=== PATIENT | female | born 1980 | race Caucasian/White ===

== ENCOUNTER 2020-03-03 13:12 | Day surgery (SDC) | payer OTHER, SELFPAY ==
[2020-02-25 15:17] VITALS: BMI 49.4
--- NOTE | 2020-03-02 12:39 | P.CONAN_ITS ---
Documented by User: Berenice Gannon 03/02/20 12:40 HPI - Anesthesia Eval Consult details Narrative: 39yo F for Colonoscopy PMFSH Past Medical History Medical History GERD (gastroesophageal reflux disease) History of anxiety History of fibromyalgia History of headache Hx of irritable bowel syndrome Hx of ovarian cyst Hx of renal calculi Hydradenitis Family History Family History Father HTN (hypertension) Diabetes mellitus Liver cancer Alcoholic Mother Liver cancer Anxiety Depression Brother Heart attack Buerger disease Stroke Seizure Diabetes mellitus Family/Other Mild asthma Maternal Grandmother Cancer of unknown origin Maternal Grandfather Liver cancer Paternal Grandfather Heart problem Surgical History Surgical History H/O colonoscopy H/O tubal ligation History of History of cholecystectomy History of esophagogastroduodenoscopy (EGD) Social History Social History Smoking Status: Current every day smoker Packs Per Day: 0.5 Cigarettes Per Day: 10.0 Years Smoked: 25 Smoked in Last 30 Days: Yes Advance Directives Information Provided: No Meds Allergies Allergy/AdvReac Type Severity Reaction Status Date / Time azithromycin [AZITHROMYCIN] Allergy Unknown RASH Unverified 01/16/20 15:19 codeine [CODEINE] Allergy Unknown VOMITING Unverified 01/16/20 15:19 fluconazole [Diflucan] Allergy Unknown Verified 11/27/19 00:00 Sulfa (Sulfonamide Allergy Unknown RASH Unverified 01/16/20 15:19 Antibiotics) [SULFA (SULFONAMIDE ANTIBIOTICS)] topiramate [Topamax] Allergy Unknown Verified 12/17/19 00:00 amitriptyline AdvReac Unknown stomach Verified 11/27/19 00:00 upset Toradol Allergy Unknown rash Uncoded 11/27/19 00:00 Amitriptyline AdvReac Unknown Uncoded 12/17/19 00:00 Codeine Sulfate AdvReac Unknown N/V Uncoded 11/27/19 00:00 Home Medications Medication Instructions Recorded Confirmed Type bupropion HCl 150 mg tablet,12 hr 150 mg PO BID 01/30/20 02/25/20 History sustained-release ciprofloxacin HCl 500 mg tablet 500 mg PO BID 01/30/20 History gabapentin 300 mg capsule 300 mg PO TID 01/30/20 02/25/20 History ibuprofen 600 mg tablet mg PO 01/30/20 History levofloxacin 500 mg tablet 500 mg PO DAILY 01/30/20 History lorazepam 1 mg tablet 1 mg PO BID 01/30/20 02/25/20 History naproxen 500 mg tablet mg PO 01/30/20 History omeprazole 20 mg capsule,delayed 20 mg PO DAILY 01/30/20 02/25/20 History release ondansetron HCl 4 mg tablet mg PO 01/30/20 History oxycodone-acetaminophen 5 mg-325 3 tab PO PRN 01/30/20 History mg tablet peg 3350-electrolytes 236 ml PO DIRECTED 01/30/20 History gram-22.74 gram-6.74 gram-5.86 gram solution Exam Exam Date and Time: March 02, 2020 1239 Height,Weight and Vital Signs: Height 5 ft 2 in Weight 122.47 kg Pertinent Lab Results Pertinent Lab Results: Laboratory Tests 12/12/19 12/12/19 14:24 14:24 WBC 9.3 Hgb 13.0 Hct 39.7 Plt Count 294 Sodium 141 Potassium 3.9 Chloride 108 BUN 12 Creatinine 0.87 Assessment and Plan Assessment Anesthesia Assessment: Chart Reviewed Documented by User: Rodolfo Guzman MD 03/03/20 14:57 [facility] Past Medical History Medical History GERD (gastroesophageal reflux disease) History of anxiety History of fibromyalgia History of headache Hx of irritable bowel syndrome Hx of ovarian cyst Hx of renal calculi Hydradenitis Family History Family History Father HTN (hypertension) Diabetes mellitus Liver cancer Alcoholic Mother Liver cancer Anxiety Depression Brother Heart attack Buerger disease Stroke Seizure Diabetes mellitus Family/Other Mild asthma Maternal Grandmother Cancer of unknown origin Maternal Grandfather Liver cancer Paternal Grandfather Heart problem Surgical History Surgical History H/O colonoscopy H/O tubal ligation History of History of cholecystectomy History of esophagogastroduodenoscopy (EGD) Social History Social History Smoking Status: Current every day smoker Packs Per Day: 0.5 Cigarettes Per Day: 10.0 Years Smoked: 25 Smoked in Last 30 Days: Yes Advance Directives Information Provided: No Meds Allergies Allergy/AdvReac Type Severity Reaction Status Date / Time azithromycin [AZITHROMYCIN] Allergy Unknown RASH Unverified 01/16/20 15:19 codeine [CODEINE] Allergy Unknown VOMITING Unverified 01/16/20 15:19 fluconazole [Diflucan] Allergy Unknown Verified 11/27/19 00:00 Sulfa (Sulfonamide Allergy Unknown RASH Unverified 01/16/20 15:19 Antibiotics) [SULFA (SULFONAMIDE ANTIBIOTICS)] topiramate [Topamax] Allergy Unknown Verified 12/17/19 00:00 amitriptyline AdvReac Unknown stomach Verified 11/27/19 00:00 upset Toradol Allergy Unknown rash Uncoded 11/27/19 00:00 Amitriptyline AdvReac Unknown Uncoded 12/17/19 00:00 Codeine Sulfate AdvReac Unknown N/V Uncoded 11/27/19 00:00 Home Medications Medication Instructions Recorded Confirmed Type bupropion HCl 150 mg tablet,12 hr 150 mg PO BID 01/30/20 02/25/20 History sustained-release ciprofloxacin HCl 500 mg tablet 500 mg PO BID 01/30/20 History gabapentin 300 mg capsule 300 mg PO TID 01/30/20 02/25/20 History ibuprofen 600 mg tablet mg PO 01/30/20 History levofloxacin 500 mg tablet 500 mg PO DAILY 01/30/20 History lorazepam 1 mg tablet 1 mg PO BID 01/30/20 02/25/20 History naproxen 500 mg tablet mg PO 01/30/20 History omeprazole 20 mg capsule,delayed 20 mg PO DAILY 01/30/20 02/25/20 History release ondansetron HCl 4 mg tablet mg PO 10/01/20 History oxycodone-acetaminophen 5 mg-325 3 tab PO PRN 01/30/20 History mg tablet peg 3350-electrolytes 236 ml PO DIRECTED 01/30/20 History gram-22.74 gram-6.74 gram-5.86 gram solution Assessment and Plan Assessment Anesthesia Assessment: Anesthesia Plan Discussed and Chart Reviewed Final Anesthetic Review NPO: Yes ASA Class: III Final Preanesthetic Review: No Changes in Pt Med Stat, Meds/Allgs Chart Reviewed, Consent Obtained/Reviewed and Anes Risks/Benef Reviewed Patient Risk: High Procedure Risk: Low Anesthetic Plan Anesthetic Plan: MAC: Disposition: Standard PACU
[2020-03-03 13:50] VITALS: BP 118/71; PULSE 78; RESP 18; TEMP 36.2; O2SAT 97
[2020-03-03] MEDS: Lactated Ringers 1,000 ML 100 ML IVCONT (14:07)
--- NOTE | 2020-03-03 14:11 | MHC.SHP ---
Pre-Procedural Eval Section B Chief Complaint: TUBULAR ADENOMA Relevant Family History (Specify if Yes): No Relevant Social History: Tobacco Use Present Medications: see Short Stay Collaborative assessment Medical History: Significant History (obesity, kidney stones, migraine, OA) History of Previous Operations: Relevant previous surgery/procedure and date(s) (cholecystectomy, c section) Allergies: Allergies Allergy/AdvReac Type Severity Reaction Status Date / Time azithromycin [AZITHROMYCIN] Allergy Unknown RASH Unverified 01/16/20 15:19 codeine [CODEINE] Allergy Unknown VOMITING Unverified 01/16/20 15:19 fluconazole [Diflucan] Allergy Unknown Verified 11/27/19 00:00 Sulfa (Sulfonamide Allergy Unknown RASH Unverified 01/16/20 15:19 Antibiotics) [SULFA (SULFONAMIDE ANTIBIOTICS)] topiramate [Topamax] Allergy Unknown Verified 12/17/19 00:00 amitriptyline AdvReac Unknown stomach Verified 11/27/19 00:00 upset Toradol Allergy Unknown rash Uncoded 11/27/19 00:00 Amitriptyline AdvReac Unknown Uncoded 12/17/19 00:00 Codeine Sulfate AdvReac Unknown N/V Uncoded 11/27/19 00:00 Review of Systems Sugical H&P ROS: Negative: Constitution, Cardiovascular, Respiratory, Neurological, Psychiatric, Hem-Onc, Allergic/Immunologic, Gastrointestinal, Genitourinary, Musculoskeletal, Integumentary, Endocrine and Eyes/Ears/Nose/Throat Exam Surgical H&P Exam: Normal: HEENT, Normal: Heart, Normal: Lungs, Normal: Extremities, Normal: Abdomen, Normal: Skin and Normal: Neurological Plan Diagnosis/Plan: Unchanged Patient has been examined and remains a candidate for the planned procedure
--- NOTE | 2020-03-03 14:49 | PM.OP ---
Brief Operative Note Date of procedure: 03/03/20 Pre-op diagnosis: hx of polyps, diarrhea Post-op diagnosis: same Procedure: see op note Surgeon: Darius Palomino MD Anesthesia: MAC Estimated blood loss (mL): 5 Condition: stable Disposition: PACU
--- NOTE | 2020-03-03 14:50 | P.OP_ITS ---
Operative Note Operative Note Narrative: Operative Information Procedure Description: Colonoscopy COLONOSCOPY Instrument: Olympus variable stiffness pediatric scope 190L Colonoscopy Monitoring: Vital signs and clinical assessment, continuous EKG monitoring, Pulse oximetry, Carbon Dioxide monitoring and blood pressure monitoring were done throughout the procedure. Colon withdrawal time was 22 minutes. Procedure: The patient was placed in the left lateral decubitis position and pre-procedure medications were administered. After a digital rectal examination of the ano-rectum, the video colonoscope was inserted into the rectum and advanced through the colon to the cecum/TI. The colonoscope was slowly withdrawn in a retrograde panoramic fashion and the colon mucosa was carefully examined including a retroflexed view of the rectum. Findings and interventions are described below. Procedure Difficulty: easy Findings: Terminal Ileum-normal, bx taken random colon--bx taken Cecum:normal Ascending Colon: polyp noted at site of prior marking, measured 12-15 mm removed en bloc with hot snare cut setting and retrieved, 2 clips applied to close defect Transverse Colon -normal Descending Colon:normal Sigmoid Colon: 8-10 mm sessile polyp removed with cold snare with 2 clips applied due to oozing of blood Rectum: Retroflexion with moderate sized internal hemorrhoids, grade I Anorectum - normal Colon preparation: [place] Bowel Preparation Scale Right colon; 3 Transverse colon: 2 Left colon; 3 (0 = Unprepared colon segment with mucosa not seen due to solid stool that cannot be cleared. 1 = Portion of mucosa of the colon segment seen, but other areas of the colon segment not well seen due to staining, residual stool and/or opaque liquid. 2 = Minor amount of residual staining, small fragments of stool and/or opaque liquid, but mucosa of colon segment seen well. 3 = Entire mucosa of colon segment seen well with no residual staining, small fragments of stool or opaque liquid) Impression and Post Procedure Diagnosis: polyps internal hemorrhoids Plan: High fiber diet leaflet Avoid straining at stool, epsom salts and sitz bath prn, anusol supps or cream prn Repeat Colonoscopy in 2-3 years or earlier if clinically indicated Above findings were reviewed with the patient and relevant handouts were provided if indicated.
[2020-03-03 15:00] VITALS: BP 120/62; PULSE 85; RESP 20; TEMP 36.6; O2SAT 99
[2020-03-03] MEDS: ondansetron HCL 4 MG/2 ML VIAL IVPUSH (15:14)
[2020-03-03 15:15] VITALS: BP 135/78; PULSE 80; RESP 20; O2SAT 99
[2020-03-03 15:37] VITALS: BP 132/76; PULSE 76; RESP 20; TEMP 36.1; O2SAT 98
== END 2020-03-03 23:59 | disposition home or self-care (01) ==
PROVIDERS: PCP Internal Medicine; Visit Provider Internal Medicine Gastroenterology
PROC: 0DJD8ZZ Inspection of Lower Intestinal Tract, Via Natural or Artificial Opening Endoscopic (ICD-10-PCS; CPT 45378; principal; 2020-03-03 14:30)
DX: Z12.11 Encounter for screening for malignant neoplasm of colon (principal); Z86.010 Personal history of colon polyps; D12.2 Benign neoplasm of ascending colon; D12.5 Benign neoplasm of sigmoid colon; K64.0 First degree hemorrhoids; K21.9 Gastro-esophageal reflux disease without esophagitis; Z90.49 Acquired absence of other specified parts of digestive tract; Z79.899 Other long term (current) drug therapy; Z88.1 Allergy status to other antibiotic agents; Z88.2 Allergy status to sulfonamides; Z88.8 Allergy status to other drugs, medicaments and biological substances; F17.210 Nicotine dependence, cigarettes, uncomplicated
CPT/HCPCS: 45385; 45380; 88305; J2405

== ENCOUNTER 2020-04-06 12:22 | Outpatient (REF) | payer OTHER, SELFPAY ==
[2020-04-06 13:54] LABS: Hematocrit 42.6 % (37-47); Hemoglobin 13.8 g/dl (12.0-16.0); Mean Corpuscular HGB Conc 32.4 g/dl (31.0-35.0); Mean Corpuscular Hemoglobin 29.5 pg (27.0-33.0); Mean Platelet Volume 10.1 fL (9.4-12.3); Platelet Count 287 X10*3/uL (160-400); Red Blood Count 4.68 X10*6/uL (4.20-5.50); Red Cell Distribution Width 12.9 % (11.0-16.0); White Blood Count 9.1 X10*3/uL (4.8-10.8)
[2020-04-06 14:26] LABS: Alanine Aminotransferase 23 U/L (0-31); Albumin Level 4.1 g/dL (3.5-5.0); Alkaline Phosphatase 117 U/L (39-117); Anion Gap 13 (12-20); Aspartate Amino Transferase 14 U/L (5-31); Bilirubin Total 0.4 mg/dL (0.0-1.0); Blood Urea Nitrogen 14 mg/dL (9-16); Calcium 9.2 mg/dL (8.4-10.2); Carbon Dioxide 29 mmol/L (22-29); Chloride 104 mmol/L (96-108); Estimated Glomerular Filt Rate > 60; Glucose Random 89 mg/dL (60-115); Potassium 3.9 mmol/l (3.3-5.1); Sodium 142 mmol/L (135-145); Total Protein 7.3 g/dL (6.5-8.0)
[2020-04-06 14:39] LABS: TSH reflex Free T4 0.97 mIU/mL (0.32-4.0)
== END 2020-04-06 12:23 | disposition home or self-care (01) ==
LOC: HO.HMGCLDS 12:22
PROVIDERS: PCP Internal Medicine; Visit Provider Hospitalist
DX: R00.2 Palpitations (principal)
CPT/HCPCS: 36415; 80053; 84443; 85027

== ENCOUNTER → 2020-04-14 08:41 | Outpatient (BNVA) | payer OTHER, SELFPAY | PROVIDERS: Visit Provider Physician Assistant | DX: Z76.89 Persons encountering health services in other specified circumstances (principal) ==

== ENCOUNTER 2020-05-07 14:04 | Outpatient (REF) | payer OTHER, SELFPAY ==
[2020-05-09 14:17] LABS: C. trachomatis RNA TMA NOT DETECTED (NOT DETECTED); N. gonorrhoeae RNA TMA NOT DETECTED (NOT DETECTED)
[2020-05-12 02:32] LABS: HPV mRNA E6/E7 rflx Not Detected (Not Detected)
== END 2020-05-07 14:05 | disposition home or self-care (01) ==
LOC: HO.LAB 14:04
PROVIDERS: PCP Internal Medicine; Visit Provider Advanced Practice Midwife
DX: Z12.4 Encounter for screening for malignant neoplasm of cervix (principal); N63.0 Unspecified lump in unspecified breast; E66.01 Morbid (severe) obesity due to excess calories; N92.0 Excessive and frequent menstruation with regular cycle; L73.2 Hidradenitis suppurativa
CPT/HCPCS: 36415; 87491; 87591; 87624; 88142

== ENCOUNTER → 2020-05-13 08:22 | Outpatient (BNVA) | payer OTHER, SELFPAY | PROVIDERS: PCP Internal Medicine; Visit Provider Physician Assistant | DX: Z76.89 Persons encountering health services in other specified circumstances (principal) ==

== ENCOUNTER 2020-05-14 13:20 | Outpatient (REF) | payer OTHER, SELFPAY ==
--- NOTE | 2020-05-14 13:25 | US_ITS ---
EXAMINATION: US PELVIS COMPLETE US TRANSVAGINAL CLINICAL INFORMATION: Frequent menses. COMPARISON: Ultrasound pelvis 01/23/2017. TECHNIQUE: Transabdominal and transvaginal ultrasound of the pelvis is performed. FINDINGS: The uterus is anteverted and anteflexed measuring 8.2 cm in length, 4.6 cm in AP and 5.2 cm in transverse dimension. Endometrial thickness is 1.22 cm. The uterus is homogeneous in echotexture. There are small nabothian cysts seen in the cervix on transvaginal ultrasound. The right ovary is not visualized. The left ovary is not seen. US/US transvaginal IMPRESSION: Unremarkable uterus. Multiple nabothian cysts seen in cervix. The ovaries are unremarkable.
--- NOTE | 2020-05-14 13:25 | US_ITS ---
EXAMINATION: US PELVIS COMPLETE US TRANSVAGINAL CLINICAL INFORMATION: Frequent menses. COMPARISON: Ultrasound pelvis 01/23/2017. TECHNIQUE: Transabdominal and transvaginal ultrasound of the pelvis is performed. FINDINGS: The uterus is anteverted and anteflexed measuring 8.2 cm in length, 4.6 cm in AP and 5.2 cm in transverse dimension. Endometrial thickness is 1.22 cm. The uterus is homogeneous in echotexture. There are small nabothian cysts seen in the cervix on transvaginal ultrasound. The right ovary is not visualized. The left ovary is not seen. US/US pelvic complete IMPRESSION: Unremarkable uterus. Multiple nabothian cysts seen in cervix. The ovaries are unremarkable.
== END 2020-05-14 13:21 | disposition home or self-care (01) ==
LOC: HO.US 13:20
PROVIDERS: Visit Provider Advanced Practice Midwife
DX: N92.0 Excessive and frequent menstruation with regular cycle (principal)
CPT/HCPCS: 76830; 76856

== ENCOUNTER → 2020-05-20 08:00 | Outpatient (REF) | payer OTHER, SELFPAY ==
--- NOTE | 2020-05-20 08:07 | NM_ITS ---
EXAMINATION: RADIONUCLIDE SOLID FOOD GASTRIC EMPTYING 4-HOUR STUDY CLINICAL INFORMATION: Early satiety. COMPARISON: No previous gastric emptying study is available for comparison. TECHNIQUE: A standard meal consisting of 4 oz of Egg Beaters brand equivalent tagged with 710 microcuries Tc-99m Sulfur Colloid, 8 oz water and 2 slices of toast with jelly was administered orally to the patient. Images were obtained using a dual head gamma camera in the anterior and posterior projections over of the stomach immediately post ingestion and at hourly intervals up to 4 hours post ingestion. The anterior and posterior counts at each time interval were averaged using the geometric mean and expressed as percentage of the immediate post ingestion counts. FINDINGS: There is good visualization of activity in the stomach immediately post ingestion. As the study progresses, there is visualization of progressively increasing small bowel activity. However, at the end of the study there is mild abnormal retention of activity in the stomach at 4 hours. Retention in the stomach at each time interval was: 1 hour 79% (normal 37%-90%) 2 hours 66% (normal 30%-60%) 3 hours 52% 4 hours 23% (normal 0%-10%) NM/NM gastric emptying study IMPRESSION: Abnormal study. There is mild abnormal retention of solid food in the stomach at 4 hours.
== END ==
LOC: HO.NUCMED 08:00
PROVIDERS: Visit Provider Physician Assistant
DX: R68.81 Early satiety (principal)
CPT/HCPCS: 78264; A9541

== ENCOUNTER → 2020-06-09 12:06 | Outpatient (BNVA) | payer OTHER, SELFPAY | PROVIDERS: PCP Advanced Practice Midwife; Visit Provider Advanced Practice Midwife | DX: Z76.89 Persons encountering health services in other specified circumstances (principal) | CPT/HCPCS: 99212 ==

== ENCOUNTER 2020-07-17 10:07 | Outpatient (REF) | payer OTHER, SELFPAY ==
--- NOTE | ~2020-07-17 | XR_ITS ---
EXAMINATION: XR CHEST CLINICAL INFORMATION: Shortness of breath COMPARISON: Previous chest x-ray September 2018 TECHNIQUE: 2 views of the chest were obtained. FINDINGS: The cardiac and mediastinal contours are stable. The lungs are clear. There is no pleural effusion or pneumothorax. There are degenerative changes of the spine. XR/XR chest 2V IMPRESSION: Unremarkable examination.
== END 2020-07-17 10:08 | disposition home or self-care (01) ==
LOC: HO.HMGCX 10:07
PROVIDERS: PCP Internal Medicine; Visit Provider Nurse Practitioner Family
DX: R06.02 Shortness of breath (principal)
CPT/HCPCS: 71046

== ENCOUNTER 2020-07-31 11:43 | Emergency (ER) | payer OTHER, SELFPAY ==
--- NOTE | 2020-07-31 | ECG_ITS ---
Test Reason : CHEST PAIN Blood Pressure : / mmHG Vent. Rate : 081 BPM Atrial Rate : 081 BPM P-R Int : 142 ms QRS Dur : 074 ms QT Int : 360 ms P-R-T Axes : 027 -15 -07 degrees QTc Int : 418 ms Normal sinus rhythm T wave abnormality, consider anterior ischemia Abnormal ECG When compared with ECG of 04-OCT-2018 20:06, Nonspecific T wave abnormality, worse in Inferior leads Inverted T waves have replaced nonspecific T wave abnormality in Anterior leads Referred By: Generic ED Physician Electronically Signed By:ANDREA YI MD
--- NOTE | ~2020-07-31 | XR_ITS ---
EXAMINATION: XR CHEST CLINICAL INFORMATION: EKG changes COMPARISON: Previous chest x-ray 07/17/2020 TECHNIQUE: Frontal view of the chest was obtained. FINDINGS: The cardiac and mediastinal contours are stable. The lungs are clear. There is no pleural effusion or pneumothorax. There are degenerative changes of the spine. XR/XR chest 1V IMPRESSION: No evidence for acute disease in the chest.
[2020-07-31 11:44] VITALS: BP 135/87; PULSE 78; RESP 16; TEMP 37.1; O2SAT 97; BMI 40.3
--- NOTE | 2020-07-31 12:04 | PC.NURSE ---
utilization management rn aware that pt needs ekg and poc, this rn called charge x2 for ekg for triage. pt presents from [facility] office with ekg changes.
[2020-07-31 13:53] LABS: MANUAL DIFF FLAG NO
[2020-07-31 13:55] LABS: Basophils Percent Auto 0.5 % (0-2); Eosinophils Absolute Auto 0.6 X10*3/uL (0.0-0.4); Eosinophils Percent Auto 6.6 % (0-4); Hematocrit 40.4 % (37-47); Hemoglobin 13.4 g/dl (12.0-16.0); Imm Gran Abs Auto 0.02 X10*3/uL (0.00-0.03); Imm Gran Pct Auto 0.2 % (0.0-0.4); Lymphocytes Absolute Auto 3.6 X10*3/uL (1.2-4.9); Mean Corpuscular HGB Conc 33.2 g/dl (31.0-35.0); Mean Corpuscular Hemoglobin 29.6 pg (27.0-33.0); Mean Corpuscular Volume 89.4 fL (80-98); Mean Platelet Volume 9.5 fL (9.4-12.3); Monocytes Absolute Auto 0.5 X10*3/uL (0.1-1.2); Monocytes Percent Auto 5.9 % (2-11); Neutrophils Percent Auto 45.8 % (45-73); Platelet Count 227 X10*3/uL (160-400); Red Blood Count 4.52 X10*6/uL (4.20-5.50); Red Cell Distribution Width 13.4 % (11.0-16.0); White Blood Count 8.7 X10*3/uL (4.8-10.8)
[2020-07-31] MEDS: Lidocaine HCl Viscous 2 % 15 ML SOLUTION MUCOUS MEM (14:08)
[2020-07-31] MEDS: Magnesium Hydrox/Alum Hydrox 30 ML ORAL.SUSP PO (14:08)
[2020-07-31] MEDS: Omeprazole 40 MG CAPSULE.DR PO (14:08)
--- NOTE | 2020-07-31 14:08 | ED.CHESTPAIN ---
HPI - Chest Pain General Chief Complaint: Chest Pain Stated Complaint: chest burning Time Seen by Provider: 07/31/20 13:39 Source: patient Mode of arrival: ambulatory Limitations: no limitations History of Present Illness HPI narrative: 40 y/o female with history of morbid obesity, fibromyalgia, GERD, hiatial hernia, palpitations, colon polyps, who presents to the ED from her PCP's office with complaints of burning chest pain and new EKG changes. She states the pain woke her up at 1am. It is burning in nature, starts in her epigastric area and radiates all the way up to her throat. She states it feels like her usual heartburn only worse. She ate a quesadilla for dinner last night. She has been on Prilosec for years and her GERD has not been under good control. She has a GI doctor who recently performed a colonoscopy but deferred EGD for now. Patient denies SOB, SHIRLEY, fevers, chills, diaphroesis, nausea, vomiting, palpitations. She reports increased urinary frequency and some bilateral lower back pain. No dysuria. Related Data Home Medications Medication Instructions Recorded Confirmed bupropion HCl 150 mg tablet,12 hr 150 mg PO BID 01/30/20 07/31/20 sustained-release lorazepam 1 mg tablet 1 mg PO BID 01/30/20 07/31/20 oxycodone-acetaminophen 5 mg-325 3 tab PO PRN 01/30/20 04/17/20 mg tablet peg 3350-electrolytes 236 ml PO DIRECTED 01/30/20 04/17/20 gram-22.74 gram-6.74 gram-5.86 gram solution Previous Rx's Medication Instructions Recorded amitriptyline 10 mg PO BEDTIME 30 Days #30 tab 03/03/20 clindamycin phosphate 1 % topical 1 appl TOPICAL BID #60 g 05/07/20 gel omeprazole 20 mg capsule,delayed 20 mg PO DAILY 30 Days #30 cap 05/13/20 release ondansetron HCl 4 mg tablet 4 mg PO DAILY PRN #10 tab 05/13/20 gabapentin 300 mg capsule 300 mg PO TID 30 Days #90 cap 05/26/20 albuterol sulfate 90 mcg/actuation 1 inh INHALATION Q6H PRN #8.5 g NS 07/17/20 aerosol inhaler famotidine 40 mg tablet 40 mg PO BEDTIME #30 tab 07/31/20 omeprazole 40 mg capsule,delayed 40 mg PO DAILY #30 cap 07/31/20 release ondansetron HCl 8 mg tablet 8 mg PO Q8H PRN #14 tab 07/31/20 sucralfate [Carafate] 1 g PO BID #20 tab 07/31/20 Allergies Allergy/AdvReac Type Severity Reaction Status Date / Time azithromycin [AZITHROMYCIN] Allergy Unknown RASH Verified 07/31/20 10:54 codeine [CODEINE] Allergy Unknown VOMITING Verified 07/31/20 10:54 fluconazole [Diflucan] Allergy Unknown unknown Verified 07/31/20 10:54 Sulfa (Sulfonamide Allergy Unknown RASH Verified 07/31/20 10:54 Antibiotics) [SULFA (SULFONAMIDE ANTIBIOTICS)] topiramate [Topamax] Allergy Unknown unknown Verified 07/31/20 10:54 amitriptyline AdvReac Unknown stomach Verified 07/31/20 10:54 upset Toradol Allergy Unknown rash Uncoded 07/31/20 10:54 Amitriptyline AdvReac Unknown unknown Uncoded 07/31/20 10:54 Codeine Sulfate AdvReac Unknown N/V Uncoded 07/31/20 10:54 Review of Systems Review of Systems: Constitutional: No Fever, No Chills ENT/Mouth: No sore throat, No Rhinorrhea, No Swallowing Difficulty Eyes: No Eye Pain, No Swelling, No Redness Cardiovascular: + Chest Pain, No SOB, No Orthopnea, No Edema Respiratory: No Cough, No Sputum, No Wheezing, No dyspnea Gastrointestinal: No Nausea, No Vomiting, No Diarrhea, + abdominal Pain Genitourinary: No Dysuria, + Urinary Frequency, No Hematuria Musculoskeletal: No joint pain, No Myalgias Skin: No Skin Lesions, No rash Neuro: No Weakness, No Numbness, No Dizziness, + Headache Psych: + Anxiety/Panic, No Depression Heme/Lymph: No Bruising, No Lymphadenopathy Endocrine: No Polyuria, No Polydipsia PMFSH Past Medical History Attestation statement: The following information was validated with the patient. Medical History Acid reflux Colon polyps Early satiety Fibromyalgia GERD (gastroesophageal reflux disease) History of anxiety History of fibromyalgia History of headache Hx of irritable bowel syndrome Hx of ovarian cyst Hx of renal calculi Hydradenitis Surgical History H/O colonoscopy H/O tubal ligation History of History of cholecystectomy History of esophagogastroduodenoscopy (EGD) Family History Family History Father HTN (hypertension) Diabetes mellitus Liver cancer Alcoholic Mother Liver cancer Anxiety Depression Brother Heart attack Buerger disease Stroke Seizure Diabetes mellitus Family/Other Mild asthma Maternal Grandmother Cancer of unknown origin Maternal Grandfather Liver cancer Paternal Grandfather Heart problem Social History Social History Household Members: Spouse and Children Alcohol intake: never Smoking Status: Current every day smoker Packs Per Day: 0.5 Cigarettes Per Day: 10.0 Years Smoked: 25 Advance Directives: No Advance Directives Information Provided: No Current occupational status: unemployed Current occupation: due to Covid Gender identity: female Physical Exam Vital Signs: Vital Signs: Last Vital Signs Temp 98.8 F 07/31/20 11:44 Pulse 72 07/31/20 14:13 Resp 14 07/31/20 14:13 BP 130/81 07/31/20 14:13 Pulse Ox 100 07/31/20 14:13 Body Mass Index 40.3 Appearance: Alert. Oriented X3. No acute distress. Eyes: Pupils equal, round and reactive to light. ENT: Pharynx normal. Neck: Normal inspection. Neck supple. CVS: Normal heart rate and rhythm. Pulses normal. Respiratory: No respiratory distress. Breath sounds normal. Abdomen: Obese, Soft with mild epigastric tenderness, no rebound or guarding. +BS x4. No CVA tenderness Skin: Skin warm and dry. Normal skin color. Normal skin turgor. No rashes. Extremities: No lower extremity edema. Neuro: Oriented X 3. No motor deficit. No sensory deficit. Course Course Course Narrative: 40 y/o female presenting with burning chest pain, starting in epigastric area going up to her neck. Clinical picture most consistent with reflux however she has new t-wave inversions on EKG which are non-specific. Will get EKG here, EKG and lab workup. Will treat for reflux with GI cocktail and reassess. Low suspicion for ACS. Reevaluation(s) Reevaluation #1: Lab workup is reassuring. Her symptoms are improved after GI cocktail. Troponin negative. Her symptoms started >6 hours ago so no need to repeat at this time. Her symptoms are most likely due to GERD and her hiatal hernia. She has poorly controlled symptoms at baseline and sounds like she needs repeat EGD for further assessment. She will follow up with Dr. Fontenot. She has been instructed to come back to the ER if any of her symptoms worsen or persist. She is stable for discharge. Patient and are agreeable with plan. MDM - Chest Pain Lab Data Attestation: I reviewed the patient's lab results. Result diagrams: 07/31/20 13:48 07/31/20 13:48 Labs: Lab Results 07/31/20 07/31/20 07/31/20 Range/Units 13:48 13:48 13:48 WBC 8.7 (4.8-10.8) X10*3/uL RBC 4.52 (4.20-5.50) X10*6/uL Hgb 13.4 (12.0-16.0) g/dl Hct 40.4 (37-47) % MCV 89.4 (80-98) fL MCH 29.6 (27.0-33.0) pg MCHC 33.2 (31.0-35.0) g/dl RDW 13.4 (11.0-16.0) % Plt Count 227 (160-400) X10*3/uL MPV 9.5 (9.4-12.3) fL Immature Gran % (Auto) 0.2 (0.0-0.4) % Neut % (Auto) 45.8 (45-73) % Lymph % (Auto) 41.0 H (20-40) % Charles % (Auto) 5.9 (2-11) % Eos % (Auto) 6.6 H (0-4) % Baso % (Auto) 0.5 (0-2) % Lymph # (Auto) 3.6 (1.2-4.9) X10*3/uL Charles # (Auto) 0.5 (0.1-1.2) X10*3/uL Eos # (Auto) 0.6 H (0.0-0.4) X10*3/uL Baso # (Auto) 0.0 (0.0-0.2) X10*3/uL Abs Immat Gran (auto) 0.02 (0.00-0.03) X10*3/uL Absolute Neuts (auto) 4.0 (2.0-8.3) X10*3/uL Absolute Nucleated RBC 0.000 (0.0-0.012) X10*3/uL Nucleated RBC % (auto) 0.0 (0.0-0.2) /100WBC Hold Blue Top SEE NOTE Sodium 143 (135-145) mmol/L Potassium 4.1 (3.3-5.1) mmol/L Chloride 108 (96-108) mmol/L Carbon Dioxide 26 (22-29) mmol/L Anion Gap 13 (12-20) BUN 15 (9-16) mg/dL Creatinine 0.80 (0.5-1.4) mg/dL Estim Creat Clear Calc 109.1 Estimated GFR > 60 Random Glucose 89 (60-115) mg/dL Calcium 9.5 (8.4-10.2) mg/dL Total Bilirubin 0.5 (0.0-1.0) mg/dL Direct Bilirubin < 0.2 (0.0-0.5) mg/dL AST 30 D (5-31) U/L ALT 52 H (0-31) U/L Alkaline Phosphatase 104 (39-117) U/L Troponin I High Sens (<3.5-17.0) ng/L Total Protein 7.0 (6.5-8.0) g/dL Albumin 4.0 (3.5-5.0) g/dL Urine Color Urine Appearance Urine pH (5.0-8.0) Ur Specific [place] (1.005-1.025) Urine Protein (NEG-TRACE) MG/DL Urine Glucose (UA) (NEG) MG/DL Urine Ketones (NEG) MG/DL Urine Blood (NEG) Urine Nitrite (NEG) Ur Leukocyte Esterase (NEG) Urine RBC (0) /HPF Urine WBC (0-4) /HPF Ur Squamous Epith Cells /LPF Urine Bacteria /LPF 07/31/20 07/31/20 Range/Units 13:48 14:04 WBC (4.8-10.8) X10*3/uL RBC (4.20-5.50) X10*6/uL Hgb (12.0-16.0) g/dl Hct (37-47) % MCV (80-98) fL MCH (27.0-33.0) pg MCHC (31.0-35.0) g/dl RDW (11.0-16.0) % Plt Count (160-400) X10*3/uL MPV (9.4-12.3) fL Immature Gran % (Auto) (0.0-0.4) % Neut % (Auto) (45-73) % Lymph % (Auto) (20-40) % Charles % (Auto) (2-11) % Eos % (Auto) (0-4) % Baso % (Auto) (0-2) % Lymph # (Auto) (1.2-4.9) X10*3/uL Charles # (Auto) (0.1-1.2) X10*3/uL Eos # (Auto) (0.0-0.4) X10*3/uL Baso # (Auto) (0.0-0.2) X10*3/uL Abs Immat Gran (auto) (0.00-0.03) X10*3/uL Absolute Neuts (auto) (2.0-8.3) X10*3/uL Absolute Nucleated RBC (0.0-0.012) X10*3/uL Nucleated RBC % (auto) (0.0-0.2) /100WBC Hold Blue Top Sodium (135-145) mmol/L Potassium (3.3-5.1) mmol/L Chloride (96-108) mmol/L Carbon Dioxide (22-29) mmol/L Anion Gap (12-20) BUN (9-16) mg/dL Creatinine (0.5-1.4) mg/dL Estim Creat Clear Calc Estimated GFR Random Glucose (60-115) mg/dL Calcium (8.4-10.2) mg/dL Total Bilirubin (0.0-1.0) mg/dL Direct Bilirubin (0.0-0.5) mg/dL AST (5-31) U/L ALT (0-31) U/L Alkaline Phosphatase (39-117) U/L Troponin I High Sens < 3.5 (<3.5-17.0) ng/L Total Protein (6.5-8.0) g/dL Albumin (3.5-5.0) g/dL Urine Color YELLOW Urine Appearance CLEAR Urine pH 5.5 (5.0-8.0) Ur Specific [place] >= 1.030 H (1.005-1.025) Urine Protein NEG (NEG-TRACE) MG/DL Urine Glucose (UA) NEG (NEG) MG/DL Urine Ketones NEG (NEG) MG/DL Urine Blood 3+ H (NEG) Urine Nitrite NEG (NEG) Ur Leukocyte Esterase NEG (NEG) Urine RBC 5-9 H (0) /HPF Urine WBC 0-2 (0-4) /HPF Ur Squamous Epith Cells TRACE /LPF Urine Bacteria NONE /LPF ECG Data ECG #1: Attestation: I personally reviewed and interpreted this ECG as follows: ECG interpretation date: 07/31/20 ECG interpretation time: 14:53 Prior ECG tracings: available for review Interpretation: normal sinus rhythm, 81 bpm, normal VA interval, normal QTc, nonspecific T-wave inversion in V3-V5 which are new from 2019 Critical Care Time Critical Care Time Critical Care Time: No Discharge Plan Discharge Clinical Impression: Hernia, hiatal Acid reflux Qualifiers: Esophagitis presence: esophagitis presence not specified Qualified Code(s): K21.9 - Gastro-esophageal reflux disease without esophagitis Patient Disposition: Home, Self-Care Instructions: Hiatal Hernia (ED), Gastroesophageal Reflux Disease (ED) Additional Instructions: Your lab workup today was unremarkable. It is most likely that your chest burning is due to severe reflux disease. Agree with increasing Priolsec to 40 mg and adding famotidine to your regimen, Recommend eating small meals throughout the day. Sit upright for 1 hour after eating. Do not lay down. Do not eat within 3 hours of going to bed. Avoid acidic and spicy food. Recommend keeping a food diary. Stop smoking cigarettes. Losing weight will help your hiatal hernia. Follow up with Dr. Fontenot. If you have any worsening pain or any new or concerning symptoms, come back to the ER for further evaluation. Prescriptions: New sucralfate [Carafate] 1 gram tablet 1 g PO BID Qty: 20 RF: 0 No Action gabapentin 300 mg capsule 300 mg PO TID 30 Days Qty: 90 RF: 2 amitriptyline 10 mg tablet 10 mg PO BEDTIME 30 Days Qty: 30 RF: 2 albuterol sulfate 90 mcg/actuation HFA aerosol inhaler 1 inh inhalation Q6H PRN (Reason: shortness of breath or wheezing) Qty: 8.5 RF: 2 ondansetron HCl 8 mg tablet 8 mg PO Q8H PRN (Reason: nausea and vomiting) Qty: 14 RF: 1 famotidine [Pepcid] 40 mg tablet 40 mg PO BEDTIME Qty: 30 RF: 2 omeprazole 40 mg capsule,delayed release(DR/EC) 40 mg PO DAILY Qty: 30 RF: 2 lorazepam 1 mg tablet 1 mg PO BID RF: 0 bupropion HCl 150 mg tablet sustained-release 12 hr 150 mg PO BID RF: 0 peg 3350-electrolytes 236-22.74-6.74 -5.86 gram recon soln PO DIRECTED RF: 0 oxycodone-acetaminophen 5-325 mg tablet 3 tab PO PRNRF: 0 clindamycin phosphate 1 % gel 1 appl topical BID Qty: 60 RF: 0 omeprazole 20 mg capsule,delayed release(DR/EC) 20 mg PO DAILY 30 Days Qty: 30 RF: 6 ondansetron HCl [Zofran] 4 mg tablet 4 mg PO DAILY PRN (Reason: nausea and vomiting) Qty: 10 RF: 0 Referrals: Tamar Fontenot MD [Physician] - 2 days
[2020-07-31 14:13] VITALS: BP 130/81; PULSE 72; RESP 14; O2SAT 100
[2020-07-31 14:13] LABS: Glucose Urine UA NEG (NEG); Leukocyte Esterase Urine NEG (NEG); Nitrite Urine NEG (NEG); PH 5.5 (5.0-8.0); Specific Gravity - Urine >= 1.030 (1.005-1.025); Urine Blood 3+ (NEG); Urine Ketones NEG (NEG); Urine Protein NEG (NEG-TRACE)
[2020-07-31 14:15] LABS: Appearance Urine CLEAR; Color Urine YELLOW
[2020-07-31 14:22] LABS: Alanine Aminotransferase 52 U/L (0-31); Alkaline Phosphatase 104 U/L (39-117); Anion Gap 13 (12-20); Aspartate Amino Transferase 30 U/L (5-31); Bilirubin Direct < 0.2 mg/dL (0.0-0.5); Blood Urea Nitrogen 15 mg/dL (9-16); Calcium 9.5 mg/dL (8.4-10.2); Carbon Dioxide 26 mmol/L (22-29); Chloride 108 mmol/L (96-108); Creatinine Clr Calc Pharmacy 109.1; Estimated Glomerular Filt Rate > 60; Glucose Random 89 mg/dL (60-115); Potassium 4.1 mmol/L (3.3-5.1); Sodium 143 mmol/L (135-145)
[2020-07-31 14:27] LABS: Troponin-I High Sensitivity < 3.5 ng/L (<3.5-17.0)
[2020-07-31 14:28] LABS: Squamous Epithelial Cell Urine TRACE /LPF; WBC Urine 0-2 /HPF (0-4)
[2020-07-31] MEDS: Acetaminophen 325 MG TABLET 975 MG PO (14:29)
[2020-07-31 14:31] LABS: Bilirubin Total 0.5 mg/dL (0.0-1.0)
--- NOTE | 2020-07-31 15:34 | PC.NURSE ---
pt states burning pain has returned, did have good relief from meds
[2020-07-31] MEDS: Sucralfate 1 GM TABLET PO (15:50)
== END 2020-07-31 16:17 | disposition home or self-care (01) ==
PROVIDERS: Physician Assistant; Emergency Provider Emergency Medicine; PCP Internal Medicine
DX: R10.13 Epigastric pain (principal); K44.9 Diaphragmatic hernia without obstruction or gangrene; K21.9 Gastro-esophageal reflux disease without esophagitis; E66.01 Morbid (severe) obesity due to excess calories; M79.7 Fibromyalgia; F17.210 Nicotine dependence, cigarettes, uncomplicated; Z79.899 Other long term (current) drug therapy
CPT/HCPCS: 36415; 71045; 80048; 80076; 81001; 84484; 85025; 93005; 96374; 99284

== ENCOUNTER → 2020-08-04 12:39 | Outpatient (BNVA) | payer OTHER, SELFPAY | PROVIDERS: PCP Internal Medicine; Visit Provider Physician Assistant | DX: K21.9 Gastro-esophageal reflux disease without esophagitis (principal); R07.9 Chest pain, unspecified | CPT/HCPCS: 99212 ==

== ENCOUNTER 2020-08-05 13:39 | Outpatient (REF) | payer OTHER, SELFPAY | END 2020-08-05 13:40 | disposition home or self-care (01) | LOC: HO.LAB 13:39 | PROVIDERS: PCP Pediatrics; Visit Provider Obstetrics & Gynecology | DX: N93.9 Abnormal uterine and vaginal bleeding, unspecified (principal) | CPT/HCPCS: 58100; 81025; 88305; 99212 ==

== ENCOUNTER 2020-08-20 08:44 | Day surgery (SDC) | payer OTHER, SELFPAY ==
[2020-08-20 09:20] VITALS: BMI 49.5
--- NOTE | 2020-08-20 09:30 | MHC.SHP ---
Pre-Procedural Eval Section B Chief Complaint: Esophagitis Relevant Family History (Specify if Yes): No Relevant Social History: Tobacco Use Present Medications: see Short Stay Collaborative assessment Medical History: Significant History (obesity, kidney stones, migraine, OA) History of Previous Operations: Relevant previous surgery/procedure and date(s) (cholecystectomy, c section) Allergies: Allergies Allergy/AdvReac Type Severity Reaction Status Date / Time azithromycin [AZITHROMYCIN] Allergy Unknown RASH Verified 08/05/20 13:51 codeine [CODEINE] Allergy Unknown VOMITING Verified 08/05/20 13:51 fluconazole [Diflucan] Allergy Unknown unknown Verified 08/05/20 13:51 Sulfa (Sulfonamide Allergy Unknown RASH Verified 08/05/20 13:51 Antibiotics) [SULFA (SULFONAMIDE ANTIBIOTICS)] topiramate [Topamax] Allergy Unknown unknown Verified 08/05/20 13:51 amitriptyline AdvReac Unknown stomach Verified 08/05/20 13:51 upset Toradol Allergy Unknown rash Uncoded 08/05/20 13:51 Amitriptyline AdvReac Unknown unknown Uncoded 08/05/20 13:51 Codeine Sulfate AdvReac Unknown N/V Uncoded 08/05/20 13:51 Review of Systems Sugical H&P ROS: Negative: Constitution, Cardiovascular, Respiratory, Neurological, Psychiatric, Hem-Onc, Allergic/Immunologic, Gastrointestinal, Genitourinary, Musculoskeletal, Integumentary, Endocrine and Eyes/Ears/Nose/Throat Exam Surgical H&P Exam: Normal: HEENT, Normal: Heart, Normal: Lungs, Normal: Extremities, Normal: Abdomen, Normal: Skin and Normal: Neurological Plan Diagnosis/Plan: Unchanged I have reviewed the history and physical and performed a pertinent physical examination on my patient. No changes have occurred unless specified.
[2020-08-20 09:33] VITALS: BP 147/92; PULSE 89; RESP 17; TEMP 36.1; O2SAT 97
[2020-08-20] MEDS: Lactated Ringers 1,000 ML 20 ML IVCONT (09:36)
--- NOTE | 2020-08-20 09:58 | PM.OP ---
Brief Operative Note Date of Service: 08/20/20 Pre-op diagnosis: GERD Post-op diagnosis: same Procedure: see op note Surgeon: Darius Palomino MD Anesthesia: MAC Estimated blood loss (mL): 0 Condition: stable Disposition: PACU
--- NOTE | 2020-08-20 09:59 | W.PM.OPN ---
Operative Note Operative Note Date of Service: 08/20/20 Narrative: Procedure Description: EGD FLEXIBLE TRANSORAL UPPER GASTROINTESTINAL ENDOSCOPY UPPER ENDOSCOPY Consent: Indications for the procedure and potential complications of bleeding, perforation, reaction to medications and missed diagnosis were discussed with the patient and informed consent was obtained. Instrument: Olympus GIF H 190 J mid size upper endoscope Monitoring: Vital signs and clinical assessment, continuous EKG monitoring, Pulse oximetry, Carbon Dioxide monitoring and blood pressure monitoring were done throughout the procedure. Procedure: The patient was placed in the left lateral decubitis position and pre-procedure medications were administered and a bite block was placed. The endoscope was inserted into the mouth and advanced under direct vision to the third part of duodenum. A careful inspection was made as the upper endoscope was withdrawn including a retroflexed examination of the proximal stomach; Findings and interventions are described below. Findings: Larynx:normal Esophagus: GE junction at 38 cm, diaphragm hiatus at 38 cm, possible short segment Barretts-bx taken from GEJ and distal as well as proximal esophagus in different jars Stomach: Patchy gastric erythema. Biopsies were obtained. Grade 2 flap valve on retroflexed examination of the cardia. Duodenum: Normal bulb and descending duodenum, Intervention: Biopsies as noted above Impression/Findings: gastritis possible Barretts PLAN: await path cont with PPI meantime check if taking any NSAIDS, if h pylori pos then treat
[2020-08-20 10:05] VITALS: BP 121/66; PULSE 93; RESP 16; TEMP 36.1; O2SAT 98
[2020-08-20 10:24] VITALS: BP 115/73; PULSE 77; RESP 18; TEMP 36.1; O2SAT 98
== END 2020-08-20 10:49 | disposition home or self-care (01) ==
PROVIDERS: PCP Pediatrics; Visit Provider Internal Medicine Gastroenterology
PROC: 0DJ08ZZ Inspection of Upper Intestinal Tract, Via Natural or Artificial Opening Endoscopic (ICD-10-PCS; CPT 43235; principal; 2020-08-20 13:50)
DX: K21.00 Gastro-esophageal reflux disease with esophagitis, without bleeding (principal); K29.50 Unspecified chronic gastritis without bleeding; Z79.899 Other long term (current) drug therapy; Z90.49 Acquired absence of other specified parts of digestive tract; E66.9 Obesity, unspecified; F17.210 Nicotine dependence, cigarettes, uncomplicated; F12.90 Cannabis use, unspecified, uncomplicated; Z88.1 Allergy status to other antibiotic agents; Z88.2 Allergy status to sulfonamides; Z88.8 Allergy status to other drugs, medicaments and biological substances; Z87.442 Personal history of urinary calculi
CPT/HCPCS: 43239; 88305; 88342

== ENCOUNTER → 2020-08-25 10:49 | Outpatient (BNVA) | payer OTHER, SELFPAY | PROVIDERS: PCP Internal Medicine; Visit Provider Obstetrics & Gynecology ==

== ENCOUNTER → 2020-09-03 11:47 | Outpatient (BNVA) | payer OTHER, SELFPAY | PROVIDERS: Visit Provider Physician Assistant ==

== ENCOUNTER → 2020-09-16 11:59 | Outpatient (BNVA) | payer OTHER, SELFPAY | PROVIDERS: Visit Provider Obstetrics & Gynecology ==

== ENCOUNTER → 2020-11-05 10:36 | Outpatient (BNVA) | payer OTHER, SELFPAY | PROVIDERS: PCP Internal Medicine; Visit Provider Physician Assistant ==

== ENCOUNTER → 2020-12-22 10:14 | Outpatient (BNVA) | payer OTHER, SELFPAY | PROVIDERS: PCP Internal Medicine; Visit Provider Physician Assistant ==

== ENCOUNTER → 2021-01-06 14:09 | Outpatient (BNVA) | payer OTHER, SELFPAY | PROVIDERS: PCP Internal Medicine; Visit Provider Internal Medicine | DX: E66.01 Morbid (severe) obesity due to excess calories (principal); G47.33 Obstructive sleep apnea (adult) (pediatric); R40.0 Somnolence | CPT/HCPCS: 99212 ==

== ENCOUNTER 2021-01-21 14:14 | Outpatient (REF) | payer OTHER, SELFPAY ==
--- NOTE | ~2021-01-21 | US_ITS ---
EXAMINATION: US DIAGNOSTIC ULTRASOUND BREAST, RIGHT CLINICAL INFORMATION: Palpable abnormalities for and 10:00 positions.. COMPARISON: Mammography of same day as well as studies dating back to mammography and ultrasound to March 04, 2014. TECHNIQUE: Ultrasound of the breast is performed with real-time crenshaw scale imaging and color Doppler. FINDINGS: There is no focal suspicious finding. There is no solid mass, architectural abnormality, duct ectasia, or edema in the soft tissue planes. Results are discussed with the patient at time of visit. US/US breast RT limited IMPRESSION: No ultrasound abnormality in region of palpable abnormalities right breast. ASSESSMENT: BI-RADS 1: Negative RECOMMENDATION: Routine annual mammography screening due in 12 months. Clinical follow-up for abnormalities. This patient's information was entered into a reminder system with a target due date for their next mammogram.
--- NOTE | ~2021-01-21 | MM_ITS ---
EXAMINATION: MM DIAGNOSTIC DIGITAL BREAST TOMOSYNTHESIS, BILATERAL US TARGETED BREAST, RIGHT CLINICAL INFORMATION: Right breast lumps 4 and 10 o'clock position. The lifetime risk of breast cancer based on the Tyrer-Cuzick Model is 7.5%. COMPARISON: Mammography: 06/20/2019 and 03/04/2014 TECHNIQUE: Digital breast tomosynthesis is performed in both the craniocaudal and mediolateral oblique views along with computer-aided detection (CAD). Synthesized 2-D images are generated from the tomosynthesis. Targeted right breast ultrasound. FINDINGS: There are scattered areas of fibroglandular density (ACR BI-RADS breast composition Category b). There are no significant masses, abnormal calcifications, or other abnormalities. Targeted right breast ultrasound did not demonstrate any abnormal cystic or solid masses. No region of abnormal distal sound shadowing identified. Results are provided to the patient at time of visit by the technologist. MM/MM tomosynthesis diagnostic BI IMPRESSION: No specific mammographic or ultrasound evidence to suggest malignancy. ASSESSMENT: BI-RADS 1: Negative. RECOMMENDATION: Routine annual mammography screening due in 12 months. This patient's information was entered into a reminder system with a target due date for their next mammogram.
== END 2021-01-21 14:15 | disposition home or self-care (01) ==
LOC: HO.MAMMO 14:14
PROVIDERS: PCP Internal Medicine; Visit Provider Internal Medicine
DX: N63.11 Unspecified lump in the right breast, upper outer quadrant (principal)
CPT/HCPCS: 76642; 77062; 77066

== ENCOUNTER → 2021-01-21 14:40 | Outpatient (REF) | payer OTHER, SELFPAY | LOC: HO.SL 14:40 | PROVIDERS: PCP Internal Medicine; Visit Provider Internal Medicine | DX: G47.33 Obstructive sleep apnea (adult) (pediatric) (principal); E66.01 Morbid (severe) obesity due to excess calories; R40.0 Somnolence | CPT/HCPCS: 95806 ==

== ENCOUNTER → 2021-01-26 08:17 | Outpatient (BNVA) | payer OTHER, SELFPAY | PROVIDERS: PCP Internal Medicine; Referring Provider Internal Medicine; Visit Provider Physician Assistant | DX: R00.2 Palpitations (principal); R07.2 Precordial pain; G47.33 Obstructive sleep apnea (adult) (pediatric); E66.01 Morbid (severe) obesity due to excess calories; K58.9 Irritable bowel syndrome, unspecified | CPT/HCPCS: 99202 ==

== ENCOUNTER 2021-02-05 17:58 | Outpatient (REF) | payer OTHER, SELFPAY ==
[2021-02-05 18:16] LABS: IDNOW Serial# 9DD0AD1C; Strep A Nucleic Acid Negative (Negative)
[2021-02-05 18:40] LABS: Influenza A PCR NEGATIVE (Negative); Influenza B PCR NEGATIVE (Negative); Resp Syncy Virus RNA Qual PCR NEGATIVE (Negative); SARS COV2 PCR INHOUSE NEGATIVE (Negative)
== END 2021-02-05 17:59 | disposition home or self-care (01) ==
LOC: HO.LNP 17:58
PROVIDERS: Visit Provider Physician Assistant Medical
DX: J06.9 Acute upper respiratory infection, unspecified (principal); Z20.822 Contact with and (suspected) exposure to COVID-19
CPT/HCPCS: 0241U; 87651

== ENCOUNTER → 2021-02-23 11:07 | Outpatient (BNVA) | payer OTHER, SELFPAY | PROVIDERS: PCP Internal Medicine; Visit Provider Internal Medicine | DX: G47.33 Obstructive sleep apnea (adult) (pediatric) (principal); R40.0 Somnolence; R06.83 Snoring; E66.01 Morbid (severe) obesity due to excess calories | CPT/HCPCS: 99212 ==

== ENCOUNTER → 2021-02-25 11:27 | Outpatient (REF) | payer OTHER, SELFPAY ==
--- NOTE | ~2021-02-25 | NM_ITS ---
EXERCISE MYOCARDIAL PERFUSION STUDY INDICATION: Chest pain, assess for coronary disease and ischemia TECHNIQUE: The patient was brought in for an exercise perfusion study on 02/25/2021. Patient performed exercise as per Jose C protocol and was injected 40 mCi of sestamibi once target heart rate was achieved. Images were obtained using the SPECT gamma camera interlaced with the gating device. Images were obtained in supine position. Resting perfusion study was performed on 03/04/2021. Patient was administered 40 mCi of sestamibi intravenously at rest. Images were then obtained in supine position. Total DLP 189mGy-cm. Images were processed with the software and compared side to side in short axis, horizontal long axis and vertical long axis views. FINDINGS: Raw images were reviewed. The stress perfusion study showed diminished tracer uptake in the anterior wall in the midportion. With CT attenuation correction, there is significant improvement suggesting soft tissue attenuation artifact. The gated study shows normal LV systolic function with calculated LVEF of 68%. LV cavity is normal in size. The gated study shows reduced thickening and contractility in the mid anterior wall. Resting study shows mildly diminished tracer uptake in the mid anterior wall. With CT attenuation correction, perfusion appears worse with diminished uptake in the mid to distal anterior wall, apex and distal inferior wall. Gating at rest reveals normal wall motion with ejection fraction at 55%. The findings are consistent with anterior perfusion defect with some reversible and fixed components but improving with CT attenuation correction and hence possibly artifactual. NM/NM cardiolite stress test IMPRESSION: 1. Myocardial perfusion imaging study shows no definitive findings of ischemia or infarct. Anterior perfusion defect with reversible/fixed components suspected to be from soft tissue attenuation. 2. Gated LVEF is 66% during stress and 55% during rest. 3. Transient ischemic dilatation not present. EKG component of the test reported separately.
--- NOTE | 2021-02-25 09:27 | CA_ITS ---
Transthoracic Echocardiogram Patient (Last, First, Middle): Tina Chapman, Gender: Female Date of : 1980 Age: 40 Procedure Date: 02/25/2021 Procedure Type: Transthoracic Echocardiogram Location: OP Height: 154.94 cm Weight: 124.74 kg BSA: 2.16 m2 Heart Rate: bpm BP: 113 / 66 mmHg Cellars Supervisor: CEDRIC Segundo MD: Tate Hancock DO [employer] Assistant: Hudson Hagan MD Symptoms: R00.2 - Palpitations Study Quality: Fair ECG Rhythm: Sinus Conclusions: - 1. Normal LV systolic function with grade 1 diastolic dysfunction 2. Normal cardiac valvular Doppler 3. Normal RV systolic pressure 4. No pericardial effusion Findings Left Ventricle Normal left ventricular size, thickness, and systolic function. The visually estimated ejection fraction is between 60-65%. Spectral Doppler is indicative of an impaired relaxation filling pattern. E/E prime ratio is <8, consistent with normal filling pressures. Evidence suggests grade I (mild) diastolic dysfunction. Right Ventricle Normal right ventricular cavity size and systolic function. Atria Both atria are normal in size. There is lipomatous hypertrophy of the interatrial septum. Interatrial shunt cannot be excluded. Aortic Valve The aortic valve structure and function is likely normal. There is no aortic valve stenosis. There is no aortic valve regurgitation. Mitral Valve There is mild anterior and posterior mitral leaflet thickening. There is trace mitral valve regurgitation. There is no mitral valve stenosis. Pulmonic Valve The pulmonic valve was not well visualized. Tricuspid Valve Likely normal tricuspid valve structure and function. There is trace tricuspid valve regurgitation. The right ventricular systolic pressure is normal. The right ventricular systolic pressure is 18 mmHg. Normal right atrial pressure. There is no evidence of pulmonary hypertension. Great Vessels All visible segments of the aorta are normal in size. The pulmonary artery was not well visualized. Venous The inferior vena cava is normal in size and collapses greater than 50% with inspiration. Pericardium/Pleural There is no evidence of pericardial effusion. Prior Study Comparison No prior study available for comparison. Measurements 2D Linear Measurements IVSd: 0.93 0.6-0.9/0.6-1.0 cm LVIDd: 4.67 3.9-5.3/4.2-5.9 cm LVIDd Index: 2.16 2.4-3.2/2.2-3.1 cm/m2 LVIDs: 3.17 2.0-3.6 cm LVPWd: 0.93 0.7-1.1 cm Ao Root: 2.90 2.1-3.5 cm LA Diam: 3.30 2.7-3.8/3.0-4.0 cm LAIDs Index: 1.53 1.5-2.3 cm/m2 LV Mass: 183.66 67-162/88-224 g LV Mass Index: 85.03 43-95/49-115 g/m2 LVOT Diam: 1.90 3.0+(-)1.3 cm 2D Systolic Function EF 4C: 61.00 >55% EF 2C: 52.40 >55% EF BiP: 56.10 >55% Mitral Valve MV Pk E: 0.82 MV PK A: 0.92 MV Decel Time: 87.00 E/A: 0.90 E'Lateral: 10.40 E'Medial: 8.16 E/E' Med: 10.00 E/E' Lat: 7.80 PHT: 26.00 MVA PHT: 8.46 Decel Rooks: 9.36 Aortic Valve AoV Pk Tj: 1.55 AoV Mn Tj: 1.16 AoV VTI: 0.33 AoV Pk Grad: 10.00 Aov Mn Grad: 6.00 SOHAIL Cont.VTI: 2.04 LVOT LVOT Pk Tj: 1.01 LVOT Mn Tj: 0.73 LVOT VTI: 0.24 LVOT Pk Grad: 4.00 LVOT Mn Grad: 2.00 LVOT Diam: 1.90 LVOT Area: 2.84 Diastolic Function MV Pk E: 0.82 MV Pk A: 0.92 E/A: 0.90 E'Medial: 8.16 E/E' Med: 10.00 E' Laterial: 10.40 E/E' Lat: 7.80 Right Ventricle TAPSE (mm): 1.65 TVS' Tj: 10.70 Tricuspid Valve TR Pk Tj: 1.95 TR Pk Grad: 15.00 RA Press: 3.00 RVSP: 18.00 Great Vessels Aorta Ao Root-2D: 2.90 2.0-3.7 cm Ao Asc: 2.80 2.1-3.4 cm Ao Arch: 2.70 Updated in Other Vendor System with Status of Final Hudson Hagan MD electronically signed on 02/25/2021 12:27:45 PM with status of Final
--- NOTE | 2021-02-25 09:27 | CA_ITS ---
Acquisition Time: 2021-02-25 09:23:08 Total Exercise Time: 00:05:00 Test Indications: CP Medications: SEE CHART Protocol: ZACH Max HR: 162 BPM 91% of Pred: 178 BPM Max BP: 148/072 mmHG Max Work Load: 7.0 METS Exercise stress test with exercise 5 min of zach protocol with moderate shortness of breath, no chest discomfort, without arrythmia, with normotensive response to exercise, without EKG changes meeting criteria for ischemia. In recovery her sob quickly improved ( she related her sob to her asthma). Nuclear images pending. Test reviewed with Dr Valadez. Referred By: Akshat Baird Overread By: JULIUS MELLO
--- NOTE | 2021-02-25 09:27 | HM_ITS ---
Total monitoring time 10 days and 12 hours. Underlying rhythm is sinus. Minimum heart rate 74/Min. Maximum 143/Min. Average 98/Min. About 41% of the time, right greater than 100/Min. No atrial fibrillation or flutter or AV blocks or pauses. Rare supraventricular ectopy with a burden of 0.05%. Frequent premature ventricular ectopy with a burden of 0.95%. Two point follows he has. No couplets or runs. No patient events. MTDD
== END ==
LOC: HO.CARD 11:27
PROVIDERS: PCP Internal Medicine; Visit Provider Internal Medicine
DX: R07.2 Precordial pain (principal); R00.2 Palpitations; R07.89 Other chest pain
CPT/HCPCS: 78452; 93017; 93246; 93306; A9500

== ENCOUNTER 2021-05-05 14:53 | Outpatient (REF) | payer OTHER, SELFPAY ==
--- NOTE | ~2021-05-05 | XR_ITS ---
EXAMINATION: XR CHEST CLINICAL INFORMATION: Cough. COMPARISON: Chest radiograph dated from 07/31/2020. TECHNIQUE: 2 views of the chest were obtained. FINDINGS: Normal appearance of the cardiomediastinal silhouette. Clear lungs without focal airspace opacities, pleural effusions or pneumothorax. No acute osseous abnormalities. The visualized upper abdomen is within normal limits. XR/XR chest 2V IMPRESSION: No acute cardiopulmonary findings.
== END 2021-05-05 14:54 | disposition home or self-care (01) ==
LOC: HO.HMGCX 14:53
PROVIDERS: PCP Internal Medicine; Visit Provider Physician Assistant
DX: R05.9 Cough, unspecified (principal)
CPT/HCPCS: 71046

== ENCOUNTER 2021-06-21 10:24 | Emergency (ER) | payer OTHER, SELFPAY ==
[2021-06-21 10:29] VITALS: BP 141/72; PULSE 92; RESP 18; TEMP 36.4; O2SAT 98; BMI 51.7
[2021-06-21 15:47] VITALS: BP 131/78; PULSE 90; RESP 18; TEMP 36; O2SAT 96
[2021-06-21 15:48] VITALS: BP 131/78; PULSE 90; RESP 18; TEMP 36; O2SAT 96
--- NOTE | 2021-06-21 16:54 | ED_ITS ---
HPI - General Adult General Chief complaint: General Medical Stated complaint: rectal pain and itchy body Time Seen by Provider: 06/21/21 16:54 Source: patient Mode of arrival: ambulatory Limitations: no limitations History of Present Illness HPI narrative: Patient's history of anxiety fibromyalgia comes here with multiple complaints including itching all over the body for last 3 days and rectal pain. Patient be en using prednisone and Benadryl which she states she has them at home for other reasons but she took it yesterday but each no significant rash noticed but she has itching all over denies any history of hemorrhoids or constipation no rectal bleeding. Patient does not remember any new medication or any known allergen Related Data Home Medications Medication Instructions Recorded Confirmed bupropion HCl 150 mg tablet,12 hr 150 mg PO BID 01/30/20 05/07/21 sustained-release lorazepam 1 mg tablet 1 mg PO BID 01/30/20 05/07/21 Previous Rx's Medication Instructions Recorded ondansetron HCl 4 mg tablet 4 mg PO DAILY PRN #10 tab 05/13/20 (Zofran) albuterol sulfate 90 mcg/actuation 1 inh INHALATION Q6H PRN #8.5 g NS 07/17/20 aerosol inhaler sucralfate 1 gram tablet (Carafate) 1 g PO QIDACHS #90 tab 08/04/20 ibuprofen 800 mg tablet 800 mg PO Q8H #90 tab 08/19/20 dicyclomine 10 mg capsule 10 mg PO TID 30 Days #90 cap 02/16/21 levofloxacin 750 mg tablet 750 mg PO Q24H #5 tab 05/05/21 gabapentin 300 mg capsule 300 mg PO TID 90 Days #270 cap 05/07/21 esomeprazole magnesium 40 mg 40 mg PO DAILY #90 cap 05/14/21 capsule,delayed release famotidine 40 mg tablet (Pepcid) 40 mg PO BEDTIME #60 tab 05/14/21 sodium,potassium,mag sulfates 17.5 See Rx Instructions PO .COMPLEX 05/14/21 gram-3.13 gram-1.6 gram oral soln #354 ml (Suprep Bowel Prep Kit) omeprazole 40 mg capsule,delayed 40 mg PO DAILY #90 cap 06/17/21 release diphenhydramine HCl 25 mg capsule 50 mg PO Q6H PRN #30 cap 06/21/21 (Benadryl) hydrocortisone acetate 25 mg 25 mg PA BID #12 ea 06/21/21 rectal suppository (Anusol-HC) prednisone 20 mg tablet 40 mg PO DAILY #10 tab 06/21/21 Allergies Allergy/AdvReac Type Severity Reaction Status Date / Time azithromycin [AZITHROMYCIN] Allergy Intermediate RASH Verified 05/05/21 15:22 ketorolac [From Toradol] Allergy Intermediate Rash Verified 05/05/21 15:22 Sulfa (Sulfonamide Allergy Intermediate RASH Verified 05/05/21 15:22 Antibiotics) [SULFA (SULFONAMIDE ANTIBIOTICS)] fluconazole [Diflucan] Allergy Unknown unknown Verified 05/05/21 15:22 topiramate [Topamax] Allergy Unknown unknown Verified 05/05/21 15:22 amitriptyline AdvReac Intermediate stomach Verified 05/05/21 15:22 upset Review of Systems Review of Systems: Yes all other systems are reviewed and are negative PMFSH Past Medical History Medical History Acid reflux Colon polyps Early satiety Fibromyalgia GERD (gastroesophageal reflux disease) History of anxiety History of fibromyalgia History of headache Hx of irritable bowel syndrome Hx of ovarian cyst Hx of renal calculi Hydradenitis Loud snoring ELIAZAR (obstructive sleep apnea) Somnolence, daytime Surgical History H/O colonoscopy H/O tubal ligation History of History of cholecystectomy History of esophagogastroduodenoscopy (EGD) Family History Family History Father HTN (hypertension) Diabetes mellitus Liver cancer Alcoholic Substance use disorder Mother Anxiety Depression Liver tumor Brother Heart attack Buerger disease Stroke Seizure Diabetes mellitus Family/Other Mild asthma Maternal Grandmother Cancer of unknown origin Maternal Grandfather Liver cancer Paternal Grandfather Heart problem Other Mental health disorder Social History Social History Household Members: Spouse and Children Housing: House Alcohol intake: current Alcohol intake frequency: does not drink Patient Tobacco Use Status: Current everyday Tobacco user Cigarette Packs Per Day: 0.5 Cigarettes Per Day: 10 Years Smoked: 25 Substance Use Type: Marijuana Advance Directives: No Advance Directives Information Provided: No Patient : No Current occupational status: unemployed Current occupation: due to Covid Gender identity: Female Physical Exam ED Vital Signs: Vital Signs - 24 hr 06/21/21 10:29 06/21/21 15:47 06/21/21 15:48 Temperature 97.6 F 96.8 F 96.8 F Pulse Rate 92 90 90 Respiratory Rate 18 18 18 Blood Pressure 141/72 H 131/78 131/78 Pulse Oximetry 98 96 96 BMI result Body Mass Index 51.7 Appearance: Alert. Oriented X3. No acute distress. ENT: Pharynx normal. Oral Mucosa moist Neck: Normal inspection. Neck supple. CVS: Normal heart rate and rhythm. Pulses normal. Respiratory: No respiratory distress. Equal air entry bilateral, no wheezing/rales/rhonchi Abdomen: Soft and nontender. Bowel sounds are present, no mass palpable, no CVA tenderness rectal: Prolapsed hemorrhoids no rectal bleeding Skin: Skin warm and dry. Normal skin color. Normal skin turgor. Dry skin no rash noticed , scratch felton are present Extremities: No lower extremity edema. No calf tenderness Neuro: Oriented X 3. Medical Decision Making MDM Narrative Medical decision making narrative: Patient with multiple complaints not happy that she had to wait for 6 hours patient explained that her rash is likely from dry skin at this time management is apply moisturizing cream but she insisted for medications so we gave the prescription for prednisone and Benadryl she wants to get herself better before she goes on vacation asking for immediate remedy patient was explained again to follow with PCP for further workup Discharge Plan Discharge Clinical Impression: Acute hemorrhoid, Urticaria Patient Disposition: Home, Self-Care Instructions: Hemorrhoids (ED), Urticaria (ED) Additional Instructions: Use Anusol suppository twice daily as advised Avoid straining/constipation Prednisone for allergic reaction Take Benadryl 25-50 mg every 6 hours as needed Apply lots of Moisturizer Follow-up with PCP for further Prescriptions: New prednisone 20 mg tablet 40 mg PO DAILY Qty: 10 0RF diphenhydramine HCl [Benadryl] 25 mg capsule 50 mg PO Q6H PRN (Reason: allergic reaction) Qty: 30 0RF hydrocortisone acetate [Anusol-HC] 25 mg suppository 25 mg PA BID Qty: 12 0RF No Action dicyclomine 10 mg capsule 10 mg PO TID 30 Days Qty: 90 3RF esomeprazole magnesium 40 mg capsule,delayed release(DR/EC) 40 mg PO DAILY Qty: 90 1RF Suprep Bowel Prep Kit 17.5-3.13-1.6 gram recon soln See Rx Instructions PO .COMPLEX Qty: 354 0RF Rx Instructions: DILUTE; drink 1/2 at 6-8 pm and half at 11 PM- 1AM famotidine [Pepcid] 40 mg tablet 40 mg PO BEDTIME Qty: 60 1RF omeprazole 40 mg capsule,delayed release(DR/EC) 40 mg PO DAILY Qty: 90 1RF albuterol sulfate 90 mcg/actuation HFA aerosol inhaler 1 inh inhalation Q6H PRN (Reason: shortness of breath or wheezing) Qty: 8.5 2RF gabapentin 300 mg capsule 300 mg PO TID 90 Days Qty: 270 0RF levofloxacin 750 mg tablet 750 mg PO Q24H Qty: 5 0RF lorazepam 1 mg tablet 1 mg PO BID 0RF bupropion HCl 150 mg tablet sustained-release 12 hr 150 mg PO BID 0RF ondansetron HCl [Zofran] 4 mg tablet 4 mg PO DAILY PRN (Reason: nausea and vomiting) Qty: 10 0RF sucralfate [Carafate] 1 gram tablet 1 g PO QIDACHS Qty: 90 1RF ibuprofen 800 mg tablet 800 mg PO Q8H Qty: 90 6RF
--- NOTE | 2021-06-21 17:01 | PC.NURSE ---
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
--- NOTE | 2021-06-21 17:32 | PC.NURSE ---
patient wanted to make a formal complaint . contacted charge nurse and she went in to talk to patient about her concerns .
== END 2021-06-21 17:38 | disposition home or self-care (01) ==
PROVIDERS: Emergency Provider Internal Medicine; PCP Internal Medicine
DX: K64.9 Unspecified hemorrhoids (principal); L50.9 Urticaria, unspecified; L29.9 Pruritus, unspecified; M79.10 Myalgia, unspecified site; F17.210 Nicotine dependence, cigarettes, uncomplicated; F12.90 Cannabis use, unspecified, uncomplicated; Z79.899 Other long term (current) drug therapy; Z71.6 Tobacco abuse counseling
CPT/HCPCS: 99283; 99284

== ENCOUNTER 2021-07-19 11:57 | Outpatient (REF) | payer OTHER, SELFPAY ==
--- NOTE | ~2021-07-19 | XR_ITS ---
EXAMINATION: XR CHEST CLINICAL INFORMATION: Shortness of breath COMPARISON: Previous chest x-ray May 2021 TECHNIQUE: 2 views of the chest were obtained. FINDINGS: The cardiac and mediastinal contours are normal. The lungs are clear. There is no pleural effusion or pneumothorax. There are degenerative changes of the spine. XR/XR chest 2V IMPRESSION: Unremarkable examination.
== END 2021-07-19 11:58 | disposition home or self-care (01) ==
LOC: HO.HMGCX 11:57
PROVIDERS: Visit Provider Internal Medicine
DX: R06.02 Shortness of breath (principal)
CPT/HCPCS: 71046

== ENCOUNTER 2021-07-22 08:02 | Day surgery (SDC) | payer OTHER, SELFPAY ==
[2021-05-26 15:20] VITALS: BMI 51.5
--- NOTE | 2021-07-21 09:54 | P.CONAN_ITS ---
Documented by User: Berenice Gannon NP 07/21/21 09:55 HPI - Anesthesia Eval Consult details Narrative: 41yo F for Upper Endoscopy and Colonoscopy *Mult med allergies* PMFSH Active Problems Active Problems: All Active Problems (Updated 07/19/21 @ 11:55 by Roger Spear MD) Shortness of breath (Acute) Constipation by delayed colonic transit (Acute) Bleeding hemorrhoids (Acute) Hospital discharge follow-up (Acute) Fibromyalgia (Acute) Post-COVID chronic cough (Acute) Cough (Acute) Loud snoring (Acute) Contact with and (suspected) exposure to other viral communicable diseases (Acute) Precordial chest pain (Acute) Encounter for general adult medical examination with abnormal findings (Acute) Morbid obesity due to excess calories (Acute) Breast lump on right side at 10 o'clock position (Acute) ELIAZAR (obstructive sleep apnea) (Acute) Somnolence, daytime (Acute) Sleeping difficulty (Acute) Tracheobronchitis (Acute) Irritable bowel syndrome (IBS) (Acute) Heart palpitations (Acute) Morbid obesity (Acute) Menorrhagia (Acute) Hidradenitis suppurativa (Acute) Shortness of breath on exertion (Acute) Chest pain (Acute) Chest pain due to GERD (Acute) Morbid obesity (Acute) Esophagitis (Acute) Early satiety (Acute) Fibromyalgia (Acute) Colon polyps (Acute) Acid reflux (Acute) Past Medical History Medical History Acid reflux Colon polyps Early satiety Fibromyalgia GERD (gastroesophageal reflux disease) History of anxiety History of fibromyalgia History of headache Hx of irritable bowel syndrome Hx of ovarian cyst Hx of renal calculi Hydradenitis Loud snoring ELIAZAR (obstructive sleep apnea) Somnolence, daytime Family History Family History Father HTN (hypertension) Diabetes mellitus Liver cancer Alcoholic Substance use disorder Mother Anxiety Depression Liver tumor Brother Heart attack Buerger disease Stroke Seizure Diabetes mellitus Family/Other Mild asthma Maternal Grandmother Cancer of unknown origin Maternal Grandfather Liver cancer Paternal Grandfather Heart problem Other Mental health disorder Surgical History Surgical History H/O colonoscopy H/O tubal ligation History of History of cholecystectomy History of esophagogastroduodenoscopy (EGD) Social History Social History Household Members: Spouse and Children Housing: House Alcohol intake: current Alcohol intake frequency: does not drink Patient Tobacco Use Status: Current everyday Tobacco user Cigarette Packs Per Day: 0.5 Cigarettes Per Day: 10 Years Smoked: 25 Substance Use Type: Marijuana Advance Directives: No Advance Directives Information Provided: Yes Current occupational status: unemployed Current occupation: due to Covid Gender identity: Female Meds Allergies Allergy/AdvReac Type Severity Reaction Status Date / Time azithromycin [AZITHROMYCIN] Allergy Intermediate RASH Verified 07/19/21 12:54 ketorolac [From Toradol] Allergy Intermediate Rash Verified 07/19/21 12:54 Sulfa (Sulfonamide Allergy Intermediate RASH Verified 07/19/21 12:54 Antibiotics) [SULFA (SULFONAMIDE ANTIBIOTICS)] fluconazole [Diflucan] Allergy Unknown unknown Verified 07/19/21 12:54 topiramate [Topamax] Allergy Unknown unknown Verified 07/19/21 12:54 amitriptyline AdvReac Intermediate stomach Verified 07/19/21 12:54 upset Home Medications Medication Instructions Recorded Confirmed Last Taken Type bupropion HCl 150 mg tablet,12 hr 150 mg PO BID 01/30/20 07/19/21 Unknown History sustained-release lorazepam 1 mg tablet 1 mg PO BID 01/30/20 07/19/21 03/03/20 07:30 History Exam Exam Date and Time: July 21, 2021 0954 Height,Weight and Vital Signs: Height 5 ft 1 in Weight 123.831 kg Assessment and Plan Assessment Anesthesia Assessment: Chart Reviewed Documented by User: Vikki Herrmann MD 07/22/21 09:07 [facility] Past Medical History Medical History Acid reflux Colon polyps Early satiety Fibromyalgia GERD (gastroesophageal reflux disease) History of anxiety History of fibromyalgia History of headache Hx of irritable bowel syndrome Hx of ovarian cyst Hx of renal calculi Hydradenitis Loud snoring ELIAZAR (obstructive sleep apnea) Somnolence, daytime Functional capacity: independent ambulation Patient : No Family History Family History Father HTN (hypertension) Diabetes mellitus Liver cancer Alcoholic Substance use disorder Mother Anxiety Depression Liver tumor Brother Heart attack Buerger disease Stroke Seizure Diabetes mellitus Family/Other Mild asthma Maternal Grandmother Cancer of unknown origin Maternal Grandfather Liver cancer Paternal Grandfather Heart problem Other Mental health disorder Family history of problems with anesthesia: No Surgical History Surgical History H/O colonoscopy H/O tubal ligation History of History of cholecystectomy History of esophagogastroduodenoscopy (EGD) History of Problems with Anesthesia: No Social History Social History Household Members: Spouse and Children Housing: House Alcohol intake: current Alcohol intake frequency: does not drink Patient Tobacco Use Status: Current everyday Tobacco user Cigarette Packs Per Day: 0.5 Cigarettes Per Day: 10 Years Smoked: 25 Substance Use Type: Marijuana Advance Directives: No Advance Directives Information Provided: Yes Current occupational status: unemployed Current occupation: due to Covid Gender identity: Female Meds Allergies Allergy/AdvReac Type Severity Reaction Status Date / Time azithromycin [AZITHROMYCIN] Allergy Intermediate RASH Verified 07/19/21 12:54 ketorolac [From Toradol] Allergy Intermediate Rash Verified 07/19/21 12:54 Sulfa (Sulfonamide Allergy Intermediate RASH Verified 07/19/21 12:54 Antibiotics) [SULFA (SULFONAMIDE ANTIBIOTICS)] fluconazole [Diflucan] Allergy Unknown unknown Verified 07/19/21 12:54 topiramate [Topamax] Allergy Unknown unknown Verified 07/19/21 12:54 amitriptyline AdvReac Intermediate stomach Verified 07/19/21 12:54 upset Home Medications Medication Instructions Recorded Confirmed Last Taken Type bupropion HCl 150 mg tablet,12 hr 150 mg PO BID 01/30/20 07/19/21 Unknown History sustained-release lorazepam 1 mg tablet 1 mg PO BID 01/30/20 07/19/21 03/03/20 07:30 History Exam Airway Mallampati Class: IV TM Dist: >3cm Neck ROM: Full Heart: RRR Lungs: CTA Assessment and Plan Final Anesthetic Review Family History of Problems with Anesthesia: No History of Problems with Anesthesia: No ASA Class: III Final Preanesthetic Review: No Changes in Pt Med Stat, Meds/Allgs Chart Reviewed, Consent Obtained/Reviewed and Anes Risks/Benef Reviewed Patient Risk: Intermediate Procedure Risk: Low Anesthetic Plan Anesthetic Plan: MAC: Disposition: Standard PACU
[2021-07-22 08:11] VITALS: BMI 51.0
--- NOTE | 2021-07-22 08:20 | MHC.SHP ---
Pre-Procedural Eval Section A Date of Service: 07/22/21 Section B Chief Complaint: Rectal Bleeding, GERD Details of Present Illness: hx of polyps Relevant Family History (Specify if Yes): Yes Relevant Social History: Tobacco Use Present Medications: see Short Stay Collaborative assessment Medical History: Significant History (Acid reflux Colon polyps Early satiety Fibromyalgia GERD (gastroesophageal reflux disease) History of anxiety History of fibromyalgia History of headache Hx of irritable bowel syndrome Hx of ovarian cyst Hx of renal calculi Hydradenitis Loud snoring ELIAZAR (obstructive sleep apnea) Somnolence, daytime) History of Previous Operations: Relevant previous surgery/procedure and date(s) (H/O colonoscopy H/O tubal ligation History of History of cholecystectomy History of esophagogastroduodenoscopy (EGD)) Allergies: Allergies Allergy/AdvReac Type Severity Reaction Status Date / Time azithromycin [AZITHROMYCIN] Allergy Intermediate RASH Verified 07/19/21 12:54 ketorolac [From Toradol] Allergy Intermediate Rash Verified 07/19/21 12:54 Sulfa (Sulfonamide Allergy Intermediate RASH Verified 07/19/21 12:54 Antibiotics) [SULFA (SULFONAMIDE ANTIBIOTICS)] fluconazole [Diflucan] Allergy Unknown unknown Verified 07/19/21 12:54 topiramate [Topamax] Allergy Unknown unknown Verified 07/19/21 12:54 amitriptyline AdvReac Intermediate stomach Verified 07/19/21 12:54 upset Review of Systems Sugical H&P ROS: Negative: Constitution, Cardiovascular, Respiratory, Neurological, Psychiatric, Hem-Onc, Allergic/Immunologic, Gastrointestinal, Genitourinary, Musculoskeletal, Integumentary, Endocrine and Eyes/Ears/Nose/Throat Exam Surgical H&P Exam: Normal: HEENT, Normal: Heart, Normal: Lungs, Normal: Extremities, Normal: Abdomen, Normal: Skin and Normal: Neurological Plan Diagnosis/Plan: Unchanged I have reviewed the history and physical and performed a pertinent physical examination on my patient. No changes have occurred unless specified.
[2021-07-22 08:26] VITALS: BP 131/81; PULSE 73; RESP 18; TEMP 36.4; O2SAT 97
[2021-07-22] MEDS: Lactated Ringers 1,000 ML 100 ML IVCONT (08:43)
--- NOTE | 2021-07-22 09:06 | P.BOP_ITS ---
Brief Operative Note Date of Service: 07/22/21 Pre-op diagnosis: GERD, colon screening Post-op diagnosis: same Procedure: see op note Surgeon: Darius Palomino MD Anesthesia: MAC Was an Artist Mannequin Coloring used for this Procedure?: No Estimated blood loss (mL): 0 Condition: stable Disposition: PACU
--- NOTE | 2021-07-22 09:06 | W.PM.OPN ---
Operative Note Operative Note Date of Service: 07/22/21 Narrative: Operative Information Procedure Description: EGD, Colonoscopy FLEXIBLE TRANSORAL UPPER GASTROINTESTINAL ENDOSCOPY AND COLONOSCOPY PROCEDURE NOTE UPPER ENDOSCOPY Consent: Indications for the procedure and potential complications of bleeding, perforation, reaction to medications and missed diagnosis were discussed with the patient and informed consent was obtained. Instrument: Olympus GIF H 190 J mid size upper endoscope Monitoring: Vital signs and clinical assessment, continuous EKG monitoring, Pulse oximetry, Carbon Dioxide monitoring and blood pressure monitoring were done throughout the procedure. Procedure: The patient was placed in the left lateral decubitis position and pre-procedure medications were administered and a bite block was placed. The endoscope was inserted into the mouth and advanced under direct vision to the third part of duodenum. A careful inspection was made as the upper endoscope was withdrawn including a retroflexed examination of the proximal stomach; Findings and interventions are described below. Findings: Larynx:normal Esophagus: GE junction at 38? cm, diaphragm hiatus at 38 cm, possible short segment Barretts-bx taken from GEJ from [place] pink [place] of mucosa Stomach: mildly erythematous mucosa. Grade 2 flap valve on retroflexed examination of the cardia. bile noticed refluxing into the stomach Duodenum: Normal bulb and descending duodenum, Intervention: Biopsies as noted above COLONOSCOPY Instrument: Olympus variable stiffness pediatric scope 190L Colonoscopy Monitoring: Vital signs and clinical assessment, continuous EKG monitoring, Pulse oximetry, Carbon Dioxide monitoring and blood pressure monitoring were done throughout the procedure. Colon withdrawal time was 6 minutes. Procedure: The patient was placed in the left lateral decubitis position and pre-procedure medications were administered. After a digital rectal examination of the ano-rectum, the video colonoscope was inserted into the rectum and advanced through the colon to the cecum/TI. The colonoscope was slowly withdrawn in a retrograde panoramic fashion and the colon mucosa was carefully examined including a retroflexed view of the rectum. Findings and interventions are described below. Procedure Difficulty: easy Findings: Terminal Ileum-normal Cecum:normal Ascending Colon: prior tattoo sites noted, no polypoid tissue around these areas, one fold was prominent, possible sessiel polyp, about 8-10 mm removed with cold snare Transverse Colon -normal Descending Colon:normal Sigmoid Colon: normal Rectum: Retroflexion with moderate internal hemorrhoids, grade I Anorectum - normal Colon preparation: [place] Bowel Preparation Scale Right colon; 3 Transverse colon: 3 Left colon; 3 (0 = Unprepared colon segment with mucosa not seen due to solid stool that cannot be cleared. 1 = Portion of mucosa of the colon segment seen, but other areas of the colon segment not well seen due to staining, residual stool and/or opaque liquid. 2 = Minor amount of residual staining, small fragments of stool and/or opaque liquid, but mucosa of colon segment seen well. 3 = Entire mucosa of colon segment seen well with no residual staining, small fragments of stool or opaque liquid) Impression and Post Procedure Diagnosis: Endoscopy Findings: suspected house,s possible bile acid reflux gastritis Colonoscopy Findings: internal hemorrhoids suspected polyp Plan: Await Pathology results Repeat Colonoscopy in 3 years or earlier if clinically indicated High fiber diet leaflet avoid straining at stool, epsom salts and sitz bath, anusol supps or cream If barretts pos then repeat EGD in 3 yrs, next time consider WATS 3D trial of ursodiol she does have gastroparesis which may also be playing a role in her relfux sx, if sx dont;improve with urosdiol then can consider motegrity trial Above findings were reviewed with the patient and relevant handouts were provided if indicated.
[2021-07-22 09:57] VITALS: BP 119/71; PULSE 92; RESP 16; TEMP 36.1; O2SAT 96
[2021-07-22 10:12] VITALS: BP 125/67; PULSE 95; RESP 18; TEMP 36.2; O2SAT 98
--- NOTE | 2021-07-22 10:27 | HO.POSTANES ---
Post Anesthesia Evaluation Post Anesthesia Evaluation Vital Signs: Vital Signs Temp Pulse Resp BP Pulse Ox 07/22/21 10:12 97.1 F 95 18 125/67 98 07/22/21 09:57 97.0 F 92 16 119/71 96 07/22/21 08:26 97.6 F 73 18 131/81 97 Anesthesia: Monitored Mental Status: Awake Pain Control: Satisfactory Nausea/Vomiting: None Hydration: Adequate Anesthesia-Related Issues: No Anes. Related Issues
== END 2021-07-22 10:33 | disposition home or self-care (01) ==
PROVIDERS: PCP Internal Medicine; Visit Provider Internal Medicine Gastroenterology
PROC: (CPT 45385; principal; 2021-07-22 09:00)
DX: K62.5 Hemorrhage of anus and rectum (principal); Z86.010 Personal history of colon polyps; D12.2 Benign neoplasm of ascending colon; K64.0 First degree hemorrhoids; K21.9 Gastro-esophageal reflux disease without esophagitis; K22.70 Barrett's esophagus without dysplasia; K44.9 Diaphragmatic hernia without obstruction or gangrene; K31.84 Gastroparesis; G47.33 Obstructive sleep apnea (adult) (pediatric); Z90.79 Acquired absence of other genital organ(s); Z79.899 Other long term (current) drug therapy; Z88.2 Allergy status to sulfonamides; Z88.1 Allergy status to other antibiotic agents; Z88.8 Allergy status to other drugs, medicaments and biological substances; F17.210 Nicotine dependence, cigarettes, uncomplicated
CPT/HCPCS: 45385; 43239; 88305; J2250

== ENCOUNTER → 2021-08-05 09:24 | Outpatient (BNVA) | payer OTHER, SELFPAY | PROVIDERS: PCP Internal Medicine; Visit Provider Physician Assistant | DX: Z13.89 Encounter for screening for other disorder (principal) ==

== ENCOUNTER → 2021-08-18 08:29 | Outpatient (BNVA) | payer OTHER, SELFPAY | PROVIDERS: PCP Internal Medicine; Referring Provider Internal Medicine; Visit Provider Internal Medicine | DX: R00.2 Palpitations (principal); R07.2 Precordial pain; E66.01 Morbid (severe) obesity due to excess calories; Z68.43 Body mass index [BMI] 50.0-59.9, adult | CPT/HCPCS: 99212 ==

== ENCOUNTER 2021-09-17 12:55 | Outpatient (REF) | payer OTHER, SELFPAY ==
[2021-09-17 13:56] LABS: MANUAL DIFF FLAG NO
[2021-09-17 14:04] LABS: Basophils Absolute Auto 0.1 X10*3/uL (0.0-0.2); Basophils Percent Auto 0.6 % (0-2); Eosinophils Absolute Auto 0.5 X10*3/uL (0.0-0.4); Eosinophils Percent Auto 4.5 % (0-4); Hematocrit 41.5 % (37.0-47.0); Hemoglobin 13.5 g/dl (12.0-16.0); Imm Gran Abs Auto 0.03 X10*3/uL (0.00-0.03); Imm Gran Pct Auto 0.3 % (0.0-0.4); Mean Corpuscular HGB Conc 32.5 g/dl (31.0-35.0); Mean Corpuscular Volume 85.9 fL (80.0-98.0); Mean Platelet Volume 10.6 fL (9.4-12.3); Monocytes Absolute Auto 0.6 X10*3/uL (0.1-1.2); Monocytes Percent Auto 5.7 % (2-11); Neutrophils Absolute Auto 6.4 x10*3/uL (2.0-8.3); Neutrophils Percent Auto 60.9 % (45-73); Platelet Count 197 X10*3/uL (160-400); Red Blood Count 4.83 X10*6/uL (4.20-5.50); Red Cell Distribution Width 13.7 % (11.0-16.0); White Blood Count 10.5 X10*3/uL (4.8-10.8)
[2021-09-17 14:19] LABS: Alanine Aminotransferase 14 U/L (0-31); Albumin Level 4.1 g/dL (3.5-5.0); Alkaline Phosphatase 132 U/L (39-117); Anion Gap 11 (12-20); Aspartate Amino Transferase 9 U/L (5-31); Bilirubin Total 0.4 mg/dL (0.0-1.0); Blood Urea Nitrogen 13 mg/dL (9-16); Calcium 9.3 mg/dL (8.4-10.2); Carbon Dioxide 25 mmol/L (22-29); Chloride 108 mmol/L (96-108); Estimated Glomerular Filt Rate > 60; Glucose Random 92 mg/dL (60-115); Potassium 4.1 mmol/L (3.3-5.1); Sodium 140 mmol/L (135-145); Total Protein 7.2 g/dL (6.5-8.0)
== END 2021-09-17 12:56 | disposition home or self-care (01) ==
LOC: HO.HMGCLDS 12:55
PROVIDERS: Visit Provider Internal Medicine
DX: R10.32 Left lower quadrant pain (principal)
CPT/HCPCS: 36415; 80053; 84443; 85025

== ENCOUNTER → 2021-09-20 08:50 | Outpatient (BNVA) | payer OTHER, SELFPAY | PROVIDERS: PCP Internal Medicine; Referring Provider Internal Medicine; Visit Provider Physician Assistant | DX: K21.9 Gastro-esophageal reflux disease without esophagitis (principal); R10.9 Unspecified abdominal pain; R11.0 Nausea; N92.6 Irregular menstruation, unspecified | CPT/HCPCS: 99212 ==

== ENCOUNTER 2021-10-11 09:05 | Outpatient (REF) | payer OTHER, SELFPAY ==
--- NOTE | ~2021-10-11 | CT_ITS ---
EXAMINATION: CT ABDOMEN AND PELVIS WITH CONTRAST CLINICAL INFORMATION: Abdominal pain COMPARISON: Previous CT of the abdomen and pelvis May 2019 TECHNIQUE: Multidetector volumetric images were obtained from the superior aspect of the liver through the pubic symphysis following administration 85 mL of Omnipaque 350 intravenous contrast. Sagittal and coronal reformatted images were obtained on the technologist's workstation. Oral contrast: Yes This CT examination was performed using dose optimization techniques as appropriate, variously including the following: *Automated exposure control *Adjustment of mA and/or kV according to patient size (this includes techniques or standardized protocols for targeted exams where dose is matched to indication/reason for exam; i.e. extremities or head) *Use of iterative reconstruction technique DLP: 742 mGy-cm FINDINGS: LUNG BASES: The visualized lung bases are unremarkable. LIVER, GALLBLADDER, AND BILIARY TREE: The liver is slightly low in attenuation suggestive of mild fatty infiltration. Liver is normal in size and contour. No focal liver lesion. The gallbladder is been removed. No biliary duct dilatation. PANCREAS: Unremarkable. SPLEEN: Unremarkable. ADRENAL GLANDS: Unremarkable. KIDNEYS AND URETERS: There is excreted contrast seen in the collecting systems. This lowers sensitivity for detection of a small stone. No stone is seen. There is a 1 cm cyst in the lower pole of the left kidney. Stable and no imaging follow-up needed. BLADDER: Unremarkable. GASTROINTESTINAL TRACT: The small and large bowel are unremarkable. The appendix is unremarkable. ABDOMINAL WALL: Small umbilical hernia containing fat. LYMPH NODES: Normal. VASCULAR: Unremarkable. PELVIC VISCERA: Unremarkable. OSSEOUS STRUCTURES: There are mild degenerative changes of the spine. CT/CT abdomen pelvis w con IMPRESSION: Mild fatty infiltration of the liver. Small left renal cyst. Small umbilical hernia containing fat. Fleischner guidelines were followed.
[2021-10-11] MEDS: iohexoL 350 MG/ML 100 ML INFUS..BTL 85 ML IV (10:22)
== END 2021-10-11 09:06 | disposition home or self-care (01) ==
LOC: HO.CT 09:05
PROVIDERS: PCP Internal Medicine; Visit Provider Physician Assistant
DX: R10.9 Unspecified abdominal pain (principal); R11.2 Nausea with vomiting, unspecified
CPT/HCPCS: 74177; Q9967

== ENCOUNTER 2021-10-16 14:44 | Outpatient (REF) | payer OTHER, SELFPAY ==
[2021-10-16 15:34] LABS: MANUAL DIFF FLAG NO
[2021-10-16 15:40] LABS: Basophils Absolute Auto 0.1 X10*3/uL (0.0-0.2); Basophils Percent Auto 0.7 % (0-2); Eosinophils Absolute Auto 0.4 X10*3/uL (0.0-0.4); Eosinophils Percent Auto 3.5 % (0-4); Hematocrit 41.9 % (37.0-47.0); Hemoglobin 13.9 g/dl (12.0-16.0); Imm Gran Abs Auto 0.02 X10*3/uL (0.00-0.03); Imm Gran Pct Auto 0.2 % (0.0-0.4); Lymphocytes Absolute Auto 2.5 X10*3/uL (1.2-4.9); Lymphocytes Percent Auto 24.1 % (20-40); Mean Corpuscular HGB Conc 33.2 g/dl (31.0-35.0); Mean Corpuscular Hemoglobin 28.1 pg (27.0-33.0); Mean Corpuscular Volume 84.8 fL (80.0-98.0); Mean Platelet Volume 10.3 fL (9.4-12.3); Monocytes Absolute Auto 0.6 X10*3/uL (0.1-1.2); Monocytes Percent Auto 5.9 % (2-11); Neutrophils Absolute Auto 6.7 x10*3/uL (2.0-8.3); Neutrophils Percent Auto 65.6 % (45-73); Platelet Count 206 X10*3/uL (160-400); Red Blood Count 4.94 X10*6/uL (4.20-5.50); Red Cell Distribution Width 13.9 % (11.0-16.0); White Blood Count 10.3 X10*3/uL (4.8-10.8)
== END 2021-10-16 14:45 | disposition home or self-care (01) ==
LOC: HO.HMGCLDS 14:44
PROVIDERS: Absent Provider Physician Assistant; PCP Internal Medicine; Visit Provider Physician Assistant Medical
DX: K58.9 Irritable bowel syndrome, unspecified (principal)
CPT/HCPCS: 36415; 85025

== ENCOUNTER 2021-10-18 04:55 | Emergency (ER) | payer OTHER, SELFPAY ==
--- NOTE | ~2021-10-18 | XR_ITS ---
EXAMINATION: XR CHEST CLINICAL INFORMATION: Chest pain and shortness of breath COMPARISON: 07/19/2021 TECHNIQUE: Frontal view of the chest was obtained. FINDINGS: No significant abnormality is noted involving the heart, lungs, mediastinum, bony thorax or soft tissues. XR/XR chest 1V IMPRESSION: Unremarkable examination.
[2021-10-18 05:01] VITALS: BP 121/70; RESP 22; TEMP 36.9; O2SAT 100; BMI 46.6
--- NOTE | 2021-10-18 05:03 | ECG_ITS ---
Test Reason : CHEST PAIN Blood Pressure : / mmHG Vent. Rate : 078 BPM Atrial Rate : 078 BPM P-R Int : 140 ms QRS Dur : 078 ms QT Int : 384 ms P-R-T Axes : 043 013 008 degrees QTc Int : 437 ms Normal sinus rhythm Nonspecific T wave abnormality Abnormal ECG When compared with ECG of 31-JUL-2020 12:11, No significant change was found Referred By: Generic ED Physician Electronically Signed By:ANDREA YI MD
[2021-10-18 05:06] VITALS: BP 121/70; PULSE 83; RESP 30; TEMP 36.9; O2SAT 100
--- NOTE | 2021-10-18 05:11 | ED_ITS ---
HPI - Chest Pain General Chief Complaint: Chest Pain Stated Complaint: chest pain, asthma Time Seen by Provider: 10/18/21 05:08 Source: patient Mode of arrival: ambulatory Limitations: no limitations History of Present Illness HPI narrative: Patient comes to the emergency room complaining of chest pain and shortness of breath for 4 days. Patient states that the last time she had any breathing treatment was approximately 72 hours ago. In complaining of burning sensation in the chest. Patient denies coughing. Complaining of epigastric burning sensation. Related Data Home Medications Medication Instructions Recorded Confirmed bupropion HCl 150 mg tablet,12 hr 150 mg PO BID 01/30/20 10/15/21 sustained-release lorazepam 1 mg tablet 1 mg PO BID 01/30/20 10/15/21 Previous Rx's Medication Instructions Recorded albuterol sulfate 90 mcg/actuation 1 inh inhalation Q6H PRN shortness 07/17/20 aerosol inhaler of breath or wheezing #8.5 grams ursodiol 500 mg tablet 500 mg PO BID #90 tabs 07/22/21 famotidine 40 mg tablet 40 mg PO BEDTIME #60 tabs 09/06/21 omeprazole 40 mg capsule,delayed 40 mg PO .QD GERD #90 caps 09/21/21 release gabapentin 300 mg capsule 300 mg PO TID 90 days #270 caps 10/15/21 prednisone 50 mg tablet 50 mg PO DAILY #5 tabs 10/18/21 Allergies Allergy/AdvReac Type Severity Reaction Status Date / Time azithromycin [AZITHROMYCIN] Allergy Intermediate RASH Verified 10/16/21 13:39 ketorolac [From Toradol] Allergy Intermediate Rash Verified 10/16/21 13:39 Sulfa (Sulfonamide Allergy Intermediate RASH Verified 10/16/21 13:39 Antibiotics) [SULFA (SULFONAMIDE ANTIBIOTICS)] fluconazole [Diflucan] Allergy Unknown unknown Verified 10/16/21 13:39 topiramate [Topamax] Allergy Unknown unknown Verified 10/16/21 13:39 amitriptyline AdvReac Intermediate stomach Verified 10/16/21 13:39 upset Review of Systems Review of Systems: Constitutional : No Weight loss, No Fever, No Chills, No Night Sweats, No Fatigue, No Malaise ENT/Mouth : No Hearing loss, No Ear Pain, No Nasal Congestion, No Sinus Pain, No Hoarseness, No sore throat, No Rhinorrhea, No Swallowing Difficulty Eyes: No Eye Pain, No Swelling, No Redness, No Foreign Body, No Discharge, No Vision Changes Cardiovascular : Complaining of Chest burning, No SOB, No Dyspnea on Exertion, No Orthopnea, No Edema, No Palpitations Respiratory : No Cough, No Sputum, complaining of wheezing but not present at this time, No Smoke Exposure, No Dyspnea Gastrointestinal : No Nausea, No Vomiting, No Diarrhea, No Constipation, complaining of epigastric burning, No abdominal Pain, No Hematochezia, No Melena Genitourinary : no irregular bleeding, No Dysuria, No Urinary Frequency, No Hematuria, No Urinary Incontinence, No Urgency, No Flank Pain, No Urinary Flow Changes, No Hesitancy Musculoskeletal : No joint pain, No Myalgias, No Joint Swelling Skin : No Skin Lesions, No rash Neuro : No Weakness, No Numbness, No Paresthesias, No Loss of Consciousness, No Dizziness, No Headache Psych : No Anxiety/Panic, No Depression, No SI/HI/AH/VH, No Social Issues, Heme/Lymph: No Bruising, No Bleeding,No Lymphadenopathy Endocrine : No Polyuria, No Polydipsia, No Temperature Intolerance [facility] Past Medical History Medical History GERD (gastroesophageal reflux disease) History of anxiety History of fibromyalgia History of headache Hx of irritable bowel syndrome Hx of ovarian cyst Hx of renal calculi Hydradenitis Surgical History H/O colonoscopy H/O tubal ligation History of History of cholecystectomy History of esophagogastroduodenoscopy (EGD) Family History Family History Father HTN (hypertension) Diabetes mellitus Liver cancer Alcoholic Substance use disorder Mother Anxiety Depression Liver tumor Brother Heart attack Buerger disease Stroke Seizure Diabetes mellitus Family/Other Mild asthma Maternal Grandmother Cancer of unknown origin Maternal Grandfather Liver cancer Paternal Grandfather Heart problem Other Mental health disorder Social History Social History Household Members: Spouse and Children Housing: House Alcohol intake: current Alcohol intake frequency: does not drink Patient Tobacco Use Status: Current everyday Tobacco user Cigarette Packs Per Day: 0.5 Cigarettes Per Day: 10 Years Smoked: 25 e-Cigarette/Vaping Use: Never Used Substance Use Type: Marijuana Advance Directives: No Advance Directives Information Provided: Yes service: No Current occupational status: unemployed Current occupation: due to Covid Gender identity: Female Cognitive needs: No Hearing needs: No Vision needs: No Physical Exam Vital Signs: Vital Signs: Last Vital Signs Temp 98.3 F 10/18/21 06:00 Pulse 81 10/18/21 06:00 Resp 16 10/18/21 06:00 BP 95/48 L 10/18/21 06:00 Pulse Ox 97 10/18/21 06:00 O2 Del Method 10/18/21 06:00 BMI result Body Mass Index 46.6 Const: Other: Appearance: Alert. Oriented X3. No acute distress. Eyes: Pupils equal, round and reactive to light. ENT: Pharynx normal. Neck: Normal inspection. Neck supple. No lymph nodes noted. No crepitus CVS: Normal heart rate and rhythm. Pulses normal. Normal S1 and S2, reproducible chest pain to minimal palpation with 1 finger over both sides of the chest Respiratory: No respiratory distress. Breath sounds normal. No Wheezing. No rales Abdomen: Soft and nontender. No rigidity. No distention. Skin: Skin warm and dry. Normal skin color. Normal skin turgor. Extremities: No lower extremity edema. No Lacerations. No Rash Neuro: Oriented X 3. No motor deficit. No sensory deficit. Moving all extremities. No slurred speech. CN 2 through 12 grossly intact Psych: calm, cooperative, patient is anxious Course Course Course Narrative: Patient is not wheezing at all, very good air movement, oxygen saturation 100% on room air. EKG is normal. All the labs pending. Patient seems very anxious, which may be contributing to her current symptoms. All the labs are pending White blood cell count within normal limits, troponin and EKG normal for chest x-ray no acute pathology Patient had a GI cocktail. Patient overall feeling better. No chest pain, shortness of breath. Patient states that the real reason that she came today to the emergency room is because she went to see his primary care physician about 4 days ago, her PCP told her that they were some EKG changes and asked to come to the emergency room approximately 4 days ago. Patient did not come before. So she decided to come in today. However, she has no chest pain. MDM - Chest Pain Lab Data Result diagrams: 10/18/21 05:08 10/18/21 05:08 Labs: Lab Results 10/18/21 10/18/21 10/18/21 Range/Units 05:08 05:08 05:08 WBC 8.6 (4.8-10.8) X10*3/uL RBC 4.89 (4.20-5.50) X10*6/uL Hgb 14.0 (12.0-16.0) g/dl Hct 41.4 (37.0-47.0) % MCV 84.7 (80.0-98.0) fL MCH 28.6 (27.0-33.0) pg MCHC 33.8 (31.0-35.0) g/dl RDW 13.8 (11.0-16.0) % Plt Count 200 (160-400) X10*3/uL MPV 10.2 (9.4-12.3) fL Absolute Nucleated RBC 0.000 (0.0-0.012) X10*3/uL Nucleated RBC % (auto) 0.0 (0.0-0.2) /100WBC Sodium 138 (135-145) mmol/L Potassium 4.5 (3.3-5.1) mmol/L Chloride 107 (96-108) mmol/L Carbon Dioxide 21 L (22-29) mmol/L Anion Gap 15 (12-20) BUN 15 (9-16) mg/dL Creatinine 0.95 (0.5-1.4) mg/dL Estim Creat Clear Calc 88.6 Estimated GFR > 60 Random Glucose 117 H (60-115) mg/dL Calcium 9.0 (8.4-10.2) mg/dL Total Bilirubin 0.4 (0.0-1.0) mg/dL AST 14 D (5-31) U/L ALT 13 (0-31) U/L Alkaline Phosphatase 125 H (39-117) U/L Troponin I High Sens < 3.5 (<3.5-17.0) ng/L Total Protein 7.4 (6.5-8.0) g/dL Albumin 4.0 (3.5-5.0) g/dL ECG Data ECG #1: Attestation: I personally reviewed and interpreted this ECG as follows: (Sinus rhythm EKG, heart rate 78, no ST segment depression or elevation, no T- wave inversion, QTC 437) Discharge Plan Discharge Clinical Impression: Atypical chest pain Patient Disposition: Home, Self-Care Instructions: Chest Wall Pain (ED) Additional Instructions: Please follow-up with your primary care physician tomorrow. If you have any worsening or new symptoms, please return to the emergency room or call 911 Prescriptions: New prednisone 50 mg tablet 50 mg PO DAILY Qty: 5 0RF No Action famotidine 40 mg tablet 40 mg PO BEDTIME Qty: 60 1RF omeprazole 40 mg capsule,delayed release(DR/EC) 40 mg PO .QD Qty: 90 1RF ursodiol 500 mg tablet 500 mg PO BID Qty: 90 1RF albuterol sulfate 90 mcg/actuation HFA aerosol inhaler 1 inh inhalation Q6H PRN (Reason: shortness of breath or wheezing) Qty: 8.5 2RF gabapentin 300 mg capsule 300 mg PO TID 90 Days Qty: 270 0RF lorazepam 1 mg tablet 1 mg PO BID bupropion HCl 150 mg tablet sustained-release 12 hr 150 mg PO BID
[2021-10-18 05:22] LABS: Hematocrit 41.4 % (37.0-47.0); Mean Corpuscular HGB Conc 33.8 g/dl (31.0-35.0); Mean Corpuscular Hemoglobin 28.6 pg (27.0-33.0); Mean Corpuscular Volume 84.7 fL (80.0-98.0); Mean Platelet Volume 10.2 fL (9.4-12.3); Platelet Count 200 X10*3/uL (160-400); Red Blood Count 4.89 X10*6/uL (4.20-5.50); Red Cell Distribution Width 13.8 % (11.0-16.0); White Blood Count 8.6 X10*3/uL (4.8-10.8)
[2021-10-18] MEDS: Lidocaine HCl Viscous 2 % 15 ML SOLUTION MUCOUS MEM (05:23)
[2021-10-18] MEDS: Magnesium Hydrox/Alum Hydrox 30 ML ORAL.SUSP PO (05:23)
[2021-10-18 05:41] LABS: Troponin-I High Sensitivity < 3.5 ng/L (<3.5-17.0)
[2021-10-18 05:45] LABS: Alanine Aminotransferase 13 U/L (0-31); Alkaline Phosphatase 125 U/L (39-117); Anion Gap 15 (12-20); Aspartate Amino Transferase 14 U/L (5-31); Bilirubin Total 0.4 mg/dL (0.0-1.0); Blood Urea Nitrogen 15 mg/dL (9-16); Carbon Dioxide 21 mmol/L (22-29); Chloride 107 mmol/L (96-108); Creatinine Clr Calc Pharmacy 88.6; Estimated Glomerular Filt Rate > 60; Glucose Random 117 mg/dL (60-115); Potassium 4.5 mmol/L (3.3-5.1); Sodium 138 mmol/L (135-145); Total Protein 7.4 g/dL (6.5-8.0)
--- NOTE | 2021-10-18 05:53 | PC.NURSE ---
Pt reports her chest still maguire after GI cocktail administration.
[2021-10-18 06:00] VITALS: BP 95/48; PULSE 81; RESP 16; TEMP 36.8; O2SAT 97
== END 2021-10-18 07:26 | disposition home or self-care (01) ==
PROVIDERS: Emergency Provider Emergency Medicine
DX: R07.89 Other chest pain (principal); R06.02 Shortness of breath; R10.13 Epigastric pain; F17.200 Nicotine dependence, unspecified, uncomplicated; Z71.6 Tobacco abuse counseling; Z79.899 Other long term (current) drug therapy
CPT/HCPCS: 36415; 71045; 80053; 84484; 85027; 93005; 99284

== ENCOUNTER 2021-12-29 17:38 | Emergency (ER) | payer OTHER, SELFPAY ==
[2021-12-29 17:44] VITALS: BP 175/109; PULSE 86; RESP 18; TEMP 36.9; O2SAT 98; BMI 43.9
--- NOTE | 2021-12-29 17:52 | ECG_ITS ---
Test Reason : CHEST PAIN Blood Pressure : / mmHG Vent. Rate : 091 BPM Atrial Rate : 091 BPM P-R Int : 136 ms QRS Dur : 074 ms QT Int : 384 ms P-R-T Axes : 054 -10 -19 degrees QTc Int : 472 ms Normal sinus rhythm ST & T wave abnormality, consider anterior ischemia Abnormal ECG When compared with ECG of 18-OCT-2021 04:58, Inverted T waves have replaced nonspecific T wave abnormality in Anterior leads Referred By: Generic ED Physician Electronically Signed By:SABRINA SAL
[2021-12-29 18:08] LABS: Glucose, Whole Blood 92 mg/dL (60-115)
[2021-12-29] MEDS: Aspirin 81 MG TAB.CHEW 324 MG PO (18:22)
[2021-12-29] MEDS: Nitroglycerin 0.4 MG TAB.SUBL SUBLINGUAL (18:23)
[2021-12-29 18:26] VITALS: BP 130/85; PULSE 85; RESP 20; O2SAT 96
[2021-12-29 18:30] LABS: MANUAL DIFF FLAG NO
[2021-12-29 18:32] LABS: Basophils Absolute Auto 0.1 X10*3/uL (0.0-0.2); Basophils Percent Auto 0.4 % (0-2); Eosinophils Absolute Auto 0.5 X10*3/uL (0.0-0.4); Eosinophils Percent Auto 4.6 % (0-4); Hematocrit 40.8 % (37.0-47.0); Imm Gran Abs Auto 0.03 X10*3/uL (0.00-0.03); Imm Gran Pct Auto 0.3 % (0.0-0.4); Lymphocytes Absolute Auto 3.6 X10*3/uL (1.2-4.9); Lymphocytes Percent Auto 32.2 % (20-40); Mean Corpuscular HGB Conc 34.3 g/dl (31.0-35.0); Mean Corpuscular Hemoglobin 29.7 pg (27.0-33.0); Mean Corpuscular Volume 86.4 fL (80.0-98.0); Mean Platelet Volume 10.3 fL (9.4-12.3); Monocytes Absolute Auto 0.8 X10*3/uL (0.1-1.2); Monocytes Percent Auto 6.9 % (2-11); Neutrophils Absolute Auto 6.2 x10*3/uL (2.0-8.3); Neutrophils Percent Auto 55.6 % (45-73); Platelet Count 198 X10*3/uL (160-400); Red Blood Count 4.72 X10*6/uL (4.20-5.50); Red Cell Distribution Width 14.4 % (11.0-16.0); White Blood Count 11.1 X10*3/uL (4.8-10.8)
--- NOTE | 2021-12-29 18:32 | ED_ITS ---
HPI - Chest Pain General Chief Complaint: Chest Pain Stated Complaint: sob,chest pain Time Seen by Provider: 12/29/21 18:07 Source: patient and family () Mode of arrival: ambulatory History of Present Illness HPI narrative: 41-year-old female who presents for onset headache with blurred vision as well as sharp substernal chest pain that she states is ?it's coming and going? and is not been associated with any dizziness but patient is nauseous and denies any fever chills. She states she has not been feeling well for a couple of months since she contracted COVID proximally 1 and half months ago. She is status post cholecystectomy. Patient states that the pain is excruciating. She also describes tingling around her mouth and the tips of bilateral hands. She also endorses that she has been having strange episodes bruising to bilateral lower extremities that ?come and go?. Related Data Home Medications Medication Instructions Recorded Confirmed bupropion HCl 150 mg tablet,12 hr 150 mg PO BID 01/30/20 11/25/21 sustained-release lorazepam 1 mg tablet 1 mg PO BID 01/30/20 11/25/21 Previous Rx's Medication Instructions Recorded albuterol sulfate 90 mcg/actuation 1 inh inhalation Q6H PRN shortness 07/17/20 aerosol inhaler of breath or wheezing #8.5 grams ursodiol 500 mg tablet 500 mg PO BID #90 tabs 07/22/21 omeprazole 40 mg capsule,delayed 40 mg PO .QD GERD #90 caps 09/21/21 release gabapentin 300 mg capsule 300 mg PO TID 90 days #270 caps 10/15/21 montelukast 10 mg tablet 10 mg PO DAILY 90 days #90 tabs 10/27/21 phenazopyridine 100 mg tablet 100 mg PO TID PRN pain 3 days #9 11/25/21 (Pyridium) tabs ciprofloxacin HCl 500 mg tablet 500 mg PO BID 5 days #10 tabs 11/30/21 (Cipro) famotidine 40 mg tablet 40 mg PO BEDTIME #60 tabs 12/28/21 Allergies Allergy/AdvReac Type Severity Reaction Status Date / Time azithromycin [AZITHROMYCIN] Allergy Intermediate RASH Verified 11/30/21 16:43 ketorolac [From Toradol] Allergy Intermediate Rash Verified 11/30/21 16:43 Sulfa (Sulfonamide Allergy Intermediate RASH Verified 11/30/21 16:43 Antibiotics) [SULFA (SULFONAMIDE ANTIBIOTICS)] fluconazole [Diflucan] Allergy Unknown unknown Verified 11/30/21 16:43 topiramate [Topamax] Allergy Unknown unknown Verified 11/30/21 16:43 amitriptyline AdvReac Intermediate stomach Verified 11/30/21 16:43 upset Review of Systems Review of Systems: Pertinent positives and negatives as stated in HPI 10 point review of systems is otherwise negative. [facility]LY [facility] Past Medical History Source: nursing notes reviewed Medical History Abdominal pain Acid reflux Colon polyps Early satiety Fibromyalgia GERD (gastroesophageal reflux disease) History of anxiety History of fibromyalgia History of headache Hx of irritable bowel syndrome Hx of ovarian cyst Hx of renal calculi Hydradenitis Loud snoring ELIAZAR (obstructive sleep apnea) Somnolence, daytime Surgical History H/O colonoscopy H/O tubal ligation History of History of cholecystectomy History of esophagogastroduodenoscopy (EGD) Family History Family History Father HTN (hypertension) Diabetes mellitus Liver cancer Alcoholic Substance use disorder Mother Anxiety Depression Liver tumor Brother Heart attack Buerger disease Stroke Seizure Diabetes mellitus Family/Other Mild asthma Maternal Grandmother Cancer of unknown origin Maternal Grandfather Liver cancer Paternal Grandfather Heart problem Other Mental health disorder Social History Social History Household Members: Spouse and Children Housing: House Alcohol intake: current Alcohol intake frequency: does not drink Patient Tobacco Use Status: Current everyday Tobacco user Cigarette Packs Per Day: 0.5 Cigarettes Per Day: 10 Years Smoked: 25 e-Cigarette/Vaping Use: Never Used Substance Use Type: Marijuana Advance Directives: No Advance Directives Information Provided: No service: No Current occupational status: unemployed Current occupation: due to Covid Gender identity: Female Cognitive needs: No Hearing needs: No Vision needs: No Physical Exam Vital Signs: Vital Signs: Last Vital Signs Temp 98.2 F 12/29/21 19:49 Pulse 69 12/29/21 19:49 Resp 16 12/29/21 19:49 BP 119/66 08/31/22 19:49 Pulse Ox 98 12/29/21 19:49 O2 Del Method 12/29/21 19:49 BMI result Body Mass Index 43.9 VITAL SIGNS: Reviewed. GENERAL: Elevated BMI, Well developed, well nourished, in no acute distress. HEAD: Normocephalic/atraumatic EYES: PERRLA, EOMI EARS: Ext canals without abnormality OROPHARYNX: no oral lesions noted, posterior pharynx clear LUNGS: Normal breath sounds. No adventitious sounds or accessory muscle use. SpO2<96> CARDIOVASCULAR: Regular rate and rhythm without noted murmurs, no JVD or lower extremity edema. ABDOMEN: Soft, non-tender, non-distended with bowel sounds. MUSCULOSKELETAL: No tenderness, deformities, or effusions noted on gross inspection. EXTREMITIES: No cyanosis, clubbing or edema. SKIN: Inspection of the skin reveals no rashes, ulcerations, jaundice, pallor, or petechiae. NEUROLOGIC: Alert and oriented x 4. Strength and sensation to light touch were grossly intact x 4, otherwise nonfocal. PSYCH: Tearful Course Course Course Narrative: 41-year-old female with history and clinical presentation concerning for possible cardiac etiology given BMI, family history (strokes), ELIAZAR, and patient appears to still be a mostly distraught regarding the loss of her pet. Her is at bedside. Patient received 324 mg aspirin as well as 1 sublingual nitro and on review of EKG there are new ST changes in the lateral leads when compared to prior in September of this year. Cannot rule out the possibility jayesh/myocarditis. I was called with critical VBG results which demonstrate metabolic alkalosis/PCO2-16/PO2 241...... Suspect that patient may have hyperventilated especially given the history of tingling in bilateral fingertips as well as perioral tingling. I discussed with the patient the possibility of a panic attack and she states that this event was much worse and that the sublingual nitro that she received helped out considerably though the pain is still there ?a little bit? and states that it ?comes and goes?. Serial troponins are negative, patient is chest pain is atypical for cardiac in etiology. CRP is mildly elevated and ESR is negative. I discussed all plans an options with the patient and she will be provided with referral to see Gastroenterology for possible evaluation for esophageal motility, patient fully understands that this is at the discretion of the evaluating customer resource specialist. On re-evaluation patient is calm, and otherwise appears well. Vital signs are stable and she is discharged home. MDM - Chest Pain Lab Data Result diagrams: 12/29/21 18:23 12/29/21 18:23 Labs: Lab Results 12/29/21 12/29/21 12/29/21 Range/Units 18:03 18:23 18:23 WBC 11.1 H (4.8-10.8) X10*3/uL RBC 4.72 (4.20-5.50) X10*6/uL Hgb 14.0 (12.0-16.0) g/dl Hct 40.8 (37.0-47.0) % MCV 86.4 (80.0-98.0) fL MCH 29.7 (27.0-33.0) pg MCHC 34.3 (31.0-35.0) g/dl RDW 14.4 (11.0-16.0) % Plt Count 198 (160-400) X10*3/uL MPV 10.3 (9.4-12.3) fL Immature Gran % (Auto) 0.3 (0.0-0.4) % Neut % (Auto) 55.6 (45-73) % Lymph % (Auto) 32.2 (20-40) % Sanborn % (Auto) 6.9 (2-11) % Eos % (Auto) 4.6 H (0-4) % Baso % (Auto) 0.4 (0-2) % Lymph # (Auto) 3.6 (1.2-4.9) X10*3/uL Sanborn # (Auto) 0.8 (0.1-1.2) X10*3/uL Eos # (Auto) 0.5 H (0.0-0.4) X10*3/uL Baso # (Auto) 0.1 (0.0-0.2) X10*3/uL Abs Immat Gran (auto) 0.03 (0.00-0.03) X10*3/uL Absolute Neuts (auto) 6.2 (2.0-8.3) x10*3/uL Absolute Nucleated RBC 0.000 (0.0-0.012) X10*3/uL Nucleated RBC % (auto) 0.0 (0.0-0.2) /100WBC ESR (0-20) MM/HR PT (10.0-13.1) SEC INR (0.9-1.1) D-Dimer High Sensitivty NG/ML VBG pH (7.32-7.43) VBG pCO2 mmHg VBG pO2 mmHg VBG HCO3 (22-26) mmol/L VBG O2 Saturation % VBG Base Excess mmol/L Sodium 144 (135-145) mmol/L Potassium 3.4 D (3.3-5.1) mmol/L Chloride 107 (96-108) mmol/L Carbon Dioxide 26 (22-29) mmol/L Anion Gap 14 (12-20) BUN 11 (9-16) mg/dL Creatinine 0.81 (0.5-1.4) mg/dL Estim Creat Clear Calc 104.0 Estimated GFR > 60 POC Glucose 92 (60-115) mg/dL Random Glucose 99 (60-115) mg/dL Calcium 9.4 (8.4-10.2) mg/dL Total Bilirubin 0.3 (0.0-1.0) mg/dL Direct Bilirubin 0.2 (0.0-0.5) mg/dL AST 13 (5-31) U/L ALT 16 (0-31) U/L Alkaline Phosphatase 119 H (39-117) U/L Troponin I High Sens (<3.5-17.0) ng/L C-Reactive Protein 0.79 H (< or = 0.50) mg/dL B-Natriuretic Peptide (<100) pg/mL Total Protein 7.3 (6.5-8.0) g/dL Albumin 4.2 (3.5-5.0) g/dL Lipase 17 (8-78) U/L Urine Color Urine Appearance Urine pH (5.0-9.0) Ur Specific Regina (1.005-1.025) Urine Protein (Neg-Trace) mg/dL Urine Glucose (UA) (Negative) mg/dL Urine Ketones (Negative) mg/dL Urine Blood (Negative) Urine Nitrite (Negative) Ur Leukocyte Esterase (Negative) Urine Test (NEGATIVE) COVID-19 ([facility]) (Negative) COVID-19 Clin Com 12/29/21 12/29/21 12/29/21 Range/Units 18:23 18:23 18:28 WBC (4.8-10.8) X10*3/uL RBC (4.20-5.50) X10*6/uL Hgb (12.0-16.0) g/dl Hct (37.0-47.0) % MCV (80.0-98.0) fL MCH (27.0-33.0) pg MCHC (31.0-35.0) g/dl RDW (11.0-16.0) % Plt Count (160-400) X10*3/uL MPV (9.4-12.3) fL Immature Gran % (Auto) (0.0-0.4) % Neut % (Auto) (45-73) % Lymph % (Auto) (20-40) % Sanborn % (Auto) (2-11) % Eos % (Auto) (0-4) % Baso % (Auto) (0-2) % Lymph # (Auto) (1.2-4.9) X10*3/uL Sanborn # (Auto) (0.1-1.2) X10*3/uL Eos # (Auto) (0.0-0.4) X10*3/uL Baso # (Auto) (0.0-0.2) X10*3/uL Abs Immat Gran (auto) (0.00-0.03) X10*3/uL Absolute Neuts (auto) (2.0-8.3) x10*3/uL Absolute Nucleated RBC (0.0-0.012) X10*3/uL Nucleated RBC % (auto) (0.0-0.2) /100WBC ESR 16 (0-20) MM/HR PT (10.0-13.1) SEC INR (0.9-1.1) D-Dimer High Sensitivty NG/ML VBG pH (7.32-7.43) VBG pCO2 mmHg VBG pO2 mmHg VBG HCO3 (22-26) mmol/L VBG O2 Saturation % VBG Base Excess mmol/L Sodium (135-145) mmol/L Potassium (3.3-5.1) mmol/L Chloride (96-108) mmol/L Carbon Dioxide (22-29) mmol/L Anion Gap (12-20) BUN (9-16) mg/dL Creatinine (0.5-1.4) mg/dL Estim Creat Clear Calc Estimated GFR POC Glucose (60-115) mg/dL Random Glucose (60-115) mg/dL Calcium (8.4-10.2) mg/dL Total Bilirubin (0.0-1.0) mg/dL Direct Bilirubin (0.0-0.5) mg/dL AST (5-31) U/L ALT (0-31) U/L Alkaline Phosphatase (39-117) U/L Troponin I High Sens < 3.5 (<3.5-17.0) ng/L C-Reactive Protein (< or = 0.50) mg/dL B-Natriuretic Peptide 11 (<100) pg/mL Total Protein (6.5-8.0) g/dL Albumin (3.5-5.0) g/dL Lipase (8-78) U/L Urine Color Urine Appearance Urine pH (5.0-9.0) Ur Specific Regina (1.005-1.025) Urine Protein (Neg-Trace) mg/dL Urine Glucose (UA) (Negative) mg/dL Urine Ketones (Negative) mg/dL Urine Blood (Negative) Urine Nitrite (Negative) Ur Leukocyte Esterase (Negative) Urine Test (NEGATIVE) COVID-19 ([facility]) Negative (Negative) COVID-19 Clin Com See Note 12/29/21 12/29/21 12/29/21 Range/Units 18:55 18:58 19:56 WBC (4.8-10.8) X10*3/uL RBC (4.20-5.50) X10*6/uL Hgb (12.0-16.0) g/dl Hct (37.0-47.0) % MCV (80.0-98.0) fL MCH (27.0-33.0) pg MCHC (31.0-35.0) g/dl RDW (11.0-16.0) % Plt Count (160-400) X10*3/uL MPV (9.4-12.3) fL Immature Gran % (Auto) (0.0-0.4) % Neut % (Auto) (45-73) % Lymph % (Auto) (20-40) % Sanborn % (Auto) (2-11) % Eos % (Auto) (0-4) % Baso % (Auto) (0-2) % Lymph # (Auto) (1.2-4.9) X10*3/uL Sanborn # (Auto) (0.1-1.2) X10*3/uL Eos # (Auto) (0.0-0.4) X10*3/uL Baso # (Auto) (0.0-0.2) X10*3/uL Abs Immat Gran (auto) (0.00-0.03) X10*3/uL Absolute Neuts (auto) (2.0-8.3) x10*3/uL Absolute Nucleated RBC (0.0-0.012) X10*3/uL Nucleated RBC % (auto) (0.0-0.2) /100WBC ESR (0-20) MM/HR PT 11.4 (10.0-13.1) SEC INR 1.0 (0.9-1.1) D-Dimer High Sensitivty 189 NG/ML VBG pH 7.71 H* (7.32-7.43) VBG pCO2 16 mmHg VBG pO2 241 mmHg VBG HCO3 20 L (22-26) mmol/L VBG O2 Saturation 100.0 % VBG Base Excess 3.1 mmol/L Sodium (135-145) mmol/L Potassium (3.3-5.1) mmol/L Chloride (96-108) mmol/L Carbon Dioxide (22-29) mmol/L Anion Gap (12-20) BUN (9-16) mg/dL Creatinine (0.5-1.4) mg/dL Estim Creat Clear Calc Estimated GFR POC Glucose (60-115) mg/dL Random Glucose (60-115) mg/dL Calcium (8.4-10.2) mg/dL Total Bilirubin (0.0-1.0) mg/dL Direct Bilirubin (0.0-0.5) mg/dL AST (5-31) U/L ALT (0-31) U/L Alkaline Phosphatase (39-117) U/L Troponin I High Sens < 3.5 (<3.5-17.0) ng/L C-Reactive Protein (< or = 0.50) mg/dL B-Natriuretic Peptide (<100) pg/mL Total Protein (6.5-8.0) g/dL Albumin (3.5-5.0) g/dL Lipase (8-78) U/L Urine Color Urine Appearance Urine pH (5.0-9.0) Ur Specific Regina (1.005-1.025) Urine Protein (Neg-Trace) mg/dL Urine Glucose (UA) (Negative) mg/dL Urine Ketones (Negative) mg/dL Urine Blood (Negative) Urine Nitrite (Negative) Ur Leukocyte Esterase (Negative) Urine Test (NEGATIVE) COVID-19 ([facility]) (Negative) COVID-19 Clin Com 12/29/21 12/29/21 Range/Units 19:56 19:56 WBC (4.8-10.8) X10*3/uL RBC (4.20-5.50) X10*6/uL Hgb (12.0-16.0) g/dl Hct (37.0-47.0) % MCV (80.0-98.0) fL MCH (27.0-33.0) pg MCHC (31.0-35.0) g/dl RDW (11.0-16.0) % Plt Count (160-400) X10*3/uL MPV (9.4-12.3) fL Immature Gran % (Auto) (0.0-0.4) % Neut % (Auto) (45-73) % Lymph % (Auto) (20-40) % Sanborn % (Auto) (2-11) % Eos % (Auto) (0-4) % Baso % (Auto) (0-2) % Lymph # (Auto) (1.2-4.9) X10*3/uL Sanborn # (Auto) (0.1-1.2) X10*3/uL Eos # (Auto) (0.0-0.4) X10*3/uL Baso # (Auto) (0.0-0.2) X10*3/uL Abs Immat Gran (auto) (0.00-0.03) X10*3/uL Absolute Neuts (auto) (2.0-8.3) x10*3/uL Absolute Nucleated RBC (0.0-0.012) X10*3/uL Nucleated RBC % (auto) (0.0-0.2) /100WBC ESR (0-20) MM/HR PT (10.0-13.1) SEC INR (0.9-1.1) D-Dimer High Sensitivty NG/ML VBG pH (7.32-7.43) VBG pCO2 mmHg VBG pO2 mmHg VBG HCO3 (22-26) mmol/L VBG O2 Saturation % VBG Base Excess mmol/L Sodium (135-145) mmol/L Potassium (3.3-5.1) mmol/L Chloride (96-108) mmol/L Carbon Dioxide (22-29) mmol/L Anion Gap (12-20) BUN (9-16) mg/dL Creatinine (0.5-1.4) mg/dL Estim Creat Clear Calc Estimated GFR POC Glucose (60-115) mg/dL Random Glucose (60-115) mg/dL Calcium (8.4-10.2) mg/dL Total Bilirubin (0.0-1.0) mg/dL Direct Bilirubin (0.0-0.5) mg/dL AST (5-31) U/L ALT (0-31) U/L Alkaline Phosphatase (39-117) U/L Troponin I High Sens (<3.5-17.0) ng/L C-Reactive Protein (< or = 0.50) mg/dL B-Natriuretic Peptide (<100) pg/mL Total Protein (6.5-8.0) g/dL Albumin (3.5-5.0) g/dL Lipase (8-78) U/L Urine Color Yellow Urine Appearance Clear Urine pH 6.0 (5.0-9.0) Ur Specific Regina 1.010 (1.005-1.025) Urine Protein Negative (Neg-Trace) mg/dL Urine Glucose (UA) Negative (Negative) mg/dL Urine Ketones Trace (Negative) mg/dL Urine Blood Negative (Negative) Urine Nitrite Negative (Negative) Ur Leukocyte Esterase Negative (Negative) Urine Test NEGATIVE (NEGATIVE) COVID-19 ([facility]) (Negative) COVID-19 Clin Com Discharge Plan Discharge Clinical Impression: Acid reflux, Esophagus disorder, Panic attack Patient Disposition: Home, Self-Care Instructions: Diet for Stomach Ulcers and Gastritis (ED), Gastroesophageal Reflux Disease (ED), Esophageal Spasm (ED) Additional Instructions: 1. Resume all home medications as prescribed. 2. Referral for Gastroenterology. Return to the ER for worsening symptoms. Prescriptions: No Action omeprazole 40 mg capsule,delayed release(DR/EC) 40 mg PO .QD Qty: 90 1RF montelukast 10 mg tablet 10 mg PO DAILY 90 Days Qty: 90 0RF famotidine 40 mg tablet 40 mg PO BEDTIME Qty: 60 1RF ursodiol 500 mg tablet 500 mg PO BID Qty: 90 1RF albuterol sulfate 90 mcg/actuation HFA aerosol inhaler 1 inh inhalation Q6H PRN (Reason: shortness of breath or wheezing) Qty: 8.5 2RF gabapentin 300 mg capsule 300 mg PO TID 90 Days Qty: 270 0RF ciprofloxacin HCl [Cipro] 500 mg tablet 500 mg PO BID 5 Days Qty: 10 0RF phenazopyridine [Pyridium] 100 mg tablet 100 mg PO TID PRN (Reason: pain) 3 Days Qty: 9 0RF lorazepam 1 mg tablet 1 mg PO BID bupropion HCl 150 mg tablet sustained-release 12 hr 150 mg PO BID Referrals: Khanh Reynolds MD [Primary Care Provider] - Tony Renae [Physician] - (Please evaluate and treat as indicated for patient with symptoms suggestive of possible esophageal spasm or other esophageal disorder, but also describes poor oral intake, has had upper endoscopy p reviously. Thank you)
[2021-12-29 18:45] LABS: COVID-19 Test Negative (Negative)
[2021-12-29 18:46] LABS: Anion Gap 14 (12-20); Blood Urea Nitrogen 11 mg/dL (9-16); Calcium 9.4 mg/dL (8.4-10.2); Carbon Dioxide 26 mmol/L (22-29); Chloride 107 mmol/L (96-108); Estimated Glomerular Filt Rate > 60; Glucose Random 99 mg/dL (60-115); Potassium 3.4 mmol/L (3.3-5.1); Sodium 144 mmol/L (135-145)
[2021-12-29 18:54] LABS: B Type Natriuretic Peptide 11 pg/mL (<100); Troponin-I High Sensitivity < 3.5 ng/L (<3.5-17.0)
[2021-12-29 19:04] LABS: Venous Blood Gas Refer to POC result
[2021-12-29 19:05] LABS: VBG Base Excess 3.1 mmol/L; VBG HCO3 20 mmol/L (22-26); VBG pCO2 16 mmHg; VBG pH 7.71 (7.32-7.43); VBG pO2 241 mmHg
[2021-12-29 19:08] LABS: Prothrombin Time 11.4 SEC (10.0-13.1)
[2021-12-29 19:10] LABS: D Dimer High Sensitivity 189 NG/ML
[2021-12-29 19:19] LABS: Alanine Aminotransferase 16 U/L (0-31); Albumin Level 4.2 g/dL (3.5-5.0); Alkaline Phosphatase 119 U/L (39-117); Aspartate Amino Transferase 13 U/L (5-31); Bilirubin Direct 0.2 mg/dL (0.0-0.5); Bilirubin Total 0.3 mg/dL (0.0-1.0); Lipase 17 U/L (8-78); Total Protein 7.3 g/dL (6.5-8.0)
[2021-12-29 19:49] VITALS: BP 119/66; PULSE 69; RESP 16; TEMP 36.8; O2SAT 98
[2021-12-29 20:03] LABS: Appearance Urine Clear; Color Urine Yellow; Glucose Urine UA Negative (Negative); Leukocyte Esterase Urine Negative (Negative); Nitrite Urine Negative (Negative); Urine Blood Negative (Negative); Urine Ketones Trace mg/dL (Negative); Urine Protein Negative (Neg-Trace)
[2021-12-29 20:05] LABS: UPreg QC Valid YES; Urine Pregnancy NEGATIVE (NEGATIVE)
[2021-12-29] MEDS: Acetaminophen 325 MG TABLET 975 MG PO (20:10)
[2021-12-29 20:11] LABS: C Reactive Protein 0.79 mg/dL (< or = 0.50)
[2021-12-29 20:24] LABS: Troponin-I High Sensitivity < 3.5 ng/L (<3.5-17.0)
[2021-12-29 20:39] LABS: Erythrocyte Sedimentation Rate 16 MM/HR (0-20)
[2021-12-29 21:34] VITALS: BP 120/76; PULSE 64; RESP 16; TEMP 36.6; O2SAT 97
== END 2021-12-29 21:53 | disposition home or self-care (01) ==
PROVIDERS: Emergency Provider Student in an Organized Health Care Education/Training Program; PCP Internal Medicine
DX: K21.9 Gastro-esophageal reflux disease without esophagitis (principal); R07.89 Other chest pain; R06.02 Shortness of breath; F41.0 Panic disorder [episodic paroxysmal anxiety]; Z20.822 Contact with and (suspected) exposure to COVID-19; Z79.899 Other long term (current) drug therapy
CPT/HCPCS: 36415; 80048; 80076; 81003; 81025; 82803; 82947; 83690; 83880; 84484; 85025; 85379; 85610; 85652; 86140; 87635; 93005; 99283; 99284

== ENCOUNTER 2022-01-22 10:38 | Outpatient (REF) | payer OTHER, SELFPAY ==
--- NOTE | ~2022-01-22 | MM_ITS ---
EXAMINATION: MM SCREENING DIGITAL BREAST TOMOSYNTHESIS, BILATERAL CLINICAL INFORMATION: Screening. Asymptomatic. The lifetime risk of breast cancer based on the Tyrer-Cuzick Model is 8%. COMPARISON: Mammography: 01/21/2021, 06/20/2019, 03/04/2014 TECHNIQUE: Digital breast tomosynthesis is performed in both the craniocaudal and mediolateral oblique views along with computer-aided detection (CAD). Synthesized 2D images are generated from the tomosynthesis. FINDINGS: There are scattered areas of fibroglandular density (ACR BI-RADS breast composition Category b). There are no significant masses, abnormal calcifications, or other abnormalities. No developing density or architectural abnormality. Incidental low right axillary tail node. The skin contours are smooth. No significant changes. MM/MM tomosynthesis screening BI IMPRESSION: No mammographic evidence of malignancy. ASSESSMENT: BI-RADS 2: Benign RECOMMENDATION: Routine annual mammography screening. This patient's information was entered into a reminder system with a target due date for their next mammogram.
== END 2022-01-22 10:39 | disposition home or self-care (01) ==
LOC: HO.MAMMO 10:38
PROVIDERS: PCP Internal Medicine; Visit Provider Internal Medicine
DX: Z12.31 Encounter for screening mammogram for malignant neoplasm of breast (principal)
CPT/HCPCS: 77063; 77067

== ENCOUNTER 2022-03-04 11:57 | Outpatient (REF) | payer OTHER, SELFPAY | END 2022-03-04 11:58 | disposition home or self-care (01) | LOC: HO.LAB 11:57 | PROVIDERS: Visit Provider Emergency Medicine | DX: R30.0 Dysuria (principal) | CPT/HCPCS: 87086; 87088; 87186 ==

== ENCOUNTER 2022-03-30 08:51 | Emergency (ER) | payer OTHER, SELFPAY ==
--- NOTE | ~2022-03-30 | CT_ITS ---
EXAMINATION: CT ABDOMEN AND PELVIS WITH CONTRAST CLINICAL INFORMATION: Abdominal pain and nausea COMPARISON: Previous CT of the abdomen and pelvis most recent September 2021 TECHNIQUE: Multidetector volumetric images were obtained from the superior aspect of the liver through the pubic symphysis following administration 85 mL of Omnipaque 350 intravenous contrast. Sagittal and coronal reformatted images were obtained on the technologist's workstation. Oral contrast: Yes This CT examination was performed using dose optimization techniques as appropriate, variously including the following: *Automated exposure control *Adjustment of mA and/or kV according to patient size (this includes techniques or standardized protocols for targeted exams where dose is matched to indication/reason for exam; i.e. extremities or head) *Use of iterative reconstruction technique DLP: 693 mGy-cm FINDINGS: LUNG BASES: The visualized lung bases are unremarkable. LIVER, GALLBLADDER, AND BILIARY TREE: The liver is normal in size, shape, and attenuation. No focal hepatic lesion or biliary ductal dilatation is present. The gallbladder has been removed PANCREAS: Unremarkable. SPLEEN: Unremarkable. ADRENAL GLANDS: Unremarkable. KIDNEYS AND URETERS: 1 cm cyst in the lower pole the left kidney. No imaging follow-up. Kidneys are otherwise normal. BLADDER: Unremarkable. GASTROINTESTINAL TRACT: The small and large bowel are unremarkable. The appendix is unremarkable. ABDOMINAL WALL: Small umbilical and periumbilical hernias containing fat. LYMPH NODES: Normal. VASCULAR: Unremarkable. PELVIC VISCERA: Unremarkable. OSSEOUS STRUCTURES: Unremarkable. CT/CT abdomen pelvis w IV con IMPRESSION: Small umbilical and periumbilical hernias containing fat. Small left renal cyst. Fleischner guidelines were followed.
[2022-03-30 08:57] VITALS: BP 110/74; PULSE 65; RESP 20; TEMP 36.7; O2SAT 97; BMI 39.9
[2022-03-30 09:14] LABS: MANUAL DIFF FLAG NO
[2022-03-30 09:16] LABS: Basophils Absolute Auto 0.1 X10*3/uL (0.0-0.2); Basophils Percent Auto 0.8 % (0-2); Eosinophils Absolute Auto 0.5 X10*3/uL (0.0-0.4); Eosinophils Percent Auto 8.1 % (0-4); Hematocrit 40.9 % (37.0-47.0); Hemoglobin 13.5 g/dl (12.0-16.0); Imm Gran Abs Auto 0.01 X10*3/uL (0.00-0.03); Imm Gran Pct Auto 0.2 % (0.0-0.4); Lymphocytes Absolute Auto 2.1 X10*3/uL (1.2-4.9); Lymphocytes Percent Auto 31.9 % (20-40); Mean Corpuscular Hemoglobin 28.7 pg (27.0-33.0); Mean Corpuscular Volume 86.8 fL (80.0-98.0); Mean Platelet Volume 10.2 fL (9.4-12.3); Monocytes Absolute Auto 0.5 X10*3/uL (0.1-1.2); Monocytes Percent Auto 7.6 % (2-11); Neutrophils Absolute Auto 3.3 x10*3/uL (2.0-8.3); Neutrophils Percent Auto 51.4 % (45-73); Platelet Count 162 X10*3/uL (160-400); Red Blood Count 4.71 X10*6/uL (4.20-5.50); Red Cell Distribution Width 14.3 % (11.0-16.0); White Blood Count 6.5 X10*3/uL (4.8-10.8)
[2022-03-30 09:30] LABS: Alanine Aminotransferase 23 U/L (0-31); Albumin Level 3.7 g/dL (3.5-5.0); Alkaline Phosphatase 136 U/L (39-117); Anion Gap 12 (12-20); Aspartate Amino Transferase 17 U/L (5-31); Bilirubin Direct < 0.2 mg/dL (0.0-0.5); Bilirubin Total 0.3 mg/dL (0.0-1.0); Blood Urea Nitrogen 12 mg/dL (9-16); Carbon Dioxide 26 mmol/L (22-29); Chloride 104 mmol/L (96-108); Creatinine Clr Calc Pharmacy 101.2; Estimated Glomerular Filt Rate > 60; Glucose Random 97 mg/dL (60-115); Lipase 26 U/L (8-78); Potassium 4.1 mmol/L (3.3-5.1); Sodium 138 mmol/L (135-145); Total Protein 6.6 g/dL (6.5-8.0)
[2022-03-30 09:32] LABS: Appearance Urine Clear; Color Urine Yellow; Glucose Urine UA Negative (Negative); Leukocyte Esterase Urine Negative (Negative); Nitrite Urine Negative (Negative); Urine Blood Negative (Negative); Urine Ketones Negative (Negative); Urine Protein Negative (Neg-Trace)
--- NOTE | 2022-03-30 10:24 | ED_ITS ---
HPI - Nausea/Vomiting/Diarrhea General Chief complaint: Nausea/Vomiting/Diarrhea Stated complaint: not feeling well for over a month Time Seen by Provider: 03/30/22 10:15 Source: patient Mode of arrival: ambulatory History of Present Illness HPI Narrative: 42-year-old female with a past medical history of GERD, anxiety, fibromyalgia, IBS, renal stones, ELIAZAR, presenting to the ED complaining of nausea x months worsening over the past week with intermittent vomiting, diarrhea, and constipation. Also reports diffuse abdominal discomfort. Reports about 70 lb weight loss in the past 9 months. Reports decreased p.o. intake. Has been usi ng Zofran without relief. Denies fever, chills, suspicious food intake, dysuria/hematuria, CP/SOB MD elicited complaint: nausea, vomiting, diarrhea and abdominal pain Onset (ago): month(s) Related Data Home Medications Medication Instructions Recorded Confirmed bupropion HCl 150 mg tablet,12 hr 150 mg PO BID 01/30/20 01/11/22 sustained-release lorazepam 1 mg tablet 1 mg PO BID 01/30/20 01/11/22 Previous Rx's Medication Instructions Recorded albuterol sulfate 90 mcg/actuation 1 inh inhalation Q6H PRN shortness 07/17/20 aerosol inhaler of breath or wheezing #8.5 grams famotidine 40 mg tablet 40 mg PO BEDTIME #60 tabs 12/28/21 gabapentin 300 mg capsule 300 mg PO TID 90 days #270 caps 01/11/22 montelukast 10 mg tablet 10 mg PO DAILY 90 days #90 tabs 01/19/22 nitrofurantoin 100 mg PO Q12H 3 days #6 caps 02/18/22 monohydrate/macrocrystals 100 mg capsule (Macrobid) cephalexin 500 mg capsule 500 mg PO TID 7 days #21 caps 03/04/22 metoclopramide HCl 10 mg tablet 10 mg PO Q6H PRN nausea and 03/30/22 (Reglan) vomiting #10 tabs Allergies Allergy/AdvReac Type Severity Reaction Status Date / Time azithromycin [AZITHROMYCIN] Allergy Intermediate RASH Verified 01/11/22 08:58 ketorolac [From Toradol] Allergy Intermediate Rash Verified 01/11/22 08:58 Sulfa (Sulfonamide Allergy Intermediate RASH Verified 01/11/22 08:58 Antibiotics) [SULFA (SULFONAMIDE ANTIBIOTICS)] fluconazole [Diflucan] Allergy Unknown unknown Verified 01/11/22 08:58 topiramate [Topamax] Allergy Unknown unknown Verified 01/11/22 08:58 amitriptyline AdvReac Intermediate stomach Verified 01/11/22 08:58 upset Review of Systems Review of Systems: Constitutional: + Weight loss, No Fever, No Chills, No Fatigue, No Malaise ENT/Mouth: No Ear Pain, No Nasal Congestion, No sore throat, No Rhinorrhea, No Swallowing Difficulty Eyes: No Eye Pain, No Swelling, No Redness, No Vision Changes Cardiovascular: No Chest Pain, No SOB, No Edema, No Palpitations Respiratory: No Cough, No Sputum, No Dyspnea Gastrointestinal: + Nausea, + Vomiting, + Diarrhea, + Constipation, + Abdominal pain Genitourinary: No irregular bleeding, No Dysuria, No Urinary Frequency, No Hematuria, No Flank Pain, No Urinary Flow Changes, No Hesitancy Musculoskeletal: No joint pain, No Myalgias, No Joint Swelling Skin: No Skin Lesions, No rash Neuro: No Weakness, No Dizziness, No Headache Yes all other systems are reviewed and are negative Constitutional: Constitutional: Reports as per [facility] Past Medical History Attestation statement: The following information was validated with the patient. Medical History Abdominal pain Acid reflux Colon polyps Early satiety Fibromyalgia GERD (gastroesophageal reflux disease) History of anxiety History of fibromyalgia History of headache Hx of irritable bowel syndrome Hx of ovarian cyst Hx of renal calculi Hydradenitis Loud snoring ELIAZAR (obstructive sleep apnea) Somnolence, daytime Surgical History H/O colonoscopy H/O tubal ligation History of History of cholecystectomy History of esophagogastroduodenoscopy (EGD) Family History Family History Father HTN (hypertension) Diabetes mellitus Liver cancer Alcoholic Substance use disorder Mother Anxiety Depression Liver tumor Brother Heart attack Buerger disease Stroke Seizure Diabetes mellitus Family/Other Mild asthma Maternal Grandmother Cancer of unknown origin Maternal Grandfather Liver cancer Paternal Grandfather Heart problem Other Mental health disorder Social History Social History Household Members: Spouse and Children Housing: House Alcohol intake: current Alcohol intake frequency: does not drink Patient Tobacco Use Status: Current everyday Tobacco user Cigarette Packs Per Day: 0.5 Cigarettes Per Day: 10 Years Smoked: 25 e-Cigarette/Vaping Use: Never Used Substance Use Type: Marijuana Advance Directives: No service: No Current occupational status: unemployed Current occupation: due to Covid Gender identity: Female Cognitive needs: No Hearing needs: No Vision needs: No Physical Exam Vital Signs: Vital Signs: Last Vital Signs Temp 98.1 F 03/30/22 08:57 Pulse 57 03/30/22 11:09 Resp 16 03/30/22 11:09 BP 102/58 L 03/30/22 11:09 Pulse Ox 98 03/30/22 11:09 O2 Del Method 03/30/22 11:09 BMI result Body Mass Index 39.9 Const: General: cooperative, healthy appearing and no acute distress Orientation/consciousness: patient oriented x3 Limitations: no limitations HEENT: Head: Yes normal to inspection and Yes atraumatic Ears: hearing grossly normal bilaterally General nose exam: Normal external nose present Face and sinus: Yes normal facial exam Eyes: General: appearance normal, both eyes and all related structures EOM: EOMs intact bilaterally Neck: Neck: Yes normal visual inspection and Yes no meningeal signs Resp: Effort & Inspection: normal respiratory effort and no respiratory distress Auscultation: clear to auscultation bilaterally Cardio: Rate: regular rate Heart sounds: S1 normal heart sound present and S2 normal heart sound present GI: Inspection: Yes normal to inspection Palpation (GI): Soft to palpation, Tenderness to palpation present (GI) (Diffusely > epigastrically) with no rebound tenderness, no guarding and not rigid : General: Yes no CVA tenderness Back/Spine/Pelvis: Back: no CVA tenderness Skin: Rashes: no rashes Wounds: no wounds Neuro: General: patient oriented x3, tone normal, moves all extremities and no meningeal signs Gait exam (Neuro): Normal gait present Extrem: General: Yes normal to inspection Course Course Course Narrative: -labs including troponin unremarkable -UA negative CT abdomen pelvis w IV con IMPRESSION: Small umbilical and periumbilical hernias containing fat. Small left renal cyst. ? Fleischner guidelines were followed. >1400--on re-evaluation patient reports mild symptomatic improvement. Tolerated p.o. in the ED without nausea or vomiting. Plan to DC home with close GI follow-up Results discussed with patient including worrisome signs and symptoms and strict return precautions, and when to return to the emergency department. They verbalized understanding and feel safe for discharge at this time. Medications Administered Discontinued Medications Generic Name Dose Route Start Last Admin Trade Name Freq PRN Reason Stop Dose Admin Al Hydroxide/Mg Hydroxide 30 ml 03/30/22 10:31 03/30/22 11:37 Magnesium Hydrox/Alum Hydrox 30 Ml Oral.Susp PO 03/30/22 10:32 30 ml ONCE ONE Administration Dicyclomine HCl 10 mg 03/30/22 10:57 03/30/22 11:37 Dicyclomine Hcl 10 Mg Capsule PO 03/30/22 10:58 10 mg ONCE ONE Administration Famotidine 20 mg 03/30/22 10:31 03/30/22 11:37 Famotidine/Pf 20 Mg/2 Ml Vial IVPUSH 03/30/22 10:32 20 mg ONCE ONE Administration Sodium Chloride 1,000 mls @ 999 mls/hr 03/30/22 10:45 03/30/22 12:46 Ns IV 03/30/22 11:45 Infused .Q1H1M DYLAN Infusion Iohexol 85 ml 03/30/22 11:29 03/30/22 11:29 Iohexol 350 Mg/Ml 100 Ml Infus..Btl IV 03/30/22 11:30 85 ml ONCE ONE Administration Lidocaine HCl 15 ml 03/30/22 10:31 03/30/22 11:37 Lidocaine Hcl Viscous 2 % 15 Ml Solution MUCOUS MEM 03/30/22 10:32 15 ml ONCE ONE Administration Metoclopramide HCl 10 mg 03/30/22 10:31 03/30/22 11:37 Metoclopramide Hcl 10 Mg/2 Ml Vial IVPUSH 03/30/22 10:32 10 mg ONCE ONE Administration MDM - Nausea/Vomiting/Diarrhea MDM Narrative Medical decision making narrative: 42-year-old female with a past medical history of GERD, anxiety, fibromyalgia, IBS, renal stones, ELIAZAR, presenting to the ED complaining of nausea x months worsening over the past week with intermittent vomiting, diarrhea, and constipation. On exam vital signs stable, NAD, nontoxic appearing, lungs CTA, abdomen soft diffusely tender greatest in the epigastric region, no CVA tenderness. Concern for IBS vs GERD/gastritis. Lower suspicion for diverticulitis/appendicitis or renal stone/pyelo. Rule out ACS Plan: EKG, labs, UA, CT AP, IVF, symptomatic treatment, p.o. challenge Medical Records Attestation: I reviewed the patient's medical records. Lab Data Attestation: I reviewed the patient's lab results. Result diagrams: 03/30/22 09:09 03/30/22 09:09 Labs: Lab Results 03/30/22 03/30/22 03/30/22 Range/Units 09:09 09:09 09:09 WBC 6.5 (4.8-10.8) X10*3/uL RBC 4.71 (4.20-5.50) X10*6/uL Hgb 13.5 (12.0-16.0) g/dl Hct 40.9 (37.0-47.0) % MCV 86.8 (80.0-98.0) fL MCH 28.7 (27.0-33.0) pg MCHC 33.0 (31.0-35.0) g/dl RDW 14.3 (11.0-16.0) % Plt Count 162 (160-400) X10*3/uL MPV 10.2 (9.4-12.3) fL Immature Gran % (Auto) 0.2 (0.0-0.4) % Neut % (Auto) 51.4 (45-73) % Lymph % (Auto) 31.9 (20-40) % [place] % (Auto) 7.6 (2-11) % Eos % (Auto) 8.1 H (0-4) % Baso % (Auto) 0.8 (0-2) % Lymph # (Auto) 2.1 (1.2-4.9) X10*3/uL [place] # (Auto) 0.5 (0.1-1.2) X10*3/uL Eos # (Auto) 0.5 H (0.0-0.4) X10*3/uL Baso # (Auto) 0.1 (0.0-0.2) X10*3/uL Abs Immat Gran (auto) 0.01 (0.00-0.03) X10*3/uL Absolute Neuts (auto) 3.3 (2.0-8.3) x10*3/uL Absolute Nucleated RBC 0.000 (0.0-0.012) X10*3/uL Nucleated RBC % (auto) 0.0 (0.0-0.2) /100WBC Sodium 138 (135-145) mmol/L Potassium 4.1 D (3.3-5.1) mmol/L Chloride 104 (96-108) mmol/L Carbon Dioxide 26 (22-29) mmol/L Anion Gap 12 (12-20) BUN 12 (9-16) mg/dL Creatinine 0.75 (0.5-1.4) mg/dL Estim Creat Clear Calc 101.2 Estimated GFR > 60 Random Glucose 97 (60-115) mg/dL Calcium 9.0 (8.4-10.2) mg/dL Magnesium 2.2 (1.6-2.6) mg/dL Total Bilirubin 0.3 (0.0-1.0) mg/dL Direct Bilirubin < 0.2 (0.0-0.5) mg/dL AST 17 (5-31) U/L ALT 23 (0-31) U/L Alkaline Phosphatase 136 H (39-117) U/L Troponin I High Sens < 3.5 (<3.5-17.0) ng/L Total Protein 6.6 (6.5-8.0) g/dL Albumin 3.7 (3.5-5.0) g/dL Lipase 26 (8-78) U/L Urine Color Urine Appearance Urine pH (5.0-9.0) Ur Specific [place] (1.005-1.025) Urine Protein (Neg-Trace) mg/dL Urine Glucose (UA) (Negative) mg/dL Urine Ketones (Negative) mg/dL Urine Blood (Negative) Urine Nitrite (Negative) Ur Leukocyte Esterase (Negative) 03/30/22 Range/Units 09:17 WBC (4.8-10.8) X10*3/uL RBC (4.20-5.50) X10*6/uL Hgb (12.0-16.0) g/dl Hct (37.0-47.0) % MCV (80.0-98.0) fL MCH (27.0-33.0) pg MCHC (31.0-35.0) g/dl RDW (11.0-16.0) % Plt Count (160-400) X10*3/uL MPV (9.4-12.3) fL Immature Gran % (Auto) (0.0-0.4) % Neut % (Auto) (45-73) % Lymph % (Auto) (20-40) % [place] % (Auto) (2-11) % Eos % (Auto) (0-4) % Baso % (Auto) (0-2) % Lymph # (Auto) (1.2-4.9) X10*3/uL [place] # (Auto) (0.1-1.2) X10*3/uL Eos # (Auto) (0.0-0.4) X10*3/uL Baso # (Auto) (0.0-0.2) X10*3/uL Abs Immat Gran (auto) (0.00-0.03) X10*3/uL Absolute Neuts (auto) (2.0-8.3) x10*3/uL Absolute Nucleated RBC (0.0-0.012) X10*3/uL Nucleated RBC % (auto) (0.0-0.2) /100WBC Sodium (135-145) mmol/L Potassium (3.3-5.1) mmol/L Chloride (96-108) mmol/L Carbon Dioxide (22-29) mmol/L Anion Gap (12-20) BUN (9-16) mg/dL Creatinine (0.5-1.4) mg/dL Estim Creat Clear Calc Estimated GFR Random Glucose (60-115) mg/dL Calcium (8.4-10.2) mg/dL Magnesium (1.6-2.6) mg/dL Total Bilirubin (0.0-1.0) mg/dL Direct Bilirubin (0.0-0.5) mg/dL AST (5-31) U/L ALT (0-31) U/L Alkaline Phosphatase (39-117) U/L Troponin I High Sens (<3.5-17.0) ng/L Total Protein (6.5-8.0) g/dL Albumin (3.5-5.0) g/dL Lipase (8-78) U/L Urine Color Yellow Urine Appearance Clear Urine pH 6.0 (5.0-9.0) Ur Specific [place] 1.020 (1.005-1.025) Urine Protein Negative (Neg-Trace) mg/dL Urine Glucose (UA) Negative (Negative) mg/dL Urine Ketones Negative (Negative) mg/dL Urine Blood Negative (Negative) Urine Nitrite Negative (Negative) Ur Leukocyte Esterase Negative (Negative) Discharge Plan Discharge Clinical Impression: Abdominal pain Patient Disposition: Home, Self-Care Instructions: Abdominal Pain (ED) Additional Instructions: Your blood work is reassuring. Her CT scan does show some umbilical and per iumbilical hernias containing fat. Reglan as antinausea medication take as needed. Please stay hydrated at home. Please have close follow-up with Gastroenterology. If her symptoms persist or worsen return to the emergency department Prescriptions: New metoclopramide HCl [Reglan] 10 mg tablet 10 mg PO Q6H PRN (Reason: nausea and vomiting) Qty: 10 0RF No Action famotidine 40 mg tablet 40 mg PO BEDTIME Qty: 60 1RF montelukast 10 mg tablet 10 mg PO DAILY 90 Days Qty: 90 0RF nitrofurantoin monohyd/m-cryst [Macrobid] 100 mg capsule 100 mg PO Q12H 3 Days Qty: 6 0RF Rx Instructions: must administer with a meal/food albuterol sulfate 90 mcg/actuation HFA aerosol inhaler 1 inh inhalation Q6H PRN (Reason: shortness of breath or wheezing) Qty: 8.5 2RF gabapentin 300 mg capsule 300 mg PO TID 90 Days Qty: 270 0RF cephalexin 500 mg capsule 500 mg PO TID 7 Days Qty: 21 0RF lorazepam 1 mg tablet 1 mg PO BID bupropion HCl 150 mg tablet sustained-release 12 hr 150 mg PO BID Referrals: [facility] [Provider Group] Khanh Reynolds MD [Primary Care Provider] -
--- NOTE | 2022-03-30 10:32 | ECG_ITS ---
Test Reason : nausea Blood Pressure : / mmHG Vent. Rate : 058 BPM Atrial Rate : 058 BPM P-R Int : 150 ms QRS Dur : 078 ms QT Int : 394 ms P-R-T Axes : 037 -04 -08 degrees QTc Int : 386 ms Sinus bradycardia Nonspecific T wave abnormality Abnormal ECG When compared with ECG of 29-DEC-2021 17:58, Vent. rate has decreased BY 33 BPM Nonspecific T wave abnormality has replaced inverted T waves in Anterior leads Nonspecific T wave abnormality now evident in Lateral leads Referred By: Florencia Stevens Electronically Signed By:MARIANO DEUTSCH MD
[2022-03-30 11:09] VITALS: BP 102/58; PULSE 57; RESP 16; O2SAT 98
[2022-03-30 11:09] LABS: Magnesium 2.2 mg/dL (1.6-2.6)
[2022-03-30 11:20] LABS: Troponin-I High Sensitivity < 3.5 ng/L (<3.5-17.0)
[2022-03-30] MEDS: iohexoL 350 MG/ML 100 ML INFUS..BTL 85 ML IV (11:29)
[2022-03-30] MEDS: Magnesium Hydrox/Alum Hydrox 30 ML ORAL.SUSP PO (11:37)
[2022-03-30] MEDS: 0.9 % Sodium Chloride 1,000 ML 999 ML IV (11:37)
[2022-03-30] MEDS: Dicyclomine HCl 10 MG CAPSULE PO (11:37)
[2022-03-30] MEDS: Metoclopramide HCl 10 MG/2 ML VIAL IVPUSH (11:37)
[2022-03-30] MEDS: Famotidine/PF 20 MG/2 ML VIAL IVPUSH (11:37)
[2022-03-30] MEDS: Lidocaine HCl Viscous 2 % 15 ML SOLUTION MUCOUS MEM (11:37)
== END 2022-03-30 14:36 | disposition home or self-care (01) ==
PROVIDERS: Physician Assistant; Emergency Provider Student in an Organized Health Care Education/Training Program; PCP Internal Medicine
DX: R10.9 Unspecified abdominal pain (principal); R11.0 Nausea; F17.210 Nicotine dependence, cigarettes, uncomplicated; J45.909 Unspecified asthma, uncomplicated; Z79.899 Other long term (current) drug therapy
CPT/HCPCS: 36415; 74177; 80048; 80076; 81003; 83690; 83735; 84484; 85025; 93005; 96361; 96374; 96375; 99284; J2765; Q9967

== ENCOUNTER → 2022-04-04 15:21 | Outpatient (BNVA) | payer OTHER, SELFPAY | PROVIDERS: PCP Internal Medicine; Visit Provider Internal Medicine | DX: G47.33 Obstructive sleep apnea (adult) (pediatric) (principal); E66.01 Morbid (severe) obesity due to excess calories; Z68.39 Body mass index [BMI] 39.0-39.9, adult; J45.20 Mild intermittent asthma, uncomplicated; R06.02 Shortness of breath; F17.210 Nicotine dependence, cigarettes, uncomplicated | CPT/HCPCS: 99212 ==

== ENCOUNTER 2022-04-26 15:39 | Outpatient (REF) | payer OTHER, SELFPAY ==
--- NOTE | 2022-04-26 17:27 | PFT_ITS ---
Forced vital capacity 95%, FEV1 94%. FEV1/FVC ratio is 80. FEF 25/75 82% and MVV 104%. Post bronchodilator therapy. There is no significant change. Total lung capacity 101% and residual volume 95%. Diffusion capacity 97% CONCLUSION: Normal pulmonary function test and there is no evidence of obstructive or restrictive pulmonary disorder. Clinical correlation recommended. MD EFRAIN Johnson/ROBBIN / [id number]
== END 2022-04-26 15:40 | disposition home or self-care (01) ==
LOC: HO.RESP 15:39
PROVIDERS: PCP Internal Medicine; Visit Provider Internal Medicine
DX: J45.909 Unspecified asthma, uncomplicated (principal); R06.00 Dyspnea, unspecified; F17.210 Nicotine dependence, cigarettes, uncomplicated; Z79.899 Other long term (current) drug therapy
CPT/HCPCS: 94060; 94727; 94729

== ENCOUNTER → 2022-05-09 15:39 | Outpatient (BNVA) | payer OTHER, SELFPAY | PROVIDERS: PCP Internal Medicine; Visit Provider Internal Medicine | DX: J45.909 Unspecified asthma, uncomplicated (principal); G47.33 Obstructive sleep apnea (adult) (pediatric); F17.210 Nicotine dependence, cigarettes, uncomplicated | CPT/HCPCS: 99212 ==

== ENCOUNTER 2022-05-13 14:32 | Outpatient (REF) | payer OTHER, SELFPAY ==
--- NOTE | ~2022-05-13 | XR_ITS ---
EXAMINATION: X-RAY STANDING AP VIEW BOTH KNEES X-RAY LEFT KNEE 2 VIEWS CLINICAL INFORMATION: Pain. COMPARISON: No similar priors. TECHNIQUE: AP standing view of both knees. Lateral and sunrise views of the left knee. 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 No subluxation. Mild to moderate bilateral tricompartmental joint space narrowing with subcortical sclerosis and marginal osteophytes. No erosions. Small left-sided joint effusion. XR/XR knee standing BI IMPRESSION: 1. 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 Correlate with point tenderness on the left side as the size of the fragments are asymmetrically larger on the left and a superimposed acute injury is difficult to exclude. 2. 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 3. Small left-sided joint effusion.
--- NOTE | ~2022-05-13 | XR_ITS ---
EXAMINATION: X-RAY STANDING AP VIEW BOTH KNEES X-RAY LEFT KNEE 2 VIEWS CLINICAL INFORMATION: Pain. COMPARISON: No similar priors. TECHNIQUE: AP standing view of both knees. Lateral and sunrise views of the left knee. 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 No subluxation. Mild to moderate bilateral tricompartmental joint space narrowing with subcortical sclerosis and marginal osteophytes. No erosions. Small left-sided joint effusion. XR/XR knee LT 2V IMPRESSION: 1. 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 Correlate with point tenderness on the left side as the size of the fragments are asymmetrically larger on the left and a superimposed acute injury is difficult to exclude. 2. 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 3. Small left-sided joint effusion.
== END 2022-05-13 14:33 | disposition home or self-care (01) ==
LOC: HO.HOSX 14:32
PROVIDERS: Visit Provider Physician Assistant
DX: M17.12 Unilateral primary osteoarthritis, left knee (principal)
CPT/HCPCS: 20610; 73560; 73565; 99202; J1040

== ENCOUNTER 2022-06-16 10:59 | Outpatient (REF) | payer OTHER, SELFPAY | END 2022-06-16 11:00 | disposition home or self-care (01) | LOC: HO.LAB 10:59 | PROVIDERS: PCP Internal Medicine; Visit Provider Nurse Practitioner Family | DX: N39.0 Urinary tract infection, site not specified (principal); N39.3 Stress incontinence (female) (male); R39.15 Urgency of urination | CPT/HCPCS: 51798; 87086; 87147; 99202 ==

== ENCOUNTER → 2022-06-24 13:19 | Outpatient (BNVA) | payer OTHER, SELFPAY | PROVIDERS: PCP Internal Medicine; Visit Provider Nurse Practitioner Family | DX: Z13.89 Encounter for screening for other disorder (principal) ==

== ENCOUNTER 2022-07-06 09:21 | Outpatient (REF) | payer OTHER, SELFPAY | END 2022-07-06 09:22 | disposition home or self-care (01) | LOC: HO.LAB 09:21 | PROVIDERS: Visit Provider Nurse Practitioner Family | DX: R30.0 Dysuria (principal) | CPT/HCPCS: 87086; 87088; 87186 ==

== ENCOUNTER 2022-07-20 08:14 | Outpatient (REF) | payer OTHER, SELFPAY ==
--- NOTE | ~2022-07-20 | US_ITS ---
EXAMINATION: US RETROPERITONEAL COMPLETE (RENAL) CLINICAL INFORMATION: Urinary tract infection, site not specified. Urgency, incontinence. COMPARISON: CT abdomen and pelvis with contrast 03/30/2022. X-ray abdomen complete 10/10/2019. TECHNIQUE: Real-time imaging of the kidneys and bladder. FINDINGS: RIGHT KIDNEY: 10.1 x 5.3 x 5.8 cm (SAG x AP x TRV). The kidney is normal in size, contour, and echogenicity. Renal cortical thickness is normal. No renal calculi or hydronephrosis. Simple appearing 7 mm lower pole cyst for which no follow-up imaging is likely warranted. LEFT KIDNEY: 10.4 x 4.6 x 5.9 cm (SAG x AP x TRV). The kidney is normal in size, contour, and echogenicity. Renal cortical thickness is normal. No renal calculi or hydronephrosis. Two small simple appearing cysts of the left kidney, largest measuring 1 cm. BLADDER: Well distended and normal. Bilateral ureteral jets are demonstrated. Prevoid bladder volume is 273 mL. Postvoid bladder volume is 27.5 mL. US/US retroperitoneal comp IMPRESSION: 1. No renal calculi or hydronephrosis of either kidney. 2. Small bilateral renal cysts. 3. Mildly prominent post void bladder residual of 27.5 mL.
== END 2022-07-20 08:15 | disposition home or self-care (01) ==
LOC: HO.HMGCX 08:14
PROVIDERS: PCP Internal Medicine; Visit Provider Nurse Practitioner Family
DX: N39.3 Stress incontinence (female) (male) (principal); R39.15 Urgency of urination; N39.0 Urinary tract infection, site not specified
CPT/HCPCS: 76770

== ENCOUNTER 2022-08-01 12:49 | Outpatient (REF) | payer OTHER, SELFPAY | END 2022-08-01 12:50 | disposition home or self-care (01) | LOC: HO.LNP 12:49 | PROVIDERS: PCP Internal Medicine; Visit Provider Nurse Practitioner Family | DX: N39.0 Urinary tract infection, site not specified (principal); N32.81 Overactive bladder; N39.3 Stress incontinence (female) (male) | CPT/HCPCS: 51798; 87086; 99212 ==

== ENCOUNTER 2022-08-05 14:17 | Outpatient (REF) | payer OTHER, SELFPAY ==
[2022-08-05 16:29] LABS: MANUAL DIFF FLAG NO
[2022-08-05 16:33] LABS: Basophils Absolute Auto 0.1 X10*3/uL (0.0-0.2); Basophils Percent Auto 0.6 % (0-2); Eosinophils Absolute Auto 0.4 X10*3/uL (0.0-0.4); Eosinophils Percent Auto 3.4 % (0-4); Hematocrit 42.1 % (37.0-47.0); Hemoglobin 13.9 g/dl (12.0-16.0); Imm Gran Abs Auto 0.04 X10*3/uL (0.00-0.03); Imm Gran Pct Auto 0.4 % (0.0-0.4); Lymphocytes Absolute Auto 2.8 X10*3/uL (1.2-4.9); Lymphocytes Percent Auto 25.6 % (20-40); Mean Corpuscular Hemoglobin 28.3 pg (27.0-33.0); Mean Corpuscular Volume 85.7 fL (80.0-98.0); Monocytes Absolute Auto 0.6 X10*3/uL (0.1-1.2); Monocytes Percent Auto 5.5 % (2-11); Neutrophils Percent Auto 64.5 % (45-73); Platelet Count 196 X10*3/uL (160-400); Red Blood Count 4.91 X10*6/uL (4.20-5.50); Red Cell Distribution Width 13.3 % (11.0-16.0); White Blood Count 10.8 X10*3/uL (4.8-10.8)
[2022-08-05 16:55] LABS: Alanine Aminotransferase 12 U/L (0-31); Albumin Level 4.1 g/dL (3.5-5.0); Alkaline Phosphatase 117 U/L (39-117); Anion Gap 12 (12-20); Aspartate Amino Transferase 11 U/L (5-31); Bilirubin Total 0.5 mg/dL (0.0-1.0); Blood Urea Nitrogen 14 mg/dL (9-16); Carbon Dioxide 26 mmol/L (22-29); Chloride 107 mmol/L (96-108); Estimated Glomerular Filt Rate > 60; Glucose Random 95 mg/dL (60-115); Potassium 3.5 mmol/L (3.3-5.1); Sodium 141 mmol/L (135-145)
[2022-08-05 17:09] LABS: TSH reflex Free T4 0.94 uIU/mL (0.32-4.0)
== END 2022-08-05 14:18 | disposition home or self-care (01) ==
LOC: HO.HMGCLDS 14:17
PROVIDERS: PCP Internal Medicine; Visit Provider Internal Medicine
DX: R10.9 Unspecified abdominal pain (principal); R11.0 Nausea; R68.81 Early satiety; R79.89 Other specified abnormal findings of blood chemistry
CPT/HCPCS: 36415; 80053; 84443; 85025

== ENCOUNTER → 2022-08-09 08:55 | Outpatient (BNVA) | payer OTHER, SELFPAY | PROVIDERS: PCP Internal Medicine; Visit Provider Physician Assistant | DX: K31.84 Gastroparesis (principal); R10.9 Unspecified abdominal pain; G89.29 Other chronic pain | CPT/HCPCS: 99212 ==

== ENCOUNTER → 2022-09-01 08:14 | Outpatient (REF) | payer OTHER, SELFPAY ==
--- NOTE | ~2022-09-01 | NM_ITS ---
EXAMINATION: RADIONUCLIDE SOLID FOOD GASTRIC EMPTYING 4-HOUR STUDY CLINICAL INFORMATION: Gastroparesis. COMPARISON: No previous gastric emptying study dated 05/20/2020 is available for comparison. TECHNIQUE: A standard meal consisting of 4 oz of Egg Beaters brand equivalent tagged with 820 microcuries Tc-99m Sulfur Colloid, 8 oz water and 2 slices of toast with jelly was administered orally to the patient. Images were obtained using a dual head gamma camera in the anterior and posterior projections over of the stomach immediately post ingestion and at hourly intervals up to 4 hours post ingestion. The anterior and posterior counts at each time interval were averaged using the geometric mean and expressed as percentage of the immediate post ingestion counts. FINDINGS: There is good visualization of activity in the stomach immediately post ingestion. As the study progresses, there is good clearance of activity from the stomach and visualization of progressively increasing small bowel activity. By the end of the study, there is almost no retention noted in the stomach. Retention in the stomach at each time interval was: 1 hour 20% (normal 37%-90%) 2 hours 9% (normal 30%-60%) 3 hours 6% 4 hours 4% (normal 0%-10%) Compared to the previous study dated 05/20/2020, retention of solid food in the stomach has diminished significantly. On the prior study there was 23% retention of solid food in the stomach at 4 hours. NM/NM gastric emptying study IMPRESSION: Normal 4-hour solid food gastric emptying study.
== END ==
LOC: HO.NUCMED 08:14
PROVIDERS: PCP Internal Medicine; Visit Provider Physician Assistant
DX: R10.9 Unspecified abdominal pain (principal); G89.29 Other chronic pain; K31.84 Gastroparesis
CPT/HCPCS: 78264; A9541

== ENCOUNTER → 2022-09-16 10:13 | Outpatient (BNVA) | payer OTHER, SELFPAY | PROVIDERS: PCP Internal Medicine; Visit Provider Internal Medicine Gastroenterology | DX: R11.0 Nausea (principal); R10.9 Unspecified abdominal pain; R79.89 Other specified abnormal findings of blood chemistry; N39.0 Urinary tract infection, site not specified; G89.29 Other chronic pain | CPT/HCPCS: 99212 ==

== ENCOUNTER → 2022-09-27 14:51 | Outpatient (BNVA) | payer OTHER, SELFPAY | PROVIDERS: PCP Internal Medicine; Visit Provider Internal Medicine | DX: G47.33 Obstructive sleep apnea (adult) (pediatric) (principal); J45.909 Unspecified asthma, uncomplicated; J30.9 Allergic rhinitis, unspecified; Z79.899 Other long term (current) drug therapy | CPT/HCPCS: 99212 ==

== ENCOUNTER 2022-09-28 08:53 | Outpatient (REF) | payer OTHER, SELFPAY ==
--- NOTE | ~2022-09-28 | US_ITS ---
EXAMINATION: US DOPPLER ABDOMEN LIMITED CLINICAL INFORMATION: Abdominal pain, nausea COMPARISON: CT 03/30/2022 TECHNIQUE: Dynamic ultrasound evaluation along with color Doppler imaging and spectral analysis was performed of the aorta and mesenteric vessels. FINDINGS: Visualized abdominal aorta is normal in caliber. Peak systolic velocity within the aorta proximal to the superior mesenteric artery is 112 cm/s. Distal to the superior mesenteric artery peak systolic velocity is 78 cm/s. The celiac artery is patent. Velocities are as follows: Inspiration, supine: 102 cm/s Inspiration, upright: 182 cm/s Expiration, supine: 280 cm/s, end-diastolic velocity 90.1 cm/s Expiration, upright: 99 cm/s, end-diastolic velocity 22.9 cm/s Splenic artery is patent with peak systolic velocity 363 cm/s. Hepatic artery is patent with peak systolic velocity 176 cm/s The superior mesenteric artery is patent. There is variability in the measured velocities within the proximal aspect of the superior mesenteric artery ranging from 217 to 315 cm/s. End diastolic velocity is variable as well and ranges from 18.9 cm/s to 50.4 cm/s. Midportion of the SMA has peak systolic velocity 168 cm/s Distal portion peak systolic velocity 93 cm/s. Inferior mesenteric artery is patent with peak systolic velocity 194 cm/s. US/US SMA IMPRESSION: Patent visualized mesenteric arterial vasculature. There is variable, though elevated velocities within the proximal superior mesenteric artery suggestive of stenosis. Further evaluation with CT angiography could be considered. There is elevated peak systolic velocity within the celiac axis while supine with expiration which can be seen in the setting of celiac artery compression. This could be further evaluated with CT angiography as well with the patient in expiration.
== END 2022-09-28 08:54 | disposition home or self-care (01) ==
LOC: HO.HMGCX 08:53
PROVIDERS: PCP Internal Medicine; Visit Provider Internal Medicine Gastroenterology
DX: R79.82 Elevated C-reactive protein (CRP) (principal); R11.0 Nausea; R10.9 Unspecified abdominal pain; N39.0 Urinary tract infection, site not specified; R79.89 Other specified abnormal findings of blood chemistry; G89.29 Other chronic pain
CPT/HCPCS: 93975; 93976

== ENCOUNTER 2022-10-21 08:49 | Outpatient (REF) | payer OTHER, SELFPAY ==
[2022-10-21 15:04] LABS: CT PCR NOT DETECTED (Not Detect.); NG PCR NOT DETECTED (Not Detect.)
[2022-10-22 13:48] LABS: BV Int Neg Control Negative (Negative); BV Int Pos Control Positive (Positive)
== END 2022-10-21 08:50 | disposition home or self-care (01) ==
LOC: HO.LNP 08:49
PROVIDERS: PCP Internal Medicine; Visit Provider Advanced Practice Midwife
DX: R10.2 Pelvic and perineal pain (principal); N93.9 Abnormal uterine and vaginal bleeding, unspecified
CPT/HCPCS: 0353U; 87480; 87510; 87660

== ENCOUNTER 2022-10-25 10:46 | Day surgery (SDC) | payer OTHER, SELFPAY ==
--- NOTE | 2022-10-24 10:30 | HO.ANESPROP2 ---
Documented by User: Berenice Gannon NP 10/24/22 10:35 HPI - Anesthesia Eval Consult details Narrative: 42yo F for Upper Endoscopy and Colonoscopy s/p tubal PMFSH Active Problems Active Problems: All Active Problems (Updated 10/21/22 @ 09:38 by Sweetie Noe) Abnormal uterine bleeding (AUB) (Acute) Pelvic pain (Acute) Heavy menstrual bleeding (Acute) Environmental allergies (Acute) Celiac axis compression syndrome (Acute) Allergic rhinitis (Acute) Chronic abdominal pain (Acute) LFT elevation (Acute) Overactive bladder (Acute) Recurrent UTI (Acute) UTI (urinary tract infection) (Acute) Dysuria (Acute) Stress incontinence (Acute) Urinary urgency (Acute) Complicated urinary tract infection (Acute) Osteoarthritis of left knee (Acute) Knee pain, left (Acute) Chronic nausea (Acute) Asthma (Acute) Smoker (Acute) Encounter for general adult medical examination with abnormal findings (Acute) Upper respiratory tract infection (Acute) Complicated grieving (Acute) Anxiety, generalized (Acute) Major depression, recurrent (Acute) Abnormal menses (Acute) Nausea (Acute) Abdominal pain (Acute) Acute abdominal pain in left lower quadrant (Acute) Feeling sick (Acute) Acute nausea with nonbilious vomiting (Acute) Abdominal pain, left lower quadrant (Acute) Gastroparesis (Acute) Shortness of breath (Acute) Constipation by delayed colonic transit (Acute) Bleeding hemorrhoids (Acute) Hospital discharge follow-up (Acute) Fibromyalgia (Acute) Post-COVID chronic cough (Acute) Cough (Acute) Loud snoring (Acute) Contact with and (suspected) exposure to other viral communicable diseases (Acute) Precordial chest pain (Acute) Encounter for general adult medical examination with abnormal findings (Acute) Morbid obesity due to excess calories (Acute) Breast lump on right side at 10 o'clock position (Acute) ELIAZAR (obstructive sleep apnea) (Acute) Somnolence, daytime (Acute) Sleeping difficulty (Acute) Tracheobronchitis (Acute) Irritable bowel syndrome (IBS) (Acute) Heart palpitations (Acute) Morbid obesity (Acute) Menorrhagia (Acute) Hidradenitis suppurativa (Acute) Shortness of breath on exertion (Acute) Chest pain (Acute) Chest pain due to GERD (Acute) Morbid obesity (Acute) Esophagitis (Acute) Early satiety (Acute) Fibromyalgia (Acute) Colon polyps (Acute) Acid reflux (Acute) Past Medical History Medical History Abdominal pain Abnormal uterine bleeding (AUB) Acid reflux Allergic rhinitis Asthma Colon polyps Early satiety Fibromyalgia GERD (gastroesophageal reflux disease) Heavy menstrual bleeding History of anxiety History of fibromyalgia History of headache Hx of irritable bowel syndrome Hx of ovarian cyst Hx of renal calculi Hydradenitis Loud snoring ELIAZAR (obstructive sleep apnea) Pelvic pain Smoker Somnolence, daytime Family History Family History Father HTN (hypertension) Diabetes mellitus Liver cancer Alcoholic Substance use disorder Mother Anxiety Depression Liver tumor Brother Heart attack Buerger disease Stroke Seizure Diabetes mellitus Family/Other Mild asthma Maternal Grandmother Cancer of unknown origin Maternal Grandfather Liver cancer Paternal Grandfather Heart problem Other Mental health disorder Family history of problems with anesthesia: No Surgical History Surgical History H/O colonoscopy H/O tubal ligation History of History of cholecystectomy History of esophagogastroduodenoscopy (EGD) History of Problems with Anesthesia: No Social History Social History Household Members: Spouse and Children Housing: House Alcohol intake: current Alcohol intake frequency: holidays/special occasions only Patient Tobacco Use Status: Current everyday Tobacco user Tobacco use type: Cigarette Cigarette Packs Per Day: 0.5 Cigarettes Per Day: 10 Years Smoked: 25 e-Cigarette/Vaping Use: Never Used Use of substances other than those prescribed or required for medical reasons: Yes Substance Use Type: Marijuana Substance Use Type Other:: edibles Substance Use Frequency: Occasionally Are you DNR?: No Advance Directives: No Advance Directives Information Provided: Yes service: No Current occupational status: unemployed Current occupation: due to Covid Gender identity: Female Cognitive needs: No Hearing needs: No Vision needs: No Meds Allergies Allergy/AdvReac Type Severity Reaction Status Date / Time azithromycin [AZITHROMYCIN] Allergy Intermediate RASH Verified 10/21/22 09:07 ketorolac [From Toradol] Allergy Intermediate Rash Verified 10/21/22 09:07 Sulfa (Sulfonamide Allergy Intermediate RASH Verified 10/21/22 09:07 Antibiotics) [SULFA (SULFONAMIDE ANTIBIOTICS)] fluconazole [Diflucan] Allergy Unknown unknown Verified 10/21/22 09:07 topiramate [Topamax] Allergy Unknown unknown Verified 10/21/22 09:07 amitriptyline AdvReac Intermediate stomach Verified 10/21/22 09:07 upset nitrofurantoin Allergy Severe Hives Uncoded 10/21/22 09:07 Home Medications Medication Instructions Recorded Confirmed Last Taken Type bupropion HCl 150 mg tablet,12 hr 150 mg PO BID 01/30/20 10/25/22 Unknown History sustained-release lorazepam 1 mg tablet 1 mg PO BID 01/30/20 10/25/22 10/25/22 07:30 History omeprazole 40 mg capsule,delayed 40 mg PO DAILY 05/09/22 10/25/22 10/25/22 07:30 History release oxybutynin chloride 10 mg 10 mg PO DAILY 10/21/22 10/25/22 Unknown History tablet,extended release 24 hr duloxetine 60 mg capsule,delayed 60 mg PO DAILY 10/25/22 10/25/22 Unknown History release Exam Exam Date and Time: October 24, 2022 1030 Pertinent Lab Results Pertinent Lab Results: Laboratory Tests 08/05/22 08/05/22 14:22 14:22 WBC 10.8 Hgb 13.9 Hct 42.1 Plt Count 196 Sodium 141 Potassium 3.5 Chloride 107 Carbon Dioxide 26 BUN 14 Creatinine 0.72 Narrative Narrative: EKG 03/2022 Vent. Rate : 058 BPM ? ? Atrial Rate : 058 BPM ?? P-R Int : 150 ms? QRS Dur : 078 ms ? ? QT Int : 394 ms ? ? ? P-R-T Axes : 037 -04 -08 degrees ?? QTc Int : 386 ms ? Sinus bradycardia Nonspecific T wave abnormality Abnormal ECG When compared with ECG of 29-DEC-2021 17:58, Vent. rate has decreased BY? 33 BPM Nonspecific T wave abnormality has replaced inverted T waves in Anterior leads Nonspecific T wave abnormality now evident in Lateral leads ECHO 2020 Conclusions: - 1. Normal LV systolic function with grade 1 diastolic? dysfunction? 2. Normal cardiac valvular Doppler ? 3. Normal RV systolic pressure ? 4. No pericardial effusion ? Assessment and Plan Assessment Anesthesia Assessment: Chart Reviewed Final Anesthetic Review Family History of Problems with Anesthesia: No History of Problems with Anesthesia: No Documented by User: Kang Herrmann MD 10/25/22 11:55 PMFSH Past Medical History Medical History Abdominal pain Abnormal uterine bleeding (AUB) Acid reflux Allergic rhinitis Asthma Colon polyps Early satiety Fibromyalgia GERD (gastroesophageal reflux disease) Heavy menstrual bleeding History of anxiety History of fibromyalgia History of headache Hx of irritable bowel syndrome Hx of ovarian cyst Hx of renal calculi Hydradenitis Loud snoring ELIAZAR (obstructive sleep apnea) Pelvic pain Smoker Somnolence, daytime Family History Family History Father HTN (hypertension) Diabetes mellitus Liver cancer Alcoholic Substance use disorder Mother Anxiety Depression Liver tumor Brother Heart attack Buerger disease Stroke Seizure Diabetes mellitus Family/Other Mild asthma Maternal Grandmother Cancer of unknown origin Maternal Grandfather Liver cancer Paternal Grandfather Heart problem Other Mental health disorder Surgical History Surgical History H/O colonoscopy H/O tubal ligation History of History of cholecystectomy History of esophagogastroduodenoscopy (EGD) Social History Social History Household Members: Spouse and Children Housing: House Alcohol intake: current Alcohol intake frequency: holidays/special occasions only Patient Tobacco Use Status: Current everyday Tobacco user Tobacco use type: Cigarette Cigarette Packs Per Day: 0.5 Cigarettes Per Day: 10 Years Smoked: 25 e-Cigarette/Vaping Use: Never Used Use of substances other than those prescribed or required for medical reasons: Yes Substance Use Type: Marijuana Substance Use Type Other:: edibles Substance Use Frequency: Occasionally Are you DNR?: No Advance Directives: No Advance Directives Information Provided: Yes service: No Current occupational status: unemployed Current occupation: due to Covid Gender identity: Female Cognitive needs: No Hearing needs: No Vision needs: No Meds Allergies Allergy/AdvReac Type Severity Reaction Status Date / Time azithromycin [AZITHROMYCIN] Allergy Intermediate RASH Verified 10/21/22 09:07 ketorolac [From Toradol] Allergy Intermediate Rash Verified 10/21/22 09:07 Sulfa (Sulfonamide Allergy Intermediate RASH Verified 10/21/22 09:07 Antibiotics) [SULFA (SULFONAMIDE ANTIBIOTICS)] fluconazole [Diflucan] Allergy Unknown unknown Verified 10/21/22 09:07 topiramate [Topamax] Allergy Unknown unknown Verified 10/21/22 09:07 amitriptyline AdvReac Intermediate stomach Verified 10/21/22 09:07 upset nitrofurantoin Allergy Severe Hives Uncoded 10/21/22 09:07 Home Medications Medication Instructions Recorded Confirmed Last Taken Type bupropion HCl 150 mg tablet,12 hr 150 mg PO BID 01/30/20 10/25/22 Unknown History sustained-release lorazepam 1 mg tablet 1 mg PO BID 01/30/20 10/25/22 10/25/22 07:30 History omeprazole 40 mg capsule,delayed 40 mg PO DAILY 05/09/22 10/25/22 10/25/22 07:30 History release oxybutynin chloride 10 mg 10 mg PO DAILY 10/21/22 10/25/22 Unknown History tablet,extended release 24 hr duloxetine 60 mg capsule,delayed 60 mg PO DAILY 10/25/22 10/25/22 Unknown History release Exam Airway Mallampati Class: II TM Dist: >3cm Neck ROM: Full Assessment and Plan Assessment Anesthesia Assessment: Anesthesia Plan Discussed Final Anesthetic Review NPO: Yes ASA Class: III Final Preanesthetic Review: No Changes in Pt Med Stat, Meds/Allgs Chart Reviewed, Consent Obtained/Reviewed and Anes Risks/Benef Reviewed Patient Risk: Intermediate Procedure Risk: Low Anesthetic Plan Anesthetic Plan: MAC: Disposition: Standard PACU
[2022-10-25 11:40] VITALS: BMI 37.6
[2022-10-25 11:42] VITALS: BP 108/53; PULSE 70; RESP 16; TEMP 36.4; O2SAT 95
[2022-10-25] MEDS: Lactated Ringers 1,000 ML 100 ML IVCONT (11:44)
--- NOTE | 2022-10-25 11:44 | MHC.SHP ---
Pre-Procedural Eval Section A Date of Service: 10/25/22 Section B Chief Complaint: Nausea,Unspecified abdominal pain Relevant Family History (Specify if Yes): No Relevant Social History: Tobacco Use Present Medications: see Short Stay Collaborative assessment Medical History: Significant History ( Abdominal pain Acid reflux Asthma Colon polyps Early satiety Fibromyalgia GERD (gastroesophageal reflux disease) History of anxiety History of fibromyalgia History of headache Hx of irritable bowel syndrome Hx of ovarian cyst Hx of renal calculi Hydradenitis Loud snoring ELIAZAR (obstructive sleep apne) History of Previous Operations: Relevant previous surgery/procedure and date(s) (H/O colonoscopy H/O tubal ligation History of History of cholecystectomy History of esophagogastroduodenoscopy (EGD)) Allergies: Allergies Allergy/AdvReac Type Severity Reaction Status Date / Time azithromycin [AZITHROMYCIN] Allergy Intermediate RASH Verified 10/21/22 09:07 ketorolac [From Toradol] Allergy Intermediate Rash Verified 10/21/22 09:07 Sulfa (Sulfonamide Allergy Intermediate RASH Verified 10/21/22 09:07 Antibiotics) [SULFA (SULFONAMIDE ANTIBIOTICS)] fluconazole [Diflucan] Allergy Unknown unknown Verified 10/21/22 09:07 topiramate [Topamax] Allergy Unknown unknown Verified 10/21/22 09:07 amitriptyline AdvReac Intermediate stomach Verified 10/21/22 09:07 upset nitrofurantoin Allergy Severe Hives Uncoded 10/21/22 09:07 Review of Systems Sugical H&P ROS: Negative: Constitution, Cardiovascular, Respiratory, Neurological, Psychiatric, Hem-Onc, Allergic/Immunologic, Gastrointestinal, Genitourinary, Musculoskeletal, Integumentary, Endocrine and Eyes/Ears/Nose/Throat Exam Surgical H&P Exam: Normal: HEENT, Normal: Heart, Normal: Lungs, Normal: Extremities, Normal: Abdomen, Normal: Skin and Normal: Neurological Plan Diagnosis/Plan: Unchanged I have reviewed the history and physical and performed a pertinent physical examination on my patient. No changes have occurred unless specified. Time Spent With Patient Time: Total time managing care of this patient today ____ minutes.
--- NOTE | 2022-10-25 12:00 | W.PM.OPN ---
Operative Note Operative Note Date of Service: 10/25/22 Narrative: Operative Information Procedure Description: EGD, Colonoscopy Indication: abdominal pain, dysphagia Anesthesia: MAC FLEXIBLE TRANSORAL UPPER GASTROINTESTINAL ENDOSCOPY AND COLONOSCOPY PROCEDURE NOTE UPPER ENDOSCOPY Consent: Indications for the procedure and potential complications of bleeding, perforation, reaction to medications and missed diagnosis were discussed with the patient and informed consent was obtained. Instrument: Olympus GIF H 190 J mid size upper endoscope Monitoring: Vital signs and clinical assessment, continuous EKG monitoring, Pulse oximetry, Carbon Dioxide monitoring and blood pressure monitoring were done throughout the procedure. Procedure: The patient was placed in the left lateral decubitis position and pre-procedure medications were administered and a bite block was placed. The endoscope was inserted into the mouth and advanced under direct vision to the third part of duodenum. A careful inspection was made as the upper endoscope was withdrawn including a retroflexed examination of the proximal stomach; Findings and interventions are described below. Findings: Larynx:normal Esophagus: GE junction at 35 cm, diaphragm hiatus at 35 cm, suspected short segment barretts, bx taken also taken from proximal and distal esophagus, UES and LES dilated with balloon to 19 mm, no tears seen Stomach: Granularity and erythema. Biopsies were obtained. Grade 2 flap valve on retroflexed examination of the cardia. pylorus dilated to 20 mm with balloon. Duodenum: Mild duodenitis, bx taken Intervention: Biopsies as noted above COLONOSCOPY Instrument: Olympus variable stiffness pediatric scope 190L Colonoscopy Monitoring: Vital signs and clinical assessment, continuous EKG monitoring, Pulse oximetry, Carbon Dioxide monitoring and blood pressure monitoring were done throughout the procedure. Colon withdrawal time was 16 minutes. Procedure: The patient was placed in the left lateral decubitis position and pre-procedure medications were administered. After a digital rectal examination of the ano-rectum, the video colonoscope was inserted into the rectum and advanced through the colon to the cecum/TI. The colonoscope was slowly withdrawn in a retrograde panoramic fashion and the colon mucosa was carefully examined including a retroflexed view of the rectum. Findings and interventions are described below. Procedure Difficulty:easy Findings: Terminal Ileum-normal, bx taken bx taken from right and left colon Cecum:normal Ascending Colon: normal Transverse Colon -normal Descending Colon:normal Sigmoid Colon: 5-7 mm sessile polyp removed with cold snare Rectum: Retroflexion with small internal hemorrhoids, grade I Anorectum - normal Colon preparation: Douglas Bowel Preparation Scale Right colon; 2 Transverse colon: 2 Left colon; 2 (0 = Unprepared colon segment with mucosa not seen due to solid stool that cannot be cleared. 1 = Portion of mucosa of the colon segment seen, but other areas of the colon segment not well seen due to staining, residual stool and/or opaque liquid. 2 = Minor amount of residual staining, small fragments of stool and/or opaque liquid, but mucosa of colon segment seen well. 3 = Entire mucosa of colon segment seen well with no residual staining, small fragments of stool or opaque liquid) Impression and Post Procedure Diagnosis: Endoscopy Findings: gastritis possible barretts duodenitis Colonoscopy Findings: polyp internal hemorrhoids Plan: Await Pathology results Repeat Colonoscopy in 5 years due to hx of polyps or earlier if clinically indicated High fiber diet leaflet avoid straining at stool, epsom salts and sitz bath, anusol supps or cream will send samples for amyloid and mast cell staining as well Above findings were reviewed with the patient and relevant handouts were provided if indicated.
[2022-10-25 12:49] VITALS: BP 105/70; PULSE 79; RESP 16; TEMP 36.3; O2SAT 98
[2022-10-25 13:07] VITALS: BP 114/72; PULSE 74; RESP 16; TEMP 36.1; O2SAT 99
[2022-10-25] MEDS: Acetaminophen 325 MG TABLET 975 MG PO (13:30)
[2022-10-25] MEDS: Simethicone 80 MG TAB.CHEW 160 MG PO (13:30)
[2022-10-25] MEDS: Dicyclomine HCl 10 MG CAPSULE PO (13:31)
== END 2022-10-25 14:37 | disposition home or self-care (01) ==
PROVIDERS: PCP Internal Medicine; Visit Provider Internal Medicine Gastroenterology
PROC: (CPT 45385; principal; 2022-10-25 12:40)
DX: R10.9 Unspecified abdominal pain (principal); R13.10 Dysphagia, unspecified; K20.90 Esophagitis, unspecified without bleeding; K29.80 Duodenitis without bleeding; K29.70 Gastritis, unspecified, without bleeding; K63.5 Polyp of colon; K64.0 First degree hemorrhoids; J45.909 Unspecified asthma, uncomplicated; G47.33 Obstructive sleep apnea (adult) (pediatric); Z88.2 Allergy status to sulfonamides; Z88.8 Allergy status to other drugs, medicaments and biological substances
CPT/HCPCS: 45385; 45380; 43249; 43239; 88305; 88313; 88341; 88342; C1726

== ENCOUNTER 2022-10-31 08:32 | Outpatient (REF) | payer OTHER, SELFPAY | END 2022-10-31 08:33 | disposition home or self-care (01) | LOC: HO.CT 08:32 | PROVIDERS: Visit Provider Internal Medicine Gastroenterology | DX: I77.4 Celiac artery compression syndrome (principal) | CPT/HCPCS: 74174; Q9967 ==

== ENCOUNTER 2022-11-06 19:02 | Emergency (ER) | payer OTHER, SELFPAY ==
[2022-11-06 19:13] VITALS: BP 134/102; PULSE 76; RESP 18; TEMP 36; O2SAT 100; BMI 37.6
--- NOTE | 2022-11-06 19:18 | ED_ITS ---
HPI - Chest Pain General Chief Complaint: Chest Pain Stated Complaint: loss of vision, facial numbness, headache Time Seen by Provider: 11/06/22 21:54 Source: patient Mode of arrival: ambulatory Limitations: no limitations History of Present Illness HPI narrative: 42-year-old female who presents emergency department for evaluation of change in vision, headache, neck pain, facial numbness. Patient states that she was in her kitchen when she had a sudden onset of vision change. She states that she saw the wavy lines in the peripheral vision of both her left and right eye and some slightly blurred vision when she looks straight ahead. She states that the symptoms persisted so she came to the emergency department. When she was in the emergency department she then developed a headache which she states is on the right side of her head and goes to the back of her neck. The headache is a pressure-like sensation which is constant. She states the headache is 9/10 at its worst. She also developed numbness and tingling in her hands tongue and lips. She states that she was not under any stress at the time of onset of her symptoms. Patient states that she has been dealing increased GERD symptoms and was recently seen by Dr. 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 Related Data Home Medications Medication Instructions Recorded Confirmed bupropion HCl 150 mg tablet,12 hr 150 mg PO BID 01/30/20 10/25/22 sustained-release lorazepam 1 mg tablet 1 mg PO BID 01/30/20 10/25/22 oxybutynin chloride 10 mg 10 mg PO DAILY 10/21/22 10/25/22 tablet,extended release 24 hr duloxetine 60 mg capsule,delayed 60 mg PO DAILY 10/25/22 10/25/22 release Previous Rx's Medication Instructions Recorded Ventolin HFA 90 mcg/actuation 1 inh inhalation Q6H PRN shortness 04/05/22 aerosol inhaler (albuterol sulfate) of breath or wheezing #18 grams famotidine 40 mg tablet 40 mg PO BEDTIME #60 tabs 05/18/22 dicyclomine 10 mg capsule 10 mg PO QID #100 caps 09/16/22 ondansetron 4 mg disintegrating 8 mg PO Q8H PRN nausea and 09/16/22 tablet vomiting #90 tabs gabapentin 300 mg capsule 300 mg PO TID 90 days #270 caps 10/11/22 montelukast 10 mg tablet 10 mg PO DAILY 90 days #90 tabs 10/11/22 omeprazole 40 mg capsule,delayed 40 mg PO DAILY #90 caps 11/02/22 release oxycodone 5 mg tablet 5 mg PO Q4H PRN pain #8 tabs 11/06/22 promethazine 25 mg tablet 25 mg PO Q6H PRN nausea and 11/06/22 vomiting #14 tabs Allergies Allergy/AdvReac Type Severity Reaction Status Date / Time azithromycin [AZITHROMYCIN] Allergy Intermediate RASH Verified 10/21/22 09:07 ketorolac [From Toradol] Allergy Intermediate Rash Verified 10/21/22 09:07 Sulfa (Sulfonamide Allergy Intermediate RASH Verified 10/21/22 09:07 Antibiotics) [SULFA (SULFONAMIDE ANTIBIOTICS)] fluconazole [Diflucan] Allergy Unknown unknown Verified 10/21/22 09:07 topiramate [Topamax] Allergy Unknown unknown Verified 10/21/22 09:07 amitriptyline AdvReac Intermediate stomach Verified 10/21/22 09:07 upset nitrofurantoin Allergy Severe Hives Uncoded 10/21/22 09:07 Review of Systems Review of Systems: Yes all other systems are reviewed and are negative PMFSH Past Medical History Medical History Abdominal pain Abnormal uterine bleeding (AUB) Acid reflux Allergic rhinitis Asthma Colon polyps Early satiety Fibromyalgia GERD (gastroesophageal reflux disease) Heavy menstrual bleeding History of anxiety History of fibromyalgia History of headache Hx of irritable bowel syndrome Hx of ovarian cyst Hx of renal calculi Hydradenitis Loud snoring ELIAZAR (obstructive sleep apnea) Pelvic pain Smoker Somnolence, daytime Surgical History H/O colonoscopy H/O tubal ligation History of History of cholecystectomy History of esophagogastroduodenoscopy (EGD) Family History Family History Father HTN (hypertension) Diabetes mellitus Liver cancer Alcoholic Substance use disorder Mother Anxiety Depression Liver tumor Brother Heart attack Buerger disease Stroke Seizure Diabetes mellitus Family/Other Mild asthma Maternal Grandmother Cancer of unknown origin Maternal Grandfather Liver cancer Paternal Grandfather Heart problem Other Mental health disorder Social History Social History Household Members: Spouse and Children Housing: House Alcohol intake: current Alcohol intake frequency: holidays/special occasions only Patient Tobacco Use Status: Current everyday Tobacco user Tobacco use type: Cigarette Cigarette Packs Per Day: 0.5 Cigarettes Per Day: 10 Years Smoked: 25 e-Cigarette/Vaping Use: Never Used Substance Use Type: Marijuana service: No Current occupational status: unemployed Current occupation: due to Covid Gender identity: Female Cognitive needs: No Hearing needs: No Vision needs: No Physical Exam Vital Signs: Vital Signs: Last Vital Signs Temp 98.6 F 11/06/22 22:22 Pulse 69 11/06/22 22:22 Resp 18 11/06/22 22:22 BP 124/88 11/06/22 22:22 Pulse Ox 99 11/06/22 21:01 O2 Del Method Room Air 11/06/22 21:01 BMI result Body Mass Index 37.6 Const: General: cooperative and no acute distress Orientation/consciousness: oriented to person and oriented to place Limitations: no limitations HEENT: Head: Yes normal to inspection, Yes normocephalic and Yes atraumatic Ears: external ears normal General nose exam: Normal external nose present Face and sinus: Yes normal facial exam Mouth: Normal oral and palatal mucosa present Throat: Yes posterior oropharynx normal Eyes: General: appearance normal, both eyes and all related structures Pupils: Equal, round and reactive pupils present Neck: Neck: Yes normal visual inspection, Yes no lymphadenopathy, Yes trachea midline and Yes supple Chest: Other: Patient has tenderness palpation of her sternum and left chest along the costochondral joints Resp: Effort & Inspection: normal respiratory effort and able to speak in complete sentences Auscultation: clear to auscultation bilaterally Cardio: Rate: regular rate Rhythm: regular rhythm Heart sounds: S1 normal heart sound present, S2 normal heart sound present and no murmurs GI: Other: Patient's abdomen is soft, nondistended, she has normoactive bowel sounds, she has [id number] epigastric tenderness, no rebound, no voluntary or involuntary guarding : General: Yes no CVA tenderness Back/Spine/Pelvis: Back: no CVA tenderness Skin: General skin exam: no rashes or lesions noted Neuro: General: oriented to person and oriented to place Cranial nerves: Yes CN's II-XII intact bilaterally and Yes Equal, round and reactive pupils present Cognition (Neuro): normal cognition Motor exam (neuro): 5/5 motor strength present throughout Extrem: General: Yes normal to inspection Psych: Appearance: grossly normal Speech and movement: Normal speech and movement present Affect: normal affect Attitude: cooperative Thought process: Normal thought process present Thought content: Normal thought caitlin nt present Course Course Course Narrative: RME: 42 yold female presents to the ED for bilateral visual changes describred as flashing lights. patient also states posterior neck pain, ligtheadachens, and chest pain. Neuro exam is intact. NIH Score is 0. EKG labs ordered. Medications Administered Discontinued Medications Generic Name Dose Route Start Last Admin Trade Name Jackie PRN Reason Stop Dose Admin Acetaminophen 975 mg 11/06/22 22:13 11/06/22 22:53 Acetaminophen 325 Mg Tablet PO 11/06/22 22:14 975 mg ONCE STA Administration Oxycodone HCl 10 mg 11/06/22 22:13 11/06/22 22:53 Oxycodone Hcl Immed Release 5 Mg Tablet PO 11/06/22 22:14 10 mg ONCE ONE Administration Promethazine HCl 25 mg 11/06/22 22:13 11/06/22 22:53 Promethazine Hcl 25 Mg Tablet PO 11/06/22 22:14 25 mg ONCE ONE Administration Medical Decision Making Medical Decision Making [facility] Narrative: 42-year-old female who presents emergency department for evaluation visual change which involve the bilateral peripheral wavy lines, headache which developed in the emergency depart, chest pain, numbness and tingling this in her lips, tongue and extremities. Initial vital signs revealed an elevated blood pressure of 134/102 but corrected with no treatment. Exam did reveal chest wall tenderness, epigastric tenderness and a normal neurologic exam. Following tests were ordered on the patient EKG, CBC, troponin, PT/INR, PTT 2232: The patient's laboratory evaluation was unremarkable with a high sensitive troponin I which is below detectable limits-these she has not had myocardial injury is the cause of her chest pain Patient's 12 EKG was also normal with no signs of ischemia or myocardial injury. Patient's symptoms and physical examination are consistent with an ocular migraine followed by a migraine headache. Chest pain is most likely secondary to her GERD. Patient's numbness and tingling this in her lips, tongue and extremities is consistent with hyperventilation syndrome. Patient migraine symptoms were treated with oxycodone 10 mg orally, Tylenol 975 mg orally and Phenergan 25 mg orally. She was discharged with the following migraine regimen: Tylenol 975 mg, promethazine 25 mg and oxycodone 5 mg every 6 hours as needed for pain. She was given printed and verbal instructions and discharged home Differential Diagnosis Differential Diagnoses: The differential diagnosis associated with the presentation includes Differential diagnosis includes was not limited to: Headache: Subarachnoid hemorrhage, giant cell arteritis, ocular migraine/migraine, anxiety Chest pain: Myocardial infarction, myocardial ischemia, costochondritis, esophageal spasm secondary to GERD Paresthesias: Hyperventilation syndrome, anxiety attack, stroke, MS Admission/Observation Consideration of admission/observation: Escalation of care including admission/observation considered Lab Data MDM Lab Attestation statement: I reviewed the patient's lab results. My independent interpretation patient's laboratory evaluation is as follows: CBC and CMP were normal. Coags were normal. Patient's troponin was below detectable limits which is reassuring suggested she did not have myocardial injury is the cause for chest pain. 11/06/22 19:30 11/06/22 19:30 Labs: Lab Results 11/06/22 11/06/22 11/06/22 Range/Units 19:30 19:30 19:30 WBC 10.3 (4.8-10.8) X10*3/uL RBC 4.11 L (4.20-5.50) X10*6/uL Hgb 12.0 (12.0-16.0) g/dl Hct 36.6 L (37.0-47.0) % MCV 89.1 (80.0-98.0) fL MCH 29.2 (27.0-33.0) pg MCHC 32.8 (31.0-35.0) g/dl RDW 13.9 (11.0-16.0) % Plt Count 216 (160-400) X10*3/uL MPV 9.9 (9.4-12.3) fL Immature Gran % (Auto) 0.4 (0.0-0.4) % Neut % (Auto) 57.1 (45-73) % Lymph % (Auto) 29.7 (20-40) % Mason % (Auto) 5.3 (2-11) % Eos % (Auto) 6.8 H (0-4) % Baso % (Auto) 0.7 (0-2) % Lymph # (Auto) 3.1 (1.2-4.9) X10*3/uL Mason # (Auto) 0.6 (0.1-1.2) X10*3/uL Eos # (Auto) 0.7 H (0.0-0.4) X10*3/uL Baso # (Auto) 0.1 (0.0-0.2) X10*3/uL Abs Immat Gran (auto) 0.04 H (0.00-0.03) X10*3/uL Absolute Neuts (auto) 5.9 (2.0-8.3) x10*3/uL Absolute Nucleated RBC 0.000 (0.0-0.012) X10*3/uL Nucleated RBC % (auto) 0.0 (0.0-0.2) /100WBC PT 10.4 (10.0-13.1) SEC INR 0.9 (0.9-1.1) APTT 30.3 (26.0-36.4) SEC Sodium 141 (135-145) mmol/L Potassium 3.7 (3.3-5.1) mmol/L Chloride 109 H (96-108) mmol/L Carbon Dioxide 26 (22-29) mmol/L Anion Gap 10 L (12-20) BUN 13 (9-16) mg/dL Creatinine 0.79 (0.5-1.4) mg/dL Estim Creat Clear Calc 92.9 Estimated GFR > 60 Random Glucose 91 (60-115) mg/dL Calcium 9.4 (8.4-10.2) mg/dL Total Bilirubin 0.2 (0.0-1.0) mg/dL AST 9 (5-31) U/L ALT 8 (0-31) U/L Alkaline Phosphatase 108 (39-117) U/L Troponin I High Sens (<3.5-17.0) ng/L Total Protein 6.5 (6.5-8.0) g/dL Albumin 3.5 (3.5-5.0) g/dL 11/06/22 Range/Units 19:30 WBC (4.8-10.8) X10*3/uL RBC (4.20-5.50) X10*6/uL Hgb (12.0-16.0) g/dl Hct (37.0-47.0) % MCV (80.0-98.0) fL MCH (27.0-33.0) pg MCHC (31.0-35.0) g/dl RDW (11.0-16.0) % Plt Count (160-400) X10*3/uL MPV (9.4-12.3) fL Immature Gran % (Auto) (0.0-0.4) % Neut % (Auto) (45-73) % Lymph % (Auto) (20-40) % Mason % (Auto) (2-11) % Eos % (Auto) (0-4) % Baso % (Auto) (0-2) % Lymph # (Auto) (1.2-4.9) X10*3/uL Mason # (Auto) (0.1-1.2) X10*3/uL Eos # (Auto) (0.0-0.4) X10*3/uL Baso # (Auto) (0.0-0.2) X10*3/uL Abs Immat Gran (auto) (0.00-0.03) X10*3/uL Absolute Neuts (auto) (2.0-8.3) x10*3/uL Absolute Nucleated RBC (0.0-0.012) X10*3/uL Nucleated RBC % (auto) (0.0-0.2) /100WBC PT (10.0-13.1) SEC INR (0.9-1.1) APTT (26.0-36.4) SEC Sodium (135-145) mmol/L Potassium (3.3-5.1) mmol/L Chloride (96-108) mmol/L Carbon Dioxide (22-29) mmol/L Anion Gap (12-20) BUN (9-16) mg/dL Creatinine (0.5-1.4) mg/dL Estim Creat Clear Calc Estimated GFR Random Glucose (60-115) mg/dL Calcium (8.4-10.2) mg/dL Total Bilirubin (0.0-1.0) mg/dL AST (5-31) U/L ALT (0-31) U/L Alkaline Phosphatase (39-117) U/L Troponin I High Sens < 2.7 (<3.5-17.0) ng/L Total Protein (6.5-8.0) g/dL Albumin (3.5-5.0) g/dL Independent Interpretation I performed an independent interpretation of an: EKG Interpretation: My independent interpretation the patient's 12 EKG done at 19:21 hours is as follows: Normal sinus rhythm with a rate of 72, normal AR interval, QRS durat ion QTC interval, no ST segment elevation, no ST segment depression, no PACs, no PVCs, no significant T-wave abnormalities. External Record Review External record reviewed: Office record (GI note), Outpatient record (Outpatient CT angiogram of abdomen and pelvis) and Other ([place] prescription monitoring program-patient has had multiple prescriptions for pain management, but no narcotic medication) Prescription Management I considered prescription management with: Pain Medication Chronic Conditions Patient?s care impacted by: Other (Asthma, GERD, anxiety, fibromyalgia) Discharge Plan Discharge Clinical Impression: Ocular migraine, Chest pain, Headache, migraine Patient Disposition: Home, Self-Care Instructions: Migraine Headache (ED) Additional Instructions: Your vision change (wavy lines in both eyes) are consistent with an eye/ocular migraine which was then followed by a migraine headache. Sometime when you have pain, this triggered hyperventilation(breathing fast) which then caused numbness, tingling in your mouth, tongue, lips and hands. This is a natural reaction to pain/stressful situation You were given oxycodone 10 mg orally, Tylenol 975 mg orally and Phenergan (promethazine) 25 mg orally to treat your migraine headache. Go home and go to bed, hopefully if you fall asleep this will cause the migraine headache to resolve. Sometimes migraine headaches return over the next week 1 or 2 after you have an initial migraine. I want you to take the following 3 medications together every 6 hours as needed for headache, nausea or vomiting. Phenergan ( promethazine ease), 1 pill Extra-strength Tylenol 500 mg pills, 2 pills Oxycodone 5 mg pills, 1 pill-oxycodone is a narcotic medication if your concerned about addiction do not get this medication filled or ask the pharmacist for less pills than prescribed. This medication will make you sleepy, do not work or drive while taking this medication. After you take these medications, lie down in a dark quiet room and try to fall asleep. These medications will make you sleepy, do not drive or work after taking these medications. Follow-up with your doctor in 2 days. Please return to the emergency department if your symptoms get worse or if you develop any symptoms that are concerning to you. Prescriptions: New oxycodone 5 mg tablet 5 mg PO Q4H PRN (Reason: pain) Qty: 8 0RF Rx Instructions: Patient may request partial fill; Partial Fill upon patient request. promethazine 25 mg tablet 25 mg PO Q6H PRN (Reason: nausea and vomiting) Qty: 14 0RF No Action albuterol sulfate [Ventolin HFA] 90 mcg/actuation HFA aerosol inhaler 1 inh inhalation Q6H PRN (Reason: shortness of breath or wheezing) Qty: 18 2RF famotidine 40 mg tablet 40 mg PO BEDTIME Qty: 60 1RF omeprazole 40 mg capsule,delayed release(DR/EC) 40 mg PO DAILY Qty: 90 1RF oxybutynin chloride 10 mg tablet extended release 24hr 10 mg PO DAILY duloxetine 60 mg capsule,delayed release(DR/EC) 60 mg PO DAILY gabapentin 300 mg capsule 300 mg PO TID 90 Days Qty: 270 0RF montelukast 10 mg tablet 10 mg PO DAILY 90 Days Qty: 90 0RF lorazepam 1 mg tablet 1 mg PO BID bupropion HCl 150 mg tablet sustained-release 12 hr 150 mg PO BID ondansetron 4 mg tablet,disintegrating 8 mg PO Q8H PRN (Reason: nausea and vomiting) Qty: 90 2RF dicyclomine 10 mg capsule 10 mg PO QID Qty: 100 2RF Interventions: ED Discharge Assessment Last Done: 11/06/22 22:49 Discharge Date/Time: 11/06/22 22:54
[2022-11-06 21:01] VITALS: BP 125/55; PULSE 60; PULSE 65; RESP 14; TEMP 36.6; O2SAT 99
--- NOTE | 2022-11-06 21:05 | PC.NURSE ---
pt resting in bed. c/o chest pain 3/10 and headache 8/10. seeing lines in field of vision. said this has been going on since [employer]. aox4. NSR on monitor w/stable bp and o2 WNL on RA.
[2022-11-06 22:22] VITALS: BP 124/88; PULSE 69; RESP 18; TEMP 37
--- NOTE | 2022-11-06 22:49 | PC.NURSE ---
pt medicated according to mark. vss. pt ambulatory at discharge. pt provided with discharge packet. pt verbalized understanding of discharge plan
== END 2022-11-06 22:54 | disposition home or self-care (01) ==
PROVIDERS: Emergency Provider Emergency Medicine Emergency Medical Services; PCP Internal Medicine
DX: G43.909 Migraine, unspecified, not intractable, without status migrainosus (principal); R07.89 Other chest pain; H54.7 Unspecified visual loss; Z79.899 Other long term (current) drug therapy; F17.210 Nicotine dependence, cigarettes, uncomplicated; Z71.6 Tobacco abuse counseling
CPT/HCPCS: 36415; 80053; 84484; 85025; 85610; 85730; 93005; 99284; 99285

== ENCOUNTER → 2022-11-06 19:16 | Outpatient (BNV) | payer OTHER, SELFPAY | PROVIDERS: Emergency Provider Emergency Medicine Emergency Medical Services; PCP Internal Medicine; Visit Provider Internal Medicine Cardiovascular Disease | DX: R07.9 Chest pain, unspecified (principal) | CPT/HCPCS: 93010 ==

== ENCOUNTER 2022-11-16 10:16 | Outpatient (AMB) | payer OTHER, SELFPAY ==
--- NOTE | 2022-11-16 10:20 | MHC.PC.OV ---
Vital Signs 11/16/22 10:21 Height 5 ft 1 in Weight 198 lb 6 oz BMI 37.5 BP 124/62 Blood Pressure Location Rt brachial Position Sitting Pulse 67 Pulse Source Pulse Oximeter Pulse Oximetry (%) 98 Oxygen Delivery Method Room Air Intake Visit Reasons: Vision Issues ~ Allergies azithromycin [AZITHROMYCIN] Allergy (Intermediate, Verified 11/16/22 10:20) RASH ketorolac [From Toradol] Allergy (Intermediate, Verified 11/16/22 10:20) Rash Sulfa (Sulfonamide Antibiotics) [SULFA (SULFONAMIDE ANTIBIOTICS)] Allergy (Intermediate, Verified 11/16/22 10:20) RASH fluconazole [Diflucan] Allergy (Unknown, Verified 11/16/22 10:20) unknown topiramate [Topamax] Allergy (Unknown, Verified 11/16/22 10:20) unknown amitriptyline Adverse Reaction (Intermediate, Verified 11/16/22 10:20) stomach upset nitrofurantoin Allergy (Severe, Uncoded 10/21/22 09:07) Hives Medication List - Last Reconciled 11/16/22 by Khanh Reynolds MD bupropion HCl 150 mg PO BID dicyclomine 10 mg PO QID duloxetine 60 mg PO DAILY famotidine 40 mg PO BEDTIME gabapentin 300 mg PO TID 90 days lorazepam 1 mg PO BID montelukast 10 mg PO DAILY 90 days omeprazole 40 mg PO DAILY ondansetron 8 mg (2 x 4 mg) PO Q8H PRN oxybutynin chloride ER 10 mg PO DAILY oxycodone 5 mg PO Q4H PRN promethazine 25 mg PO Q6H PRN Ventolin HFA 90 mcg/actuation (albuterol sulfate) 1 inh inhalation Q6H PRN NS Tobacco use date assessed: 11/16/22 Dental Screening Dental Screen Date: 11/16/22 Did you have a dental visit in the last 12 months?: No Did you have a dental problem in the last 6 months where you did not have access to dental care?: No Was dental information given to patient?: No HPI Vision Issues ~ HPI Details Patient is a 42-year-old female came in today for hospital discharge follow-up dated November 06 2022, patient presented to [facility] with a chief complaint of visual changes, patient says that she started having flashes of light so she called 911 and presented to emergency room. Later in emergency room she started to have headache neck pain and facial numbness. Neuro exam was nonfocal EKG was within normal limit no ischemia Her tingling of lips tongue and extremities were attributed to hyperventilation syndrome Her migraine symptoms were treated with oxycodone 10 mg and Phenergan Patient was discharged with promethazine 25 mg and oxycodone CBC and CMP were normal tropes were normal She came in today for follow-up appointment as she continued to have some blurring of vision and headache Currently she is taking no medication for migraine. Patient is allergic to amitriptyline and Topamax I am starting her on propranolol 20 mg once a day at night Sumatriptan 50 mg script sent patient was instructed to take 1 tablet if possible with 1 Aleve if she can tolerate that otherwise just take sumatriptan. Is also referral to Ophthalmology placed. We will follow-up on her headache in 3 weeks as telemedicine visit. Neuro exam was benign today, eye exam was benign neck is supple [facility] Medical History Abdominal pain Abnormal uterine bleeding (AUB) Allergic rhinitis Asthma Colon polyps Early satiety GERD (gastroesophageal reflux disease) Heavy menstrual bleeding History of anxiety History of fibromyalgia History of headache Hx of irritable bowel syndrome Hx of ovarian cyst Hx of renal calculi Hydradenitis Loud snoring ELIAZAR (obstructive sleep apnea) Pelvic pain Smoker Somnolence, daytime Surgical History H/O colonoscopy H/O tubal ligation History of History of cholecystectomy History of esophagogastroduodenoscopy (EGD) Family History Father HTN (hypertension) Diabetes mellitus Liver cancer Alcoholic Substance use disorder Mother Anxiety Depression Liver tumor Brother Heart attack Buerger disease Stroke Seizure Diabetes mellitus Family/Other Mild asthma Maternal Grandmother Cancer of unknown origin Maternal Grandfather Liver cancer Paternal Grandfather Heart problem Other Mental health disorder Social History Household Members: Spouse and Children Housing: House Alcohol intake: current Alcohol intake frequency: holidays/special occasions only Patient Tobacco Use Status: Current everyday Tobacco user Tobacco use type: Cigarette Cigarette Packs Per Day: 0.5 Cigarettes Per Day: 10 Years Smoked: 25 Packs Per Year: 13 Packs per year/per ci.50 e-Cigarette/Vaping Use: Never Used Substance Use Type: Marijuana service: No Current occupational status: unemployed Current occupation: due to Covid Gender identity: Female Cognitive needs: No Hearing needs: No Vision needs: No Female Reproductive History Menstrual Age of Menarche: 10 Questionnaire Thrive Questionnaire Date Thrive assessed: 07/22/22 AUDIT C Alcohol Use Questionnaire (AUDIT-C) 1. How often do you have a drink containing alcohol?: Monthly or less 2. How many drinks containing alcohol do you have on a typical day when you are drinking?: 1 or 2 3. How often do you have six or more drinks on one occasion?: Never Total Score: 1 Score Reviewed/Action Taken: Yes JUAN CARLOS-7 AMB Questionnaire JUAN CARLOS-7 Date JUAN CARLOS - 7 assessed: 07/22/22 Source: Developed by Drs. Tony Sandhu, Vidhya Esparza, Nitish Stein and colleagues, with an educational tonya from [employer]. Review of Systems Const Denies chills and Denies fever(s) ENT Denies epistaxis and Denies nasal discharge Card Denies chest pain Resp Denies chest congestion, Denies cough and Denies hemoptysis GI Denies diarrhea and Denies nausea Skin/Breast Denies rash Neuro Reports no additional complaints Psych Reports no additional complaints Endo Reports no additional complaints Physical exam (Primary Care) Vital Signs: Last Vital Signs Pulse 67 11/16/22 10:21 BP 124/62 11/16/22 10:21 Pulse Ox 98 11/16/22 10:21 Oxygen Delivery Method Room Air 11/16/22 10:21 BMI result Body Mass Index 37.5 Tobacco/Smoking Status: Tobacco use Status Tobacco use date assessed 11/16/22 11/16/22 10:24 Patient Tobacco Use Status Current everyday Tobacco 11/16/22 10:24 Tobacco use type Cigarette 11/16/22 10:24 e-Cigarette/Vaping Use Never Used 11/16/22 10:24 Thrive Assessment: Date of Thrive Assessment Date Thrive assessed 07/22/22 11/16/22 10:24 Const General: cooperative, comfortable and no acute distress Orientation/consciousness: patient oriented x3 HENMT Head: Yes normocephalic Eyes General: appearance normal, both eyes and all related structures Neck Neck: Yes supple Resp Effort & Inspection: normal respiratory effort, no cough and no stridor Cardio Rhythm: regular rhythm Heart sounds: S1 normal heart sound present and S2 normal heart sound present Skin General skin exam: turgor normal Neuro General: patient oriented x3, tone normal and moves all extremities Extrem Right lower extremity: no edema Left lower extremity: no edema Assessment and Plan Assessment & Plan (1) Hospital discharge follow-up: Code(s): Z09 - Encounter for follow-up examination after completed treatment for conditions other than malignant neoplasm (2) Blurring of vision: Code(s): H53.8 - Other visual disturbances (3) Complicated migraine with status migrainosus: Code(s): G43.101 - Migraine with aura, not intractable, with status migrainosus Plan Patient is a 42-year-old female came in today for hospital discharge follow-up dated November 06 2022, patient presented to [facility] with a chief complaint of visual changes, patient says that she started having flashes of light so she called 911 and presented to emergency room. Later in emergency room she started to have headache neck pain and facial numbness. Neuro exam was nonfocal EKG was within normal limit no ischemia Her tingling of lips tongue and extremities were attributed to hyperventilation syndrome Her migraine symptoms were treated with oxycodone 10 mg and Phenergan Patient was discharged with promethazine 25 mg and oxycodone CBC and CMP were normal tropes were normal She came in today for follow-up appointment as she continued to have some blurring of vision and headache Currently she is taking no medication for migraine. Patient is allergic to amitriptyline and Topamax I am starting her on propranolol 20 mg once a day at night Sumatriptan 50 mg script sent patient was instructed to take 1 tablet if possible with 1 Aleve if she can tolerate that otherwise just take sumatriptan. Is also referral to Ophthalmology placed. We will follow-up on her headache in 3 weeks as telemedicine visit. Neuro exam was benign today, eye exam was benign neck is supple Orders: Referrals Ophthalmology Referral H53.8 - Other visual disturbances Medications: New sumatriptan succinate 50 mg PO ONCE PRN 10 tabs 0RF migraine headache 30 days propranolol 20 mg PO .qhs 30 tabs 0RF 30 days Coding Level of Care Code Est Pt Level 5 (95131) Diagnoses Hospital discharge follow-up Z09 Blurring of vision H53.8 Complicated migraine with status migrainosus G43.101 Time Spent (min) 45 Comment Reviewing ER notes/chart/dxli-uk-lugo/coordination of care
[2022-11-16 10:21] VITALS: BP 124/62; PULSE 67; O2SAT 98; BMI 37.5
== END 2022-11-16 12:47 | disposition home or self-care (01) ==
PROVIDERS: PCP Internal Medicine; Visit Provider Internal Medicine
DX: G43.101 Migraine with aura, not intractable, with status migrainosus (principal); H53.8 Other visual disturbances
CPT/HCPCS: 99215

== ENCOUNTER 2022-11-25 13:23 | Outpatient (REF) | payer OTHER, SELFPAY ==
--- NOTE | ~2022-11-25 | US_ITS ---
EXAMINATION: US PELVIS CLINICAL INFORMATION: Excessive and frequent menstruation. COMPARISON: Pelvic ultrasound 05/14/2020. TECHNIQUE: Ultrasound of the pelvis is performed using both transabdominal and transvaginal transducers along with Doppler. Transvaginal imaging is performed due to inadequate visualization transabdominally. FINDINGS: Uterus: The uterus is anteverted and measures 9.2 x 3.4 x 5.0 cm. The double wall endometrial thickness is 11 mm. The uterus is smooth in contour and has normal myometrial echogenicity. No visible fibroid. Adnexa: The right ovary is visualized. There is normal color flow to the right ovary. There is no evidence of ovarian torsion. There is no pelvic ascites or fluid collection. Right ovary measures 3.4 x 2.0 x 2.4 cm. 8.6 mL. Left ovary is not seen. US/US pelvic and transvaginal IMPRESSION: Nonvisualization of the left ovary. Otherwise unremarkable pelvic ultrasound.
== END 2022-11-25 13:24 | disposition home or self-care (01) ==
LOC: HO.US 13:23
PROVIDERS: PCP Internal Medicine; Visit Provider Advanced Practice Midwife
DX: N92.0 Excessive and frequent menstruation with regular cycle (principal)
CPT/HCPCS: 76830; 76856

== ENCOUNTER 2022-12-19 11:48 | Outpatient (AMB) | payer OTHER, SELFPAY ==
--- NOTE | 2022-12-19 11:52 | A.OFFVIS_ITS ---
Intake Vital Signs 12/19/22 11:54 Height 5 ft 1 in Weight 200 lb 9.93 oz BMI 37.9 BP 110/65 Blood Pressure Location Lt brachial Position Sitting Pulse 73 Intake Visit Reasons: follow up Intake Note: Tina presents in the office as a follow up. CC: States that she gets food stuck in the throat, acid reflux, indigestion. 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 Allergies azithromycin [AZITHROMYCIN] Allergy (Intermediate, Verified 12/19/22 11:55) RASH ketorolac [From Toradol] Allergy (Intermediate, Verified 12/19/22 11:55) Rash Sulfa (Sulfonamide Antibiotics) [SULFA (SULFONAMIDE ANTIBIOTICS)] Allergy (Intermediate, Verified 12/19/22 11:55) RASH fluconazole [Diflucan] Allergy (Unknown, Verified 12/19/22 11:55) unknown topiramate [Topamax] Allergy (Unknown, Verified 12/19/22 11:55) unknown amitriptyline Adverse Reaction (Intermediate, Verified 12/19/22 11:55) stomach upset nitrofurantoin Allergy (Severe, Uncoded 12/19/22 11:55) Hives HPI follow up HPI Details 42 yr old f here for f/u RECAP: Saw [facility] initially: chronic abdominal pain she has been sick on and off for years been more consistent last 1 yr she has satiety she lost weight but more stable now she has lower abdominal pain, and goes into the tailbone, sometimes only the tail bone hurts she has post prandial urgency sometimes has pain with food, crampy she has been told she has neck damage causing pins and needles in fingers and feet pain can be sharp and hurts to sit if she has diarrhea or constipation can be worse sometimes sees blood in stool can't really describe she has ++ heartburn--urosdiol has helped her about 80% or so she feels like food is lways sticking in the throat she has been dx with asthma 2 yrs ago, never had an issue before she smokes 1/2 pack a day mother had stomach cancer aged 60 TESTS: GES 2020--retention at 4 hrs 23% EGD/colo:? 06/2021 Endoscopy Findings: suspected house,s possible bile acid reflux gastritis Colonoscopy Findings: internal hemorrhoids suspected polyp Path: sessile serrated polyp , mild chronic gastritis CT 03/2022 Small umbilical and periumbilical hernias containing fat. Small left renal cyst. US kidney 06/2022---nml GES: 08/2022-- rapid emptying LABS: nml LFT 08/21 EGD/COlO 09/2022; Endoscopy Findings: gastritis possible barretts duodenitis Colonoscopy Findings: polyp internal hemorrhoids Path: active esophagitis, GEJ was chronically inflammed, rest of bx inc for amyloid were negative CTA---- nml, Doppler was pos INTERIM: she drinks 2 ice coffees daily, 32 oz x 2 she has post prandial diarrhea and pain she still has satiety she has nausea still smoking 1/2 pack daily, taking ursodiol daily as helps ? EXAM: GENERAL: The patient is well developed and nontoxic. VITAL SIGNS:see workflow HEENT: Nonicteric sclerae, PERRLA, EOMI. Oropharynx clear. Moist mucous membr anes. Conjunctivae appear well perfused. No thyroid mass. CHEST: Chest wall is nontender. HEART: Regular rate and rhythm without murmurs. LUNGS: Clear to auscultation bilaterally. ABDOMEN: Soft, positive bowel sounds, nontender, no organomegaly.no flank tenderness SKIN: No rash, no excessive bruising, petechiae, or purpura. NEUROLOGIC: Cranial nerves II-XII intact without motor/sensory deficit.? A/P: Complicated assortment of symptoms, hard to know if there is one unifying diagosis or several issues going on at once, IBD certainly possible also given her long standing smoking , could also be dysmotility with rapid emptying noted, vs functional dyspepsia PLAN; 1/ she has not taken duloextine --will ry the low dose TCA 2/ capsule endoscopy 3/ change PPI to esomeprazole 4/ cut down on caffeine and add fiber to the diet may have dumping syndrome PFSH Medical History Abdominal pain Abnormal uterine bleeding (AUB) Allergic rhinitis Asthma Colon polyps Early satiety GERD (gastroesophageal reflux disease) Heavy menstrual bleeding History of anxiety History of fibromyalgia History of headache Hx of irritable bowel syndrome Hx of ovarian cyst Hx of renal calculi Hydradenitis Loud snoring ELIAZAR (obstructive sleep apnea) Pelvic pain Smoker Somnolence, daytime Surgical History H/O colonoscopy H/O tubal ligation History of History of cholecystectomy History of esophagogastroduodenoscopy (EGD) Family History Father HTN (hypertension) Diabetes mellitus Liver cancer Alcoholic Substance use disorder Mother Anxiety Depression Liver tumor Brother Heart attack Buerger disease Stroke Seizure Diabetes mellitus Family/Other Mild asthma Maternal Grandmother Cancer of unknown origin Maternal Grandfather Liver cancer Paternal Grandfather Heart problem Other Mental health disorder Social History Household Members: Spouse and Children Housing: House Alcohol intake: current Alcohol intake frequency: holidays/special occasions only Patient Tobacco Use Status: Current everyday Tobacco user Tobacco use type: Cigarette Cigarette Packs Per Day: 0.5 Cigarettes Per Day: 10 Years Smoked: 25 e-Cigarette/Vaping Use: Never Used Substance Use Type: Marijuana service: No Current occupational status: unemployed Current occupation: due to Covid Gender identity: Female Cognitive needs: No Hearing needs: No Vision needs: No Female Reproductive History Menstrual Age of Menarche: 10 Physical Exam Vital Signs: Last Vital Signs Pulse 73 12/19/22 11:54 BP 110/65 12/19/22 11:54 BMI result Body Mass Index 37.9 Assessment & Plan Assessment & Plan Medications: New amitriptyline 10 mg PO BEDTIME 30 tabs 2RF esomeprazole magnesium 40 mg PO DAILY 90 caps 1RF sodium,potassium,mag sulfates 17.5-3.13-1.6 gram (Suprep Bowel Prep Kit) Drink only half the solution night before 354 mL 0RF Discontinued omeprazole Discontinued Reason: Doctor's Order 40 mg PO DAILY 90 caps 1RF Coding Level of Care Code Est Pt Level 3 (30898) Diagnoses
[2022-12-19 11:54] VITALS: BP 110/65; PULSE 73; BMI 37.9
== END 2022-12-19 13:19 | disposition home or self-care (01) ==
PROVIDERS: PCP Internal Medicine; Visit Provider Internal Medicine Gastroenterology
DX: R10.9 Unspecified abdominal pain (principal)
CPT/HCPCS: 99213

== ENCOUNTER → 2022-12-19 11:48 | Outpatient (BNVA) | payer OTHER, SELFPAY | PROVIDERS: PCP Internal Medicine; Visit Provider Internal Medicine Gastroenterology | DX: K21.9 Gastro-esophageal reflux disease without esophagitis (principal); K30 Functional dyspepsia; R13.10 Dysphagia, unspecified | CPT/HCPCS: 99212 ==

== ENCOUNTER 2023-01-17 13:41 | Outpatient (AMB) | payer OTHER, SELFPAY ==
--- NOTE | 2023-01-17 14:06 | MHC.PC.OV ---
Intake Visit Reasons: Follow Up Allergies azithromycin [AZITHROMYCIN] Allergy (Intermediate, Verified 12/19/22 11:55) RASH ketorolac [From Toradol] Allergy (Intermediate, Verified 12/19/22 11:55) Rash Sulfa (Sulfonamide Antibiotics) [SULFA (SULFONAMIDE ANTIBIOTICS)] Allergy (Intermediate, Verified 12/19/22 11:55) RASH fluconazole [Diflucan] Allergy (Unknown, Verified 12/19/22 11:55) unknown topiramate [Topamax] Allergy (Unknown, Verified 12/19/22 11:55) unknown amitriptyline Adverse Reaction (Intermediate, Verified 12/19/22 11:55) stomach upset nitrofurantoin Allergy (Severe, Uncoded 12/19/22 11:55) Hives Medication List - Last Reconciled 01/17/23 by Khanh Reynolds MD amitriptyline 10 mg PO BEDTIME bupropion HCl 150 mg PO BID ciprofloxacin HCl 250 mg PO Q12H 3 days dicyclomine 10 mg PO QID esomeprazole magnesium 40 mg PO DAILY famotidine 40 mg PO BEDTIME gabapentin 300 mg PO TID 90 days lorazepam 1 mg PO BID montelukast 10 mg PO DAILY 90 days ondansetron 8 mg (2 x 4 mg) PO Q8H PRN phenazopyridine (Pyridium) 200 mg PO TID PRN 2 days propranolol 20 mg PO .qhs sodium,potassium,mag sulfates 17.5-3.13-1.6 gram (Suprep Bowel Prep Kit) Drink only half the solution night before sumatriptan succinate 50 mg PO ONCE PRN 30 days Ventolin HFA 90 mcg/actuation (albuterol sulfate) 1 inh inhalation Q6H PRN NS Tobacco use date assessed: 11/16/22 HPI Follow Up HPI Details Patient has been having dysuria for the past 2 days, she said that she had Cipro 2 tablets that she has taken them yesterday feeling little better but still having symptoms She also noted blood in her urine. She is requesting medication, I have sent Cipro 250 mg to be taken b.i.d. for another 3 days along with Pyridium a to b.i.d. for 2 days. [facility] Medical History Abnormal uterine bleeding (AUB) Pelvic pain Heavy menstrual bleeding Allergic rhinitis Asthma Smoker Abdominal pain Loud snoring ELIAZAR (obstructive sleep apnea) Somnolence, daytime Early satiety Colon polyps Hydradenitis History of fibromyalgia GERD (gastroesophageal reflux disease) History of headache Hx of irritable bowel syndrome Hx of ovarian cyst Hx of renal calculi History of anxiety Surgical History H/O tubal ligation History of esophagogastroduodenoscopy (EGD) H/O colonoscopy History of cholecystectomy History of Family History Father HTN (hypertension) Diabetes mellitus Liver cancer Alcoholic Substance use disorder Mother Anxiety Depression Liver tumor Brother Heart attack Buerger disease Stroke Seizure Diabetes mellitus Family/Other Mild asthma Maternal Grandmother Cancer of unknown origin Maternal Grandfather Liver cancer Paternal Grandfather Heart problem Other Mental health disorder Social History Household Members: Spouse and Children Housing: House Alcohol intake: current Alcohol intake frequency: holidays/special occasions only Patient Tobacco Use Status: Current everyday Tobacco user Tobacco use type: Cigarette Cigarette Packs Per Day: 0.5 Cigarettes Per Day: 10 Years Smoked: 25 e-Cigarette/Vaping Use: Never Used Substance Use Type: Marijuana service: No Current occupational status: unemployed Current occupation: due to Covid Gender identity: Female Cognitive needs: No Hearing needs: No Vision needs: No Female Reproductive History Menstrual Age of Menarche: 10 Questionnaire Thrive Questionnaire Date Thrive assessed: 07/22/22 JUAN CARLOS-7 AMB Questionnaire JUAN CARLOS-7 Date JUAN CARLOS - 7 assessed: 07/22/22 Source: Developed by Drs. Tony Sandhu, Vidhya Esparza, Nitish Stein and colleagues, with an educational tonya from [employer]. Review of Systems Const Denies chills and Denies fever(s) ENT Denies epistaxis and Denies nasal discharge Card Denies chest pain Resp Denies chest congestion, Denies cough and Denies hemoptysis Skin/Breast Denies rash Neuro Reports no additional complaints Psych Reports no additional complaints Endo Reports no additional complaints Physical exam (Primary Care) Tobacco/Smoking Status: Tobacco use Status Tobacco use date assessed 11/16/22 01/17/23 14:07 Patient Tobacco Use Status Current everyday Tobacco 01/17/23 14:07 Tobacco use type Cigarette 01/17/23 14:07 e-Cigarette/Vaping Use Never Used 01/17/23 14:07 Thrive Assessment: Date of Thrive Assessment Date Thrive assessed 07/22/22 01/17/23 14:07 Telehealth Telehealth Location of provider rendering services: practice address Location of patient: address on file Patient Identification confirmed using: Name, : Yes Telehealth method: voice only Patient verbally consented to treatment: Yes Patient verbally consented to billing insurance company: Yes Patient informed of any privacy concerns related to visit: Yes Minutes spent on Phone/Video with Pt.: 13 Assessment and Plan Assessment & Plan (1) Dysuria: Code(s): R30.0 - Dysuria (2) Blood in urine: Code(s): R31.9 - Hematuria, unspecified Qualifiers: Hematuria type: gross Qualified Code(s): R31.0 - Gross hematuria Plan Patient has been having dysuria for the past 2 days, she said that she had Cipro 2 tablets that she has taken them yesterday feeling little better but still having symptoms She also noted blood in her urine. She is requesting medication, I have sent Cipro 250 mg to be taken b.i.d. for another 3 days along with Pyridium a to b.i.d. for 2 days. Coding Level of Care Code Tele Est Pt Level 3 (70632) Diagnoses Dysuria R30.0 Gross hematuria R31.0 Hematuria type: gross
== END 2023-01-17 14:50 | disposition home or self-care (01) ==
LOC: HO.HMGC 13:42
PROVIDERS: PCP Internal Medicine; Visit Provider Internal Medicine
DX: R30.0 Dysuria (principal); R31.0 Gross hematuria
CPT/HCPCS: 99213

== ENCOUNTER 2023-01-18 11:29 | Outpatient (AMB) | payer OTHER, SELFPAY ==
[2023-01-18 11:32] VITALS: BP 122/62; PULSE 71; O2SAT 97; BMI 39.3
--- NOTE | 2023-01-18 11:32 | MHC.PC.OV ---
Vital Signs 01/18/23 11:32 Height 5 ft 1 in Weight 208 lb BMI 39.3 BP 122/62 Blood Pressure Location Lt brachial Position Sitting Pulse 71 Pulse Source Pulse Oximeter Pulse Oximetry (%) 97 Oxygen Delivery Method Room Air Intake Visit Reasons: annual PE Allergies azithromycin [AZITHROMYCIN] Allergy (Intermediate, Verified 01/18/23 11:32) RASH ketorolac [From Toradol] Allergy (Intermediate, Verified 01/18/23 11:32) Rash Sulfa (Sulfonamide Antibiotics) [SULFA (SULFONAMIDE ANTIBIOTICS)] Allergy (Intermediate, Verified 01/18/23 11:32) RASH fluconazole [Diflucan] Allergy (Unknown, Verified 01/18/23 11:32) unknown topiramate [Topamax] Allergy (Unknown, Verified 01/18/23 11:32) unknown amitriptyline Adverse Reaction (Intermediate, Verified 01/18/23 11:32) stomach upset nitrofurantoin Allergy (Severe, Uncoded 12/19/22 11:55) Hives Medication List - Last Reconciled 01/18/23 by Khanh Reynolds MD amitriptyline 10 mg PO BEDTIME bupropion HCl 150 mg PO BID ciprofloxacin HCl 250 mg PO Q12H 3 days dicyclomine 10 mg PO QID esomeprazole magnesium 40 mg PO DAILY famotidine 40 mg PO BEDTIME gabapentin 300 mg PO TID 90 days lorazepam 1 mg PO BID montelukast 10 mg PO DAILY 90 days ondansetron 8 mg (2 x 4 mg) PO Q8H PRN phenazopyridine (Pyridium) 200 mg PO TID PRN 2 days propranolol 20 mg PO .qhs sodium,potassium,mag sulfates 17.5-3.13-1.6 gram (Suprep Bowel Prep Kit) Drink only half the solution night before sumatriptan succinate 50 mg PO ONCE PRN 30 days Ventolin HFA 90 mcg/actuation (albuterol sulfate) 1 inh inhalation Q6H PRN NS Tobacco use date assessed: 01/18/23 Dental Screening Dental Screen Date: 01/18/23 Did you have a dental visit in the last 12 months?: Yes Did you have a dental problem in the last 6 months where you did not have access to dental care?: No Was dental information given to patient?: Patient has dentist HPI annual PE HPI Details Patient is a 42-year-old female came in today for physical exam. Patient is currently having UTI, she is taking Cipro UA done today shows small amount of leuk Estrace no blood Patient is already established with urology [facility] Mammogram was December of last year Pap smear through OBGYN [facility] Colonoscopy through Gastroenterology [facility] BMI is elevated at 39.3 need to lose weight Migraine is stable patient is on propranolol and sumatriptan Fibromyalgia: Patient is taking gabapentin 300 mg 3 times a day through PCP office. Patient has been having labs done through different providers but I do not see any lipid profile. Order placed is for labs to be done fasting. Follow-up 3 months [facility] Medical History Abnormal uterine bleeding (AUB) Pelvic pain Heavy menstrual bleeding Allergic rhinitis Asthma Smoker Abdominal pain Loud snoring ELIAZAR (obstructive sleep apnea) Somnolence, daytime Early satiety Colon polyps Hydradenitis History of fibromyalgia GERD (gastroesophageal reflux disease) History of headache Hx of irritable bowel syndrome Hx of ovarian cyst Hx of renal calculi History of anxiety Surgical History H/O tubal ligation History of esophagogastroduodenoscopy (EGD) H/O colonoscopy History of cholecystectomy History of Family History Father HTN (hypertension) Diabetes mellitus Liver cancer Alcoholic Substance use disorder Mother Anxiety Depression Liver tumor Brother Heart attack Buerger disease Stroke Seizure Diabetes mellitus Family/Other Mild asthma Maternal Grandmother Cancer of unknown origin Maternal Grandfather Liver cancer Paternal Grandfather Heart problem Other Mental health disorder Social History Household Members: Spouse and Children Housing: House Alcohol intake: current Alcohol intake frequency: holidays/special occasions only Patient Tobacco Use Status: Current everyday Tobacco user Tobacco use type: Cigarette Cigarette Packs Per Day: 0.5 Cigarettes Per Day: 10 Years Smoked: 25 e-Cigarette/Vaping Use: Never Used Substance Use Type: Marijuana service: No Current occupational status: unemployed Current occupation: due to Covid Gender identity: Female Cognitive needs: No Hearing needs: No Vision needs: No Female Reproductive History Menstrual Age of Menarche: 10 Questionnaire PHQ-9 Over the last 2 weeks, how often have you been bothered by any of the following problems? 1. Little interest or pleasure in doing things: nearly every day 2. Feeling down, depressed, or hopeless: more than half the days 3. Trouble falling or staying asleep, or sleeping too much: more than half the days 4. Feeling tired or having little energy: nearly every day 5. Poor appetite or overeating: nearly every day 6. Feeling bad about yourself - or that you are a failure or have let yourself or your family down: more than half the days 7. Trouble concentrating on things, such as reading the newspaper or watching television: more than half the days 8. Moving or speaking so slowly that other people could have noticed. Or the opposite - being so fidgety or restless that you have been moving around a lot more than usual: not at all 9. Thoughts that you would be better off or of hurting yourself in some way: not at all Total score: 17 Depression Screening Interpretation: Positive 28371 - PHQ-9 Billing: Yes Source: Developed by Drs. Tony Sandhu, Vidhya Esparza, Nitish Stein and colleagues, with an educational tonya from [employer]. Thrive Questionnaire Date Thrive assessed: 01/18/23 I am a: Patient What is your living situation today?: I have a steady place to live Within the past 12 months, did the food you bought not last and you didn't have the money to get more?: Never true Within the past 12 months, did you worry whether your food would run out before you got money to buy more?: Never true Do you have trouble paying for medicines?: No Do you have trouble getting transportation to medical appointments?: No Do you have trouble paying your heating and electricity bill?: No Do you have trouble taking care of your child, family member or friend?: No Do you have trouble with day-to-day activities such as bathing, preparing meals, shopping, managing finances, etc.?: No Are you currently unemployed and looking for a job?: Yes Are you interested in more education?: No AUDIT C Alcohol Use Questionnaire (AUDIT-C) 1. How often do you have a drink containing alcohol?: Never 3. How often do you have six or more drinks on one occasion?: Never Total Score: 0 Score Reviewed/Action Taken: Yes JUAN CARLOS-7 AMB Questionnaire JUAN CARLOS-7 Date JUAN CARLOS - 7 assessed: 01/18/23 Feeling nervous, anxious, or on edge: 3 = Nearly every day Not being able to stop or control worryin = Nearly every day Worrying too much about different things: 3 = Nearly every day Trouble relaxin = More than half the days Being so restless that it is hard to sit still: 1 = Several days Becoming easily annoyed or irritable: 2 = More than half the days Feeling afraid as if something awful might happen: 2 = More than half the days Total JUAN CARLOS-7 score (0-4 normal; 5-9 mild; 10-14 moderate; 15-21 severe): 16 Source: Developed by Drs. Tony Sandhu, Vidhya Esparza, Nitish Stein and colleagues, with an educational tonya from [employer]. JUAN CARLOS-7 Assessment Billing JUAN CARLOS-7 Assessment Tool: JUAN CARLOS-7 Assessment 53145 Review of Systems Const Denies chills, Denies fever(s) and Denies headache(s) Eyes Denies blurry vision ENT Denies headache(s), Denies nasal discharge, Denies nasal obstruction, Denies odynophagia and Denies sinus pain Card Denies chest pain at rest and Denies chest pain with activity Resp Denies cough and Denies hemoptysis GI Denies diarrhea, Denies odynophagia, Denies vomiting and Denies hematemesis Reports as per HPI Musc Denies abnormal gait Skin/Breast Reports as per HPI Neuro Denies Neuro-related abnormal movements, Denies Abnormal speech present, Denies abnormal gait, Denies headache(s) and Denies Sensory deficit (Neuro) Psych Denies mood swings and Denies paranoia Endo Reports as per HPI Tre/Lymph Reports as per HPI Aller/Immun Reports as per HPI Physical exam (Primary Care) Vital Signs: Last Vital Signs Pulse 71 01/18/23 11:32 BP 122/62 01/18/23 11:32 Pulse Ox 97 01/18/23 11:32 Oxygen Delivery Method Room Air 01/18/23 11:32 BMI result Body Mass Index 39.3 Tobacco/Smoking Status: Tobacco use Status Tobacco use date assessed 01/18/23 01/18/23 11:39 Patient Tobacco Use Status Current everyday Tobacco 01/18/23 11:39 Tobacco use type Cigarette 01/18/23 11:39 e-Cigarette/Vaping Use Never Used 01/18/23 11:39 PHQ-9: PHQ-9 Score PHQ-9: Total score 17 01/18/23 12:15 Depression Screening Interpretation: Positive Thrive Assessment: Date of Thrive Assessment Date Thrive assessed 01/18/23 01/18/23 12:15 Const General: cooperative, comfortable and no acute distress Orientation/consciousness: patient oriented x3 HENMT Head: Yes normocephalic and Yes atraumatic Eyes General: appearance normal, both eyes and all related structures Pupils: Equal, round and reactive pupils present EOM: EOMs intact bilaterally Neck Neck: Yes supple and No lymphadenopathy Thyroid: Thyroid normal Lymphatic: no lymphadenopathy noted Resp Effort & Inspection: normal respiratory effort and able to speak in complete sentences Auscultation: clear to auscultation bilaterally Cardio Heart sounds: S1 normal heart sound present and S2 normal heart sound present GI Palpation (GI): Soft to palpation and nontender Auscultation: normal bowel sounds General: Yes no CVA tenderness Back/Spine/Pelvis Back: no CVA tenderness Skin General skin exam: elasticity normal and turgor normal Neuro General: patient oriented x3 and gait normal Cranial nerves: Yes Equal, round and reactive pupils present Speech: No Abnormal speech present Sensory Exam: No Sensory deficit (Neuro) Coordination: tandem gait normal and Romberg test negative Extrem General: Yes normal exam except as noted and No edema Results AMB Urinalysis, Automated UA Leukoctes 15 Rosa/uL Last Edit by Shavonne Coutrney CMA on 01/18/23 11:51 UA Nitrite Positive Last Edit by Shavonne Courtney CMA on 01/18/23 11:51 UA Urobilinogen 1 mg/dL Last Edit by Shavonne Courtney CMA on 01/18/23 11:51 UA Protein 0 mg/dL Last Edit by Shavonne Courtney CMA on 01/18/23 11:51 UA pH 7.5 Last Edit by Shavonne Courtney CMA on 01/18/23 11:51 UA Blood 0 Maurisio/uL Last Edit by Shavonne Courtney CMA on 01/18/23 11:51 UA Specific [place] 1.015 Last Edit by Shavonne Courtney CMA on 01/18/23 11:51 UA Ketone Negative Last Edit by Shavonne Courtney CMA on 01/18/23 11:51 UA Bilirubin 1 mg/dL Last Edit by Shavonne Courtney CMA on 01/18/23 11:51 UA Glucose 0 mg/dL Last Edit by Shavonne Courtney CMA on 01/18/23 11:51 Results Reviewed Results Reviewed: Laboratory Last Values Urine pH (Auto) 7.5 01/18/23 11:48 Specific [place] (Auto) 1.015 01/18/23 11:48 Urine Protein (Auto) 0 mg/dL 01/18/23 11:48 Glucose (UA)(Auto) 0 mg/dL 01/18/23 11:48 Urine Ketones (Auto) Negative 01/18/23 11:48 Urine Blood (Auto) 0 Maurisio/uL 01/18/23 11:48 Urine Nitrite (Auto) Positive 01/18/23 11:48 Urine Bilirubin (Auto) 1 mg/dL 01/18/23 11:48 Urine Urobilinogen (Auto) 1 mg/dL 01/18/23 11:48 Leukocyte Esterase (Auto) 15 Rosa/uL 01/18/23 11:48 Assessment and Plan Assessment & Plan (1) Encounter for general adult medical examination with abnormal findings: Code(s): Z00.01 - Encounter for general adult medical examination with abnormal findings (2) Morbid obesity due to excess calories: Code(s): E66.01 - Morbid (severe) obesity due to excess calories (3) ELIAZAR (obstructive sleep apnea): Comment: SHE IS KNOWN TO HAVE MILD OBSTRUCTIVE SLEEP APNEA BUT HAS BEEN QUITE SYMPTOMATIC AND SUPPOSED TO BE USING CPAP REGULARLY. NOW SHE DOES HAVE NEW SUPPLIES AND SHE IS USING CPAP REGULARLY. SLEEPS MUCH BETTER. WE ARE WORKING WITH THE DME, PROVIDER TO SEE WHY COMPLIANCE IS NOT BEING TRANSMITTED CORRECTLY. Code(s): G47.33 - Obstructive sleep apnea (adult) (pediatric) (4) Allergic rhinitis: Comment: MILD CHRONIC ALLERGIC RHINITIS GOES ALONG WITH HER BRONCHIAL ASTHMA. TX: MONTELUKAST 10 MG DAILY AND CLARITIN 10 MG ONCE A DAY P.R.N.. SHE NEEDS TO STAY AWAY FROM THE CATS MUCH POSSIBLE Code(s): J30.9 - Allergic rhinitis, unspecified Qualifiers: Allergic rhinitis seasonality: seasonal Allergic rhinitis trigger: pollen (5) Environmental allergies: Code(s): Z91.09 - Other allergy status, other than to drugs and biological substances (6) Recurrent UTI: Code(s): N39.0 - Urinary tract infection, site not specified (7) Major depression, recurrent: Code(s): F33.9 - Major depressive disorder, recurrent, unspecified Qualifiers: Active/Remission status: in partial remission (8) Fibromyalgia: Code(s): M79.7 - Fibromyalgia (9) Change in facial mole: Code(s): D22.30 - Melanocytic nevi of unspecified part of face Plan Patient is a 42-year-old female came in today for physical exam. Patient is currently having UTI, she is taking Cipro UA done today shows small amount of leuk Estrace no blood Patient is already established with urology [facility] Patient has developed new more on the face that she would like to be evaluated by dermatology Mammogram was December of last year Pap smear through OBGYN [facility] Colonoscopy through Gastroenterology [facility] BMI is elevated at 39.3 need to lose weight Migraine is stable patient is on propranolol and sumatriptan Fibromyalgia: Patient is taking gabapentin 300 mg 3 times a day through PCP office. Patient has been having labs done through different providers but I do not see any lipid profile. Order placed is for labs to be done fasting. Follow-up 3 months Orders: Orders Comprehensive [place]. Panel Fast Today E66.01 - Morbid (severe) obesity due to excess calories, F33.9 - Major depressive disorder, recurrent, unspecified, J30.9 - Allergic rhinitis, unspecified, M79.7 - Fibromyalgia, Z00.01 - Encounter for general adult medical examination with abnormal findings, Z91.09 - Other allergy status, other than to drugs and biological substances Complete Blood Count Auto Diff Today E66.01 - Morbid (severe) obesity due to excess calories, F33.9 - Major depressive disorder, recurrent, unspecified, J30.9 - Allergic rhinitis, unspecified, M79.7 - Fibromyalgia, Z00.01 - Encounter for general adult medical examination with abnormal findings, Z91.09 - Other allergy status, other than to drugs and biological substances AMB Urinalysis Automated Today Z13.9 - Encounter for screening, unspecified Lipid Panel Today E66.01 - Morbid (severe) obesity due to excess calories, F33.9 - Major depressive disorder, recurrent, unspecified, J30.9 - Allergic rhinitis, unspecified, M79.7 - Fibromyalgia, Z00.01 - Encounter for general adult medical examination with abnormal findings, Z91.09 - Other allergy status, other than to drugs and biological substances Referrals Dermatology Referral D22.30 - Melanocytic nevi of unspecified part of face Coding Level of Care Code Est Pt Prev Care 40-64y(09286) Diagnoses Encounter for general adult medical examination with abnormal findings Z00.01 Morbid obesity due to excess calories E66.01 ELIAZAR (obstructive sleep apnea) G47.33 Allergic rhinitis J30.9 Allergic rhinitis seasonality: seasonal Allergic rhinitis trigger: pollen Environmental allergies Z91.09 Recurrent UTI N39.0 Major depression, recurrent F33.9 Active/Remission status: in partial remission Fibromyalgia M79.7 Change in facial mole D22.30 Additional Codes JUAN CARLOS-7 Assessment Billing - JUAN CARLOS-7 Assessment Tool: JUAN CARLOS-7 Assessment [id number] ([id number])
== END 2023-01-18 12:03 | disposition home or self-care (01) ==
PROVIDERS: Visit Provider Internal Medicine
DX: Z00.01 Encounter for general adult medical examination with abnormal findings (principal); E66.01 Morbid (severe) obesity due to excess calories; F33.9 Major depressive disorder, recurrent, unspecified; Z68.39 Body mass index [BMI] 39.0-39.9, adult; Z91.09 Other allergy status, other than to drugs and biological substances; G47.33 Obstructive sleep apnea (adult) (pediatric); J30.9 Allergic rhinitis, unspecified; N39.0 Urinary tract infection, site not specified; M79.7 Fibromyalgia; D22.30 Melanocytic nevi of unspecified part of face
CPT/HCPCS: 81003; 99396

== ENCOUNTER 2023-01-20 07:16 | Outpatient (AMB) | payer OTHER, SELFPAY ==
--- NOTE | 2023-01-30 21:56 | A.OFFVIS_ITS ---
Intake Intake Visit Reasons: CAPSULE ENDOSCOPY - 8:30am Allergies azithromycin [AZITHROMYCIN] Allergy (Intermediate, Verified 01/18/23 11:32) RASH ketorolac [From Toradol] Allergy (Intermediate, Verified 01/18/23 11:32) Rash Sulfa (Sulfonamide Antibiotics) [SULFA (SULFONAMIDE ANTIBIOTICS)] Allergy (Intermediate, Verified 01/18/23 11:32) RASH fluconazole [Diflucan] Allergy (Unknown, Verified 01/18/23 11:32) unknown topiramate [Topamax] Allergy (Unknown, Verified 01/18/23 11:32) unknown amitriptyline Adverse Reaction (Intermediate, Verified 01/18/23 11:32) stomach upset nitrofurantoin Allergy (Severe, Uncoded 12/19/22 11:55) Hives [facility] Medical History Abnormal uterine bleeding (AUB) Pelvic pain Heavy menstrual bleeding Allergic rhinitis Asthma Smoker Abdominal pain Loud snoring ELIAZAR (obstructive sleep apnea) Somnolence, daytime Early satiety Colon polyps Hydradenitis History of fibromyalgia GERD (gastroesophageal reflux disease) History of headache Hx of irritable bowel syndrome Hx of ovarian cyst Hx of renal calculi History of anxiety Surgical History H/O tubal ligation History of esophagogastroduodenoscopy (EGD) H/O colonoscopy History of cholecystectomy History of Family History Father HTN (hypertension) Diabetes mellitus Liver cancer Alcoholic Substance use disorder Mother Anxiety Depression Liver tumor Brother Heart attack Buerger disease Stroke Seizure Diabetes mellitus Family/Other Mild asthma Maternal Grandmother Cancer of unknown origin Maternal Grandfather Liver cancer Paternal Grandfather Heart problem Other Mental health disorder Social History Household Members: Spouse and Children Housing: House Alcohol intake: current Alcohol intake frequency: holidays/special occasions only Patient Tobacco Use Status: Current everyday Tobacco user Tobacco use type: Cigarette Cigarette Packs Per Day: 0.5 Cigarettes Per Day: 10 Years Smoked: 25 e-Cigarette/Vaping Use: Never Used Substance Use Type: Marijuana service: No Current occupational status: unemployed Current occupation: due to Covid Gender identity: Female Cognitive needs: No Hearing needs: No Vision needs: No Female Reproductive History Menstrual Age of Menarche: 10 Office Procedures AMB Capsule Endoscopy Procedure Notes: Capsule endoscopy date of service: [01/20/23] Indication: [Abdominal pain] Findings: patchy gastric erythema and granularity with erosions. Duodenum entered at 31 mins. Patchy erythema and erosions in the mid and distal small bowel. Cecum entered at 3 hr 2 mins Conclusion: Gastritis and enteritis, maybe compatible with crohns, consider further work up for IBD Capsule Endoscopy CPT Code: 85380 - Capsule Endoscopy Assessment & Plan Assessment & Plan (1) Enteritis: Code(s): K52.9 - Noninfective gastroenteritis and colitis, unspecified Coding Level of Care Code Procedure Only Diagnoses Enteritis K52.9 CPT Codes AMB Capsule Endoscopy - Capsule Endoscopy CPT Code: 85862 - Capsule Endoscopy ([id number])
== END 2023-01-20 07:52 | disposition home or self-care (01) ==
PROVIDERS: PCP Internal Medicine; Visit Provider Internal Medicine Gastroenterology
DX: K52.9 Noninfective gastroenteritis and colitis, unspecified (principal); K29.70 Gastritis, unspecified, without bleeding
CPT/HCPCS: 91110

== ENCOUNTER → 2023-01-20 07:16 | Outpatient (BNVA) | payer OTHER, SELFPAY | PROVIDERS: PCP Internal Medicine; Visit Provider Internal Medicine Gastroenterology | DX: K52.9 Noninfective gastroenteritis and colitis, unspecified (principal) | CPT/HCPCS: 91110 ==

== ENCOUNTER → 2023-01-28 10:30 | Outpatient (BNV) | payer OTHER, SELFPAY | PROVIDERS: PCP Internal Medicine; Visit Provider Radiology Diagnostic Radiology | DX: Z12.31 Encounter for screening mammogram for malignant neoplasm of breast (principal) | CPT/HCPCS: 77063; 77067 ==

== ENCOUNTER 2023-01-28 10:42 | Outpatient (REF) | payer OTHER, SELFPAY | END 2023-01-28 10:43 | disposition home or self-care (01) | LOC: HO.MAMMO 10:42 | PROVIDERS: PCP Internal Medicine; Visit Provider Internal Medicine | DX: Z12.31 Encounter for screening mammogram for malignant neoplasm of breast (principal) | CPT/HCPCS: 77063; 77067 ==

== ENCOUNTER 2023-02-09 14:01 | Outpatient (AMB) | payer OTHER, SELFPAY ==
[2023-02-09 14:06] VITALS: BP 120/80; BMI 39.3
--- NOTE | 2023-02-09 14:06 | A.OFFVIS_ITS ---
Intake Vital Signs 02/09/23 14:06 Height 5 ft 1 in Weight 208 lb BMI 39.3 BP 120/80 Intake Visit Reasons: EMB/Ultrasound follow up Intake Note: The patient agreed to use of a medical or surgical instrument maker during this encounter. Scribed for YOSSI Gan by Abigail Oscar medical or surgical instrument maker, on 02/09/2023 at 2:06 pm, EST. Billing Machine Operator: Billing Machine Operator Present (Talisha) Allergies azithromycin [AZITHROMYCIN] Allergy (Intermediate, Verified 02/09/23 14:13) RASH ketorolac [From Toradol] Allergy (Intermediate, Verified 02/09/23 14:13) Rash Sulfa (Sulfonamide Antibiotics) [SULFA (SULFONAMIDE ANTIBIOTICS)] Allergy (Intermediate, Verified 02/09/23 14:13) RASH fluconazole [Diflucan] Allergy (Unknown, Verified 02/09/23 14:13) unknown topiramate [Topamax] Allergy (Unknown, Verified 02/09/23 14:13) unknown amitriptyline Adverse Reaction (Intermediate, Verified 02/09/23 14:13) stomach upset nitrofurantoin Allergy (Severe, Uncoded 12/19/22 11:55) Hives HPI HPI Comments History of Present Illness Details The patient is here today for an endometrial biopsy for AUB to rule out any pathology including atypical, hyperplasia or cancer cells of the uterus. She was counseled regarding anticipatory guidance for the procedure including the risks for pain, infection, bleeding, perforation, potential injury to the tissues may include the cervix, uterus, tubes, bladder and bowels. These injuries may include further treatment and evaluation including surgery, blood transfusions, antibiotics, hospitalizations and anesthesia. Permanent injury and scarring can occur. She was consented for the procedure, and the consent forms were signed. She is agreeable to have the procedure today. All questions were answered. A urine test was obtained and was negative. She denies any risks to . Has been sick intermittently with diarrhea. Severe cramps. Taking Motrin to help but was instructed to discontinue. She is being followed by GI. She is interested in ablation to help control her menses. [facility] Medical History Abnormal uterine bleeding (AUB) Pelvic pain Heavy menstrual bleeding Allergic rhinitis Asthma Smoker Abdominal pain Loud snoring ELIAZAR (obstructive sleep apnea) Somnolence, daytime Early satiety Colon polyps Hydradenitis History of fibromyalgia GERD (gastroesophageal reflux disease) History of headache Hx of irritable bowel syndrome Hx of ovarian cyst Hx of renal calculi History of anxiety Surgical History H/O tubal ligation History of esophagogastroduodenoscopy (EGD) H/O colonoscopy History of cholecystectomy History of Family History Father HTN (hypertension) Diabetes mellitus Liver cancer Alcoholic Substance use disorder Mother Anxiety Depression Liver tumor Brother Heart attack Buerger disease Stroke Seizure Diabetes mellitus Family/Other Mild asthma Maternal Grandmother Cancer of unknown origin Maternal Grandfather Liver cancer Paternal Grandfather Heart problem Other Mental health disorder Social History Household Members: Spouse and Children Housing: House Alcohol intake: current Alcohol intake frequency: holidays/special occasions only Patient Tobacco Use Status: Current everyday Tobacco user Tobacco use type: Cigarette Cigarette Packs Per Day: 0.5 Cigarettes Per Day: 10 Years Smoked: 25 e-Cigarette/Vaping Use: Never Used Substance Use Type: Marijuana service: No Current occupational status: unemployed Current occupation: due to Covid Gender identity: Female Cognitive needs: No Hearing needs: No Vision needs: No Female Reproductive History Menstrual Age of Menarche: 10 Review of Systems Const All systems reviewed & are unremarkable except as noted in HPI and below GI Reports diarrhea (intermittently) Physical Exam Vital Signs: Last Vital Signs BP 120/80 02/09/23 14:06 BMI result Body Mass Index 39.3 Const General: cooperative, healthy appearing, no acute distress, well developed and alert Orientation/consciousness: patient oriented x3 General: Yes bladder normal to inspection and Yes bladder normal to palpation External Female Exam: normal external appearance and normal appearance of the urethra Speculum Exam - Vagina: normal appearance of the vagina and normal palpation Speculum Exam - Cervix: normal palpation Bimanual exam- vagina & uterus: normal bimanual exam, normal palpation, uterine size normal, bladder normal to palpation and normal palpation Bimanual Exam- Adnexa, other: normal adnexae and no masses Neuro General: patient oriented x3 Office Procedures Endometrial Biopsy Details: The patient was placed in the dorsal lithotomy position and a sterile speculum inserted. Using aseptic technique for the procedure. The cervix was cleansed with Betadine x 3 swabs. A single toothed tenaculum was placed on the cervix for stabilization and the uterus was sounded to 8 cm with a 4mm pipelle for 3 passes. Minimal bleeding was observed. The patient tolerated the procedure well and was in good condition when leaving the department. The tissue sample was placed in formalin in a patient labeled container by staff assisting and sent to the pathology department for processing and interpretation. The patient tolerated the procedure well. [id number] Biopsy Results AMB Test Urine AMB Test Urine Negative Last Edit by NELSY Milian on 02/09/23 14:19 Results Reviewed Results Reviewed: Laboratory Last Values Tst Clinic Negative 02/09/23 14:19 Ultrasound of the pelvic/transvag obtained on 11/25/2022: EXAMINATION: US PELVIS CLINICAL INFORMATION: Excessive and frequent menstruation. COMPARISON: Pelvic ultrasound 05/14/2020. TECHNIQUE: Ultrasound of the pelvis is performed using both transabdominal and transvaginal transducers along with Doppler. Transvaginal imaging is performed due to inadequate visualization transabdominally. FINDINGS: Uterus: The uterus is anteverted and measures 9.2 x 3.4 x 5.0 cm. The double wall endometrial thickness is 11 mm. The uterus is smooth in contour and has normal myometrial echogenicity. No visible fibroid. Adnexa: The right ovary is visualized. There is normal color flow to the right ovary. There is no evidence of ovarian torsion. There is no pelvic ascites or fluid collection. Right ovary measures 3.4 x 2.0 x 2.4 cm. 8.6 mL. Left ovary is not seen. US/US pelvic and transvaginal IMPRESSION: Nonvisualization of the left ovary. Otherwise unremarkable pelvic ultrasound. Assessment & Plan Assessment & Plan (1) Abnormal uterine bleeding (AUB): Code(s): N93.9 - Abnormal uterine and vaginal bleeding, unspecified Plan: EMBx done today, see procedure note. Instructed patient nothing in the vagina including: tampons, douching or sex for 3 days. She may take an over the counter mild analgesic such as Tylenol or Advil (if no allergies) per the welt butter hand?s recommendation on dosing, frequency, and follow the directions completely. Warnings reviewed with patient. Instructions given to call if temp >100.4, flu like sx, SOB, fatigue, lightheadedness/dizziness, abd pain (worse than cramping), bloating or abd distention, foul odor or abnormal discharge or heavy vaginal bleeding. Return for test results. (2) Encounter to discuss test results: Code(s): Z71.2 - Person consulting for explanation of examination or test findings Plan: Ultrasound results were reviewed with patient. Orders: Orders AMB HCG Urine Test Today Z32.02 - Encounter for test, result negative Surgical Today N93.9 - Abnormal uterine and vaginal bleeding, unspecified Coding Level of Care Code Procedure Only Diagnoses Abnormal uterine bleeding (AUB) N93.9 Encounter to discuss test results Z71.2 CPT Codes Endometrial Biopsy - CPT: 07391-Nerfvybkloe Biopsy ([id number])
== END 2023-02-09 14:43 | disposition home or self-care (01) ==
PROVIDERS: PCP Internal Medicine; Visit Provider Advanced Practice Midwife
DX: N93.9 Abnormal uterine and vaginal bleeding, unspecified (principal); Z32.02 Encounter for pregnancy test, result negative
CPT/HCPCS: 58100

== ENCOUNTER 2023-02-09 14:01 | Outpatient (REF) | payer OTHER, SELFPAY | END 2023-02-09 14:02 | disposition home or self-care (01) | LOC: HO.LAB 14:01 | PROVIDERS: PCP Internal Medicine; Visit Provider Advanced Practice Midwife | DX: N93.9 Abnormal uterine and vaginal bleeding, unspecified (principal) | CPT/HCPCS: 58100; 81025; 88305 ==

== ENCOUNTER 2023-02-16 08:46 | Outpatient (REF) | payer OTHER, SELFPAY ==
--- NOTE | ~2023-02-16 | US_ITS ---
EXAMINATION: US PELVIS CLINICAL INFORMATION: Pelvic and perineal pain Status post EMB procedure LMP 01/31/2023 COMPARISON: Pelvic ultrasound 11/25/2022 TECHNIQUE: Ultrasound of the pelvis is performed using both transabdominal and transvaginal transducers along with Doppler. Transvaginal imaging is performed due to inadequate visualization transabdominally. FINDINGS: Uterus: The uterus is anteverted and measures 7.1 x 4.0 x 5.6 cm. The endometrium is mildly heterogeneous with a small amount of fluid, measures 1.2 cm. There is no associated vascular flow The uterus is smooth in contour and has normal myometrial echogenicity. No visible fibroid. Adnexa: Both ovaries are visualized. There is normal color flow to the adnexa. There is no ovarian torsion. There is no pelvic ascites or fluid collection. Right ovary measures 3.3 x 2.2 x 2.6 cm. Volume 10.0 mL. 3.7 x 2.3 x 2.4 cm simple cyst is consistent with a benign functional cyst, no follow-up imaging is recommended. Left ovary measures 1.3 x 1.3 x 1.2 cm. Volume 1.0 mL. US/US pelvic and transvaginal IMPRESSION: 1. No fibroid. 2. Mildly heterogeneous endometrium with a small amount of fluid and no associated vascular flow. 3. The appearance of the ovaries is within normal limits.
[2023-02-16 11:07] LABS: MANUAL DIFF FLAG NO
[2023-02-16 11:30] LABS: White Blood Count 15.6 X10*3/uL (4.8-10.8)
[2023-02-16 11:31] LABS: Basophils Absolute Auto 0.1 X10*3/uL (0.0-0.2); Basophils Percent Auto 0.6 % (0-2); Eosinophils Absolute Auto 0.5 X10*3/uL (0.0-0.4); Eosinophils Percent Auto 3.3 % (0-4); Hemoglobin 14.5 g/dl (12.0-16.0); Imm Gran Abs Auto 0.05 X10*3/uL (0.00-0.03); Imm Gran Pct Auto 0.3 % (0.0-0.4); Lymphocytes Absolute Auto 3.2 X10*3/uL (1.2-4.9); Lymphocytes Percent Auto 20.8 % (20-40); Mean Corpuscular HGB Conc 33.7 g/dl (31.0-35.0); Mean Corpuscular Hemoglobin 29.1 pg (27.0-33.0); Mean Corpuscular Volume 86.2 fL (80.0-98.0); Mean Platelet Volume 11.6 fL (9.4-12.3); Monocytes Percent Auto 6.1 % (2-11); Neutrophils Absolute Auto 10.7 x10*3/uL (2.0-8.3); Neutrophils Percent Auto 68.9 % (45-73); Platelet Count 270 X10*3/uL (160-400); Red Blood Count 4.99 X10*6/uL (4.20-5.50); Red Cell Distribution Width 14.4 % (11.0-16.0)
[2023-02-16 11:52] LABS: Alanine Aminotransferase 12 U/L (0-31); Albumin Level 4.1 g/dL (3.5-5.0); Alkaline Phosphatase 123 U/L (39-117); Anion Gap 13 (12-20); Aspartate Amino Transferase 11 U/L (5-31); Bilirubin Total 0.4 mg/dL (0.0-1.0); Blood Urea Nitrogen 16 mg/dL (9-16); Calcium 9.7 mg/dL (8.4-10.2); Carbon Dioxide 25 mmol/L (22-29); Chloride 103 mmol/L (96-108); Cholesterol 203 mg/dL (<200); Estimated Glomerular Filt Rate > 60; Glucose Fasting 94 mg/dL (60-99); HDL Cholesterol 35 mg/dL (>40); LDL Cholesterol Calculated 137 mg/dL (<100); Potassium 3.1 mmol/L (3.3-5.1); Sodium 138 mmol/L (135-145); Total Protein 7.6 g/dL (6.5-8.0); Triglycerides 158 mg/dL (<150)
== END 2023-02-16 08:47 | disposition home or self-care (01) ==
LOC: HO.HMGCX 08:46
PROVIDERS: PCP Internal Medicine; Visit Provider Advanced Practice Midwife
DX: Z00.01 Encounter for general adult medical examination with abnormal findings (principal); E66.01 Morbid (severe) obesity due to excess calories; J30.9 Allergic rhinitis, unspecified; F33.9 Major depressive disorder, recurrent, unspecified; M79.7 Fibromyalgia; R10.2 Pelvic and perineal pain; N89.8 Other specified noninflammatory disorders of vagina; Z91.09 Other allergy status, other than to drugs and biological substances
CPT/HCPCS: 36415; 76830; 76856; 80053; 80061; 85025; 96372; 99212; J0696

== ENCOUNTER 2023-02-16 10:04 | Outpatient (AMB) | payer OTHER, SELFPAY ==
--- NOTE | 2023-02-16 10:19 | A.OFFVIS_ITS ---
Intake Vital Signs 02/16/23 10:20 Height 5 ft 1 in Weight 208 lb BMI 39.3 BP 100/62 Temp 97.5 F Intake Visit Reasons: US/Labs Follow up Intake Note: Wilfredo The patient agreed to use of a medical accounts receivable specialist during this encounter. Scribed for YOSSI Gan by Sweetie Noe, medical accounts receivable specialist, on 02/16/2023 at 10:45 am EST. Desk Officer: Desk Officer Present (Talisha) Accompanied by: Spouse Allergies azithromycin [AZITHROMYCIN] Allergy (Intermediate, Verified 02/16/23 10:19) RASH ketorolac [From Toradol] Allergy (Intermediate, Verified 02/16/23 10:19) Rash Sulfa (Sulfonamide Antibiotics) [SULFA (SULFONAMIDE ANTIBIOTICS)] Allergy (Intermediate, Verified 02/16/23 10:19) RASH fluconazole [Diflucan] Allergy (Unknown, Verified 02/16/23 10:19) unknown topiramate [Topamax] Allergy (Unknown, Verified 02/16/23 10:19) unknown amitriptyline Adverse Reaction (Intermediate, Verified 02/16/23 10:19) stomach upset nitrofurantoin Allergy (Severe, Uncoded 12/19/22 11:55) Hives HPI HPI Comments History of Present Illness Details She is here with her Wilfredo due to post EMB procedure pain, and to discuss US, EMB results. Reports thick vaginal discharge with no odor, vaginal burning, nausea without vomiting, loss of appetite, abdominal tenderness and diarrhea for the last week starting the day of the procedure. She was able to eat a peanut butter sandwich last night. And reports the diarrhea has slowed some since yesterday. reports he also has had GI symptoms, along with co-workers. Reports she taking Zofran regularly for nausea and often has diarrhea with her history of GERD and IBS; sees GI specialist. She denies any allergies to antiseptic cleansers. [facility] Medical History Diarrhea Abnormal uterine bleeding (AUB) Pelvic pain Heavy menstrual bleeding Allergic rhinitis Asthma Smoker Abdominal pain Loud snoring ELIAZAR (obstructive sleep apnea) Somnolence, daytime Early satiety Colon polyps Hydradenitis History of fibromyalgia GERD (gastroesophageal reflux disease) History of headache Hx of irritable bowel syndrome Hx of ovarian cyst Hx of renal calculi History of anxiety Surgical History H/O tubal ligation History of esophagogastroduodenoscopy (EGD) H/O colonoscopy History of cholecystectomy History of Family History Father HTN (hypertension) Diabetes mellitus Liver cancer Alcoholic Substance use disorder Mother Anxiety Depression Liver tumor Brother Heart attack Buerger disease Stroke Seizure Diabetes mellitus Family/Other Mild asthma Maternal Grandmother Cancer of unknown origin Maternal Grandfather Liver cancer Paternal Grandfather Heart problem Other Mental health disorder Social History Household Members: Spouse and Children Housing: House Alcohol intake: current Alcohol intake frequency: holidays/special occasions only Patient Tobacco Use Status: Current everyday Tobacco user Tobacco use type: Cigarette Cigarette Packs Per Day: 0.5 Cigarettes Per Day: 10 Years Smoked: 25 e-Cigarette/Vaping Use: Never Used Substance Use Type: Marijuana service: No Current occupational status: unemployed Current occupation: due to Covid Gender identity: Female Cognitive needs: No Hearing needs: No Vision needs: No Female Reproductive History Menstrual Age of Menarche: 10 Physical Exam Vital Signs: Last Vital Signs Temp 97.5 F 02/16/23 10:20 BP 100/62 02/16/23 10:20 BMI result Body Mass Index 39.3 Const General: cooperative, healthy appearing, comfortable, no acute distress, well developed, alert and awake Other: No external or vaginal erythema/lesions. General: Yes bladder normal to palpation External Female Exam: normal external appearance and normal appearance of the urethra Speculum Exam - Vagina: normal appearance of the vagina, normal palpation and normal vaginal discharge Speculum Exam - Cervix: normal appearance of the cervix and normal palpation Bimanual exam- vagina & uterus: normal bimanual exam, normal palpation, bladder normal to palpation, normal palpation and Uterine tenderness Bimanual Exam- Adnexa, other: normal adnexae and no masses Office Meds ceftriaxone 500 mg solution for injection Performing Provider: Angelika Guerin CNM Performing Location: [facility] Administered by: Tania Prather on 02/16/23 11:33 Dose Route Admin Location Dispensed Lot Number Expiration Date NDC Maintainability Engineer 500 mg IM RGM 500 mg [id number] 08/28/24 4311-9622-72 [employer] Results Reviewed Results Reviewed: Collected: 02/09/23 Location: .LAB Received: 02/10/23 Diagnosis Endometrium, biopsy: Early secretory endometrium with stromal breakdown; negative for atypia or malignancy. Clinical History AUB Microscopic Description Microscopic sections reviewed. Material Received Endometrial biopsy Gross Description Received in formalin labeled ?EMB? is a 2.0 x 1.5 x 0.5 cm aggregate of multiple irregular and tubular cast fragments of congested and hemorrhagic herbert-brown tissue and blood. The specimen is submitted in toto in a single cassette labeled A. EXAMINATION: US PELVIS CLINICAL INFORMATION: Pelvic and perineal pain Status post EMB procedure LMP 01/31/2023 COMPARISON: Pelvic ultrasound 11/25/2022 TECHNIQUE: Ultrasound of the pelvis is performed using both transabdominal and transvaginal transducers along with Doppler. Transvaginal imaging is performed due to inadequate visualization transabdominally. FINDINGS: Uterus: The uterus is anteverted and measures 7.1 x 4.0 x 5.6 cm. The endometrium is mildly heterogeneous with a small amount of fluid, measures 1.2 cm. There is no associated vascular flow The uterus is smooth in contour and has normal myometrial echogenicity. No visible fibroid. Adnexa: Both ovaries are visualized. There is normal color flow to the adnexa. There is no ovarian torsion. There is no pelvic ascites or fluid collection. Right ovary measures 3.3 x 2.2 x 2.6 cm. Volume 10.0 mL. 3.7 x 2.3 x 2.4 cm simple cyst is consistent with a benign functional cyst, no follow-up imaging is recommended. Left ovary measures 1.3 x 1.3 x 1.2 cm. Volume 1.0 mL. US/US pelvic and transvaginal IMPRESSION: 1. No fibroid. 2. Mildly heterogeneous endometrium with a small amount of fluid and no associated vascular flow. 3. The appearance of the ovaries is within normal limits. Assessment & Plan Assessment & Plan (1) Encounter to discuss test results: Code(s): Z71.2 - Person consulting for explanation of examination or test findings Plan: Discussed: US findings: 1. No fibroid. 2. Mildly heterogeneous endometrium with a small amount of fluid and no associated vascular flow. 3. The appearance of the ovaries is within normal limits. EMB results: Diagnosis Endometrium, biopsy: Early secretory endometrium with stromal breakdown; negative for atypia or malignancy All of her questions and concerns were addressed to the best of my ability and shared decision making. She is agreeable to plan of care. Currently undecided on treatment plan for AUB. Will discuss further at her follow up. (2) Vaginal discharge: Code(s): N89.8 - Other specified noninflammatory disorders of vagina Plan: BV testing and GC/CT panel done today. Await results and treat accordingly. (3) Pelvic pain: Code(s): R10.2 - Pelvic and perineal pain Plan: Discussed most likely findings of post procedure endometritis. And recommended treatment plan for PID, reviewed antibiotic use, how to take. If not able to tolerate to contact the office for alternative treatment. Advised to use Tylenol with food for pain management and a heating pad. Hydrate well with water, eat slow, small amounts. Pelvic rest. RTO 4-5 days for pelvic recheck. (4) Nausea: Comment: Continue use of Zofran prn Code(s): R11.0 - Nausea Plan: Rx sent to pharmacy with instructions. (5) Vaginal burning: Code(s): N94.9 - Unspecified condition associated with female genital organs and menstrual cycle (6) Diarrhea: Code(s): R19.7 - Diarrhea, unspecified Plan: If symptoms worsen consult with GI specialist. Keep hydrated. (7) Endometritis: Code(s): N71.9 - Inflammatory disease of uterus, unspecified Orders: Orders CT NG by PCR Today N89.8 - Other specified noninflammatory disorders of vagina, R10.2 - Pelvic and perineal pain AMB Ceftriaxone Injection Today N71.9 - Inflammatory disease of uterus, unspecified Bacterial Vaginosis Panel Today N89.8 - Other specified noninflammatory disorders of vagina, R10.2 - Pelvic and perineal pain Medications: New metronidazole 500 mg PO BID 14 days 28 tabs 0RF doxycycline hyclate 100 mg PO BID 14 days 28 caps 0RF Coding Level of Care Code Est Pt Level 4 (27667) Diagnoses Encounter to discuss test results Z71.2 Vaginal discharge N89.8 Pelvic pain R10.2 Nausea R11.0 Vaginal burning N94.9 Diarrhea R19.7 Endometritis N71.9
[2023-02-16 10:20] VITALS: BP 100/62; TEMP 36.4; BMI 39.3
== END 2023-02-16 12:25 | disposition home or self-care (01) ==
LOC: HO.HWSW 10:04
PROVIDERS: PCP Internal Medicine; Visit Provider Advanced Practice Midwife
DX: Z71.2 Person consulting for explanation of examination or test findings (principal); N89.8 Other specified noninflammatory disorders of vagina; R10.2 Pelvic and perineal pain; R11.0 Nausea; N94.9 Unspecified condition associated with female genital organs and menstrual cycle; R19.7 Diarrhea, unspecified; N71.9 Inflammatory disease of uterus, unspecified
CPT/HCPCS: 99214

== ENCOUNTER 2023-02-16 10:55 | Outpatient (REF) | payer OTHER, SELFPAY | END 2023-02-16 10:56 | disposition home or self-care (01) | LOC: HO.LAB 10:55 | PROVIDERS: Visit Provider Advanced Practice Midwife | DX: Z13.89 Encounter for screening for other disorder (principal) ==

== ENCOUNTER 2023-02-16 10:55 | Outpatient (REF) | payer OTHER, SELFPAY ==
[2023-02-16 16:51] LABS: CT PCR NOT DETECTED (Not Detect.); NG PCR NOT DETECTED (Not Detect.)
[2023-02-17 11:13] LABS: BV Int Neg Control Negative (Negative); BV Int Pos Control Positive (Positive)
== END 2023-02-16 10:56 | disposition home or self-care (01) ==
LOC: HO.LNP 10:55
PROVIDERS: Visit Provider Advanced Practice Midwife
DX: Z00.01 Encounter for general adult medical examination with abnormal findings (principal); R10.2 Pelvic and perineal pain; E66.01 Morbid (severe) obesity due to excess calories; N89.8 Other specified noninflammatory disorders of vagina; J30.9 Allergic rhinitis, unspecified; F33.9 Major depressive disorder, recurrent, unspecified; M79.7 Fibromyalgia; Z91.09 Other allergy status, other than to drugs and biological substances
CPT/HCPCS: 0353U; 87480; 87510; 87660

== ENCOUNTER 2023-02-21 10:03 | Outpatient (AMB) | payer OTHER, SELFPAY ==
--- NOTE | 2023-02-21 10:08 | MHC.OFFVIS ---
Intake Vital Signs 02/21/23 10:12 Height 5 ft 1 in Weight 207 lb 3.752 oz BMI 39.2 BP 110/70 Intake Visit Reasons: pelvic recheck in person Automotive Technician Required: No Information Interpreted: non-clinical & clinical Electronics Installer: Electronics Installer Present (Janis Kyle WHITTINGTON) Accompanied by: Self / Same As Patient Allergies azithromycin [AZITHROMYCIN] Allergy (Intermediate, Verified 02/21/23 10:13) RASH ketorolac [From Toradol] Allergy (Intermediate, Verified 02/21/23 10:13) Rash Sulfa (Sulfonamide Antibiotics) [SULFA (SULFONAMIDE ANTIBIOTICS)] Allergy (Intermediate, Verified 02/21/23 10:13) RASH fluconazole [Diflucan] Allergy (Unknown, Verified 02/21/23 10:13) unknown topiramate [Topamax] Allergy (Unknown, Verified 02/21/23 10:13) unknown amitriptyline Adverse Reaction (Intermediate, Verified 02/21/23 10:13) stomach upset nitrofurantoin Allergy (Severe, Uncoded 02/21/23 10:13) Hives Is last menstrual period known: Yes HPI HPI Comments History of Present Illness Details Patient is here today for a follow up on PID, pelvic recheck. Pelvic recheck appointment 2-3 days treatment developed after an EMB procedure. She reports feeling better, doing well with the medications, resting at home. Just started her menses has cramping usually with her cycles and pains down the legs, Ibuprofen has helped in the past. [facility] Medical History Diarrhea Abnormal uterine bleeding (AUB) Pelvic pain Heavy menstrual bleeding Allergic rhinitis Asthma Smoker Abdominal pain Loud snoring ELIAZAR (obstructive sleep apnea) Somnolence, daytime Early satiety Colon polyps Hydradenitis History of fibromyalgia GERD (gastroesophageal reflux disease) History of headache Hx of irritable bowel syndrome Hx of ovarian cyst Hx of renal calculi History of anxiety Surgical History H/O tubal ligation History of esophagogastroduodenoscopy (EGD) H/O colonoscopy History of cholecystectomy History of Family History Father HTN (hypertension) Diabetes mellitus Liver cancer Alcoholic Substance use disorder Mother Anxiety Depression Liver tumor Brother Heart attack Buerger disease Stroke Seizure Diabetes mellitus Family/Other Mild asthma Maternal Grandmother Cancer of unknown origin Maternal Grandfather Liver cancer Paternal Grandfather Heart problem Other Mental health disorder Social History Household Members: Spouse and Children Housing: House Alcohol intake: current Alcohol intake frequency: holidays/special occasions only Patient Tobacco Use Status: Current everyday Tobacco user Tobacco use type: Cigarette Cigarette Packs Per Day: 0.5 Cigarettes Per Day: 10 Years Smoked: 25 e-Cigarette/Vaping Use: Never Used Substance Use Type: Marijuana service: No Current occupational status: unemployed Current occupation: due to Covid Gender identity: Female Cognitive needs: No Hearing needs: No Vision needs: No Female Reproductive History Menstrual Age of Menarche: 10 Date of menopause: 02/21/23 Review of Systems Const All systems reviewed & are unremarkable except as noted in HPI and below Physical Exam Vital Signs: Last Vital Signs BP 110/70 02/21/23 10:12 BMI result Body Mass Index 39.2 Const General: cooperative, healthy appearing and no acute distress Orientation/consciousness: patient oriented x3 GI Inspection: Yes normal to inspection Palpation (GI): Soft to palpation and Other GI palpation findings present (Nontender) Rectal Exam - Female: visual inspection normal General: Yes bladder normal to palpation External Female Exam: normal appearance of the urethra Speculum Exam - Vagina: normal appearance of the vagina, normal palpation and vaginal bleeding (dark red blood) Speculum Exam - Cervix: normal appearance of the cervix and normal palpation Bimanual exam- vagina & uterus: normal bimanual exam, normal palpation, uterine size normal, bladder normal to palpation, normal palpation, uterine shape normal and non-tender Bimanual Exam- Adnexa, other: normal adnexae OB/external & speculum: vaginal bleeding (dark red blood) Neuro General: patient oriented x3 Assessment & Plan Assessment & Plan (1) Acute pelvic inflammatory disease (PID): Code(s): N73.0 - Acute parametritis and pelvic cellulitis Plan Complete all medication. Pelvic rest until follow up. OTC medication use, Ibuprophen 600 mg (3-200mg tablets), with food every 6 hours for the first 1-3days of menses only. Call with any concerns: increased pain, bleeding-heavy/prolonged. RTO 8-10 days for recheck. Coding Level of Care Code Est Pt Level 3 (12241) Diagnoses Acute pelvic inflammatory disease (PID) N73.0
[2023-02-21 10:12] VITALS: BP 110/70; BMI 39.2
== END 2023-02-21 11:08 | disposition home or self-care (01) ==
PROVIDERS: PCP Internal Medicine; Visit Provider Advanced Practice Midwife
DX: N73.0 Acute parametritis and pelvic cellulitis (principal)
CPT/HCPCS: 99213

== ENCOUNTER → 2023-02-21 10:03 | Outpatient (BNVA) | payer OTHER, SELFPAY | PROVIDERS: PCP Internal Medicine; Visit Provider Advanced Practice Midwife | DX: N93.9 Abnormal uterine and vaginal bleeding, unspecified (principal); N73.0 Acute parametritis and pelvic cellulitis | CPT/HCPCS: 99212 ==

== ENCOUNTER 2023-02-27 08:10 | Outpatient (AMB) | payer OTHER, SELFPAY ==
--- NOTE | 2023-02-27 08:24 | AM.OFFWIN_ITS ---
Intake Vital Signs 02/27/23 08:26 Height 5 ft 1 in Weight 194 lb BMI 36.7 BP 108/64 Blood Pressure Location Rt brachial Position Sitting Pulse 82 Pulse Source Pulse Oximeter Pulse Oximetry (%) 97 Oxygen Delivery Method Room Air Intake Visit Reasons: EP, rash all over body Intake Note: Patient here for rash all over body, light headed and slight sob. Patient Tobacco Use Status: Current everyday Tobacco user Allergies azithromycin [AZITHROMYCIN] Allergy (Intermediate, Verified 02/27/23 08:26) RASH ketorolac [From Toradol] Allergy (Intermediate, Verified 02/27/23 08:26) Rash Sulfa (Sulfonamide Antibiotics) [SULFA (SULFONAMIDE ANTIBIOTICS)] Allergy (Intermediate, Verified 02/27/23 08:26) RASH fluconazole [Diflucan] Allergy (Unknown, Verified 02/27/23 08:26) unknown topiramate [Topamax] Allergy (Unknown, Verified 02/27/23 08:26) unknown amitriptyline Adverse Reaction (Intermediate, Verified 02/27/23 08:26) stomach upset nitrofurantoin Allergy (Severe, Uncoded 02/27/23 08:26) Hives Medication List - Last Reconciled 02/27/23 by Roger Spear MD budesonide ER 9 mg (3 x 3 mg) PO DAILY bupropion HCl 150 mg PO BID celecoxib (Celebrex) 100 mg PO BID esomeprazole magnesium 40 mg PO DAILY famotidine 40 mg PO BEDTIME gabapentin 300 mg PO TID 90 days lorazepam 1 mg PO BID metronidazole 500 mg PO BID 14 days montelukast 10 mg PO DAILY 90 days ondansetron 8 mg (2 x 4 mg) PO Q8H PRN propranolol 20 mg PO .qhs sumatriptan succinate 50 mg PO ONCE PRN 30 days Ventolin HFA 90 mcg/actuation (albuterol sulfate) 1 inh inhalation Q6H PRN NS Do you need a note to return to daycare/school/sports/work: No HPI EP, rash all over body HPI Details 42-year-old female presents to [facility] for a sick visit. Patient underwent a gynecological procedure on February 16. She was provided with 2 antibiotics. Patient took it for 5 days in started feeling nausea burns and vomiting. She discontinued the antibiotics for 2 days. She restarted them on Monday when she started developing a rash which is intensely itchy. The rash is on the right leg, abdomen and neck. [facility] Medical History Diarrhea Abnormal uterine bleeding (AUB) Pelvic pain Heavy menstrual bleeding Allergic rhinitis Asthma Smoker Abdominal pain Loud snoring ELIAZAR (obstructive sleep apnea) Somnolence, daytime Early satiety Colon polyps Hydradenitis History of fibromyalgia GERD (gastroesophageal reflux disease) History of headache Hx of irritable bowel syndrome Hx of ovarian cyst Hx of renal calculi History of anxiety Surgical History H/O tubal ligation History of esophagogastroduodenoscopy (EGD) H/O colonoscopy History of cholecystectomy History of Family History Father HTN (hypertension) Diabetes mellitus Liver cancer Alcoholic Substance use disorder Mother Anxiety Depression Liver tumor Brother Heart attack Buerger disease Stroke Seizure Diabetes mellitus Family/Other Mild asthma Maternal Grandmother Cancer of unknown origin Maternal Grandfather Liver cancer Paternal Grandfather Heart problem Other Mental health disorder Social History Household Members: Spouse and Children Housing: House Alcohol intake: current Alcohol intake frequency: holidays/special occasions only Patient Tobacco Use Status: Current everyday Tobacco user Tobacco use type: Cigarette Cigarette Packs Per Day: 0.5 Cigarettes Per Day: 10 Years Smoked: 25 e-Cigarette/Vaping Use: Never Used Substance Use Type: Marijuana service: No Current occupational status: unemployed Current occupation: due to Covid Gender identity: Female Cognitive needs: No Hearing needs: No Vision needs: No Female Reproductive History Menstrual Age of Menarche: 10 Date of menopause: 02/21/23 Physical Exam Vital Signs: Last Vital Signs Pulse 82 02/27/23 08:26 BP 108/64 02/27/23 08:26 Pulse Ox 97 02/27/23 08:26 Oxygen Delivery Method Room Air 02/27/23 08:26 BMI result Body Mass Index 36.7 Const General: cooperative and healthy appearing Nutritional Appearance: well nourished Orientation/consciousness: patient oriented x3 Limitations: no limitations HEENT Head: Yes normal to inspection Eyes General: appearance normal, both eyes and all related structures Neck Neck: Yes normal visual inspection Chest Chest palpation & inspection: normal palpation of entire chest wall Resp Effort & Inspection: normal respiratory effort Skin Other: Erythematous rash with wheals on the right leg, upper chest and neck. No vesicles or pustules. Neuro General: patient oriented x3 Assessment & Plan Assessment & Plan (1) Rash: Code(s): R21 - Rash and other nonspecific skin eruption Plan Rashes due irritant dermatitis. Prednisone has been prescribed. Hydrocortisone cream to be applied. 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 Coding Level of Care Code Est Pt Level 3 (10281) Diagnoses Rash R21
[2023-02-27 08:26] VITALS: BP 108/64; PULSE 82; O2SAT 97; BMI 36.7
== END 2023-02-27 09:23 | disposition home or self-care (01) ==
PROVIDERS: PCP Internal Medicine; Visit Provider Internal Medicine
DX: R21 Rash and other nonspecific skin eruption (principal)
CPT/HCPCS: 99213

== ENCOUNTER 2023-02-28 13:27 | Outpatient (AMB) | payer OTHER, SELFPAY ==
[2023-02-28 13:31] VITALS: BP 110/68; PULSE 84; O2SAT 98; BMI 36.7
--- NOTE | 2023-02-28 13:31 | MHC.PC.OV ---
Vital Signs 02/28/23 13:31 Height 5 ft 1 in Weight 194 lb 6 oz BMI 36.7 BP 110/68 Blood Pressure Location Rt brachial Position Sitting Pulse 84 Pulse Source Pulse Oximeter Pulse Oximetry (%) 98 Oxygen Delivery Method Room Air Intake Visit Reasons: Rash/Lab Req~ Allergies azithromycin [AZITHROMYCIN] Allergy (Intermediate, Verified 02/28/23 13:32) RASH ketorolac [From Toradol] Allergy (Intermediate, Verified 02/28/23 13:32) Rash Sulfa (Sulfonamide Antibiotics) [SULFA (SULFONAMIDE ANTIBIOTICS)] Allergy (Intermediate, Verified 02/28/23 13:32) RASH fluconazole [Diflucan] Allergy (Unknown, Verified 02/28/23 13:32) unknown topiramate [Topamax] Allergy (Unknown, Verified 02/28/23 13:32) unknown amitriptyline Adverse Reaction (Intermediate, Verified 02/28/23 13:32) stomach upset nitrofurantoin Allergy (Severe, Uncoded 02/27/23 08:26) Hives Medication List - Last Reconciled 02/28/23 by Khanh Reynolds MD budesonide ER 9 mg (3 x 3 mg) PO DAILY bupropion HCl 150 mg PO BID celecoxib (Celebrex) 100 mg PO BID esomeprazole magnesium 40 mg PO DAILY famotidine 40 mg PO BEDTIME gabapentin 300 mg PO TID 90 days hydrocortisone 2.5% 1 appl topical BID PRN lorazepam 1 mg PO BID metronidazole 500 mg PO BID 14 days montelukast 10 mg PO DAILY 90 days ondansetron 8 mg (2 x 4 mg) PO Q8H PRN prednisone 10 mg PO DAILY propranolol 20 mg PO .qhs sumatriptan succinate 50 mg PO ONCE PRN 30 days Ventolin HFA 90 mcg/actuation (albuterol sulfate) 1 inh inhalation Q6H PRN NS Tobacco use date assessed: 02/28/23 Dental Screening Dental Screen Date: 02/28/23 Did you have a dental visit in the last 12 months?: Yes Did you have a dental problem in the last 6 months where you did not have access to dental care?: No Was dental information given to patient?: Patient has dentist HPI Rash/Lab Req~ HPI Details Patient is 42-year-old female who was treated with 2 antibiotic for vaginal infection through OBGYN Metronidazole and doxycycline she was given the antibiotic for 14 days as per patient She took it for 4 days and started having nausea and break down into rash so she stopped the medication Patient was evaluated in walk-in clinic yesterday and was given prednisone prescription She has taken it only for 24 hours the rash has resolved She does have few ecchymotic areas on her legs I see that she had labs done February 16 her white count was elevated I have reordered the labs for the patient The pelvic pain she was having has resolved but she still have vaginal discharge She was follow-up with OBGYN on that. Patient is seeing a Gastroenterology and has chronic nausea [facility] Medical History Diarrhea Abnormal uterine bleeding (AUB) Pelvic pain Heavy menstrual bleeding Allergic rhinitis Asthma Smoker Abdominal pain Loud snoring ELIAZAR (obstructive sleep apnea) Somnolence, daytime Early satiety Colon polyps Hydradenitis History of fibromyalgia GERD (gastroesophageal reflux disease) History of headache Hx of irritable bowel syndrome Hx of ovarian cyst Hx of renal calculi History of anxiety Surgical History H/O tubal ligation History of esophagogastroduodenoscopy (EGD) H/O colonoscopy History of cholecystectomy History of Family History Father HTN (hypertension) Diabetes mellitus Liver cancer Alcoholic Substance use disorder Mother Anxiety Depression Liver tumor Brother Heart attack Buerger disease Stroke Seizure Diabetes mellitus Family/Other Mild asthma Maternal Grandmother Cancer of unknown origin Maternal Grandfather Liver cancer Paternal Grandfather Heart problem Other Mental health disorder Social History Household Members: Spouse and Children Housing: House Alcohol intake: current Alcohol intake frequency: holidays/special occasions only Patient Tobacco Use Status: Current everyday Tobacco user Tobacco use type: Cigarette Cigarette Packs Per Day: 0.5 Cigarettes Per Day: 10 Years Smoked: 25 e-Cigarette/Vaping Use: Never Used Substance Use Type: Marijuana service: No Current occupational status: unemployed Current occupation: due to Covid Gender identity: Female Cognitive needs: No Hearing needs: No Vision needs: No Female Reproductive History Menstrual Age of Menarche: 10 Date of menopause: 02/21/23 Questionnaire PHQ-9 Over the last 2 weeks, how often have you been bothered by any of the following problems? 1. Little interest or pleasure in doing things: more than half the days 2. Feeling down, depressed, or hopeless: more than half the days 3. Trouble falling or staying asleep, or sleeping too much: more than half the days 4. Feeling tired or having little energy: several days 5. Poor appetite or overeating: nearly every day 6. Feeling bad about yourself - or that you are a failure or have let yourself or your family down: more than half the days 7. Trouble concentrating on things, such as reading the newspaper or watching television: more than half the days 8. Moving or speaking so slowly that other people could have noticed. Or the opposite - being so fidgety or restless that you have been moving around a lot more than usual: not at all 9. Thoughts that you would be better off or of hurting yourself in some way: not at all Total score: 14 Depression Screening Interpretation: Positive Depression Screening Follow-up: Existing condition and In treatment Depression Screening Done: Yes 41237 - PHQ-9 Billing: Yes Source: Developed by Drs. Tony Sandhu, Nitish Francis and colleagues, with an educational tonya from [employer]. Thrive Questionnaire Date Thrive assessed: 01/18/23 JUAN CARLOS-7 AMB Questionnaire JUAN CARLOS-7 Date JUAN CARLOS - 7 assessed: 01/18/23 Source: Developed by Drs. Tony Sandhu, Nitish Francis and colleagues, with an educational tonya from [employer]. Review of Systems Const Denies chills and Denies fever(s) ENT Denies epistaxis and Denies nasal discharge Card Denies chest pain Resp Denies chest congestion, Denies cough and Denies hemoptysis GI Denies diarrhea and Denies nausea Skin/Breast Reports rash Neuro Reports no additional complaints Psych Reports no additional complaints Endo Reports no additional complaints Physical exam (Primary Care) Vital Signs: Last Vital Signs Pulse 84 02/28/23 13:31 BP 110/68 02/28/23 13:31 Pulse Ox 98 02/28/23 13:31 Oxygen Delivery Method Room Air 02/28/23 13:31 BMI result Body Mass Index 36.7 Tobacco/Smoking Status: Tobacco use Status Tobacco use date assessed 02/28/23 02/28/23 13:35 Patient Tobacco Use Status Current everyday Tobacco 02/28/23 13:35 Tobacco use type Cigarette 02/28/23 13:35 e-Cigarette/Vaping Use Never Used 02/28/23 13:35 PHQ-9: PHQ-9 Score PHQ-9: Total score 14 02/28/23 13:47 Depression Screening Interpretation: Positive Depression Screening Follow-up: Existing condition and In treatment Thrive Assessment: Date of Thrive Assessment Date Thrive assessed 01/18/23 02/28/23 13:35 Const General: cooperative, comfortable and no acute distress Orientation/consciousness: patient oriented x3 HENMT Head: Yes normocephalic Eyes General: appearance normal, both eyes and all related structures Neck Neck: Yes supple Resp Effort & Inspection: normal respiratory effort, no cough and no stridor Cardio Rhythm: regular rhythm Heart sounds: S1 normal heart sound present and S2 normal heart sound present Skin Other: Few small areas of ecchymosis lower legs both sides General skin exam: turgor normal Neuro General: patient oriented x3, tone normal and moves all extremities Extrem Right lower extremity: no edema Left lower extremity: no edema Assessment and Plan Assessment & Plan (1) Leukocytosis (leucocytosis): Code(s): D72.829 - Elevated white blood cell count, unspecified Qualifiers: Leukocytosis type: unspecified Qualified Code(s): D72.829 - Elevated white blood cell count, unspecified (2) Multiple bruises: Code(s): T07.XXXA - Unspecified multiple injuries, initial encounter Plan Patient is 42-year-old female who was treated with 2 antibiotic for vaginal infection through OBGYN Metronidazole and doxycycline she was given the antibiotic for 14 days as per patient She took it for 4 days and started having nausea and break down into rash so she stopped the medication Patient was evaluated in walk-in clinic yesterday and was given prednisone prescription She has taken it only for 24 hours the rash has resolved She does have few ecchymotic areas on her legs I see that she had labs done February 16 her white count was elevated I have reordered the labs for the patient The pelvic pain she was having has resolved but she still have vaginal discharge She was follow-up with OBGYN on that. Patient is seeing a Gastroenterology and has chronic nausea Orders: Orders Comprehensive Met. Panel Today D72.829 - Elevated white blood cell count, unspecified, T07.XXXA - Unspecified multiple injuries, initial encounter Complete Blood Count Auto Diff Today D72.829 - Elevated white blood cell count, unspecified, T07.XXXA - Unspecified multiple injuries, initial encounter Coding Level of Care Code Est Pt Level 3 (09769) Diagnoses Leukocytosis, unspecified type D72.829 Leukocytosis type: unspecified Multiple bruises T07.XXXA
== END 2023-02-28 14:51 | disposition home or self-care (01) ==
PROVIDERS: PCP Internal Medicine; Visit Provider Internal Medicine
DX: D72.829 Elevated white blood cell count, unspecified (principal); R23.3 Spontaneous ecchymoses
CPT/HCPCS: 99213

== ENCOUNTER 2023-02-28 13:43 | Outpatient (REF) | payer OTHER, SELFPAY ==
[2023-02-28 16:04] LABS: MANUAL DIFF FLAG NO
[2023-02-28 16:14] LABS: Basophils Percent Auto 0.5 % (0-2); Eosinophils Absolute Auto 0.2 X10*3/uL (0.0-0.4); Eosinophils Percent Auto 2.3 % (0-4); Hematocrit 39.2 % (37.0-47.0); Hemoglobin 12.8 g/dl (12.0-16.0); Imm Gran Abs Auto 0.02 X10*3/uL (0.00-0.03); Imm Gran Pct Auto 0.2 % (0.0-0.4); Lymphocytes Absolute Auto 2.9 X10*3/uL (1.2-4.9); Lymphocytes Percent Auto 32.4 % (20-40); Mean Corpuscular HGB Conc 32.7 g/dl (31.0-35.0); Mean Corpuscular Volume 88.9 fL (80.0-98.0); Mean Platelet Volume 11.7 fL (9.4-12.3); Monocytes Absolute Auto 0.4 X10*3/uL (0.1-1.2); Monocytes Percent Auto 4.9 % (2-11); Neutrophils Absolute Auto 5.3 x10*3/uL (2.0-8.3); Neutrophils Percent Auto 59.7 % (45-73); Platelet Count 231 X10*3/uL (160-400); Red Blood Count 4.41 X10*6/uL (4.20-5.50); Red Cell Distribution Width 14.1 % (11.0-16.0); White Blood Count 8.9 X10*3/uL (4.8-10.8)
[2023-02-28 16:38] LABS: Alanine Aminotransferase 7 U/L (0-31); Albumin Level 3.6 g/dL (3.5-5.0); Alkaline Phosphatase 93 U/L (39-117); Anion Gap 15 (12-20); Aspartate Amino Transferase 10 U/L (5-31); Bilirubin Total 0.3 mg/dL (0.0-1.0); Blood Urea Nitrogen 14 mg/dL (9-16); Calcium 9.1 mg/dL (8.4-10.2); Carbon Dioxide 23 mmol/L (22-29); Chloride 111 mmol/L (96-108); Estimated Glomerular Filt Rate > 60; Glucose Random 96 mg/dL (60-115); Potassium 3.5 mmol/L (3.3-5.1); Sodium 145 mmol/L (135-145); Total Protein 6.7 g/dL (6.5-8.0)
== END 2023-02-28 13:44 | disposition home or self-care (01) ==
LOC: HO.HMGCLDS 13:43
PROVIDERS: PCP Internal Medicine; Visit Provider Internal Medicine
DX: D72.829 Elevated white blood cell count, unspecified (principal); T14.8XXA Other injury of unspecified body region, initial encounter; X58.XXXA Exposure to other specified factors, initial encounter; Y93.9 Activity, unspecified; Y92.9 Unspecified place or not applicable; Y99.9 Unspecified external cause status
CPT/HCPCS: 36415; 80053; 85025

== ENCOUNTER 2023-05-31 09:17 | Outpatient (AMB) | payer OTHER, SELFPAY ==
[2023-05-31 09:08] VITALS: BP 112/72; PULSE 72; O2SAT 99; BMI 36.9
--- NOTE | 2023-05-31 09:08 | MHC.PC.OV ---
Vital Signs 05/31/23 09:08 Height 5 ft 1 in Weight 195 lb 8 oz BMI 36.9 BP 112/72 Blood Pressure Location Rt brachial Position Sitting Pulse 72 Pulse Source Pulse Oximeter Pulse Oximetry (%) 99 Oxygen Delivery Method Room Air Intake Visit Reasons: Urinary tract infection Allergies azithromycin [AZITHROMYCIN] Allergy (Intermediate, Verified 05/31/23 09:08) RASH ketorolac [From Toradol] Allergy (Intermediate, Verified 05/31/23 09:08) Rash Sulfa (Sulfonamide Antibiotics) [SULFA (SULFONAMIDE ANTIBIOTICS)] Allergy (Intermediate, Verified 05/31/23 09:08) RASH fluconazole [Diflucan] Allergy (Unknown, Verified 05/31/23 09:08) unknown topiramate [Topamax] Allergy (Unknown, Verified 05/31/23 09:08) unknown amitriptyline Adverse Reaction (Intermediate, Verified 05/31/23 09:08) stomach upset nitrofurantoin Allergy (Severe, Uncoded 02/27/23 08:26) Hives Medication List - Last Reconciled 05/31/23 by Khanh Reynolds MD budesonide ER 9 mg (3 x 3 mg) PO DAILY bupropion HCl 150 mg PO BID celecoxib (Celebrex) 100 mg PO BID esomeprazole magnesium 40 mg PO DAILY famotidine 40 mg PO BEDTIME gabapentin 300 mg PO TID 90 days hydrocortisone 2.5% 1 appl topical BID PRN lorazepam 1 mg PO BID metronidazole 500 mg PO BID 14 days montelukast 10 mg PO DAILY 90 days ondansetron 8 mg (2 x 4 mg) PO Q8H PRN prednisone 10 mg PO DAILY propranolol 20 mg PO .qhs sumatriptan succinate 50 mg PO ONCE PRN 30 days Ventolin HFA 90 mcg/actuation (albuterol sulfate) 1 inh inhalation Q6H PRN NS Tobacco use date assessed: 05/31/23 Dental Screening Dental Screen Date: 05/31/23 Did you have a dental visit in the last 12 months?: Yes Did you have a dental problem in the last 6 months where you did not have access to dental care?: No Was dental information given to patient?: Patient has dentist HPI Urinary tract infection HPI Details Patient is a 43-year-old female with a history of chronic GERD, depression, fibromyalgia, anxiety, migraine headache, asthma, obesity, came in today to be evaluated for possible urinary tract infection Patient says that the symptoms has been going on for a week She is having suprapubic discomfort and back pain as well Feels chilly and do not feel well Patient is due for her regular follow-up as well She is on gabapentin for fibromyalgia pain script was sent early March she has not due for that She also take montelukast for allergies which I have sent Her UA showed 2+ glucose we did a hemoglobin A1c which came back at 5.2% Patient is currently under care of Dr. [facility] for gastroparesis and difficulty eating along with chronic diarrhea I am treating her with Levaquin 500 mg once a day for 7 days Pyridium sent for 2 days Patient is to push fluids, and repeat UA again in 7 days [facility] Medical History Diarrhea Abnormal uterine bleeding (AUB) Pelvic pain Heavy menstrual bleeding Allergic rhinitis Asthma Smoker Abdominal pain Loud snoring ELIAZAR (obstructive sleep apnea) Somnolence, daytime Early satiety Colon polyps Hydradenitis History of fibromyalgia GERD (gastroesophageal reflux disease) History of headache Hx of irritable bowel syndrome Hx of ovarian cyst Hx of renal calculi History of anxiety Surgical History H/O tubal ligation History of esophagogastroduodenoscopy (EGD) H/O colonoscopy History of cholecystectomy History of Family History Father HTN (hypertension) Diabetes mellitus Liver cancer Alcoholic Substance use disorder Mother Anxiety Depression Liver tumor Brother Heart attack Buerger disease Stroke Seizure Diabetes mellitus Family/Other Mild asthma Maternal Grandmother Cancer of unknown origin Maternal Grandfather Liver cancer Paternal Grandfather Heart problem Other Mental health disorder Social History Household Members: Spouse and Children Housing: House Alcohol intake: current Alcohol intake frequency: holidays/special occasions only Patient Tobacco Use Status: Current everyday Tobacco user Tobacco use type: Cigarette Cigarette Packs Per Day: 0.5 Cigarettes Per Day: 10 Years Smoked: 25 Packs Per Year: 13 Packs per year/per ci.50 e-Cigarette/Vaping Use: Never Used Substance Use Type: Marijuana service: No Current occupational status: unemployed Current occupation: due to Covid Gender identity: Female Cognitive needs: No Hearing needs: No Vision needs: No Female Reproductive History Menstrual Age of Menarche: 10 Date of menopause: 02/21/23 Questionnaire Thrive Questionnaire Date Thrive assessed: 01/18/23 JUAN CARLOS-7 AMB Questionnaire JUAN CARLOS-7 Date JUAN CARLOS - 7 assessed: 01/18/23 Source: Developed by Drs. Tony Sandhu, Vidhya Esparza, Nitish Stein and colleagues, with an educational tonya from [employer]. Review of Systems ENT Denies epistaxis and Denies nasal discharge Card Denies chest pain Resp Denies chest congestion, Denies cough and Denies hemoptysis Skin/Breast Denies rash Neuro Reports no additional complaints Psych Reports no additional complaints Endo Reports no additional complaints Physical exam (Primary Care) Vital Signs: Last Vital Signs Pulse 72 05/31/23 09:08 BP 112/72 05/31/23 09:08 Pulse Ox 99 05/31/23 09:08 Oxygen Delivery Method Room Air 05/31/23 09:08 BMI result Body Mass Index 36.9 Tobacco/Smoking Status: Tobacco use Status Tobacco use date assessed 05/31/23 05/31/23 09:15 Patient Tobacco Use Status Current everyday Tobacco 05/31/23 09:15 Tobacco use type Cigarette 05/31/23 09:15 e-Cigarette/Vaping Use Never Used 05/31/23 09:15 Thrive Assessment: Date of Thrive Assessment Date Thrive assessed 01/18/23 05/31/23 09:15 Const General: cooperative, comfortable and no acute distress Orientation/consciousness: patient oriented x3 HENMT Head: Yes normocephalic Eyes General: appearance normal, both eyes and all related structures Neck Neck: Yes supple Resp Effort & Inspection: normal respiratory effort, no cough and no stridor Cardio Rhythm: regular rhythm Heart sounds: S1 normal heart sound present and S2 normal heart sound present GI Abdomen image: 1. Generalized discomfort all over abdomen, bowel sounds positive, no guarding no rebound Back/Spine/Pelvis Back/spine/pelvis image: 1. Pain all over mid back left and right with percussion Skin General skin exam: turgor normal Neuro General: patient oriented x3, tone normal and moves all extremities Extrem Right lower extremity: no edema Left lower extremity: no edema Results AMB Urinalysis, Automated UA Leukoctes 500 Rosa/uL Last Edit by Ariane Pisano CMA on 05/31/23 09:33 UA Nitrite Positive Last Edit by Ariane Pisano CMA on 05/31/23 09:33 UA Urobilinogen 8 mg/dL Last Edit by Ariane Pisano CMA on 05/31/23 09:33 UA Protein 300 mg/dL Last Edit by Ariane Pisano CMA on 05/31/23 09:33 UA pH 5.0 Last Edit by Ariane Pisano CMA on 05/31/23 09:33 UA Blood 200 Maurisio/uL Last Edit by Ariane Pisano CMA on 05/31/23 09:33 UA Specific [place] 1.030 Last Edit by Ariane Pisano CMA on 05/31/23 09:33 UA Ketone Positive Last Edit by Ariane Pisano CMA on 05/31/23 09:33 UA Bilirubin 4 mg/dL Last Edit by Ariane Pisano CMA on 05/31/23 09:33 UA Glucose 500 mg/dL Last Edit by Ariane Pisano CMA on 05/31/23 09:33 AMB Hemoglobin A1c AMB Hemoglobin A1c 5.2 % Last Edit by Carlo Mejia CMA on 05/31/23 09:58 Results Reviewed Results Reviewed: Laboratory Last Values Hgb A1c (Clinic) 5.2 % (4.0-6.0) 05/31/23 09:57 Urine pH (Auto) 5.0 05/31/23 09:31 Specific [place] (Auto) 1.030 05/31/23 09:31 Urine Protein (Auto) 300 mg/dL 05/31/23 09:31 Glucose (UA)(Auto) 500 mg/dL 05/31/23 09:31 Urine Ketones (Auto) Positive 05/31/23 09:31 Urine Blood (Auto) 200 Maurisio/uL 05/31/23 09:31 Urine Nitrite (Auto) Positive 05/31/23 09:31 Urine Bilirubin (Auto) 4 mg/dL 05/31/23 09:31 Urine Urobilinogen (Auto) 8 mg/dL 05/31/23 09:31 Leukocyte Esterase (Auto) 500 Rosa/uL 05/31/23 09:31 Assessment and Plan Assessment & Plan (1) Acute pyelonephritis: Code(s): N10 - Acute pyelonephritis (2) ELIAZAR (obstructive sleep apnea): Comment: SHE IS KNOWN TO HAVE MILD OBSTRUCTIVE SLEEP APNEA BUT HAS BEEN QUITE SYMPTOMATIC AND SUPPOSED TO BE USING CPAP REGULARLY. NOW SHE DOES HAVE NEW SUPPLIES AND SHE IS USING CPAP REGULARLY. SLEEPS MUCH BETTER. WE ARE WORKING WITH THE DME, PROVIDER TO SEE WHY COMPLIANCE IS NOT BEING TRANSMITTED CORRECTLY. Code(s): G47.33 - Obstructive sleep apnea (adult) (pediatric) (3) Allergic rhinitis: Comment: MILD CHRONIC ALLERGIC RHINITIS GOES ALONG WITH HER BRONCHIAL ASTHMA. TX: MONTELUKAST 10 MG DAILY AND CLARITIN 10 MG ONCE A DAY P.R.N.. SHE NEEDS TO STAY AWAY FROM THE CATS MUCH POSSIBLE Code(s): J30.9 - Allergic rhinitis, unspecified Qualifiers: Allergic rhinitis seasonality: seasonal Allergic rhinitis trigger: pollen Qualified Code(s): J30.1 - Allergic rhinitis due to pollen (4) Environmental allergies: Code(s): Z91.09 - Other allergy status, other than to drugs and biological substances (5) Recurrent UTI: Code(s): N39.0 - Urinary tract infection, site not specified (6) Major depression, recurrent: Code(s): F33.9 - Major depressive disorder, recurrent, unspecified Qualifiers: Active/Remission status: in partial remission Qualified Code(s): F33.41 - Major depressive disorder, recurrent, in partial remission (7) Fibromyalgia: Code(s): M79.7 - Fibromyalgia (8) Fibromyalgia: Code(s): M79.7 - Fibromyalgia (9) Irritable bowel syndrome (IBS): Code(s): K58.9 - Irritable bowel syndrome without diarrhea Qualifiers: Irritable bowel syndrome type: with diarrhea Qualified Code(s): K58.0 - Irritable bowel syndrome with diarrhea (10) Anxiety, generalized: Code(s): F41.1 - Generalized anxiety disorder (11) Chronic nausea: Code(s): R11.0 - Nausea (12) Asthma: Comment: PATIENT HAS HISTORY OF MILD ALLERGIC RHINITIS AND MILD INTERMITTENT BRONCHIAL ASTHMA. HER PULMONARY FUNCTION TEST WAS BASICALLY NORMAL, WITHOUT ANY SIGNIFICANT RESPONSE TO BD. CHALLENGE. CLINICALLY I THINK SHE DOES HAVE MILD BRONCHIAL ASTHMA AND ALLERGIC RHINITIS. TX : OKAY TO CONTINUE MONTELUKAST 10 MG DAILY. USE ALBUTEROL HFA ( VENTOLIN ) 2 PUFFS Q 4-6 HOURS ONLY P.R.N. IF THERE IS SOME WHEEZING. AND CONTINUE TO USE MONTELUKAST 10 MG DAILY. Code(s): J45.909 - Unspecified asthma, uncomplicated Qualifiers: Asthma complication type: uncomplicated Asthma persistence: intermittent Asthma severity: mild Qualified Code(s): J45.20 - Mild intermittent asthma, uncomplicated (13) Obesity due to excess calories: Code(s): E66.09 - Other obesity due to excess calories Qualifiers: Body mass index: BMI 36.0-36.9 Obesity classification: adult class 2 (BMI 35 - 39.9) Serious obesity comorbidity presence: with serious comorbidity Qualified Code(s): E66.01 - Morbid (severe) obesity due to excess calories; Z68.36 - Body mass index [BMI] 36.0-36.9, adult Plan Patient is a 43-year-old female with a history of chronic GERD, depression, fibromyalgia, anxiety, migraine headache, asthma, obesity, came in today to be evaluated for possible urinary tract infection Patient says that the symptoms has been going on for a week She is having suprapubic discomfort and back pain as well Feels chilly and do not feel well Patient is due for her regular follow-up as well She is on gabapentin for fibromyalgia pain script was sent early March she has not due for that She also take montelukast for allergies which I have sent Her UA showed 2+ glucose we did a hemoglobin A1c which came back at 5.2% Patient is currently under care of Dr. [facility] for gastroparesis and difficulty eating along with chronic diarrhea I am treating her with Levaquin 500 mg once a day for 7 days Pyridium sent for 2 days Patient is to push fluids, and repeat UA again in 7 days Orders: Orders UA CC w/rflx Micro + Cult 1 Week N10 - Acute pyelonephritis AMB Hemoglobin A1c Today Z13.9 - Encounter for screening, unspecified Urine Culture Today N10 - Acute pyelonephritis AMB Urinalysis Automated Today Z13.9 - Encounter for screening, unspecified Medications: New levofloxacin 500 mg PO DAILY 7 tabs 0RF 7 days phenazopyridine (Pyridium) 200 mg PO TID PRN 6 tabs 0RF pain 2 days Refilled montelukast 10 mg PO DAILY 90 tabs 0RF 90 days Coding Level of Care Code Est Pt Level 5 (42185) Diagnoses Acute pyelonephritis N10 ELIAZAR (obstructive sleep apnea) G47.33 Seasonal allergic rhinitis due to pollen J30.1 Allergic rhinitis seasonality: seasonal Allergic rhinitis trigger: pollen Environmental allergies Z91.09 Recurrent UTI N39.0 Recurrent major depressive disorder, in partial remission F33.41 Active/Remission status: in partial remission Fibromyalgia M79.7 Irritable bowel syndrome with diarrhea K58.0 Irritable bowel syndrome type: with diarrhea Anxiety, generalized F41.1 Chronic nausea R11.0 Mild intermittent asthma without complication J45.20 Asthma complication type: uncomplicated Asthma persistence: intermittent Asthma severity: mild Class 2 severe obesity due to excess calories with serious comorbidity and body mass index (BMI) of 36.0 to 36.9 in adult E66.01; Z68.36 Body mass index: BMI 36.0-36.9 Obesity classification: adult class 2 (BMI 35 - 39.9) Serious obesity comorbidity presence: with serious comorbidity Time Spent (min) 42 Comment 5 prep, 25 with patient, 7 charting, 5 coordination of care
== END 2023-05-31 12:43 | disposition home or self-care (01) ==
PROVIDERS: PCP Internal Medicine; Visit Provider Internal Medicine
DX: N10 Acute pyelonephritis (principal)
CPT/HCPCS: 81003; 83036; 99215

== ENCOUNTER 2023-05-31 13:48 | Outpatient (REF) | payer OTHER, SELFPAY | END 2023-05-31 13:49 | disposition home or self-care (01) | LOC: HO.LNP 13:48 | PROVIDERS: Visit Provider Internal Medicine | DX: N10 Acute pyelonephritis (principal) | CPT/HCPCS: 87086 ==

== ENCOUNTER 2023-06-03 08:07 | Emergency (ER) | payer OTHER, SELFPAY ==
--- NOTE | ~2023-06-03 | XR_ITS ---
EXAMINATION: XR CHEST CLINICAL INFORMATION: Chest pain COMPARISON: Chest radiograph from 10/18/2021 TECHNIQUE: 2 views of the chest were obtained. FINDINGS: No focal consolidation. No pneumothorax. Trachea is midline. Cardiac mediastinal effusion. Degenerative changes of the thoracolumbar spine. Soft tissues are unremarkable. XR/XR chest 2V IMPRESSION: No acute cardiopulmonary process.
--- NOTE | ~2023-06-03 | CT_ITS ---
EXAMINATION: CT ABDOMEN AND PELVIS WITHOUT CONTRAST CLINICAL INFORMATION: Left CVA tenderness COMPARISON: Previous CT of the abdomen and pelvis most recent a CTA October 2022. Pelvic ultrasound January 2020. TECHNIQUE: Multidetector volumetric imaging was performed from the superior aspect of the liver through the pubic symphysis. Sagittal and coronal reformatted images were obtained on the technologist's workstation. This CT examination was performed using dose optimization techniques as appropriate, variously including the following: *Automated exposure control *Adjustment of mA and/or kV according to patient size (this includes techniques or standardized protocols for targeted exams where dose is matched to indication/reason for exam; i.e. extremities or head) *Use of iterative reconstruction technique DLP: 692 mGy-cm FINDINGS: LUNG BASES: The visualized lung bases are unremarkable. LIVER, GALLBLADDER, AND BILIARY TREE: The liver is normal in size, shape, and attenuation. No focal hepatic lesion or biliary ductal dilatation is present. The gallbladder has been removed. PANCREAS: Unremarkable. SPLEEN: Unremarkable. ADRENAL GLANDS: Unremarkable. KIDNEYS AND URETERS: The kidneys are normal in size, shape, and attenuation. No hydronephrosis, hydroureter, or calculi seen. No perinephric stranding. BLADDER: Unremarkable. GASTROINTESTINAL TRACT: Mild diverticulosis colon. The small and large bowel are otherwise unremarkable. The appendix is unremarkable. ABDOMINAL WALL: Small umbilical and supraumbilical hernias containing fat. LYMPH NODES: Normal. VASCULAR: Unremarkable. PELVIC VISCERA: Unremarkable. OSSEOUS STRUCTURES: Mild degenerative changes of the spine. CT/CT abdomen pelvis wo IV con IMPRESSION: No acute findings. Fleischner guidelines were followed.
[2023-06-03 08:16] VITALS: BP 142/51; PULSE 77; RESP 16; TEMP 36.9; O2SAT 97; BMI 35.9
--- NOTE | 2023-06-03 08:22 | ECG_ITS ---
Test Reason : qtc prolongation Blood Pressure : / mmHG Vent. Rate : 073 BPM Atrial Rate : 073 BPM P-R Int : 126 ms QRS Dur : 074 ms QT Int : 380 ms P-R-T Axes : 018 000 006 degrees QTc Int : 418 ms Normal sinus rhythm Nonspecific ST and T wave abnormality Abnormal ECG When compared with ECG of 03-JUN-2023 10:49, No significant change was found Referred By: Kaylee Rizvi Electronically Signed By:ANDREA YI MD
--- NOTE | 2023-06-03 08:32 | ED_ITS ---
HPI - General Adult General Chief complaint: General Medical Stated complaint: vomiting Time Seen by Provider: 06/03/23 08:31 Source: patient and RN notes reviewed Mode of arrival: ambulatory Limitations: no limitations History of Present Illness HPI narrative: This is a 43-year-old female, with a past medical history of anxiety and depression, presenting to the emergency department with multiple complaints. Patient states that over the last 2 weeks she has had intermittent lightheadedness, dizziness, nausea, vomiting, and abdominal pain. Patient states that she had dysuria, urinary frequency and urgency and went to her primary care physician where she was diagnosed with a urinary tract infection on Monday and was started on Levaquin. She states that she has been taking Levaquin, last dose was yesterday, which she took feels as though she still is having chills, urinary frequency, urgency, dysuria. She also states that she has had intermittent burning in her chest, which she attributes to her GERD. State that she had an episode of chest pain this morning which radiated into her left shoulder. Also endorsing bloody stool over the last year, last episode was 1 week ago. MD complaint: Multiple complaints Onset (ago): week(s) Relieving factors: none Exacerbating factors: none Associated symptoms: chest pain, fever/chills, headaches, nausea/vomiting and weakness Treatments prior to arrival: none Related Data Home Medications Medication Instructions Recorded Confirmed bupropion HCl 150 mg tablet,12 hr 150 mg PO BID 01/30/20 05/31/23 sustained-release lorazepam 1 mg tablet 1 mg PO BID 01/30/20 06/06/23 Previous Rx's Medication Instructions Recorded Ventolin HFA 90 mcg/actuation 1 inh inhalation Q6H PRN shortness 04/05/22 aerosol inhaler (albuterol sulfate) of breath or wheezing #18 grams propranolol 20 mg tablet 20 mg PO .qhs #90 tabs 12/23/22 sumatriptan succinate 50 mg tablet 50 mg PO ONCE PRN migraine 12/23/22 headache 30 days #10 tabs ondansetron 4 mg disintegrating 8 mg (2 x 4 mg) PO Q8H PRN for 02/01/23 tablet nausea/vomiting #90 tabs hydrocortisone 2.5 % topical cream 1 appl topical BID PRN skin 02/27/23 irritation #20 grams prednisone 10 mg tablet 10 mg PO DAILY #28 tabs 02/27/23 gabapentin 300 mg capsule 300 mg PO TID 90 days #270 caps 04/03/23 montelukast 10 mg tablet 10 mg PO DAILY 90 days #90 tabs 05/31/23 phenazopyridine 200 mg tablet 200 mg PO TID PRN pain 2 days #6 05/31/23 (Pyridium) tabs cefpodoxime 200 mg tablet 200 mg PO BID 10 days #20 tabs 06/03/23 famotidine 40 mg tablet 40 mg PO BEDTIME #60 tabs 06/05/23 omeprazole 40 mg capsule,delayed 40 mg PO DAILY #90 caps 06/05/23 release ursodiol 500 mg tablet 500 mg PO BID #60 tabs 06/05/23 Magic Mouthwash 10 ml PO QID #240 mL 06/06/23 Diphen/Lido/Antacid 1:1:1 240 mL suspension Allergies Allergy/AdvReac Type Severity Reaction Status Date / Time azithromycin [AZITHROMYCIN] Allergy Intermediate RASH Verified 06/06/23 10:48 ketorolac [From Toradol] Allergy Intermediate Rash Verified 06/06/23 10:48 Sulfa (Sulfonamide Allergy Intermediate RASH Verified 06/06/23 10:48 Antibiotics) [SULFA (SULFONAMIDE ANTIBIOTICS)] fluconazole [Diflucan] Allergy Unknown unknown Verified 06/06/23 10:48 topiramate [Topamax] Allergy Unknown unknown Verified 06/06/23 10:48 amitriptyline AdvReac Intermediate stomach Verified 06/06/23 10:48 upset nitrofurantoin Allergy Severe Hives Uncoded 06/06/23 10:48 Review of Systems 2 Review of Systems: Yes all other systems are reviewed and are negative Constitutional: Constitutional: Reports as per [facility] Past Medical History Attestation statement: The following information was validated with the patient. Medical History Diarrhea Abnormal uterine bleeding (AUB) Pelvic pain Heavy menstrual bleeding Allergic rhinitis Asthma Smoker Abdominal pain Loud snoring ELIAZAR (obstructive sleep apnea) Somnolence, daytime Early satiety Colon polyps Hydradenitis History of fibromyalgia GERD (gastroesophageal reflux disease) History of headache Hx of irritable bowel syndrome Hx of ovarian cyst Hx of renal calculi History of anxiety Surgical History H/O tubal ligation History of esophagogastroduodenoscopy (EGD) H/O colonoscopy History of cholecystectomy History of Family History Family History Father HTN (hypertension) Diabetes mellitus Liver cancer Alcoholic Substance use disorder Mother Anxiety Depression Liver tumor Brother Heart attack Buerger disease Stroke Seizure Diabetes mellitus Family/Other Mild asthma Maternal Grandmother Cancer of unknown origin Maternal Grandfather Liver cancer Paternal Grandfather Heart problem Other Mental health disorder Social History Social History Household Members: Spouse and Children Housing: House Alcohol intake: current Alcohol intake frequency: does not drink Patient Tobacco Use Status: Current everyday Tobacco user Tobacco use type: Cigarette Cigarette Packs Per Day: 0.5 Cigarettes Per Day: 10 Years Smoked: 25 e-Cigarette/Vaping Use: Never Used Substance Use Type: Marijuana service: No Current occupational status: unemployed Current occupation: due to Covid Gender identity: Female Cognitive needs: No Hearing needs: No Vision needs: No Physical Exam ED Vital Signs: Vital Signs - 24 hr 06/03/23 08:16 06/03/23 09:28 06/03/23 09:30 Temperature 98.5 F Pulse Rate 77 68 74 Respiratory Rate 16 Blood Pressure 142/51 H 119/61 132/68 Pulse Oximetry 97 Oxygen Delivery Method Room Air 06/03/23 09:32 06/03/23 14:01 Temperature 98.2 F Pulse Rate 94 70 Respiratory Rate 16 Blood Pressure 122/74 121/63 Pulse Oximetry 97 Oxygen Delivery Method Room Air BMI result Body Mass Index 35.9 Const General: cooperative, comfortable and no acute distress Orientation/consciousness: patient oriented x3 Limitations: no limitations [facility] Head: Yes normal to inspection, Yes normocephalic and Yes atraumatic Ears: hearing grossly normal bilaterally General nose exam: Normal external nose present Face and sinus: Yes normal facial exam Mouth: Normal oral and palatal mucosa present, oropharynx normal and moist mucous membranes Throat: Yes posterior oropharynx normal Eyes General: appearance normal, both eyes and all related structures Eyelids: Yes eyelids normal Conjunctivae: conjunctivae normal Sclerae: sclerae normal Pupils: Equal, round and reactive pupils present EOM: EOMs intact bilaterally Neck Neck: Yes normal visual inspection, Yes full ROM and Yes no lymphadenopathy Lymphatic: no lymphadenopathy noted Chest Chest palpation & inspection: normal inspection of the chest Resp Effort & Inspection: normal respiratory effort and able to speak in complete sentences Auscultation: clear to auscultation bilaterally, no crackles, no rales, no rhonchi and no wheezes Cardio Rate: regular rate Rhythm: regular rhythm Heart sounds: S1 normal heart sound present and S2 normal heart sound present GI Other: Suprapubic TTP, no rebound or guarding. Inspection: Yes normal to inspection Back/Spine/Pelvis Other: L CVA tenderness Skin General skin exam: no rashes or lesions noted Trauma: no lacerations or abrasions Wounds: no wounds Neuro General: patient oriented x3 and moves all extremities Cranial nerves: Yes Equal, round and reactive pupils present Extrem General: Yes normal to inspection Right upper extremity: normal to inspection Left upper extremity: normal to inspection Right lower extremity: normal to inspection Left lower extremity: normal to inspection Course Reevaluation(s) Reevaluation #1: Repeat EKG revealing significantly improved QTC prolongation to 384/380. Pending repeat troponin Time: 10:54 Reevaluation #2: Repeat troponin returns, negative. Chest x-ray unremarkable. Abdominal CT unremarkable. Urine does indicate some rbc's, no evidence of acute infection however can be altered due to being on antibiotics. Patient is not orthostatic. Patient feeling much better, no longer dizzy. Patient was also discussing headaches, she does not have 1 at this time, reports history of migraines, given history of migraines, given referral to neurologist. Patient is neurologically intact. She has not complaining of any headaches at this time therefore I do not think a CT scan is warranted. Patient is eating and drinking without difficulty. No vomiting. Discussed [id number] with patient. given that she is feeling better, QTC significantly improved, pt feels comfortable for discharge home. Discussed return precautions. She understands and agrees with plan. Stable for d/c. Medications Administered Discontinued Medications Generic Name Dose Route Start Last Admin Trade Name Freq PRN Reason Stop Dose Admin Magnesium Sulfate 2 gm in 50 mls @ 150 mls/hr 06/03/23 08:34 06/03/23 10:37 Magnesium Sulfate/H2o IV 06/03/23 08:53 Infused ONCE ONE Infusion Sodium Chloride 1,000 mls @ 999 mls/hr 06/03/23 09:06 06/03/23 11:18 Ns IV 06/03/23 10:06 Infused .Q1H1M ONE Infusion Medical Decision Making Medical Decision Making [facility] Narrative: This is a 43-year-old female, with a history of GERD, anxiety and depression, presenting to the emergency department for evaluation of lightheadedness, dizziness, nausea x 2 weeks. She also endorses nausea and vomiting as well as urinary symptoms. On arrival, vital signs within normal limits. She is nontoxic appearing, in neurologically intact. She was previously diagnosed with urinary tract infection on May 31 and was prescribed Levaquin which she has been taking, last dose was last night. She states that since starting the Levaquin she has had worsening dizziness. She also endorses a episode of chest pain, burning-like sensation which she attributes to her occurred. EKG was performed, QT/QTC 700/728 > discussed with my attending physician and started on IV magnesium 2g. This could be attributed to Levaquin. She also reports that she has not been taking her anxiety and depression medication, last dose of these was about 1 month ago. She also has prescribed Zofran, she takes this regularly, states that she may take 1-2 doses per day. She did not take any Zofran today. Plan: Labs, EKG, magnesium 2 g IV, chest x-ray, CT abdomen and pelvis Differential Diagnosis Differential Diagnoses: The differential diagnosis associated with the presentation includes Admission/Observation Consideration of admission/observation: Escalation of care including admission/observation considered Lab Data [facility] Lab Attestation statement: I reviewed the patient's lab results. 06/03/23 08:37 06/03/23 08:37 Labs: Lab Results 06/03/23 06/03/23 06/03/23 Range/Units 08:37 10:18 12:15 WBC 12.8 H (4.8-10.8) X10*3/uL RBC 4.70 (4.20-5.50) X10*6/uL Hgb 14.0 (12.0-16.0) g/dl Hct 41.1 (37.0-47.0) % MCV 87.4 (80.0-98.0) fL MCH 29.8 (27.0-33.0) pg MCHC 34.1 (31.0-35.0) g/dl RDW 13.7 (11.0-16.0) % Plt Count 261 (160-400) X10*3/uL MPV 9.6 (9.4-12.3) fL Immature Gran % (Auto) 0.5 H (0.0-0.4) % Neut % (Auto) 73.9 H (45-73) % Lymph % (Auto) 17.7 L (20-40) % Reagan % (Auto) 4.1 (2-11) % Eos % (Auto) 3.2 (0-4) % Baso % (Auto) 0.6 (0-2) % Lymph # (Auto) 2.3 (1.2-4.9) X10*3/uL Reagan # (Auto) 0.5 (0.1-1.2) X10*3/uL Eos # (Auto) 0.4 (0.0-0.4) X10*3/uL Baso # (Auto) 0.1 (0.0-0.2) X10*3/uL Abs Immat Gran (auto) 0.06 H (0.00-0.03) X10*3/uL Absolute Neuts (auto) 9.5 H (2.0-8.3) x10*3/uL Absolute Nucleated RBC 0.000 (0.0-0.012) X10*3/uL Nucleated RBC % (auto) 0.0 (0.0-0.2) /100WBC Sodium 144 (135-145) mmol/L Potassium 3.4 (3.3-5.1) mmol/L Chloride 108 (96-108) mmol/L Carbon Dioxide 26 (22-29) mmol/L Anion Gap 13 (12-20) BUN 18 H (9-16) mg/dL Creatinine 0.79 (0.5-1.4) mg/dL Estim Creat Clear Calc 89.6 Estimated GFR > 60 Random Glucose 99 (60-115) mg/dL Calcium 9.6 (8.4-10.2) mg/dL Magnesium 2.5 (1.6-2.6) mg/dL Total Bilirubin 0.3 (0.0-1.0) mg/dL AST 9 (5-31) U/L ALT 7 (0-31) U/L Alkaline Phosphatase 105 (39-117) U/L Troponin I High Sens < 2.7 < 2.7 (<3.5-17.0) ng/L Total Protein 7.4 (6.5-8.0) g/dL Albumin 4.1 (3.5-5.0) g/dL Lipase 33 (8-78) U/L Beta HCG, Quant < 2 mIU/mL Urine Color Yellow Urine Appearance Clear Urine pH 6.5 (5.0-9.0) Ur Specific [place] 1.010 (1.005-1.025) Urine Protein Negative (Neg-Trace) mg/dL Urine Glucose (UA) Negative (Negative) mg/dL Urine Ketones Trace (Negative) mg/dL Urine Blood Moderate (2+) H (Negative) Urine Nitrite Negative (Negative) Ur Leukocyte Esterase Negative (Negative) Urine RBC 6-10 H (0-2) /HPF Urine WBC 0-5 (0-5) /HPF Ur Squamous Epith Cells 0-2 (0-2) /HPF Urine Bacteria None Seen (None Seen) Hyaline Casts 0-2 (0-2) /LPF Salicylates < 5.0 L (15-30) mg/dL Acetaminophen < 3 (<30) mcg/mL Amitriptyline <5 mcg/L Amitriptyline&Nortrip <5 L (100-250) mcg/L Nortriptyline <5 mcg/L COVID-19 (BREE) Negative (Negative) COVID-19 Clin Com See Note Independent Interpretation I performed an independent interpretation of an: EKG Interpretation: 06/03/2023 - 08:25AM EKG NSR at a ventricular rate of 65 beats per minute, CA interval 138, QT/QTC 700/728 06/03/2023 - 10:49AM EKG Sinus bradycardia at 59bpm. CA 154, QTC 384/380, CA interval 154. Radiology Impression Discussion of test interpretation with radiology: I have reviewed the radiologist's reading. Radiologist Impression: EXAMINATION: XR CHEST CLINICAL INFORMATION: Chest pain COMPARISON: Chest radiograph from 10/18/2021 TECHNIQUE: 2 views of the chest were obtained. FINDINGS: No focal consolidation. No pneumothorax. Trachea is midline. Cardiac mediastinal effusion. Degenerative changes of the thoracolumbar spine. Soft tissues are unremarkable. XR/XR chest 2V IMPRESSION: No acute cardiopulmonary process. Dictated By: Michael Graff MD EXAMINATION: CT ABDOMEN AND PELVIS WITHOUT CONTRAST CLINICAL INFORMATION: Left CVA tenderness COMPARISON: Previous CT of the abdomen and pelvis most recent a CTA October 2022. Pelvic ultrasound January 2020. TECHNIQUE: Multidetector volumetric imaging was performed from the superior aspect of the liver through the pubic symphysis. Sagittal and coronal reformatted images were obtained on the technologist's workstation. This CT examination was performed using dose optimization techniques as appropriate, variously including the following: *Automated exposure control *Adjustment of mA and/or kV according to patient size (this includes techniques or standardized protocols for targeted exams where dose is matched to indication/reason for exam; i.e. extremities or head) *Use of iterative reconstruction technique DLP: 692 mGy-cm FINDINGS: LUNG BASES: The visualized lung bases are unremarkable. LIVER, GALLBLADDER, AND BILIARY TREE: The liver is normal in size, shape, and attenuation. No focal hepatic lesion or biliary ductal dilatation is present. The gallbladder has been removed. PANCREAS: Unremarkable. SPLEEN: Unremarkable. ADRENAL GLANDS: Unremarkable. KIDNEYS AND URETERS: The kidneys are normal in size, shape, and attenuation. No hydronephrosis, hydroureter, or calculi seen. No perinephric stranding. BLADDER: Unremarkable. GASTROINTESTINAL TRACT: Mild diverticulosis colon. The small and large bowel are otherwise unremarkable. The appendix is unremarkable. ABDOMINAL WALL: Small umbilical and supraumbilical hernias containing fat. LYMPH NODES: Normal. VASCULAR: Unremarkable. PELVIC VISCERA: Unremarkable. OSSEOUS STRUCTURES: Mild degenerative changes of the spine. CT/CT abdomen pelvis wo IV con IMPRESSION: No acute findings. Fleischner guidelines were followed. Dictated By: Cate Jenkins MD Signed By: <Electronically isma Discharge Plan Discharge Clinical Impression: QT prolongation, UTI (urinary tract infection) Patient Disposition: Home, Self-Care Instructions: Urinary Tract Infection in Women (ED) Additional Instructions: Your seen in the emergency department due to dizziness, lightheadedness, nausea. You had something called QT prolongation, this can be caused by medications like ciprofloxacin and levofloxacin as well as anti nausea medications like Zofran. Please discontinue Levaquin and Zofran. I am switching her antibiotic to cefpodoxime, please take full course even if you are feeling better. Follow-up with your primary physician, call on Monday to make an appointment to discuss this visit. If any new or worsening symptoms occur including but not limited to chest pain, shortness of breath, dizziness, please return for re-evaluation. Prescriptions: New cefpodoxime 200 mg tablet 200 mg PO BID 10 Days Qty: 20 0RF Rx Instructions: must administer with a meal/food No Action albuterol sulfate [Ventolin HFA] 90 mcg/actuation HFA aerosol inhaler 1 inh inhalation Q6H PRN (Reason: shortness of breath or wheezing) Qty: 18 2RF sumatriptan succinate 50 mg tablet 50 mg PO ONCE PRN (Reason: migraine headache) 30 Days Qty: 10 0RF propranolol 20 mg tablet 20 mg PO .qhs Qty: 90 0RF ondansetron 4 mg tablet,disintegrating 8 mg PO Q8H PRN (Reason: for nausea/vomiting) Qty: 90 2RF gabapentin 300 mg capsule 300 mg PO TID 90 Days Qty: 270 0RF Magic Mouthwash Diphen/Lido/Antacid 1:1:1 240 mL suspension 10 ml PO QID Qty: 240 0RF Rx Instructions: Lidocaine Viscous 2 % 80mL; diphenhydramine 12.5 mg/5 mL 80mL; aluminum-mag hydrox-simeth [id number]/5mL 80mL prednisone 10 mg tablet 10 mg PO DAILY Qty: 28 0RF Rx Instructions: 6 pills by mouth day 1, 6 pills by mouth day 2, 5 pills by mouth day 3, 4 pills by mouth day 4, 3 pills by mouth day 5, 2 pills by mouth day 6, 1 pill by mouth day 7 and 1 pill by mouth day 8. hydrocortisone 2.5 % cream 1 appl topical BID PRN (Reason: skin irritation) Qty: 20 0RF phenazopyridine [Pyridium] 200 mg tablet 200 mg PO TID PRN (Reason: pain) 2 Days Qty: 6 0RF montelukast 10 mg tablet 10 mg PO DAILY 90 Days Qty: 90 0RF lorazepam 1 mg tablet 1 mg PO BID bupropion HCl 150 mg tablet sustained-release 12 hr 150 mg PO BID famotidine 40 mg tablet 40 mg PO BEDTIME Qty: 60 1RF omeprazole 40 mg capsule,delayed release(DR/EC) 40 mg PO DAILY Qty: 90 1RF ursodiol 500 mg tablet 500 mg PO BID Qty: 60 2RF Interventions: ED Discharge Assessment Last Done: 06/03/23 15:44 Discharge Date/Time: 06/03/23 15:44
--- NOTE | 2023-06-03 08:33 | PC.NURSE ---
neuros complete, pt extremities JOSELITO weak but equal in strength
[2023-06-03 08:43] LABS: MANUAL DIFF FLAG NO
[2023-06-03 08:44] LABS: Basophils Absolute Auto 0.1 X10*3/uL (0.0-0.2); Basophils Percent Auto 0.6 % (0-2); Eosinophils Absolute Auto 0.4 X10*3/uL (0.0-0.4); Eosinophils Percent Auto 3.2 % (0-4); Hematocrit 41.1 % (37.0-47.0); Imm Gran Abs Auto 0.06 X10*3/uL (0.00-0.03); Imm Gran Pct Auto 0.5 % (0.0-0.4); Lymphocytes Absolute Auto 2.3 X10*3/uL (1.2-4.9); Lymphocytes Percent Auto 17.7 % (20-40); Mean Corpuscular HGB Conc 34.1 g/dl (31.0-35.0); Mean Corpuscular Hemoglobin 29.8 pg (27.0-33.0); Mean Corpuscular Volume 87.4 fL (80.0-98.0); Mean Platelet Volume 9.6 fL (9.4-12.3); Monocytes Absolute Auto 0.5 X10*3/uL (0.1-1.2); Monocytes Percent Auto 4.1 % (2-11); Neutrophils Absolute Auto 9.5 x10*3/uL (2.0-8.3); Neutrophils Percent Auto 73.9 % (45-73); Platelet Count 261 X10*3/uL (160-400); Red Cell Distribution Width 13.7 % (11.0-16.0); White Blood Count 12.8 X10*3/uL (4.8-10.8)
[2023-06-03 09:01] LABS: Alanine Aminotransferase 7 U/L (0-31); Albumin Level 4.1 g/dL (3.5-5.0); Alkaline Phosphatase 105 U/L (39-117); Anion Gap 13 (12-20); Aspartate Amino Transferase 9 U/L (5-31); Bilirubin Total 0.3 mg/dL (0.0-1.0); Blood Urea Nitrogen 18 mg/dL (9-16); Calcium 9.6 mg/dL (8.4-10.2); Carbon Dioxide 26 mmol/L (22-29); Chloride 108 mmol/L (96-108); Creatinine Clr Calc Pharmacy 89.6; Estimated Glomerular Filt Rate > 60; Glucose Random 99 mg/dL (60-115); Potassium 3.4 mmol/L (3.3-5.1); Sodium 144 mmol/L (135-145); Total Protein 7.4 g/dL (6.5-8.0)
[2023-06-03] MEDS: Magnesium Sulfate/H2O 2 GM/50 ML PIGGYBACK IV (09:01)
[2023-06-03 09:04] LABS: COVID-19 Test Negative (Negative); IDNOW Serial# 9DB6401D
[2023-06-03 09:17] LABS: Lipase 33 U/L (8-78)
[2023-06-03 09:28] VITALS: BP 119/61; PULSE 68
[2023-06-03 09:28] LABS: HCG Quantitative < 2 mIU/mL
[2023-06-03 09:30] VITALS: BP 132/68; PULSE 74
[2023-06-03 09:32] VITALS: BP 122/74; PULSE 94
[2023-06-03] MEDS: 0.9 % Sodium Chloride 1,000 ML 999 ML IV (09:35)
[2023-06-03 09:53] LABS: Troponin-I High Sensitivity < 2.7 ng/L (<3.5-17.0)
[2023-06-03 10:27] LABS: Appearance Urine Clear; Color Urine Yellow; Glucose Urine UA Negative (Negative); Leukocyte Esterase Urine Negative (Negative); Nitrite Urine Negative (Negative); PH 6.5 (5.0-9.0); UMIC TRIGGER UACC YES; Urine Blood Moderate (2+) (Negative); Urine Ketones Trace mg/dL (Negative); Urine Protein Negative (Neg-Trace)
[2023-06-03 10:32] LABS: Bacteria Urine None Seen (None Seen); Hyaline Casts Urine 0-2 /LPF (0-2); Squamous Epithelial Cell Urine 0-2 /HPF (0-2); WBC Urine 0-5 /HPF (0-5)
--- NOTE | 2023-06-03 10:37 | ECG_ITS ---
Test Reason : chest pain Blood Pressure : / mmHG Vent. Rate : 065 BPM Atrial Rate : 065 BPM P-R Int : 138 ms QRS Dur : 078 ms QT Int : 430 ms P-R-T Axes : 042 -05 004 degrees QTc Int : 448 ms Normal sinus rhythm Nonspecific ST abnormality Abnormal ECG When compared with ECG of 06-NOV-2022 19:21, QT has lengthened Referred By: Kaylee Rizvi Electronically Signed By:ANDREA YI MD
[2023-06-03 11:09] LABS: Acetaminophen LAB < 3 mcg/mL (<30); Salicylate < 5.0 mg/dL (15-30)
[2023-06-03 12:55] LABS: Troponin-I High Sensitivity < 2.7 ng/L (<3.5-17.0)
[2023-06-03 14:01] VITALS: BP 121/63; PULSE 70; RESP 16; TEMP 36.8; O2SAT 97
--- NOTE | 2023-06-03 14:32 | ECG_ITS ---
Test Reason : prolonged qtc Blood Pressure : / mmHG Vent. Rate : 059 BPM Atrial Rate : 059 BPM P-R Int : 154 ms QRS Dur : 070 ms QT Int : 384 ms P-R-T Axes : 038 -14 -31 degrees QTc Int : 380 ms Sinus bradycardia Nonspecific T wave abnormality Abnormal ECG When compared with ECG of 03-JUN-2023 08:25, QT has shortened Referred By: Kaylee Rizvi Electronically Signed By:ANDREA YI MD
[2023-06-03 15:09] LABS: Magnesium 2.5 mg/dL (1.6-2.6)
[2023-06-07 05:48] LABS: Amitriptyline, Serum <5 mcg/L; Nortriptyline, Serum <5 mcg/L; Total (Ami+Nor) <5 mcg/L (100-250)
== END 2023-06-03 15:44 | disposition home or self-care (01) ==
PROVIDERS: Physician Assistant Medical; Emergency Provider Student in an Organized Health Care Education/Training Program; PCP Internal Medicine
DX: N39.0 Urinary tract infection, site not specified (principal); I45.81 Long QT syndrome; Z11.52 Encounter for screening for COVID-19
CPT/HCPCS: 36415; 71046; 74176; 80053; 80143; 80179; 80335; 81001; 83690; 83735; 84484; 84702; 85025; 87635; 93005; 96361; 96365; 99284; 99285; J3475

== ENCOUNTER → 2023-06-03 08:22 | Outpatient (BNV) | payer OTHER, SELFPAY | PROVIDERS: Emergency Provider Student in an Organized Health Care Education/Training Program; PCP Internal Medicine; Visit Provider Internal Medicine Cardiovascular Disease | DX: R94.31 Abnormal electrocardiogram [ECG] [EKG] (principal); R07.9 Chest pain, unspecified; R00.1 Bradycardia, unspecified | CPT/HCPCS: 93010 ==

== ENCOUNTER 2023-06-05 12:24 | Outpatient (AMB) | payer OTHER, SELFPAY ==
--- NOTE | 2023-06-05 12:31 | A.OFFVIS_ITS ---
Intake Vital Signs 06/05/23 12:35 Height 5 ft 1 in Weight 184 lb BMI 34.8 BP 154/69 H Blood Pressure Location Lt brachial Position Sitting Pulse 75 Intake Visit Reasons: Abdominal Pains Intake Note: Patient follow up for abdominal pain Patient cc: N/V, dizziness, abdominal pain with bloating, acid reflex needed refill for her GERD medication, some swallowing problems and diarrhea. Patient went to the ED from [facility] on Monday with same symptoms. City Constable Required: No Accompanied by: Spouse Allergies azithromycin [AZITHROMYCIN] Allergy (Intermediate, Verified 06/06/23 10:48) RASH ketorolac [From Toradol] Allergy (Intermediate, Verified 06/06/23 10:48) Rash Sulfa (Sulfonamide Antibiotics) [SULFA (SULFONAMIDE ANTIBIOTICS)] Allergy (Inter mediate, Verified 06/06/23 10:48) RASH fluconazole [Diflucan] Allergy (Unknown, Verified 06/06/23 10:48) unknown topiramate [Topamax] Allergy (Unknown, Verified 06/06/23 10:48) unknown amitriptyline Adverse Reaction (Intermediate, Verified 06/06/23 10:48) stomach upset nitrofurantoin Allergy (Severe, Uncoded 06/06/23 10:48) Hives HPI Abdominal Pains HPI Details 42 yr old f here for f/u RECAP: Saw [facility] initially: chronic abdominal pain she has been sick on and off for years been more consistent last 1 yr she has satiety she lost weight but more stable now she has lower abdominal pain, and goes into the tailbone, sometimes only the tail bone hurts she has post prandial urgency sometimes has pain with food, crampy she has been told she has neck damage causing pins and needles in fingers and feet pain can be sharp and hurts to sit if she has diarrhea or constipation can be worse sometimes sees blood in stool can't really describe she has ++ heartburn--urosdiol has helped her about 80% or so she feels like food is lways sticking in the throat she has been dx with asthma 2 yrs ago, never had an issue before she smokes 1/2 pack a day mother had stomach cancer aged 60 TESTS: GES 2020--retention at 4 hrs 23% EGD/colo: 06/2021 Endoscopy Findings: suspected house,s possible bile acid reflux gastritis Colonoscopy Findings: internal hemorrhoids suspected polyp Path: sessile serrated polyp , mild chronic gastritis CT 03/2022 Small umbilical and periumbilical hernias containing fat. Small left renal cyst. US kidney 06/2022---nml GES: 08/2022-- rapid emptying LABS: nml LFT 08/21 EGD/COlO 09/2022; Endoscopy Findings: gastritis possible barretts duodenitis Colonoscopy Findings: polyp internal hemorrhoids Path: active esophagitis, GEJ was chronically inflammed, rest of bx inc for amyloid were negative CTA---- nml, Doppler was pos INTERIM: she was really sick with UTI recently and levoflox had to be stopped, was in ED with nausea and Qtc was prolonged, given Mag she still has ongoing diarrhea she still has pain mid abdomen, some back pain attributed to a UTI pain still after eating as well patchy adherence to ursodiol she had taken budesonide for about a month and didn;t feel it helped she still has satiety she has nausea still smoking 1/2 pack daily EXAM: GENERAL: The patient is well developed and nontoxic. VITAL SIGNS:see workflow HEENT: Nonicteric sclerae, PERRLA, EOMI. Oropharynx clear. Moist mucous membra [place]. Conjunctivae appear well perfused. No thyroid mass. CHEST: Chest wall is nontender. HEART: Regular rate and rhythm without murmurs. LUNGS: Clear to auscultation bilaterally. ABDOMEN: Soft, positive bowel sounds, nontender, no organomegaly.no flank tenderness SKIN: No rash, no excessive bruising, petechiae, or purpura. NEUROLOGIC: Cranial nerves II-XII intact without motor/sensory deficit. A/P: 1/ Gastritis and enteritis on capsule, o ther Ix negative thus far, could be crohns or from her prior use of nsaid but ongoing sx --possible UTI seeing PCP for that PLAN; 1/ push enteroscopy 2/ resent prilosec, urosdiol, famotidine 3/ hold on budesonide, 4/ might consider entyvio 5/ repeat ECG 1 week as she will go back to [facility] History Diarrhea Abnormal uterine bleeding (AUB) Pelvic pain Heavy menstrual bleeding Allergic rhinitis Asthma Smoker Abdominal pain Loud snoring ELIAZAR (obstructive sleep apnea) Somnolence, daytime Early satiety Colon polyps Hydradenitis History of fibromyalgia GERD (gastroesophageal reflux disease) History of headache Hx of irritable bowel syndrome Hx of ovarian cyst Hx of renal calculi History of anxiety Surgical History H/O tubal ligation History of esophagogastroduodenoscopy (EGD) H/O colonoscopy History of cholecystectomy History of Family History Father HTN (hypertension) Diabetes mellitus Liver cancer Alcoholic Substance use disorder Mother Anxiety Depression Liver tumor Brother Heart attack Buerger disease Stroke Seizure Diabetes mellitus Family/Other Mild asthma Maternal Grandmother Cancer of unknown origin Maternal Grandfather Liver cancer Paternal Grandfather Heart problem Other Mental health disorder Social History Household Members: Spouse and Children Housing: House Alcohol intake: current Alcohol intake frequency: does not drink Patient Tobacco Use Status: Current everyday Tobacco user Tobacco use type: Cigarette Cigarette Packs Per Day: 0.5 Cigarettes Per Day: 10 Years Smoked: 25 e-Cigarette/Vaping Use: Never Used Substance Use Type: Marijuana service: No Current occupational status: unemployed Current occupation: due to Covid Gender identity: Female Cognitive needs: No Hearing needs: No Vision needs: No Female Reproductive History Menstrual Age of Menarche: 10 Date of menopause: 02/21/23 Physical Exam Vital Signs: Last Vital Signs Pulse 75 06/05/23 12:35 BP 154/69 H 06/05/23 12:35 BMI result Body Mass Index 34.8 Assessment & Plan Assessment & Plan (1) Heart palpitations: Code(s): R00.2 - Palpitations Plan: A/P: 1/ Gastritis and enteritis on capsule, other Ix negative thus far, could be cr ohns or from her prior use of nsaid but ongoing sx --possible UTI seeing PCP for that PLAN; 1/ push enteroscopy 2/ resent prilosec, urosdiol, famotidine 3/ hold on budesonide, 4/ might consider entyvio 5/ repeat [facility] (2) Gastritis and gastroduodenitis: Code(s): K29.70 - Gastritis, unspecified, without bleeding; K29.90 - Gastroduodenitis, unspecified, without bleeding Plan: A/P: 1/ Gastritis and enteritis on capsule, other Ix negative thus far, could be crohns or from her prior use of nsaid but ongoing sx --possible UTI seeing PCP for that PLAN; 1/ push enteroscopy 2/ resent prilosec, urosdiol, famotidine 3/ hold on budesonide, 4/ might consider entyvio 5/ repeat ECG 1 week as she will go back to [facility] Orders: Orders ECG 12 lead EKG 06/05/23 R00.2 - Palpitations Medications: New ursodiol 500 mg PO BID 60 tabs 2RF omeprazole 40 mg PO DAILY 90 caps 1RF Refilled famotidine 40 mg PO BEDTIME 60 tabs 1RF Discontinued levofloxacin Discontinued Reason: Patient Completed Course 500 mg PO DAILY 7 days 7 tabs 0RF metronidazole Discontinued Reason: Patient Completed Course 500 mg PO BID 14 days 28 tabs 0RF esomeprazole magnesium Discontinued Reason: Doctor's Order 40 mg PO DAILY 90 caps 1RF budesonide ER Discontinued Reason: Doctor's Order 9 mg (3 x 3 mg) PO DAILY 90 ea 2RF Coding Level of Care Code Est Pt Level 4 (05886) Diagnoses Heart palpitations R00.2 Gastritis and gastroduodenitis K29.70; K29.90
[2023-06-05 12:35] VITALS: BP 154/69; PULSE 75; BMI 34.8
== END 2023-06-05 14:30 | disposition home or self-care (01) ==
PROVIDERS: PCP Internal Medicine; Visit Provider Internal Medicine Gastroenterology
DX: R00.2 Palpitations (principal); K29.70 Gastritis, unspecified, without bleeding; K29.90 Gastroduodenitis, unspecified, without bleeding
CPT/HCPCS: 99214

== ENCOUNTER → 2023-06-05 12:24 | Outpatient (BNVA) | payer OTHER, SELFPAY | PROVIDERS: PCP Internal Medicine; Visit Provider Internal Medicine Gastroenterology | DX: K29.70 Gastritis, unspecified, without bleeding (principal); K29.90 Gastroduodenitis, unspecified, without bleeding; R00.2 Palpitations | CPT/HCPCS: 99212 ==

== ENCOUNTER 2023-06-06 10:37 | Day surgery (SDC) | payer OTHER, SELFPAY ==
[2023-06-06 10:42] VITALS: BP 129/102; PULSE 86; RESP 16; TEMP 36; O2SAT 97; BMI 34.8
[2023-06-06] MEDS: Lactated Ringers 1,000 ML 80 ML IVCONT (11:00)
--- NOTE | 2023-06-06 11:00 | HO.ANESPROP2 ---
[facility] Active Problems Active Problems: All Active Problems (Updated 06/05/23 @ 13:05 by Darius Palomino MD) Gastritis and gastroduodenitis (Acute) Obesity due to excess calories (Acute) Acute pyelonephritis (Acute) Multiple bruises (Acute) Leukocytosis (leucocytosis) (Acute) Diarrhea (Acute) Encounter to discuss test results (Acute) Enteritis (Acute) Change in facial mole (Acute) Blood in urine (Acute) Complicated migraine with status migrainosus (Acute) Blurring of vision (Acute) Heart palpitations (Acute) Fibromyalgia (Acute) Morbid obesity (Acute) Menorrhagia (Acute) Hidradenitis suppurativa (Acute) Shortness of breath on exertion (Acute) Chest pain (Acute) Chest pain due to GERD (Acute) Morbid obesity (Acute) Esophagitis (Acute) Irritable bowel syndrome (IBS) (Acute) Tracheobronchitis (Acute) Sleeping difficulty (Acute) Breast lump on right side at 10 o'clock position (Acute) Morbid obesity due to excess calories (Acute) Encounter for general adult medical examination with abnormal findings (Acute) Precordial chest pain (Acute) Contact with and (suspected) exposure to other viral communicable diseases (Acute) Cough (Acute) Post-COVID chronic cough (Acute) Fibromyalgia (Acute) Hospital discharge follow-up (Acute) Bleeding hemorrhoids (Acute) Constipation by delayed colonic transit (Acute) Shortness of breath (Acute) Gastroparesis (Acute) Abdominal pain, left lower quadrant (Acute) Acute nausea with nonbilious vomiting (Acute) Feeling sick (Acute) Acute abdominal pain in left lower quadrant (Acute) Nausea (Acute) Abnormal menses (Acute) Major depression, recurrent (Acute) Anxiety, generalized (Acute) Complicated grieving (Acute) Upper respiratory tract infection (Acute) Encounter for general adult medical examination with abnormal findings (Acute) Chronic nausea (Acute) Knee pain, left (Acute) Osteoarthritis of left knee (Acute) Complicated urinary tract infection (Acute) Urinary urgency (Acute) Stress incontinence (Acute) Dysuria (Acute) UTI (urinary tract infection) (Acute) Recurrent UTI (Acute) Overactive bladder (Acute) LFT elevation (Acute) Chronic abdominal pain (Acute) Celiac axis compression syndrome (Acute) Environmental allergies (Acute) Abnormal uterine bleeding (AUB) (Acute) Pelvic pain (Acute) Heavy menstrual bleeding (Acute) Allergic rhinitis (Acute) Asthma (Acute) Smoker (Acute) Abdominal pain (Acute) Loud snoring (Acute) ELIAZAR (obstructive sleep apnea) (Acute) Somnolence, daytime (Acute) Early satiety (Acute) Colon polyps (Acute) Acid reflux (Acute) Past Medical History Medical History Diarrhea Abnormal uterine bleeding (AUB) Pelvic pain Heavy menstrual bleeding Allergic rhinitis Asthma Smoker Abdominal pain Loud snoring ELIAZAR (obstructive sleep apnea) Somnolence, daytime Early satiety Colon polyps Hydradenitis History of fibromyalgia GERD (gastroesophageal reflux disease) History of headache Hx of irritable bowel syndrome Hx of ovarian cyst Hx of renal calculi History of anxiety Family History Family History Father HTN (hypertension) Diabetes mellitus Liver cancer Alcoholic Substance use disorder Mother Anxiety Depression Liver tumor Brother Heart attack Buerger disease Stroke Seizure Diabetes mellitus Family/Other Mild asthma Maternal Grandmother Cancer of unknown origin Maternal Grandfather Liver cancer Paternal Grandfather Heart problem Other Mental health disorder Family history of problems with anesthesia: No Surgical History Surgical History H/O tubal ligation History of esophagogastroduodenoscopy (EGD) H/O colonoscopy History of cholecystectomy History of History of Problems with Anesthesia: No Social History Social History Household Members: Spouse and Children Housing: House Alcohol intake: current Alcohol intake frequency: does not drink Patient Tobacco Use Status: Current everyday Tobacco user Tobacco use type: Cigarette Cigarette Packs Per Day: 0.5 Cigarettes Per Day: 10 Years Smoked: 25 e-Cigarette/Vaping Use: Never Used Use of substances other than those prescribed or required for medical reasons: No Substance Use Type: Marijuana Are you DNR?: No Advance Directives: No Advance Directives Information Provided: Yes service: No Current occupational status: unemployed Current occupation: due to Covid Gender identity: Female Cognitive needs: No Hearing needs: No Vision needs: No Meds Allergies Allergy/AdvReac Type Severity Reaction Status Date / Time azithromycin [AZITHROMYCIN] Allergy Intermediate RASH Verified 06/06/23 10:48 ketorolac [From Toradol] Allergy Intermediate Rash Verified 06/06/23 10:48 Sulfa (Sulfonamide Allergy Intermediate RASH Verified 06/06/23 10:48 Antibiotics) [SULFA (SULFONAMIDE ANTIBIOTICS)] fluconazole [Diflucan] Allergy Unknown unknown Verified 06/06/23 10:48 topiramate [Topamax] Allergy Unknown unknown Verified 06/06/23 10:48 amitriptyline AdvReac Intermediate stomach Verified 06/06/23 10:48 upset nitrofurantoin Allergy Severe Hives Uncoded 06/06/23 10:48 Active Medications: Current Medications Lactated Ringer's (Lr) 1,000 mls @ 80 mls/hr IVCONT .[id number] DYLAN Last Admin: 06/06/23 11:00 Dose: 80 mls/hr Home Medications Medication Instructions Recorded Confirmed Last Taken Type bupropion HCl 150 mg tablet,12 hr 150 mg PO BID 01/30/20 05/31/23 Unknown History sustained-release lorazepam 1 mg tablet 1 mg PO BID 01/30/20 06/06/23 06/05/23 History Exam Height,Weight and Vital Signs: Height 5 ft 1 in Weight 83.461 kg Last Vital Signs Temp 96.8 F 06/06/23 10:42 Pulse 86 06/06/23 10:42 Resp 16 06/06/23 10:42 BP 129/102 H 06/06/23 10:42 Pulse Ox 97 06/06/23 10:42 O2 Del Method Room Air 06/06/23 10:42 Airway Mallampati Class: IV TM Dist: >3cm Neck ROM: Full Heart: RRR Lungs: CTA Assessment and Plan Assessment Anesthesia Assessment: Anesthesia Plan Discussed, Smoking Cess. Discussed and Chart Reviewed Final Anesthetic Review Family History of Problems with Anesthesia: No History of Problems with Anesthesia: No NPO: Yes ASA Class: III Final Preanesthetic Review: Meds/Allgs Chart Reviewed, Consent Obtained/Reviewed and Anes Risks/Benef Reviewed Patient Risk: Intermediate Procedure Risk: Low Anesthetic Plan Anesthetic Plan: GA Disposition: Standard PACU
--- NOTE | 2023-06-06 11:03 | MHC.SHP ---
Pre-Procedural Eval Section A - 24 Hr Update-Section A only Date of Service: 06/06/23 The patient is an INPATIENT: No The patient has been examined within 24 hours of the surgical procedure. The History & Physical has been completed within 30 days and I have reviewed it.: Yes Section B - Complete if H&P > 30 days Chief Complaint: Gastroduodenitis,gastritis Allergies: Allergies Allergy/AdvReac Type Severity Reaction Status Date / Time azithromycin [AZITHROMYCIN] Allergy Intermediate RASH Verified 06/06/23 10:48 ketorolac [From Toradol] Allergy Intermediate Rash Verified 06/06/23 10:48 Sulfa (Sulfonamide Allergy Intermediate RASH Verified 06/06/23 10:48 Antibiotics) [SULFA (SULFONAMIDE ANTIBIOTICS)] fluconazole [Diflucan] Allergy Unknown unknown Verified 06/06/23 10:48 topiramate [Topamax] Allergy Unknown unknown Verified 06/06/23 10:48 amitriptyline AdvReac Intermediate stomach Verified 06/06/23 10:48 upset nitrofurantoin Allergy Severe Hives Uncoded 06/06/23 10:48 Plan Diagnosis/Plan: Unchanged I have reviewed the history and physical and performed a pertinent physical examination on my patient. No changes have occurred unless specified. push enteroscopy Time Spent With Patient Time: Total time managing care of this patient today ____ minutes.
--- NOTE | 2023-06-06 11:52 | W.PM.OPN ---
Operative Note Operative Note Date of Service: 06/06/23 Narrative: Procedure Description: Push enteroscopy Indication: enteritis Anesthesia: GA FLEXIBLE TRANSORAL UPPER GASTROINTESTINAL ENDOSCOPY and Push enteroscopy UPPER ENDOSCOPY and Push enteroscopy Consent: Indications for the procedure and potential complications of bleeding, perforation, reaction to medications and missed diagnosis were discussed with the patient and informed consent was obtained. Instrument: Olympus GIF H 190 J pediatric colonoscope Monitoring: Vital signs and clinical assessment, continuous EKG monitoring, Pulse oximetry, Carbon Dioxide monitoring and blood pressure monitoring were done throughout the procedure. Procedure: The patient was placed in the left lateral decubitis position and pre-procedure medications were administered and a bite block was placed. The endoscope was inserted into the mouth and advanced under direct vision to the proximal jejunum A careful inspection was made as the upper endoscope was withdrawn including a retroflexed examination of the proximal stomach; Findings and interventions are described below. Findings: Larynx:normal Esophagus: GE junction at 40 cm, diaphragm hiatus at 40 cm, few patches of salmon pink tissue at GEJ, bx taken Stomach: Patchy gastric erythema with bile acid noted in stomach. Biopsies were obtained. Grade 2 flap valve on retroflexed examination of the cardia. Duodenum: Patchy erythema, bx taken jejunum: normal, bx taken Intervention: Biopsies as noted above Impression/Findings: bile acid reflux gastritis barretts duodenitis PLAN: await bx results recommence PPI, ursodiol
[2023-06-06 12:07] VITALS: BP 122/65; PULSE 88; RESP 16; TEMP 36.3; O2SAT 99
[2023-06-06 12:12] VITALS: BP 127/82; PULSE 87; RESP 14; O2SAT 97
[2023-06-06 12:17] VITALS: BP 132/70; PULSE 83; RESP 16; O2SAT 98
[2023-06-06 12:22] VITALS: BP 145/70; PULSE 78; RESP 16; TEMP 36.3; O2SAT 98
[2023-06-06] MEDS: Mag&Al/Sim/Diphenhyd/Lidocaine 10 ML ORAL.SUSP PO (12:28)
== END 2023-06-06 12:57 | disposition home or self-care (01) ==
PROVIDERS: PCP Internal Medicine; Visit Provider Internal Medicine Gastroenterology
PROC: 0DJ08ZZ Inspection of Upper Intestinal Tract, Via Natural or Artificial Opening Endoscopic (ICD-10-PCS; CPT 43235; principal; 2023-06-06 14:50)
DX: K22.70 Barrett's esophagus without dysplasia (principal); K29.60 Other gastritis without bleeding; K29.80 Duodenitis without bleeding; K21.9 Gastro-esophageal reflux disease without esophagitis
CPT/HCPCS: 43239; 88305; 88313; 88341; 88342; J1596; J2250; J2405; J2704

== ENCOUNTER → 2023-06-06 10:37 | Outpatient (BNV) | payer OTHER, SELFPAY | PROVIDERS: PCP Internal Medicine; Visit Provider Internal Medicine Gastroenterology | DX: K21.9 Gastro-esophageal reflux disease without esophagitis (principal); K29.70 Gastritis, unspecified, without bleeding; K22.70 Barrett's esophagus without dysplasia | CPT/HCPCS: 43239 ==

== ENCOUNTER 2023-07-10 11:43 | Outpatient (REF) | payer OTHER, SELFPAY ==
[2023-07-10 11:47] VITALS: BP 131/51; PULSE 72; RESP 18; TEMP 36.6; O2SAT 99; BMI 37.2
--- NOTE | 2023-07-10 12:25 | HO.INF ---
12:30PM LAB IN- BLOOD WORK DRAWN.
[2023-07-10] MEDS: Vedolizumab 300 MG in 0.9 % Sodium Chloride 250 ML 510 MG IV (12:35)
[2023-07-12 19:43] LABS: TS Negative Control Passed; TS Panel A 0; TS Panel B 0; TS Positive Control Passed; TSpotTB Negative (Negative)
== END 2023-07-10 11:44 | disposition home or self-care (01) ==
LOC: HO.MDS 11:43
PROVIDERS: Visit Provider Internal Medicine Gastroenterology
DX: Z11.1 Encounter for screening for respiratory tuberculosis (principal); K52.9 Noninfective gastroenteritis and colitis, unspecified
CPT/HCPCS: 36415; 86481; 96365; J3380

== ENCOUNTER 2023-07-19 09:14 | Outpatient (AMB) | payer OTHER, SELFPAY ==
--- NOTE | 2023-07-19 09:19 | MHC.PC.OV ---
Vital Signs 07/19/23 09:20 Height 5 ft 1 in Weight 200 lb BMI 37.8 BP 140/78 H Blood Pressure Location Rt brachial Position Sitting Pulse 71 Pulse Source Pulse Oximeter Pulse Oximetry (%) 97 Oxygen Delivery Method Room Air Intake Visit Reasons: 6 Month follow up Allergies azithromycin [AZITHROMYCIN] Allergy (Intermediate, Verified 07/19/23 09:20) RASH ketorolac [From Toradol] Allergy (Intermediate, Verified 07/19/23 09:20) Rash Sulfa (Sulfonamide Antibiotics) [SULFA (SULFONAMIDE ANTIBIOTICS)] Allergy (Intermediate, Verified 07/19/23 09:20) RASH fluconazole [Diflucan] Allergy (Unknown, Verified 07/19/23 09:20) unknown topiramate [Topamax] Allergy (Unknown, Verified 07/19/23 09:20) unknown propranolol Allergy (Verified 07/19/23 09:44) itching amitriptyline Adverse Reaction (Intermediate, Verified 07/19/23 09:20) stomach upset nitrofurantoin Allergy (Severe, Uncoded 06/06/23 10:48) Hives Medication List - Last Reconciled 07/19/23 by Khanh Reynolds MD bupropion HCl 150 mg PO BID famotidine 40 mg PO BEDTIME gabapentin 300 mg PO TID 90 days lorazepam 1 mg PO BID montelukast 10 mg PO DAILY 90 days omeprazole 40 mg PO DAILY ondansetron 8 mg (2 x 4 mg) PO Q8H PRN sumatriptan succinate 50 mg PO ONCE PRN 30 days ursodiol 500 mg PO BID Ventolin HFA 90 mcg/actuation (albuterol sulfate) 1 inh inhalation Q6H PRN NS Tobacco use date assessed: 07/19/23 Dental Screening Dental Screen Date: 07/19/23 Did you have a dental visit in the last 12 months?: No Did you have a dental problem in the last 6 months where you did not have access to dental care?: No Was dental information given to patient?: Patient has dentist HPI 6 Month follow up HPI Details Patient is a 43-year-old female came in with a chief complaint of shooting pain around her head Patient does have a history of migraine, but she says that it feels different She have an appointment with the Neurology but it isn't until October On examination I see that she has lesions on the base of nose 3 in number following V1 trigeminal branch Patient says that the pain is radiating from that side up on her scalp I feel that patient is developing shingles I am treating her with famciclovir and prednisone She is to return in 2 days for follow-up appointment Her eyes exam is within normal limit I have discussed that with the patient if her eyes start tearing she needs to go to the emergency room for proper evaluation She was given script for sumatriptan 2 weeks ago when she called with migraine headaches Which is helping slightly I see that patient is allergic to propranolol, Topamax, amitriptyline [facility] Medical History Diarrhea Abnormal uterine bleeding (AUB) Pelvic pain Heavy menstrual bleeding Allergic rhinitis Asthma Smoker Abdominal pain Loud snoring ELIAZAR (obstructive sleep apnea) Somnolence, daytime Early satiety Colon polyps Hydradenitis History of fibromyalgia GERD (gastroesophageal reflux disease) History of headache Hx of irritable bowel syndrome Hx of ovarian cyst Hx of renal calculi History of anxiety Surgical History H/O tubal ligation History of esophagogastroduodenoscopy (EGD) H/O colonoscopy History of cholecystectomy History of Family History Father HTN (hypertension) Diabetes mellitus Liver cancer Alcoholic Substance use disorder Mother Anxiety Depression Liver tumor Brother Heart attack Buerger disease Stroke Seizure Diabetes mellitus Family/Other Mild asthma Maternal Grandmother Cancer of unknown origin Maternal Grandfather Liver cancer Paternal Grandfather Heart problem Other Mental health disorder Social History Household Members: Spouse and Children Housing: House Alcohol intake: current Alcohol intake frequency: does not drink Patient Tobacco Use Status: Current everyday Tobacco user Tobacco use type: Cigarette Cigarette Packs Per Day: 0.5 Cigarettes Per Day: 10 Years Smoked: 25 e-Cigarette/Vaping Use: Never Used Substance Use Type: Marijuana service: No Current occupational status: unemployed Current occupation: due to Covid Gender identity: Female Cognitive needs: No Hearing needs: No Vision needs: No Female Reproductive History Menstrual Age of Menarche: 10 Date of menopause: 02/21/23 Questionnaire PHQ-9 Over the last 2 weeks, how often have you been bothered by any of the following problems? 1. Little interest or pleasure in doing things: nearly every day 2. Feeling down, depressed, or hopeless: nearly every day 3. Trouble falling or staying asleep, or sleeping too much: nearly every day 4. Feeling tired or having little energy: nearly every day 5. Poor appetite or overeating: more than half the days 6. Feeling bad about yourself - or that you are a failure or have let yourself or your family down: several days 7. Trouble concentrating on things, such as reading the newspaper or watching television: nearly every day 8. Moving or speaking so slowly that other people could have noticed. Or the opposite - being so fidgety or restless that you have been moving around a lot more than usual: not at all 9. Thoughts that you would be better off or of hurting yourself in some way: not at all Total score: 18 Depression Screening Interpretation: Positive Depression Screening Follow-up: Existing condition and In treatment Depression Screening Done: Yes 03281 - PHQ-9 Billing: Yes Source: Developed by Drs. Tony Sandhu, Vidhya Esparza, Nitish Stein and colleagues, with an educational tonya from [employer]. Thrive Questionnaire Date Thrive assessed: 07/19/23 I am a: Patient What is your living situation today?: I have a steady place to live Within the past 12 months, did the food you bought not last and you didn't have the money to get more?: Never true Within the past 12 months, did you worry whether your food would run out before you got money to buy more?: Never true Do you have trouble paying for medicines?: Yes Do you have trouble getting transportation to medical appointments?: Yes Do you have trouble paying your heating and electricity bill?: No Do you have trouble taking care of your child, family member or friend?: No Do you have trouble with day-to-day activities such as bathing, preparing meals, shopping, managing finances, etc.?: Yes Are you currently unemployed and looking for a job?: Yes Are you interested in more education?: No Please select the resources that you would like help with: None Currently or been in a relationship where the following occur: no concerns reported THRIVE Score: 1 JUAN CARLOS-7 AMB Questionnaire JUAN CARLOS-7 Date JUAN CARLOS - 7 assessed: 01/18/23 Feeling nervous, anxious, or on edge: 3 = Nearly every day Not being able to stop or control worryin = Nearly every day Worrying too much about different things: 3 = Nearly every day Trouble relaxin = Nearly every day Being so restless that it is hard to sit still: 1 = Several days Becoming easily annoyed or irritable: 2 = More than half the days Feeling afraid as if something awful might happen: 2 = More than half the days Total JUAN CARLOS-7 score (0-4 normal; 5-9 mild; 10-14 moderate; 15-21 severe): 17 Source: Developed by Drs. Tony Sandhu, Vidhya Esparza, Nitish Stein and colleagues, with an educational tonya from [employer]. JUAN CARLOS-7 Assessment Billing JUAN CARLOS-7 Assessment Tool: JUAN CARLOS-7 Assessment 03431 Review of Systems Const Denies chills and Denies fever(s) ENT Denies epistaxis and Denies nasal discharge Card Denies chest pain Resp Denies chest congestion, Denies cough and Denies hemoptysis GI Denies diarrhea and Denies nausea Skin/Breast Denies rash Neuro Reports no additional complaints Psych Reports no additional complaints Endo Reports no additional complaints Physical exam (Primary Care) Vital Signs: Last Vital Signs Pulse 71 07/19/23 09:20 BP 140/78 H 07/19/23 09:20 Pulse Ox 97 07/19/23 09:20 Oxygen Delivery Method Room Air 07/19/23 09:20 BMI result Body Mass Index 37.8 Tobacco/Smoking Status: Tobacco use Status Tobacco use date assessed 07/19/23 07/19/23 09:26 Patient Tobacco Use Status Current everyday Tobacco 07/19/23 09:26 Tobacco use type Cigarette 07/19/23 09:26 e-Cigarette/Vaping Use Never Used 07/19/23 09:26 PHQ-9: PHQ-9 Score PHQ-9: Total score 18 07/19/23 10:13 Depression Screening Interpretation: Positive Depression Screening Follow-up: Existing condition and In treatment Thrive Assessment: Date of Thrive Assessment Date Thrive assessed 07/19/23 07/19/23 09:30 Currently or been in a relationship where the following occur: no concerns reported Const General: cooperative, comfortable and no acute distress Orientation/consciousness: patient oriented x3 HENNH Head: Yes normocephalic Face images: 1. Three vesicular papular lesions Eyes General: appearance normal, both eyes and all related structures Neck Neck: Yes supple Resp Effort & Inspection: normal respiratory effort, no cough and no stridor Cardio Rhythm: regular rhythm Heart sounds: S1 normal heart sound present and S2 normal heart sound present Skin General skin exam: turgor normal Neuro General: patient oriented x3, tone normal and moves all extremities Extrem Right lower extremity: no edema Left lower extremity: no edema Assessment and Plan Assessment & Plan (1) Shingles rash: Code(s): B02.9 - Zoster without complications Qualifiers: Herpes zoster complications: with other complications Qualified Code(s): B02.8 - Zoster with other complications (2) Burning sensation of eye: Code(s): H57.89 - Other specified disorders of eye and adnexa (3) Headache: Code(s): R51.9 - Headache, unspecified Qualifiers: Headache chronicity pattern: acute headache Headache type: unspecified Intractability: not intractable Qualified Code(s): R51.9 - Headache, unspecified (4) Shooting pain: Code(s): R52 - Pain, unspecified Plan Patient is 28-year-old female came in today for her regular follow-up appointment Patient have iron-deficiency anemia, currently taking iron supplement Labs were done in June, we will repeat labs again in August, order placed Patient continued to have coughing and shortness a breath off and on She is currently on Symbicort 2 puffs b.i.d. And montelukast. She had another respiratory infection 3 weeks ago, after that symptoms got worse again I am adding prednisone 10 mg she is to take 1 tablet daily for 10 days and then half a tablet daily for 10 days I have also placed a referral to enrichment specialist for further evaluation Medications: New famciclovir 500 mg PO Q8H 21 tabs 0RF 7 days prednisone 20 mg PO DAILY 5 tabs 0RF 5 days Coding Level of Care Code Est Pt Level 4 (58563) Diagnoses Herpes zoster with other complication B02.8 Herpes zoster complications: with other complications Burning sensation of eye H57.89 Acute nonintractable headache, unspecified headache type R51.9 Headache chronicity pattern: acute headache Headache type: unspecified Intractability: not intractable Shooting pain R52 Additional Codes JUAN CARLOS-7 Assessment Billing - JUAN CARLOS-7 Assessment Tool: JUAN CARLOS-7 Assessment [id number] ([id number])
[2023-07-19 09:20] VITALS: BP 140/78; PULSE 71; O2SAT 97; BMI 37.8
== END 2023-07-19 13:08 | disposition home or self-care (01) ==
PROVIDERS: PCP Internal Medicine; Visit Provider Internal Medicine
DX: B02.8 Zoster with other complications (principal); H57.89 Other specified disorders of eye and adnexa; R51.9 Headache, unspecified
CPT/HCPCS: 99214

== ENCOUNTER 2023-07-21 10:53 | Outpatient (AMB) | payer OTHER, SELFPAY ==
[2023-07-21 11:20] VITALS: BP 136/78; PULSE 105; O2SAT 90; BMI 37.8
--- NOTE | 2023-07-21 11:20 | MHC.PC.OV ---
Vital Signs 07/21/23 11:20 Height 5 ft 1 in Weight 200 lb BMI 37.8 BP 136/78 Blood Pressure Location Lt brachial Position Sitting Pulse 105 H Pulse Source Pulse Oximeter Pulse Oximetry (%) 90 L Oxygen Delivery Method Room Air Intake Visit Reasons: Follow up Per Dr. Reynolds Allergies azithromycin [AZITHROMYCIN] Allergy (Intermediate, Verified 07/21/23 11:23) RASH ketorolac [From Toradol] Allergy (Intermediate, Verified 07/21/23 11:23) Rash Sulfa (Sulfonamide Antibiotics) [SULFA (SULFONAMIDE ANTIBIOTICS)] Allergy (Intermediate, Verified 07/21/23 11:23) RASH fluconazole [Diflucan] Allergy (Unknown, Verified 07/21/23 11:23) unknown topiramate [Topamax] Allergy (Unknown, Verified 07/21/23 11:23) unknown propranolol Allergy (Verified 07/21/23 11:23) itching amitriptyline Adverse Reaction (Intermediate, Verified 07/21/23 11:23) stomach upset nitrofurantoin Allergy (Severe, Uncoded 06/06/23 10:48) Hives Medication List - Last Reconciled 07/21/23 by Khanh Reynolds MD bupropion HCl 150 mg PO BID famciclovir 500 mg PO Q8H 7 days famotidine 40 mg PO BEDTIME gabapentin 300 mg PO TID 90 days lorazepam 1 mg PO BID montelukast 10 mg PO DAILY 90 days omeprazole 40 mg PO DAILY ondansetron 8 mg (2 x 4 mg) PO Q8H PRN prednisone 20 mg PO DAILY 5 days sumatriptan succinate 50 mg PO ONCE PRN 30 days ursodiol 500 mg PO BID Ventolin HFA 90 mcg/actuation (albuterol sulfate) 1 inh inhalation Q6H PRN NS Tobacco use date assessed: 07/21/23 Dental Screening Dental Screen Date: 07/21/23 Did you have a dental visit in the last 12 months?: Yes Did you have a dental problem in the last 6 months where you did not have access to dental care?: No Was dental information given to patient?: Patient has dentist HPI Follow up Per Dr. Reynolds HPI Details Follow-up shingles Patient is suffering from V1 branch of trigeminal nerve herpes zoster She was started on Famvir and prednisone 2 days ago Her lesions on base of nose is improving 1 of them is dry other 1 is healing She has lesions left side of forehead and adventist as well Eyes are within normal limit there is no pain blurring of vision or tearing Patient is to continue with medications and finish them Continued to have throbbing pain in that area, she is already on gabapentin 300 mg for her back 3 times a day I have sent oxycodone 5 mg she may take 1q8 as needed 21 tablets sent Patient is aware of side effects of narcotics. [facility] Medical History Diarrhea Abnormal uterine bleeding (AUB) Pelvic pain Heavy menstrual bleeding Allergic rhinitis Asthma Smoker Abdominal pain Loud snoring ELIAZAR (obstructive sleep apnea) Somnolence, daytime Early satiety Colon polyps Hydradenitis History of fibromyalgia GERD (gastroesophageal reflux disease) History of headache Hx of irritable bowel syndrome Hx of ovarian cyst Hx of renal calculi History of anxiety Surgical History H/O tubal ligation History of esophagogastroduodenoscopy (EGD) H/O colonoscopy History of cholecystectomy History of Family History Father HTN (hypertension) Diabetes mellitus Liver cancer Alcoholic Substance use disorder Mother Anxiety Depression Liver tumor Brother Heart attack Buerger disease Stroke Seizure Diabetes mellitus Family/Other Mild asthma Maternal Grandmother Cancer of unknown origin Maternal Grandfather Liver cancer Paternal Grandfather Heart problem Other Mental health disorder Social History Household Members: Spouse and Children Housing: House Alcohol intake: current Alcohol intake frequency: does not drink Patient Tobacco Use Status: Current everyday Tobacco user Tobacco use type: Cigarette Cigarette Packs Per Day: 0.5 Cigarettes Per Day: 10 Years Smoked: 25 Packs Per Year: 13 Packs per year/per ci.50 e-Cigarette/Vaping Use: Never Used Substance Use Type: Marijuana service: No Current occupational status: unemployed Current occupation: due to Covid Gender identity: Female Cognitive needs: No Hearing needs: No Vision needs: No Female Reproductive History Menstrual Age of Menarche: 10 Date of menopause: 02/21/23 Questionnaire PHQ-9 Over the last 2 weeks, how often have you been bothered by any of the following problems? Depression Screening Interpretation: Positive Depression Screening Follow-up: Existing condition and In treatment Depression Screening Done: Yes Source: Developed by Drs. Tony Sandhu, Vidhya Esparza, Nitish Stein and colleagues, with an educational tonya from [employer]. Thrive Questionnaire Date Thrive assessed: 07/19/23 Currently or been in a relationship where the following occur: no concerns reported THRIVE Score: 0 AUDIT C Alcohol Use Questionnaire (AUDIT-C) 1. How often do you have a drink containing alcohol?: Never 3. How often do you have six or more drinks on one occasion?: Never Total Score: 0 Score Reviewed/Action Taken: Yes JUAN CARLOS-7 AMB Questionnaire JUAN CARLOS-7 Date JUAN CARLOS - 7 assessed: 01/18/23 Source: Developed by Drs. Tony Sandhu, Vidhya Esparza, Nitish Stein and colleagues, with an educational tonya from [employer]. Review of Systems Const Denies chills and Denies fever(s) ENT Denies epistaxis and Denies nasal discharge Card Denies chest pain Resp Denies chest congestion, Denies cough and Denies hemoptysis GI Denies diarrhea and Denies nausea Skin/Breast Denies rash Neuro Reports no additional complaints Psych Reports no additional complaints Endo Reports no additional complaints Physical exam (Primary Care) Vital Signs: Last Vital Signs Pulse 105 H 07/21/23 11:20 BP 136/78 07/21/23 11:20 Pulse Ox 90 L 07/21/23 11:20 Oxygen Delivery Method Room Air 07/21/23 11:20 BMI result Body Mass Index 37.8 Tobacco/Smoking Status: Tobacco use Status Tobacco use date assessed 07/21/23 07/21/23 11:24 Patient Tobacco Use Status Current everyday Tobacco 07/21/23 11:24 Tobacco use type Cigarette 07/21/23 11:24 e-Cigarette/Vaping Use Never Used 07/21/23 11:24 Depression Screening Interpretation: Positive Depression Screening Follow-up: Existing condition and In treatment Thrive Assessment: Date of Thrive Assessment Date Thrive assessed 07/19/23 07/21/23 11:24 Currently or been in a relationship where the following occur: no concerns reported Const General: cooperative, comfortable and no acute distress Orientation/consciousness: patient oriented x3 HENMT Head: Yes normocephalic Head images: 1. Two lesions 1 is dry other is healing 2. Two more lesions 3. One lesion all macular vesicular Eyes General: appearance normal, both eyes and all related structures Neck Neck: Yes supple Resp Effort & Inspection: normal respiratory effort, no cough and no stridor Cardio Rhythm: regular rhythm Heart sounds: S1 normal heart sound present and S2 normal heart sound present Skin General skin exam: turgor normal Neuro General: patient oriented x3, tone normal and moves all extremities Extrem Right lower extremity: no edema Left lower extremity: no edema Assessment and Plan Assessment & Plan (1) Shingles rash: Code(s): B02.9 - Zoster without complications Qualifiers: Herpes zoster complications: with other complications Qualified Code(s): B02.8 - Zoster with other complications (2) Headache: Code(s): R51.9 - Headache, unspecified Qualifiers: Headache type: unspecified Headache chronicity pattern: acute headache Intractability: not intractable Qualified Code(s): R51.9 - Headache, unspecified (3) Shooting pain: Code(s): R52 - Pain, unspecified Plan Follow-up shingles Patient is suffering from V1 branch of trigeminal nerve herpes zoster She was started on Famvir and prednisone 2 days ago Her lesions on base of nose is improving 1 of them is dry other 1 is healing She has lesions left side of forehead and adventist as well Eyes are within normal limit there is no pain blurring of vision or tearing Patient is to continue with medications and finish them Continued to have throbbing pain in that area, she is already on gabapentin 300 mg for her back 3 times a day I have sent oxycodone 5 mg she may take 1q8 as needed 21 tablets sent Patient is aware of side effects of narcotics. Medications: New oxycodone Partial Fill upon patient request. 5 mg PO Q8H PRN 21 tabs 0RF Shingles pain 7 days Coding Level of Care Code Est Pt Level 3 (06137) Diagnoses Herpes zoster with other complication B02.8 Herpes zoster complications: with other complications Acute nonintractable headache, unspecified headache type R51.9 Headache type: unspecified Headache chronicity pattern: acute headache Intractability: not intractable Shooting pain R52
== END 2023-07-21 11:42 | disposition home or self-care (01) ==
PROVIDERS: PCP Internal Medicine; Visit Provider Internal Medicine
DX: B02.8 Zoster with other complications (principal); R51.9 Headache, unspecified
CPT/HCPCS: 99213

== ENCOUNTER 2023-08-12 12:45 | Outpatient (REF) | payer OTHER, SELFPAY ==
--- NOTE | ~2023-08-12 | MR_ITS ---
MR BRAIN WITHOUT CONTRAST CLINICAL INFORMATION: Chronic migraine. COMPARISON: None available. TECHNIQUE: MRI of the brain was obtained using routine sequences without contrast. FINDINGS: There is no hydrocephalus, extra-axial surface collection, or herniation. A punctate focus of T2 signal change within the right frontal white matter is of doubtful clinical significance. The major flow voids at the skull base are preserved. There is no acute infarct on diffusion-weighted imaging. There is no intracranial hemorrhage on the gradient recalled echo acquisition. The midline structures are normal. The cerebellar tonsils are normally positioned. The cerebellum and brainstem are normal. The craniocervical junction is normal. Osseous marrow signal intensity is homogenous. The visualized soft tissues are unremarkable. MR/MR head/brain wo con IMPRESSION: Unremarkable MRI of the brain.
== END 2023-08-12 12:46 | disposition home or self-care (01) ==
LOC: HO.MRI 12:45
PROVIDERS: PCP Internal Medicine; Visit Provider Psychiatry & Neurology Neurology
DX: G43.709 Chronic migraine without aura, not intractable, without status migrainosus (principal)
CPT/HCPCS: 70551

== ENCOUNTER 2023-08-31 08:42 | Outpatient (AMB) | payer OTHER, SELFPAY ==
--- NOTE | 2023-08-31 09:29 | MHC.PC.OV ---
Intake Visit Reasons: gabapentin refill Allergies azithromycin [AZITHROMYCIN] Allergy (Intermediate, Verified 08/31/23 09:30) RASH ketorolac [From Toradol] Allergy (Intermediate, Verified 08/31/23 09:30) Rash Sulfa (Sulfonamide Antibiotics) [SULFA (SULFONAMIDE ANTIBIOTICS)] Allergy (Intermediate, Verified 08/31/23 09:30) RASH fluconazole [Diflucan] Allergy (Unknown, Verified 08/31/23 09:30) unknown topiramate [Topamax] Allergy (Unknown, Verified 08/31/23 09:30) unknown propranolol Allergy (Verified 08/31/23 09:30) itching amitriptyline Adverse Reaction (Intermediate, Verified 08/31/23 09:30) stomach upset nitrofurantoin Allergy (Severe, Uncoded 06/06/23 10:48) Hives Medication List - Last Reconciled 08/31/23 by Khanh Reynolds MD bupropion HCl SR 150 mg PO BID famotidine 40 mg PO BEDTIME gabapentin 300 mg PO TID 90 days lorazepam 1 mg PO BID montelukast 10 mg PO DAILY 90 days omeprazole 40 mg PO DAILY ondansetron 8 mg (2 x 4 mg) PO Q8H PRN sumatriptan succinate 50 mg PO ONCE PRN 30 days ursodiol 500 mg PO BID Ventolin HFA 90 mcg/actuation (albuterol sulfate) 1 inh inhalation Q6H PRN NS Tobacco use date assessed: 08/31/23 Dental Screening Dental Screen Date: 08/31/23 Did you have a dental visit in the last 12 months?: No Did you have a dental problem in the last 6 months where you did not have access to dental care?: No Was dental information given to patient?: Patient has dentist HPI gabapentin refill HPI Details Patient is 43-year-old female this is a telemedicine visit to fill her gabapentin Patient is taking 300 mg 3 times a day for fibromyalgia Recently she had to put down her dog 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 We also talked about her dog briefly, provided encouragement [facility] Medical History Diarrhea Abnormal uterine bleeding (AUB) Pelvic pain Heavy menstrual bleeding Allergic rhinitis Asthma Smoker Abdominal pain Loud snoring ELIAZAR (obstructive sleep apnea) Somnolence, daytime Early satiety Colon polyps Hydradenitis History of fibromyalgia GERD (gastroesophageal reflux disease) History of headache Hx of irritable bowel syndrome Hx of ovarian cyst Hx of renal calculi History of anxiety Surgical History H/O tubal ligation History of esophagogastroduodenoscopy (EGD) H/O colonoscopy History of cholecystectomy History of Family History Father HTN (hypertension) Diabetes mellitus Liver cancer Alcoholic Substance use disorder Mother Anxiety Depression Liver tumor Brother Heart attack Buerger disease Stroke Seizure Diabetes mellitus Family/Other Mild asthma Maternal Grandmother Cancer of unknown origin Maternal Grandfather Liver cancer Paternal Grandfather Heart problem Other Mental health disorder Social History Household Members: Spouse and Children Housing: House Alcohol intake: current Alcohol intake frequency: does not drink Patient Tobacco Use Status: Current everyday Tobacco user Tobacco use type: Cigarette Cigarette Packs Per Day: 0.5 Cigarettes Per Day: 10 Years Smoked: 25 Packs Per Year: 13 Packs per year/per ci.50 e-Cigarette/Vaping Use: Never Used Substance Use Type: Marijuana service: No Current occupational status: unemployed Current occupation: due to Covid Gender identity: Female Cognitive needs: No Hearing needs: No Vision needs: No Female Reproductive History Menstrual Age of Menarche: 10 Date of menopause: 02/21/23 Questionnaire Thrive Questionnaire Date Thrive assessed: 07/19/23 AUDIT C Alcohol Use Questionnaire (AUDIT-C) 1. How often do you have a drink containing alcohol?: Never 3. How often do you have six or more drinks on one occasion?: Never Total Score: 0 Score Reviewed/Action Taken: Yes JUAN CARLOS-7 AMB Questionnaire JUAN CARLOS-7 Date JUAN CARLOS - 7 assessed: 01/18/23 Source: Developed by Drs. Tony Sandhu, VidhyaNitish Esparza and colleagues, with an educational tonya from [employer]. Review of Systems Const Denies chills and Denies fever(s) ENT Denies epistaxis and Denies nasal discharge Card Denies chest pain Resp Denies chest congestion, Denies cough and Denies hemoptysis GI Denies diarrhea and Denies nausea Skin/Breast Denies rash Neuro Reports no additional complaints Psych Reports no additional complaints Endo Reports no additional complaints Physical exam (Primary Care) Tobacco/Smoking Status: Tobacco use Status Tobacco use date assessed 08/31/23 08/31/23 09:31 Patient Tobacco Use Status Current everyday Tobacco 08/31/23 09:31 Tobacco use type Cigarette 08/31/23 09:31 e-Cigarette/Vaping Use Never Used 08/31/23 09:31 Thrive Assessment: Date of Thrive Assessment Date Thrive assessed 07/19/23 08/31/23 09:31 Telehealth Telehealth Telehealth Platform: [facility] Location of provider rendering services: practice address Location of patient: address on file Patient Identification confirmed using: Name, : Yes Telehealth method: voice only Patient verbally consented to treatment: Yes Patient verbally consented to billing insurance company: Yes Patient informed of any privacy concerns related to visit: Yes Minutes spent on Phone/Video with Pt.: 13 Assessment and Plan Assessment & Plan (1) Headache: Code(s): R51.9 - Headache, unspecified Qualifiers: Headache type: unspecified Headache chronicity pattern: acute headache Intractability: not intractable Qualified Code(s): R51.9 - Headache, unspecified (2) Fibromyalgia: Code(s): M79.7 - Fibromyalgia (3) Emotional crisis: Code(s): F43.20 - Adjustment disorder, unspecified Plan Patient is 43-year-old female this is a telemedicine visit to fill her gabapentin Patient is taking 300 mg 3 times a day for fibromyalgia Recently she had to put down her dog 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 We also talked about her dog briefly, provided encouragement Patient is already seeing a mental health provider Medications: Refilled gabapentin 300 mg PO TID 270 caps 0RF 90 days M79.7 - Fibromyalgia Coding Level of Care Code Tele Est Pt Level 3 (77021) Diagnoses Acute nonintractable headache, unspecified headache type R51.9 Headache type: unspecified Headache chronicity pattern: acute headache Intractability: not intractable Fibromyalgia M79.7 Emotional crisis F43.20
== END 2023-08-31 10:14 | disposition home or self-care (01) ==
LOC: HO.HMGC 08:42
PROVIDERS: PCP Internal Medicine; Visit Provider Internal Medicine
DX: R51.9 Headache, unspecified (principal); M79.7 Fibromyalgia; F43.20 Adjustment disorder, unspecified
CPT/HCPCS: 99213

== ENCOUNTER 2023-09-03 13:51 | Emergency (ER) | payer OTHER, SELFPAY ==
--- NOTE | ~2023-09-03 | CT_ITS ---
EXAMINATION: CT ABDOMEN AND PELVIS WITHOUT CONTRAST CLINICAL INFORMATION: Right flank pain COMPARISON: CT abdomen 06/03/2023 TECHNIQUE: Multidetector volumetric imaging was performed from the superior aspect of the liver through the pubic symphysis. Sagittal and coronal reformatted images were obtained on the technologist's workstation. This CT examination was performed using dose optimization techniques as appropriate, variously including the following: *Automated exposure control *Adjustment of mA and/or kV according to patient size (this includes techniques or standardized protocols for targeted exams where dose is matched to indication/reason for exam; i.e. extremities or head) *Use of iterative reconstruction technique DLP: 837 mGy-cm FINDINGS: LUNG BASES: Bibasilar atelectasis. No pericardial or pleural effusion. LIVER, GALLBLADDER, AND BILIARY TREE: The liver is normal in size, shape, and attenuation. No focal hepatic lesion or biliary ductal dilatation is present. The gallbladder has been removed. PANCREAS: Unremarkable. SPLEEN: Unremarkable. ADRENAL GLANDS: Unremarkable. KIDNEYS AND URETERS: The kidneys are normal in size, shape, and attenuation. No hydronephrosis, hydroureter, or calculi seen. No perinephric stranding. 1.1 cm left renal lower pole cyst, stable. No follow-up indicated. BLADDER: Unremarkable. GASTROINTESTINAL TRACT: The small and large bowel are unremarkable. No acute inflammatory changes seen. The appendix is unremarkable. ABDOMINAL WALL: Small umbilical and paraumbilical hernias, stable. LYMPH NODES: Normal. VASCULAR: Unremarkable. PELVIC VISCERA: Unremarkable. Anteverted uterus. OSSEOUS STRUCTURES: Scattered degenerative spurring in the visualized thoracolumbar spine. CT/CT abdomen pelvis wo IV con IMPRESSION: No acute intra-abdominal findings identified. Bilateral basilar atelectasis. Additional Notes as above. Fleischner guidelines were followed.
[2023-09-03 14:02] VITALS: BP 130/90; PULSE 72; O2SAT 98; BMI 41.8
--- NOTE | 2023-09-03 14:26 | ED.ABDPAIN ---
HPI - Abdominal Pain General Chief Complaint: Abdominal Pain Stated Complaint: SUDDEN ABD/LOW BACK PAIN PER EMS Time Seen by Provider: 09/03/23 14:07 Source: patient and old records reviewed Mode of arrival: EMS Limitations: no limitations History of Present Illness HPI narrative: 43 yo female with PMH of migraines, pyelonephritis, obesity, fibromyalgia, GERD, IBS, tracheobronchitis, anxiety, UTI, asthma, ELIAZAR, prior back pain here with c/o suddent onset lower abdominal mostly right side and flank that wraps across the back no IVDA, no b/b incontinence no saddle anesthesia no fevers. MD elicited complaint: flank pain Pertinent past history: kidney stones Onset (ago): hour(s) (few) Pain Consistency: constant Location: RLQ Quality: other (throbbing) Radiation: bilateral flank and back Migration to: no migration Exacerbating factors: movement Relieving factors: nothing Associated symptoms: denies other symptoms Related Data Home Medications ?Medication ?Instructions ?Recorded ?Confirmed bupropion HCl 150 mg tablet,12 hr 150 mg PO BID 01/30/20 08/31/23 sustained-release lorazepam 1 mg tablet 1 mg PO BID 01/30/20 08/31/23 Previous Rx's ?Medication ?Instructions ?Recorded Ventolin HFA 90 mcg/actuation 1 inh inhalation Q6H PRN shortness 04/05/22 aerosol inhaler (albuterol sulfate) of breath or wheezing #18 grams ondansetron 4 mg disintegrating 8 mg (2 x 4 mg) PO Q8H PRN for 02/01/23 tablet nausea/vomiting #90 tabs montelukast 10 mg tablet 10 mg PO DAILY 90 days #90 tabs 05/31/23 famotidine 40 mg tablet 40 mg PO BEDTIME #60 tabs 06/05/23 omeprazole 40 mg capsule,delayed 40 mg PO DAILY #90 caps 06/05/23 release ursodiol 500 mg tablet 500 mg PO BID #60 tabs 06/05/23 sumatriptan succinate 50 mg tablet 50 mg PO ONCE PRN migraine 07/11/23 headache 30 days #10 tabs gabapentin 300 mg capsule 300 mg PO TID 90 days #270 caps 08/31/23 Allergies Allergy/AdvReac Type Severity Reaction Status Date / Time azithromycin [AZITHROMYCIN] Allergy Intermediate RASH Verified 09/03/23 14:04 ketorolac [From Toradol] Allergy Intermediate Rash Verified 09/03/23 14:04 Sulfa (Sulfonamide Allergy Intermediate RASH Verified 09/03/23 14:04 Antibiotics) [SULFA (SULFONAMIDE ANTIBIOTICS)] fluconazole [Diflucan] Allergy Unknown unknown Verified 09/03/23 14:04 topiramate [Topamax] Allergy Unknown unknown Verified 09/03/23 14:04 propranolol Allergy itching Verified 09/03/23 14:04 amitriptyline AdvReac Intermediate stomach Verified 09/03/23 14:04 upset nitrofurantoin Allergy Severe Hives Uncoded 09/03/23 14:04 Review of Systems Review of Systems Constitutional : No Weight loss, No Fever, No Chills, ENT/Mouth : No Hearing loss, No Ear Pain, No Nasal Congestion, No Sinus Pain, No Hoarseness, No sore throat, No Rhinorrhea, No Swallowing Difficulty Cardiovascular : No Chest Pain, No SOB Respiratory : No Cough, No Dyspnea Gastrointestinal : No Nausea, No Vomiting, No Diarrhea, pos abdominal Pain, No Hematochezia, No Melena Genitourinary : No Dysuria, No Urinary Frequency, No Hematuria, No Urinary Incontinence, Musculoskeletal : positive back pain Skin : No Skin Lesions, No rash Neuro : No Weakness, No Numbness, No Paresthesias, no loss of bowel or bladder incontinence, no saddle anesthesia all other systems reviewed and are negative PMFSH Past Medical History Medical History Diarrhea Abnormal uterine bleeding (AUB) Pelvic pain Heavy menstrual bleeding Allergic rhinitis Asthma Smoker Abdominal pain Loud snoring ELIAZAR (obstructive sleep apnea) Somnolence, daytime Early satiety Colon polyps Hydradenitis History of fibromyalgia GERD (gastroesophageal reflux disease) History of headache Hx of irritable bowel syndrome Hx of ovarian cyst Hx of renal calculi History of anxiety Surgical History H/O tubal ligation History of esophagogastroduodenoscopy (EGD) H/O colonoscopy History of cholecystectomy History of Family History Family History Father HTN (hypertension) Diabetes mellitus Liver cancer Alcoholic Substance use disorder Mother Anxiety Depression Liver tumor Brother Heart attack Buerger disease Stroke Seizure Diabetes mellitus Family/Other Mild asthma Maternal Grandmother Cancer of unknown origin Maternal Grandfather Liver cancer Paternal Grandfather Heart problem Other Mental health disorder Social History Social History Household Members: Spouse and Children Housing: House Alcohol intake: former Patient Tobacco Use Status: Current everyday Tobacco user Tobacco use type: Cigarette Cigarette Packs Per Day: 0.5 Cigarettes Per Day: 10 Years Smoked: 25 Smoked in Last 30 Days: Yes e-Cigarette/Vaping Use: Never Used Substance Use Type: Marijuana Advance Directives: No Advance Directives Information Provided: No service: No Current occupational status: unemployed Current occupation: due to Covid Gender identity: Female Cognitive needs: No Hearing needs: No Vision needs: No Physical Exam ED Vital Signs: Vital Signs - 24 hr 09/03/23 14:28 Temperature 97.3 F Pulse Rate 63 Respiratory Rate 18 Blood Pressure 124/53 L Pulse Oximetry 99 Oxygen Delivery Method Room Air BMI result Body Mass Index 41.8 Appearance: Alert. Oriented X3. No acute distress. Eyes: Pupils equal, round and reactive to light. ENT: Pharynx normal. Neck: Normal inspection. Neck supple. CVS: Normal heart rate and rhythm. Pulses normal. Respiratory: No respiratory distress. Breath sounds normal. Abdomen: Soft and non-tender. Back: ttp along lower lumbar spine Skin: Skin warm and dry. Normal skin color. Normal skin turgor. Extremities: No lower extremity edema. pain with leg raises Neuro: Oriented X 3. No motor deficit. No sensory deficit. Course Course Course Narrative: signed out to Dr. Muhammad pending workup Medical Decision Making Medical Decision Making MDM Narrative: 43 yo female with PMH of migraines, pyelonephritis, obesity, fibromyalgia, GERD, IBS, tracheobronchitis, anxiety, UTI, asthma, ELIAZAR, prior back pain here with c/o R flank pain and low back pain abdominal pain - no b/b incontinence, no IVDA, no saddle anesthesia - no IVDA, no thinners - she has no cauda equina symptoms. At this time will noemy labs, UA, IV dilaudid for pain, CT scan for renal colic Differential Diagnosis Differential Diagnoses: The differential diagnosis associated with the presentation includes back pain, renal colic, strain Admission/Observation Consideration of admission/observation: Escalation of care including admission/observation considered Lab Data MDM Lab Attestation statement: I reviewed the patient's lab results. 09/03/23 14:29 09/03/23 14:29 Labs: Lab Results 09/03/23 Range/Units 14:29 WBC 10.3 (4.8-10.8) X10*3/uL RBC 4.36 (4.20-5.50) X10*6/uL Hgb 13.1 (12.0-16.0) g/dl Hct 38.6 (37.0-47.0) % MCV 88.5 (80.0-98.0) fL MCH 30.0 (27.0-33.0) pg MCHC 33.9 (31.0-35.0) g/dl RDW 13.9 (11.0-16.0) % Plt Count 210 (160-400) X10*3/uL MPV 10.3 (9.4-12.3) fL Immature Gran % (Auto) 0.3 (0.0-0.4) % Neut % (Auto) 55.9 (45-73) % Lymph % (Auto) 29.6 (20-40) % [place] % (Auto) 6.8 (2-11) % Eos % (Auto) 6.6 H (0-4) % Baso % (Auto) 0.8 (0-2) % Lymph # (Auto) 3.0 (1.2-4.9) X10*3/uL [place] # (Auto) 0.7 (0.1-1.2) X10*3/uL Eos # (Auto) 0.7 H (0.0-0.4) X10*3/uL Baso # (Auto) 0.1 (0.0-0.2) X10*3/uL Abs Immat Gran (auto) 0.03 (0.00-0.03) X10*3/uL Absolute Neuts (auto) 5.8 (2.0-8.3) x10*3/uL Absolute Nucleated RBC 0.000 (0.0-0.012) X10*3/uL Nucleated RBC % (auto) 0.0 (0.0-0.2) /100WBC Sodium 140 (135-145) mmol/L Potassium 4.1 D (3.3-5.1) mmol/L Chloride 107 (96-108) mmol/L Carbon Dioxide 23 (22-29) mmol/L Anion Gap 14 (12-20) BUN 11 (9-16) mg/dL Creatinine 0.69 (0.5-1.4) mg/dL Estim Creat Clear Calc 111.9 Estimated GFR > 60 Random Glucose 87 (60-115) mg/dL Calcium 9.1 (8.4-10.2) mg/dL Magnesium 2.0 (1.6-2.6) mg/dL Total Bilirubin 0.4 (0.0-1.0) mg/dL Direct Bilirubin 0.1 (0.0-0.5) mg/dL AST 8 (5-31) U/L ALT 10 (0-31) U/L Alkaline Phosphatase 100 (39-117) U/L Total Protein 6.9 (6.5-8.0) g/dL Albumin 3.6 (3.5-5.0) g/dL Lipase 20 (8-78) U/L Beta HCG, Quant < 2 mIU/mL Independent Interpretation I performed an independent interpretation of an: CT Scan (no acute cause) Radiology Impression Discussion of test interpretation with radiology: I have reviewed the radiologist's reading. Independent Historian Clinical information obtained from an independent historian. History obtained from or confirmed by: EMS External Record Review External record reviewed: Inpatient record Medications Administered Discontinued Medications Generic Name Dose Route Start Last Admin Trade Name Freq PRN Reason Stop Dose Admin Hydromorphone HCl 1 mg 09/03/23 14:21 09/03/23 14:53 Hydromorphone Hcl 1 Mg/Ml Syringe IVPUSH 09/03/23 14:22 1 mg ONCE ONE Administration Protocol Ondansetron HCl 4 mg 09/03/23 14:21 09/03/23 14:53 Ondansetron Hcl 4 Mg/2 Ml Vial IVPUSH 09/03/23 14:22 4 mg ONCE ONE Administration Critical Care Time Critical Care Time Critical Care Time: Yes Total Critical Care Time: 35 Attestation: IV dilaudid with improvement in pain, review of records. Discharge Plan Discharge Clinical Impression: Abdominal pain Qualifiers: Abdominal location: lower abdomen, unspecified Qualified Code(s): R10.30 - Lower abdominal pain, unspecified Back pain Qualifiers: Back pain location: low back pain Chronicity: acute Back pain laterality: unspecified Sciatica presence: without sciatica Qualified Code(s): M54.50 - Low back pain, unspecified Patient Disposition: Still a Patient Prescriptions: No Action albuterol sulfate [Ventolin HFA] 90 mcg/actuation HFA aerosol inhaler 1 inh inhalation Q6H PRN (Reason: shortness of breath or wheezing) Qty: 18 2RF ondansetron 4 mg tablet,disintegrating 8 mg PO Q8H PRN (Reason: for nausea/vomiting) Qty: 90 2RF sumatriptan succinate 50 mg tablet 50 mg PO ONCE PRN (Reason: migraine headache) 30 Days Qty: 10 0RF montelukast 10 mg tablet 10 mg PO DAILY 90 Days Qty: 90 0RF gabapentin 300 mg capsule 300 mg PO TID 90 Days Qty: 270 0RF lorazepam 1 mg tablet 1 mg PO BID bupropion HCl 150 mg tablet sustained-release 12 hr 150 mg PO BID famotidine 40 mg tablet 40 mg PO BEDTIME Qty: 60 1RF omeprazole 40 mg capsule,delayed release(DR/EC) 40 mg PO DAILY Qty: 90 1RF ursodiol 500 mg tablet 500 mg PO BID Qty: 60 2RF Print Language: Uzbek
[2023-09-03 14:28] VITALS: BP 124/53; PULSE 63; RESP 18; TEMP 36.3; O2SAT 99
[2023-09-03 14:33] LABS: MANUAL DIFF FLAG NO
[2023-09-03 14:38] LABS: Basophils Absolute Auto 0.1 X10*3/uL (0.0-0.2); Basophils Percent Auto 0.8 % (0-2); Eosinophils Absolute Auto 0.7 X10*3/uL (0.0-0.4); Eosinophils Percent Auto 6.6 % (0-4); Hematocrit 38.6 % (37.0-47.0); Hemoglobin 13.1 g/dl (12.0-16.0); Imm Gran Abs Auto 0.03 X10*3/uL (0.00-0.03); Imm Gran Pct Auto 0.3 % (0.0-0.4); Lymphocytes Percent Auto 29.6 % (20-40); Mean Corpuscular HGB Conc 33.9 g/dl (31.0-35.0); Mean Corpuscular Volume 88.5 fL (80.0-98.0); Mean Platelet Volume 10.3 fL (9.4-12.3); Monocytes Absolute Auto 0.7 X10*3/uL (0.1-1.2); Monocytes Percent Auto 6.8 % (2-11); Neutrophils Absolute Auto 5.8 x10*3/uL (2.0-8.3); Neutrophils Percent Auto 55.9 % (45-73); Platelet Count 210 X10*3/uL (160-400); Red Blood Count 4.36 X10*6/uL (4.20-5.50); Red Cell Distribution Width 13.9 % (11.0-16.0); White Blood Count 10.3 X10*3/uL (4.8-10.8)
[2023-09-03] MEDS: ondansetron HCL 4 MG/2 ML VIAL IVPUSH (14:53)
[2023-09-03] MEDS: HYDROmorphone HCl 1 MG/ML SYRINGE IVPUSH (14:53)
[2023-09-03 15:00] LABS: Alanine Aminotransferase 10 U/L (0-31); Albumin Level 3.6 g/dL (3.5-5.0); Alkaline Phosphatase 100 U/L (39-117); Anion Gap 14 (12-20); Aspartate Amino Transferase 8 U/L (5-31); Bilirubin Direct 0.1 mg/dL (0.0-0.5); Bilirubin Total 0.4 mg/dL (0.0-1.0); Blood Urea Nitrogen 11 mg/dL (9-16); Calcium 9.1 mg/dL (8.4-10.2); Carbon Dioxide 23 mmol/L (22-29); Chloride 107 mmol/L (96-108); Creatinine Clr Calc Pharmacy 111.9; Estimated Glomerular Filt Rate > 60; Glucose Random 87 mg/dL (60-115); Lipase 20 U/L (8-78); Potassium 4.1 mmol/L (3.3-5.1); Sodium 140 mmol/L (135-145); Total Protein 6.9 g/dL (6.5-8.0)
[2023-09-03 15:05] LABS: HCG Quantitative < 2 mIU/mL
[2023-09-03 18:00] VITALS: BP 128/72; PULSE 77; RESP 18; TEMP 36.6; O2SAT 97
[2023-09-03 19:50] VITALS: BP 113/50; PULSE 67; RESP 16; TEMP 36.6; O2SAT 98
--- NOTE | 2023-09-03 20:12 | PC.NURSE ---
Urine sent to lab
[2023-09-03 20:16] LABS: Appearance Urine Clear; Color Urine Yellow; Glucose Urine UA Negative (Negative); Leukocyte Esterase Urine Negative (Negative); Nitrite Urine Negative (Negative); PH 6.5 (5.0-9.0); Urine Blood Negative (Negative); Urine Ketones Negative (Negative); Urine Protein Negative (Neg-Trace)
[2023-09-03 21:07] VITALS: BP 120/62; PULSE 64; RESP 16; TEMP 36.6; O2SAT 98
== END 2023-09-03 21:08 | disposition home or self-care (01) ==
PROVIDERS: Emergency Provider Emergency Medicine
DX: R10.30 Lower abdominal pain, unspecified (principal); M54.50 Low back pain, unspecified; Z87.442 Personal history of urinary calculi
CPT/HCPCS: 36415; 74176; 80048; 80076; 81003; 83690; 83735; 84702; 85025; 99284; J1170; J2405

== ENCOUNTER 2023-09-19 10:30 | Day surgery (SDC) | payer OTHER, SELFPAY ==
--- NOTE | 2023-09-15 14:23 | HO.ANESPROP2 ---
Documented by User: Berenice Gannon NP 09/15/23 14:23 HPI - Anesthesia Eval Consult details Narrative: 43yo F for Sigmoidoscopy Flexible s/p EGD 06/2023 with GA-ETT 7 PMFSH Active Problems Active Problems: All Active Problems Emotional crisis (Acute) Acute nonintractable headache (Acute) Shooting pain (Acute) Headache (Acute) Burning sensation of eye (Acute) Shingles rash (Acute) Gastritis and gastroduodenitis (Acute) Obesity due to excess calories (Acute) Acute pyelonephritis (Acute) Multiple bruises (Acute) Leukocytosis (leucocytosis) (Acute) Diarrhea (Acute) Encounter to discuss test results (Acute) Enteritis (Acute) Change in facial mole (Acute) Blood in urine (Acute) Complicated migraine with status migrainosus (Acute) Blurring of vision (Acute) Heart palpitations (Acute) Fibromyalgia (Acute) Morbid obesity (Acute) Menorrhagia (Acute) Hidradenitis suppurativa (Acute) Shortness of breath on exertion (Acute) Chest pain (Acute) Chest pain due to GERD (Acute) Morbid obesity (Acute) Esophagitis (Acute) Irritable bowel syndrome (IBS) (Acute) Tracheobronchitis (Acute) Sleeping difficulty (Acute) Breast lump on right side at 10 o'clock position (Acute) Morbid obesity due to excess calories (Acute) Encounter for general adult medical examination with abnormal findings (Acute) Precordial chest pain (Acute) Contact with and (suspected) exposure to other viral communicable diseases (Acute) Cough (Acute) Post-COVID chronic cough (Acute) Fibromyalgia (Acute) Hospital discharge follow-up (Acute) Bleeding hemorrhoids (Acute) Constipation by delayed colonic transit (Acute) Shortness of breath (Acute) Gastroparesis (Acute) Abdominal pain, left lower quadrant (Acute) Acute nausea with nonbilious vomiting (Acute) Feeling sick (Acute) Acute abdominal pain in left lower quadrant (Acute) Nausea (Acute) Abnormal menses (Acute) Major depression, recurrent (Acute) Anxiety, generalized (Acute) Complicated grieving (Acute) Upper respiratory tract infection (Acute) Encounter for general adult medical examination with abnormal findings (Acute) Chronic nausea (Acute) Knee pain, left (Acute) Osteoarthritis of left knee (Acute) Complicated urinary tract infection (Acute) Urinary urgency (Acute) Stress incontinence (Acute) Dysuria (Acute) UTI (urinary tract infection) (Acute) Recurrent UTI (Acute) Overactive bladder (Acute) LFT elevation (Acute) Chronic abdominal pain (Acute) Celiac axis compression syndrome (Acute) Environmental allergies (Acute) Abnormal uterine bleeding (AUB) (Acute) Pelvic pain (Acute) Heavy menstrual bleeding (Acute) Allergic rhinitis (Acute) Asthma (Acute) Smoker (Acute) Abdominal pain (Acute) Loud snoring (Acute) ELIAZAR (obstructive sleep apnea) (Acute) Somnolence, daytime (Acute) Early satiety (Acute) Colon polyps (Acute) Acid reflux (Acute) Past Medical History Medical History Diarrhea Abnormal uterine bleeding (AUB) Pelvic pain Heavy menstrual bleeding Allergic rhinitis Asthma Smoker Abdominal pain Loud snoring ELIAZAR (obstructive sleep apnea) Somnolence, daytime Early satiety Colon polyps Hydradenitis History of fibromyalgia GERD (gastroesophageal reflux disease) History of headache Hx of irritable bowel syndrome Hx of ovarian cyst Hx of renal calculi History of anxiety Family History Family History Father HTN (hypertension) Diabetes mellitus Liver cancer Alcoholic Substance use disorder Mother Anxiety Depression Liver tumor Brother Heart attack Buerger disease Stroke Seizure Diabetes mellitus Family/Other Mild asthma Maternal Grandmother Cancer of unknown origin Maternal Grandfather Liver cancer Paternal Grandfather Heart problem Other Mental health disorder Family history of problems with anesthesia: No Surgical History Surgical History H/O tubal ligation History of esophagogastroduodenoscopy (EGD) H/O colonoscopy History of cholecystectomy History of History of Problems with Anesthesia: No Social History Social History Household Members: Spouse and Children Housing: House Alcohol intake: former Patient Tobacco Use Status: Current everyday Tobacco user Tobacco use type: Cigarette Cigarette Packs Per Day: 0.5 Cigarettes Per Day: 10.0 Years Smoked: 25 e-Cigarette/Vaping Use: Never Used Date Education Initiated: 09/19/23 Use of substances other than those prescribed or required for medical reasons: Yes Substance Use Type: Marijuana Substance Use Type Other:: 3 x week none today Are you DNR?: No Advance Directives: No Advance Directives Information Provided: Yes service: No Current occupational status: unemployed Current occupation: due to Covid Gender identity: Female Cognitive needs: No Hearing needs: No Vision needs: No Meds Allergies Allergy/AdvReac Type Severity Reaction Status Date / Time azithromycin [AZITHROMYCIN] Allergy Intermediate RASH Verified 09/19/23 11:59 ketorolac [From Toradol] Allergy Intermediate Rash Verified 09/19/23 11:59 Sulfa (Sulfonamide Allergy Intermediate RASH Verified 09/19/23 11:59 Antibiotics) [SULFA (SULFONAMIDE ANTIBIOTICS)] fluconazole [Diflucan] Allergy Unknown unknown Verified 09/19/23 11:59 topiramate [Topamax] Allergy Unknown unknown Verified 09/19/23 11:59 propranolol Allergy itching Verified 09/19/23 11:59 amitriptyline AdvReac Intermediate stomach Verified 09/19/23 11:59 upset nitrofurantoin Allergy Severe Hives Uncoded 09/19/23 11:59 Home Medications ?Medication ?Instructions ?Recorded ?Confirmed ?Last Taken ?Type bupropion HCl 150 mg tablet,12 hr 150 mg PO BID 01/30/20 09/19/23 Unknown History sustained-release lorazepam 1 mg tablet 1 mg PO BID 01/30/20 09/19/23 09/19/23 History Exam Narrative Narrative: EKG 06/2023 Vent. Rate : 059 BPM Atrial Rate : 059 BPM P-R Int : 154 ms QRS Dur : 070 ms QT Int : 384 ms P-R-T Axes : 038 -14 -31 degrees QTc Int : 380 ms Sinus bradycardia Nonspecific T wave abnormality Abnormal ECG When compared with ECG of 03-JUN-2023 08:25, QT has shortened Assessment and Plan Assessment Anesthesia Assessment: Chart Reviewed Final Anesthetic Review Family History of Problems with Anesthesia: No History of Problems with Anesthesia: No Documented by User: Kristan Dean MD 09/19/23 13:47 [facility] Past Medical History Medical History Diarrhea Abnormal uterine bleeding (AUB) Pelvic pain Heavy menstrual bleeding Allergic rhinitis Asthma Smoker Abdominal pain Loud snoring ELIAZAR (obstructive sleep apnea) Somnolence, daytime Early satiety Colon polyps Hydradenitis History of fibromyalgia GERD (gastroesophageal reflux disease) History of headache Hx of irritable bowel syndrome Hx of ovarian cyst Hx of renal calculi History of anxiety Family History Family History Father HTN (hypertension) Diabetes mellitus Liver cancer Alcoholic Substance use disorder Mother Anxiety Depression Liver tumor Brother Heart attack Buerger disease Stroke Seizure Diabetes mellitus Family/Other Mild asthma Maternal Grandmother Cancer of unknown origin Maternal Grandfather Liver cancer Paternal Grandfather Heart problem Other Mental health disorder Surgical History Surgical History H/O tubal ligation History of esophagogastroduodenoscopy (EGD) H/O colonoscopy History of cholecystectomy History of Social History Social History Household Members: Spouse and Children Housing: House Alcohol intake: former Patient Tobacco Use Status: Current everyday Tobacco user Tobacco use type: Cigarette Cigarette Packs Per Day: 0.5 Cigarettes Per Day: 10.0 Years Smoked: 25 e-Cigarette/Vaping Use: Never Used Date Education Initiated: 09/19/23 Use of substances other than those prescribed or required for medical reasons: Yes Substance Use Type: Marijuana Substance Use Type Other:: 3 x week none today Are you DNR?: No Advance Directives: No Advance Directives Information Provided: Yes service: No Current occupational status: unemployed Current occupation: due to Covid Gender identity: Female Cognitive needs: No Hearing needs: No Vision needs: No Meds Allergies Allergy/AdvReac Type Severity Reaction Status Date / Time azithromycin [AZITHROMYCIN] Allergy Intermediate RASH Verified 09/19/23 11:59 ketorolac [From Toradol] Allergy Intermediate Rash Verified 09/19/23 11:59 Sulfa (Sulfonamide Allergy Intermediate RASH Verified 09/19/23 11:59 Antibiotics) [SULFA (SULFONAMIDE ANTIBIOTICS)] fluconazole [Diflucan] Allergy Unknown unknown Verified 09/19/23 11:59 topiramate [Topamax] Allergy Unknown unknown Verified 09/19/23 11:59 propranolol Allergy itching Verified 09/19/23 11:59 amitriptyline AdvReac Intermediate stomach Verified 09/19/23 11:59 upset nitrofurantoin Allergy Severe Hives Uncoded 09/19/23 11:59 Home Medications ?Medication ?Instructions ?Recorded ?Confirmed ?Last Taken ?Type bupropion HCl 150 mg tablet,12 hr 150 mg PO BID 01/30/20 09/19/23 Unknown History sustained-release lorazepam 1 mg tablet 1 mg PO BID 01/30/20 09/19/23 09/19/23 History Exam Airway Mallampati Class: II TM Dist: >3cm Neck ROM: Full Heart: rrrr Lungs: cta Assessment and Plan Assessment Anesthesia Assessment: Anesthesia Plan Discussed Final Anesthetic Review NPO: Yes ASA Class: III Final Preanesthetic Review: No Changes in Pt Med Stat, Meds/Allgs Chart Reviewed, Consent Obtained/Reviewed and Anes Risks/Benef Reviewed Patient Risk: Intermediate Procedure Risk: Low Anesthetic Plan Anesthetic Plan: MAC: Disposition: Standard PACU
[2023-09-19 11:52] VITALS: BMI 39.3
[2023-09-19] MEDS: Lactated Ringers 1,000 ML 100 ML IVCONT (12:32)
[2023-09-19] MEDS: Sodium Phosphate,Mono-Dibasic 133 ML ENEMA PR (12:47)
[2023-09-19 12:50] VITALS: BP 145/67; PULSE 77; RESP 18; TEMP 36.7; O2SAT 97
--- NOTE | 2023-09-19 13:20 | MHC.SHP ---
Pre-Procedural Eval Section A - 24 Hr Update-Section A only Date of Service: 09/19/23 Section B - Complete if H&P > 30 days Chief Complaint: Unspecified hemorrhoids,Unspecified abdominal pain Relevant Family History (Specify if Yes): No Relevant Social History: Tobacco Use Present Medications: see Short Stay Collaborative assessment Medical History: Significant History (Diarrhea Abnormal uterine bleeding (AUB) Pelvic pain Heavy menstrual bleeding Allergic rhinitis Asthma Smoker Abdominal pain Loud snoring ELIAZAR (obstructive sleep apnea) Somnolence, daytime Early satiety Colon polyps Hydradenitis History of fibromyalgia GERD (gastroesophageal reflux disease) History o) History of Previous Operations: Relevant previous surgery/procedure and date(s) (H/O tubal ligation History of esophagogastroduodenoscopy (EGD) H/O colonoscopy History of cholecystectomy History of ) Allergies: Allergies Allergy/AdvReac Type Severity Reaction Status Date / Time azithromycin [AZITHROMYCIN] Allergy Intermediate RASH Verified 09/19/23 11:59 ketorolac [From Toradol] Allergy Intermediate Rash Verified 09/19/23 11:59 Sulfa (Sulfonamide Allergy Intermediate RASH Verified 09/19/23 11:59 Antibiotics) [SULFA (SULFONAMIDE ANTIBIOTICS)] fluconazole [Diflucan] Allergy Unknown unknown Verified 09/19/23 11:59 topiramate [Topamax] Allergy Unknown unknown Verified 09/19/23 11:59 propranolol Allergy itching Verified 09/19/23 11:59 amitriptyline AdvReac Intermediate stomach Verified 09/19/23 11:59 upset nitrofurantoin Allergy Severe Hives Uncoded 09/19/23 11:59 Review of Systems Sugical H&P ROS: Negative: Constitution, Cardiovascular, Respiratory, Neurological, Psychiatric, Hem-Onc, Allergic/Immunologic, Gastrointestinal, Genitourinary, Musculoskeletal, Integumentary, Endocrine and Eyes/Ears/Nose/Throat Exam Surgical H&P Exam: Normal: HEENT, Normal: Heart, Normal: Lungs, Normal: Extremities, Normal: Abdomen, Normal: Skin and Normal: Neurological Plan Diagnosis/Plan: Unchanged I have reviewed the history and physical and performed a pertinent physical examination on my patient. No changes have occurred unless specified. Time Spent With Patient Time: Total time managing care of this patient today ____ minutes.
--- NOTE | 2023-09-19 14:20 | W.PM.OPN ---
Operative Note Operative Note Date of Service: 09/19/23 Narrative: Procedure Description: sigmoidoscopy Indication: abdominal pain, cramping Anesthesia: MAC Sigmoidoscopy Instrument: pediatric colonoscope Colonoscopy Monitoring: Vital signs and clinical assessment, continuous EKG monitoring, Pulse oximetry, Carbon Dioxide monitoring and blood pressure monitoring were done throughout the procedure. Procedure: The patient was placed in the left lateral decubitis position and pre-procedure medications were administered. After a digital rectal examination of the ano-rectum, the video colonoscope was inserted into the rectum and advanced through the colon to the sigmoid colon The scope was slowly withdrawn in a retrograde panoramic fashion and the colon mucosa was carefully examined . Findings and interventions are described below. Procedure Difficulty: easy Findings: Transverse Colon- normal Sigmoid Colon: normal, random bx taken, 8-10 mm sessile polyp removed with cold snare Rectum: Normal , retroflexion with small internal hemorrhoids , rectal bx taken Anorectum - normal Colon preparation: fair Impression and Post Procedure Diagnosis: internal hemorrhoids polyp Plan: get back on entyvio await bx results Above findings were reviewed with the patient and relevant handouts were provided if indicated.
[2023-09-19 14:22] VITALS: BP 92/46; PULSE 72; RESP 16; TEMP 36.1; O2SAT 99
[2023-09-19 14:37] VITALS: BP 106/77; PULSE 73; RESP 16; TEMP 36.1; O2SAT 100
[2023-09-19 15:44] LABS: CDiff Gene PCR NEGATIVE (Negative)
[2023-09-20 12:55] LABS: Adenovirus F 40/41 Not Detected (Not Detect.); Astrovirus Not Detected (Not Detect.); Campylobacter Not Detected (Not Detect.); Cryptosporidium Not Detected (Not Detect.); Cyclospora cayetanensis Not Detected (Not Detect.); E. coli EAEC Not Detected (Not Detect.); E. coli EPEC Not Detected (Not Detect.); E. coli ETEC Not Detected (Not Detect.); E. coli STEC Not Detected (Not Detect.); Entamoeba histolytica Not Detected (Not Detect.); Giardia lamblia Not Detected (Not Detect.); Norovirus GI/GII Not Detected (Not Detect.); Plesiomonas shigelloides Not Detected (Not Detect.); Rotavirus A Not Detected (Not Detect.); Salmonella Not Detected (Not Detect.); Sapovirus Not Detected (Not Detect.); Shigella sp./EIEC Not Detected (Not Detect.); Vibrio Not Detected (Not Detect.); Vibrio Cholerae Not Detected (Not Detect.); Yersinia enterocolitica Not Detected (Not Detect.)
[2023-09-23 22:38] LABS: Lactoferrin, Fecal, Quant. <6.25 mcg/mL (<7.25)
== END 2023-09-19 14:56 | disposition home or self-care (01) ==
PROVIDERS: Visit Provider Internal Medicine Gastroenterology
PROC: 0DJD8ZZ Inspection of Lower Intestinal Tract, Via Natural or Artificial Opening Endoscopic (ICD-10-PCS; CPT 45330; principal; 2023-09-19 13:20)
DX: R10.9 Unspecified abdominal pain (principal); K63.5 Polyp of colon; K64.8 Other hemorrhoids; J45.909 Unspecified asthma, uncomplicated; G47.33 Obstructive sleep apnea (adult) (pediatric); Z88.1 Allergy status to other antibiotic agents; Z88.2 Allergy status to sulfonamides; Z88.6 Allergy status to analgesic agent; Z88.8 Allergy status to other drugs, medicaments and biological substances
CPT/HCPCS: 45331; 83631; 87493; 87507; 88305; J2704

== ENCOUNTER → 2023-09-19 10:30 | Outpatient (BNV) | payer OTHER, SELFPAY | PROVIDERS: Visit Provider Internal Medicine Gastroenterology | DX: R10.9 Unspecified abdominal pain (principal); K63.5 Polyp of colon; K64.0 First degree hemorrhoids | CPT/HCPCS: 45331; 45338 ==

== ENCOUNTER 2023-10-20 08:42 | Outpatient (AMB) | payer OTHER, SELFPAY ==
--- NOTE | 2023-10-20 08:45 | A.OFFPC_ITS ---
Vital Signs 10/20/23 08:47 Height 5 ft 2 in Weight 230 lb 4 oz BMI 42.1 BP 114/76 Blood Pressure Location Rt brachial Position Sitting Pulse 69 Pulse Source Pulse Oximeter Pulse Oximetry (%) 100 Oxygen Delivery Method Room Air Intake Visit Reasons: 9 Month follow up Allergies azithromycin [AZITHROMYCIN] Allergy (Intermediate, Verified 10/20/23 08:45) RASH ketorolac [From Toradol] Allergy (Intermediate, Verified 10/20/23 08:45) Rash Sulfa (Sulfonamide Antibiotics) [SULFA (SULFONAMIDE ANTIBIOTICS)] Allergy (Intermediate, Verified 10/20/23 08:45) RASH fluconazole [Diflucan] Allergy (Unknown, Verified 10/20/23 08:45) unknown topiramate [Topamax] Allergy (Unknown, Verified 10/20/23 08:45) unknown propranolol Allergy (Verified 10/20/23 08:45) itching amitriptyline Adverse Reaction (Intermediate, Verified 10/20/23 08:45) stomach upset nitrofurantoin Allergy (Severe, Uncoded 09/19/23 11:59) Hives Medication List - Last Reconciled 10/20/23 by Khanh Reynolds MD bupropion HCl SR 150 mg PO BID famotidine 40 mg PO BEDTIME gabapentin 300 mg PO TID 90 days lorazepam 1 mg PO BID montelukast 10 mg PO DAILY 90 days omeprazole 40 mg PO DAILY ondansetron 8 mg (2 x 4 mg) PO Q8H PRN oxycodone 5 mg PO Q8H PRN 3 days sumatriptan succinate 50 mg PO ONCE PRN 30 days ursodiol 500 mg PO BID Ventolin HFA 90 mcg/actuation (albuterol sulfate) 1 inh inhalation Q6H PRN NS Tobacco use date assessed: 10/20/23 Dental Screening Dental Screen Date: 10/20/23 Did you have a dental visit in the last 12 months?: Yes Did you have a dental problem in the last 6 months where you did not have access to dental care?: No Was dental information given to patient?: Patient has dentist HPI 9 Month follow up HPI Details Patient is 43-year-old female came in for her regular follow-up appointment Patient has developed patella problem right knee, she says that she feels as if it moves randomly and it is very painful She has to push it back in She is requesting an orthopedic referral which I have placed for her. Patient was having lot of abdominal issues and has lost weight but she tells me that she has gained 50 lb back She has appointment coming up with gastroenterology in 1 week Patient is taking gabapentin 300 mg 3 times a day for fibromyalgia Headaches are stable Labs were done August of this year, reviewed CBC within normal limit and metabolic profile is within normal limit liver enzymes are normal. Patient has appointment in December for physical exam BMI is elevated patient is aware. [facility], [facility] Medical History Diarrhea Abnormal uterine bleeding (AUB) Pelvic pain Heavy menstrual bleeding Allergic rhinitis Asthma Smoker Abdominal pain Loud snoring ELIAZAR (obstructive sleep apnea) Somnolence, daytime Early satiety Colon polyps Hydradenitis History of fibromyalgia GERD (gastroesophageal reflux disease) History of headache Hx of irritable bowel syndrome Hx of ovarian cyst Hx of renal calculi History of anxiety Surgical History H/O tubal ligation History of esophagogastroduodenoscopy (EGD) H/O colonoscopy History of cholecystectomy History of Family History Father HTN (hypertension) Diabetes mellitus Liver cancer Alcoholic Substance use disorder Mother Anxiety Depression Liver tumor Brother Heart attack Buerger disease Stroke Seizure Diabetes mellitus Family/Other Mild asthma Maternal Grandmother Cancer of unknown origin Maternal Grandfather Liver cancer Paternal Grandfather Heart problem Other Mental health disorder Social History Household Members: Spouse and Children Housing: House Alcohol intake: former Patient Tobacco Use Status: Current everyday Tobacco user Tobacco use type: Cigarette Cigarette Packs Per Day: 0.5 Cigarettes Per Day: 10.0 Years Smoked: 25 e-Cigarette/Vaping Use: Never Used Substance Use Type: Marijuana service: No Current occupational status: unemployed Current occupation: due to Covid Gender identity: Female Cognitive needs: No Hearing needs: No Vision needs: No Female Reproductive History Menstrual Age of Menarche: 10 Date of menopause: 02/21/23 Questionnaire Thrive Questionnaire Date Thrive assessed: 07/19/23 AUDIT C Alcohol Use Questionnaire (AUDIT-C) 1. How often do you have a drink containing alcohol?: Never 3. How often do you have six or more drinks on one occasion?: Never Total Score: 0 Score Reviewed/Action Taken: Yes JUAN CARLOS-7 AMB Questionnaire JUAN CARLOS-7 Date JUAN CARLOS - 7 assessed: 10/20/23 Source: Developed by Drs. Tony Sandhu, Vidhya Esparza, Niitsh Stein and colleagues, with an educational tonya from [employer]. Review of Systems Const Denies chills and Denies fever(s) ENT Denies epistaxis and Denies nasal discharge Card Denies chest pain Resp Denies chest congestion, Denies cough and Denies hemoptysis GI Denies diarrhea and Denies nausea Skin/Breast Denies rash Neuro Reports no additional complaints Psych Reports no additional complaints Endo Reports no additional complaints Physical exam (Primary Care) Vital Signs: Last Vital Signs Pulse 69 10/20/23 08:47 BP 114/76 10/20/23 08:47 Pulse Ox 100 10/20/23 08:47 Oxygen Delivery Method Room Air 10/20/23 08:47 BMI result Body Mass Index 42.1 Tobacco/Smoking Status: Tobacco use Status Tobacco use date assessed 10/20/23 10/20/23 08:50 Patient Tobacco Use Status Current everyday Tobacco 10/20/23 08:45 Tobacco use type Cigarette 10/20/23 08:45 e-Cigarette/Vaping Use Never Used 10/20/23 08:45 Thrive Assessment: Date of Thrive Assessment Date Thrive assessed 07/19/23 10/20/23 08:45 Const General: cooperative, comfortable and no acute distress Orientation/consciousness: patient oriented x3 [facility] Head: Yes normocephalic Eyes General: appearance normal, both eyes and all related structures Neck Neck: Yes supple Resp Effort & Inspection: normal respiratory effort, no cough and no stridor Cardio Rhythm: regular rhythm Heart sounds: S1 normal heart sound present and S2 normal heart sound present Skin General skin exam: turgor normal Neuro General: patient oriented x3, tone normal and moves all extremities Extrem Other: Right patella is in place at this time, range of motion intact Right lower extremity: no edema Left lower extremity: no edema Assessment and Plan Assessment & Plan (1) Headache: Code(s): R51.9 - Headache, unspecified Qualifiers: Headache type: unspecified Headache chronicity pattern: acute headache Intractability: not intractable Qualified Code(s): R51.9 - Headache, unspecified (2) Fibromyalgia: Code(s): M79.7 - Fibromyalgia (3) Obesity due to excess calories: Code(s): E66.09 - Other obesity due to excess calories Qualifiers: Obesity classification: adult class 2 (BMI 35 - 39.9) Serious obesity comorbidity presence: with serious comorbidity Body mass index: BMI 36.0-36.9 Qualified Code(s): E66.01 - Morbid (severe) obesity due to excess calories; Z68.36 - Body mass index [BMI] 36.0-36.9, adult (4) Patellar instability of right knee: Code(s): M25.361 - Other instability, right knee Plan Patient is 43-year-old female came in for her regular follow-up appointment Patient has developed patella problem right knee, she says that she feels as if it moves randomly and it is very painful She has to push it back in She is requesting an orthopedic referral which I have placed for her. Patient was having lot of abdominal issues and has lost weight but she tells me that she has gained 50 lb back She has appointment coming up with gastroenterology in 1 week Patient is taking gabapentin 300 mg 3 times a day for fibromyalgia Headaches are stable Labs were done August of this year, reviewed CBC within normal limit and metabolic profile is within normal limit liver enzymes are normal. Patient has appointment in December for physical exam BMI is elevated patient is aware. Orders: Referrals Orthopedics Referral M25.361 - Other instability, right knee Coding Level of Care Code Est Pt Level 4 (93870) Complex EM visit Add On G2211 Diagnoses Acute nonintractable headache, unspecified headache type R51.9 Headache type: unspecified Headache chronicity pattern: acute headache Intractability: not intractable Fibromyalgia M79.7 Class 2 severe obesity due to excess calories with serious comorbidity and body mass index (BMI) of 36.0 to 36.9 in adult E66.01; Z68.36 Obesity classification: adult class 2 (BMI 35 - 39.9) Serious obesity comorbidity presence: with serious comorbidity Body mass index: BMI 36.0-36.9 Patellar instability of right knee M25.361
[2023-10-20 08:47] VITALS: BP 114/76; PULSE 69; O2SAT 100; BMI 42.1
== END 2023-10-20 11:58 | disposition home or self-care (01) ==
PROVIDERS: PCP Internal Medicine; Visit Provider Internal Medicine
DX: R51.9 Headache, unspecified (principal); M79.7 Fibromyalgia; E66.01 Morbid (severe) obesity due to excess calories; Z68.36 Body mass index [BMI] 36.0-36.9, adult; M25.361 Other instability, right knee
CPT/HCPCS: 99214; G2211

== ENCOUNTER 2023-12-01 09:11 | Outpatient (REF) | payer OTHER, SELFPAY | END 2023-12-01 09:12 | disposition home or self-care (01) | LOC: HO.HOSX 09:11 | PROVIDERS: Visit Provider Physician Assistant | DX: Z13.89 Encounter for screening for other disorder (principal) ==

== ENCOUNTER 2023-12-08 10:27 | Outpatient (AMB) | payer OTHER, SELFPAY ==
--- NOTE | 2023-12-08 10:35 | MHC.OFFVIS ---
Intake Visit Reasons: New Prob - right knee pain Intake Note: Tina is a 43 year old female who presents today for a evaluation of her right knee pain. last inj was on her left knee on 05/13/22. Patient reports her last injection in her left knee gave her a couple months of relief. She expresses that her right knee pain has been going on for about a year without previous treatment. Patient mentions that she sees a lump on the lateral aspect of the knee and it causes her a lot of pain. Patient tried and failed 3 + months of NSAIDs/Tylenol, compound cream/gel, knee braces and at home exercises. Allergies azithromycin [AZITHROMYCIN] Allergy (Intermediate, Verified 12/08/23 10:44) RASH ketorolac [From Toradol] Allergy (Intermediate, Verified 12/08/23 10:44) Rash Sulfa (Sulfonamide Antibiotics) [SULFA (SULFONAMIDE ANTIBIOTICS)] Allergy (Intermediate, Verified 12/08/23 10:44) RASH fluconazole [Diflucan] Allergy (Unknown, Verified 12/08/23 10:44) unknown topiramate [Topamax] Allergy (Unknown, Verified 12/08/23 10:44) unknown propranolol Allergy (Verified 12/08/23 10:44) itching amitriptyline Adverse Reaction (Intermediate, Verified 12/08/23 10:44) stomach upset nitrofurantoin Allergy (Severe, Uncoded 09/19/23 11:59) Hives HPI HPI New Prob - right knee pain: Details: 43-year-old female who presents in the office today for an evaluation of right knee pain. The patient was seen by her PCP on 10/20/23 when she reported patella pain and instability. She reported she has to move the patella back into place. ? ? While in the office today, the patient reports her right knee pain has been present for a year, since 2022 and she has not had any prior formal treatment. She describes lump on the lateral aspect of the right knee, which increases her pain. She confirms the use of NSAIDs, Tylenol, compound cream/gel, knee braces, and home exercises for more than three months without relief. ? ? The patient reports having an injection in the left knee on 05/12/22, which gave her a few months of relief. ? ? Patient has a medical history of fibromyalgia. ? [facility] Medical History Diarrhea Abnormal uterine bleeding (AUB) Pelvic pain Heavy menstrual bleeding Allergic rhinitis Asthma Smoker Abdominal pain Loud snoring ELIAZAR (obstructive sleep apnea) Somnolence, daytime Early satiety Colon polyps Hydradenitis History of fibromyalgia GERD (gastroesophageal reflux disease) History of headache Hx of irritable bowel syndrome Hx of ovarian cyst Hx of renal calculi History of anxiety Surgical History H/O tubal ligation History of esophagogastroduodenoscopy (EGD) H/O colonoscopy History of cholecystectomy History of Family History Father HTN (hypertension) Diabetes mellitus Liver cancer Alcoholic Substance use disorder Mother Anxiety Depression Liver tumor Brother Heart attack Buerger disease Stroke Seizure Diabetes mellitus Family/Other Mild asthma Maternal Grandmother Cancer of unknown origin Maternal Grandfather Liver cancer Paternal Grandfather Heart problem Other Mental health disorder Social History Household Members: Spouse and Children Housing: House Alcohol intake: former Patient Tobacco Use Status: Current everyday Tobacco user Tobacco use type: Cigarette Cigarette Packs Per Day: 0.5 Cigarettes Per Day: 10.0 Years Smoked: 25 e-Cigarette/Vaping Use: Never Used Substance Use Type: Marijuana service: No Current occupational status: unemployed Current occupation: due to Covid Gender identity: Female Cognitive needs: No Hearing needs: No Vision needs: No Female Reproductive History Menstrual Age of Menarche: 10 Date of menopause: 02/21/23 Review of Systems Const All systems reviewed & are unremarkable except as noted in HPI and below Physical Exam Const General: cooperative, healthy appearing and no acute distress Resp Effort & Inspection: normal respiratory effort and able to speak in complete sentences Cardio Rate: regular rate Peripheral pulses: Peripheral pulses 2+ throughout GI Palpation (GI): Soft to palpation Skin Lesions: no lesions Rashes: no rashes Extrem Other: Right knee: Normal to inspection. No ecchymosis, erythema, or joint effusion. No tenderness to palpation along the medial or lateral joint lines. Tenderness to palpation over the lateral aspect of the patella. Laxity with patella motion. ROM is 0-110 degrees.?Negative Cas's. NVI.?? Office Procedures Joint Injection/Aspiration Joint Injection/Aspiration Primary Site: right knee Prep: site was prepped using aseptic technique, ethochloride spray was applied and injection warnings given Injected: 80 mg of, DepoMedrol, with 8 mL of (2% plain lido) and in the joint Approach Used: anterolateral Procedure: The patient tolerated the procedure well, but had some pain with the injection and there was some relief with the local anesthesia Coding 06935 - Large joint Procedure code (CPT) selection complete Assessment & Plan Assessment & Plan (1) Patellofemoral arthritis of right knee: Code(s): M17.11 - Unilateral primary osteoarthritis, right knee Category: Medical Plan Ms. Chapman is a 43-year-old female who presents in the office today for an evaluation of right knee pain. The patient was seen by her PCP on 10/20/23 when she reported patella pain and instability. She reported she has to move the patella back into place. ? ? While in the office today, the patient reports her right knee pain has been present for a year, since 2022 and she has not had any prior formal treatment. She describes lump on the lateral aspect of the right knee, which increases her pain. She confirms the use of NSAIDs, Tylenol, compound cream/gel, knee braces, and home exercises for more than three months without relief. ? ? The patient reports having an injection in the left knee on 05/12/22, which gave her a few months of relief. ? ? Patient has a medical history of fibromyalgia.? ? The patient was offered a cortisone injection in the right knee with 80 mg of Depo-Medrol. The patient was explained the risks, benefits, and alternatives to receiving this injection. After receiving consent for the injection, the patient had the procedure done while in the office today. The patient tolerated the procedure well with no complications.? ? The patient was given a true-pull knee brace, off the shelf.? ? X-rays of the right knee which were obtained while in the office today and were reviewed by me, Maria Alejandra James PA-C, revealed patella radha and osteoarthritis in the patellofemoral joint. ? Orders: Orders XR knee RT 3V Today M25.569 - Pain in unspecified knee Patient Instructions: Scribed by Abigail Rodeen, medical office receptionist assistant, for Maria Alejandra James PA-C on 12/08/2023 at 10:29 am, EST.? Coding Level of Care Code Est Pt Level 3 (74234) Diagnoses Patellofemoral arthritis of right knee M17.11 CPT Codes Coding - 30479 Large joint: 85721 - Large joint ([id number])
== END 2023-12-08 12:52 | disposition home or self-care (01) ==
PROVIDERS: Visit Provider Physician Assistant
DX: M17.11 Unilateral primary osteoarthritis, right knee (principal)
CPT/HCPCS: 20610; 99213

== ENCOUNTER 2023-12-08 10:50 | Outpatient (REF) | payer OTHER, SELFPAY ==
--- NOTE | ~2023-12-08 | XR_ITS ---
EXAMINATION: XR KNEE, RIGHT CLINICAL INFORMATION: Pain in unspecified knee. COMPARISON: None available. TECHNIQUE: AP standing view of bilateral knees as well as sunrise and lateral views of the right knee. FINDINGS: Right knee: Diffuse demineralization. Mild narrowing of the medial compartment of the right knee with tiny medial and lateral marginal osteophytes. Left knee: Small joint effusion. Mild narrowing of the medial compartment with small medial and lateral marginal osteophytes. Mild degenerative changes in the patellofemoral joint with asymmetric lateral patellofemoral narrowing. XR/XR knee RT 3V IMPRESSION: Mild degenerative changes in bilateral knees. Electronically signed by: Danica Richmond MD 03/06/2024 04:39 AM EST
== END 2023-12-08 10:51 | disposition home or self-care (01) ==
LOC: HO.HOSX 10:50
PROVIDERS: Visit Provider Physician Assistant
DX: M25.561 Pain in right knee (principal); M17.11 Unilateral primary osteoarthritis, right knee
CPT/HCPCS: 20610; 73562; 99212; J1010

== ENCOUNTER 2023-12-21 11:22 | Outpatient (AMB) | payer OTHER, SELFPAY ==
[2023-12-21 11:28] VITALS: BP 120/80; PULSE 79; O2SAT 98; BMI 43.1
--- NOTE | 2023-12-21 11:28 | MHC.OFFVIS ---
Vital Signs 12/21/23 11:28 Height 5 ft 2 in Weight 235 lb 14.314 oz BMI 43.1 BP 120/80 Blood Pressure Location Lt brachial Position Sitting Pulse 79 Pulse Source Pulse Oximeter Pulse Oximetry (%) 98 Oxygen Delivery Method Room Air Intake Visit Reasons: cough, wheeze Intake Note: pt is here for a sick visit. She has a cough with a wheeze, some short of breath with stairs but weight gain due to infusion therapy for newly dx Chron's dz. Operations Intern Required: No Allergies azithromycin [AZITHROMYCIN] Allergy (Intermediate, Verified 12/21/23 11:36) RASH ketorolac [From Toradol] Allergy (Intermediate, Verified 12/21/23 11:36) Rash Sulfa (Sulfonamide Antibiotics) [SULFA (SULFONAMIDE ANTIBIOTICS)] Allergy (Intermediate, Verified 12/21/23 11:36) RASH fluconazole [Diflucan] Allergy (Unknown, Verified 12/21/23 11:36) unknown topiramate [Topamax] Allergy (Unknown, Verified 12/21/23 11:36) unknown propranolol Allergy (Verified 12/21/23 11:36) itching amitriptyline Adverse Reaction (Intermediate, Verified 12/21/23 11:36) stomach upset nitrofurantoin Allergy (Severe, Uncoded 12/21/23 11:36) Hives Medication List - Last Reconciled 12/21/23 by Luciano Kendrick MD bupropion HCl SR 150 mg PO BID famotidine 40 mg PO BEDTIME gabapentin 300 mg PO TID 90 days lorazepam 1 mg PO BID montelukast 10 mg PO DAILY 90 days omeprazole 40 mg PO DAILY ondansetron 8 mg (2 x 4 mg) PO Q8H PRN oxycodone 5 mg PO Q8H PRN 3 days sumatriptan succinate 50 mg PO ONCE PRN 30 days ursodiol 500 mg PO BID Ventolin HFA 90 mcg/actuation (albuterol sulfate) 1 inh inhalation Q6H PRN NS Do you need a note to return to daycare/school/sports/work: No HPI HPI cough, wheeze: Details: 43 years old female with morbid obesity and diagnosis of obstructive sleep apnea, as well as history of smoking and history of bronchial asthma, Comes for follow-up after 6 months. She complains of increased amount of cough, and mild int.ermittent wheezing At the same time she tells me that she is still smoking and increased to. 10 cigarettes a day She has been out of Ventolin. Patient was started on infusion therapy for treatment of Crohn's disease but she has given up on this as she was gaining weight. She claims that she is using her CPAP regularly every night and sleeps well. Her CPAP machine is only 2 years old, It works fine for her. However not transmitting the data for compliance report. [facility] Medical History (Updated 12/21/23 @ 12:04 by Luciano Kendrick MD) Mild bibasilar atelectasis Diarrhea Abnormal uterine bleeding (AUB) Pelvic pain Heavy menstrual bleeding Allergic rhinitis Asthma Smoker Abdominal pain Loud snoring ELIAZAR (obstructive sleep apnea) Somnolence, daytime Early satiety Colon polyps Hydradenitis History of fibromyalgia GERD (gastroesophageal reflux disease) History of headache Hx of irritable bowel syndrome Hx of ovarian cyst Hx of renal calculi History of anxiety Surgical History H/O tubal ligation History of esophagogastroduodenoscopy (EGD) H/O colonoscopy History of cholecystectomy History of Family History Father HTN (hypertension) Diabetes mellitus Liver cancer Alcoholic Substance use disorder Mother Anxiety Depression Liver tumor Brother Heart attack Buerger disease Stroke Seizure Diabetes mellitus Family/Other Mild asthma Maternal Grandmother Cancer of unknown origin Maternal Grandfather Liver cancer Paternal Grandfather Heart problem Other Mental health disorder Social History Household Members: Spouse and Children Housing: House Alcohol intake: former Patient Tobacco Use Status: Current everyday Tobacco user Tobacco use type: Cigarette Cigarette Packs Per Day: 0.5 Cigarettes Per Day: 10.0 Years Smoked: 25 e-Cigarette/Vaping Use: Never Used Substance Use Type: Marijuana service: No Current occupational status: unemployed Current occupation: due to Covid Gender identity: Female Cognitive needs: No Hearing needs: No Vision needs: No Female Reproductive History Menstrual Age of Menarche: 10 Date of menopause: 02/21/23 Review of Systems Const All systems reviewed & are unremarkable except as noted in HPI and below Eyes Reports no additional complaints ENT Reports no additional complaints Card Denies chest pain, Denies irregular heart rhythm and Denies leg edema Resp Reports as per HPI and Reports no additional complaints GI Reports dyspepsia and Reports heartburn (CONTROLLED WITH MED) Reports no additional complaints Musc Reports back pain and Reports muscle cramps Skin/Breast Reports system reviewed and no additional complaints, except as documented Neuro Reports paresthesias Psych Reports no additional complaints Physical Exam Vital Signs: Last Vital Signs Pulse 79 12/21/23 11:28 BP 120/80 12/21/23 11:28 Pulse Ox 98 12/21/23 11:28 Oxygen Delivery Method Room Air 12/21/23 11:28 BMI result Body Mass Index 43.1 Const General: comfortable, no acute distress, alert and awake Orientation/consciousness: patient oriented x3 HEENT Head: Yes normal to inspection General nose exam: No nasal polyps present and No nasal discharge present Face and sinus: Yes sinuses nontender Mouth: oropharynx abnormals (OROPHARYNX IS CROWDED AND ALMOST CLOSED, MALLAMPATI CLASS 4) Throat: Yes posterior oropharynx normal Eyes General: appearance normal, both eyes and all related structures Neck Neck: Yes normal visual inspection, Yes no lymphadenopathy, Yes trachea midline, Yes no JVD and Yes other (NECK SIZE 16 IN) Thyroid: Thyroid normal Chest Chest palpation & inspection: normal inspection of the chest, normal palpation of entire chest wall and no tenderness Resp Other: Percussion note is resonant. Has good breath sounds on both sides. No wheezes rhonchi or crepitations are heard. Cardio Palpation: PMI not normal (NOT PALPABLE) Rate: regular rate Rhythm: regular rhythm Heart sounds: no gallops and no murmurs Peripheral pulses: Peripheral pulses 2+ throughout GI Palpation (GI): Soft to palpation, nontender, No hepatosplenomegaly present, no masses and Other GI palpation findings present (ABDOMEN IS OBESE AND PROTUBERANT) Auscultation: normal bowel sounds Back/Spine/Pelvis Thoracic/Lumbar Spine: thoracic and lumbar spine normal to inspection and thoraco-lumbar ROM limited Skin General skin exam: no rashes or lesions noted Neuro General: patient oriented x3 and no focal motor deficits Cranial nerves: Yes CN's II-XII intact bilaterally Extrem General: Yes normal to inspection, Yes no clubbing, cyanosis or edema and Yes no calf tenderness Psych Appearance: grossly normal Speech and movement: Normal speech and movement present Results Reviewed Results Reviewed: COMPLIANCE REPORT NOT AVAILABLE .TODAY SHE HAD CT SCAN OF THE ABDOMEN AND PELVIS IN AUGUST 2023. IT SHOWED BIBASILAR ATELECTASIS, PROBABLY DUE TO HYPOVENTILATION. Assessment & Plan Assessment & Plan (1) Morbid obesity: Comment: PATIENT REMAINS MORBIDLY OBESE. HAS GAINED MORE WEIGHT SINCE LAST VISIT CURRENT BMI 43.1 I URGED HER TO JOIN A WEIGHT MANAGEMENT PROGRAM Code(s): E66.01 - Morbid (severe) obesity due to excess calories Category: Medical Plan: DISCUSSED WITH HER ABOUT THE WEIGHT. SHE WILL TRY TO WATCH HER DIET. HOWEVER BECAUSE OF CROHN'S DISEASE SHE DOES NOT HAVE MUCH CONTROL ON HER DIET. ADVISED TO DO SOME DAILY WALKING AND EXERCISE (2) ELIAZAR (obstructive sleep apnea): Comment: SHE IS KNOWN TO HAVE MILD OBSTRUCTIVE SLEEP APNEA BUT WAS QUITE SYMPTOMATIC. HENCE SHE HAS BEEN ON CPAP THERAPY . WHICH SHE USES REGULARLY EVERY NIGHT. WE COULD NOT GET THE COMPLIANCE REPORT . Code(s): G47.33 - Obstructive sleep apnea (adult) (pediatric) Category: Medical Plan: ADVISE THAT SHE SHOULD CONTINUE TO USE THE CPAP REGULARLY WILL CONTACT DME TO CHECK WHY COMPLIANCE IS NOT TRANSMITTED. (3) Smoker: Comment: HAS BEEN A LONG-TIME SMOKER, HAD TRY TO CUT DOWN T.HE NUMBER OF CIGARETTES BUT NOW BACK TO 10 CIGARETTES A DAY. Code(s): F17.200 - Nicotine dependence, unspecified, uncomplicated Category: Social Hx Plan: COUNSELED TO QUIT OR AT LEAST CUT DOWN THE NUMBER OF CIGARETTES. AGREES TO USE NICOTINE PATCH, WHICH IS PRESCRIBED. (4) Asthma: Comment: PATIENT HAS HISTORY OF MILD ALLERGIC RHINITIS AND MILD INTERMITTENT BRONCHIAL ASTHMA. HER PULMONARY FUNCTION TEST WAS BASICALLY NORMAL, WITHOUT ANY SIGNIFICANT RESPONSE TO BD. CHALLENGE. CLINICALLY I THINK SHE DOES HAVE MILD BRONCHIAL ASTHMA AND ALLERGIC RHINITIS. Code(s): J45.909 - Unspecified asthma, uncomplicated Category: Medical Qualifiers: Asthma complication type: uncomplicated Asthma persistence: intermittent Asthma severity: mild Qualified Code(s): J45.20 - Mild intermittent asthma, uncomplicated Plan: TX : OKAY TO CONTINUE MONTELUKAST 10 MG DAILY. USE ALBUTEROL HFA ( VENTOLIN ) 2 PUFFS Q 4-6 HOURS ONLY P.R.N. IF THERE IS SOME WHEEZING. PRESCRIPTION IS RENEWED . (5) Allergic rhinitis: Comment: MILD CHRONIC ALLERGIC RHINITIS GOES ALONG WITH HER BRONCHIAL ASTHMA. Code(s): J30.9 - Allergic rhinitis, unspecified Category: Medical Qualifiers: Allergic rhinitis seasonality: seasonal Allergic rhinitis trigger: pollen Qualified Code(s): J30.1 - Allergic rhinitis due to pollen Plan: TX: MONTELUKAST 10 MG DAILY AND CLARITIN 10 MG ONCE A DAY P.R.N.. SHE NEEDS TO STAY AWAY FROM THE CATS MUCH POSSIBLE (6) Mild bibasilar atelectasis: Comment: BECAUSE OF HER GROSS OBESITY SHE DOES NOT EXPAND HER BASILAR AREAS OF THE LUNGS, AND HAS MILD BIBASI.LAR ATELECTASIS Code(s): J98.11 - Atelectasis Category: Medical Plan: EXPLAINED TO HER T.HE MECHANISM FOR THE BASILAR ATELECTASIS. NEEDS TO LOSE WEIGHT. ADVISED TO DO DEEP BREATHING EXERCISES AT LEAST 2 OR 3 TIMES A DAY. Medications: New nicotine 1 patch transdermal DAILY 28 ea 3RF NICOTINE CRAVING 28 days albuterol sulfate 90 mcg/actuation (Ventolin HFA) 2 puffs inhalation Q4-6H PRN 8.5 grams 3RF shortness of breath or wheezing 30 days Coding Level of Care Code Est Pt Level 4 (95854) Diagnoses Morbid obesity E66.01 EILAZAR (obstructive sleep apnea) G47.33 Smoker F17.200 Mild intermittent asthma without complication J45.20 Asthma complication type: uncomplicated Asthma persistence: intermittent Asthma severity: mild Seasonal allergic rhinitis due to pollen J30.1 Allergic rhinitis seasonality: seasonal Allergic rhinitis trigger: pollen Mild bibasilar atelectasis J98.11
== END 2023-12-21 11:52 | disposition home or self-care (01) ==
PROVIDERS: Visit Provider Internal Medicine
DX: E66.01 Morbid (severe) obesity due to excess calories (principal); G47.33 Obstructive sleep apnea (adult) (pediatric); F17.200 Nicotine dependence, unspecified, uncomplicated; J45.20 Mild intermittent asthma, uncomplicated; J30.1 Allergic rhinitis due to pollen; J98.11 Atelectasis
CPT/HCPCS: 99214

== ENCOUNTER → 2023-12-21 11:22 | Outpatient (BNVA) | payer OTHER, SELFPAY | PROVIDERS: Visit Provider Internal Medicine | DX: J45.20 Mild intermittent asthma, uncomplicated (principal); J98.11 Atelectasis; J30.1 Allergic rhinitis due to pollen; E66.01 Morbid (severe) obesity due to excess calories; G47.33 Obstructive sleep apnea (adult) (pediatric); F17.210 Nicotine dependence, cigarettes, uncomplicated; Z68.41 Body mass index [BMI] 40.0-44.9, adult | CPT/HCPCS: 99212 ==

== ENCOUNTER 2024-01-02 09:56 | Outpatient (AMB) | payer OTHER, SELFPAY ==
[2024-01-02 10:02] VITALS: BP 126/78; PULSE 78; O2SAT 98; BMI 43.2
--- NOTE | 2024-01-02 10:02 | MHC.PC.OV ---
Vital Signs 01/02/24 10:02 Height 5 ft 2 in Weight 236 lb BMI 43.2 BP 126/78 Blood Pressure Location Rt brachial Position Sitting Pulse 78 Pulse Source Pulse Oximeter Pulse Oximetry (%) 98 Oxygen Delivery Method Room Air Intake Visit Reasons: Urinary tract infection Allergies azithromycin [AZITHROMYCIN] Allergy (Intermediate, Verified 01/02/24 10:03) RASH ketorolac [From Toradol] Allergy (Intermediate, Verified 01/02/24 10:03) Rash Sulfa (Sulfonamide Antibiotics) [SULFA (SULFONAMIDE ANTIBIOTICS)] Allergy (Intermediate, Verified 01/02/24 10:03) RASH fluconazole [Diflucan] Allergy (Unknown, Verified 01/02/24 10:03) unknown topiramate [Topamax] Allergy (Unknown, Verified 01/02/24 10:03) unknown propranolol Allergy (Verified 01/02/24 10:03) itching amitriptyline Adverse Reaction (Intermediate, Verified 01/02/24 10:03) stomach upset nitrofurantoin Allergy (Severe, Uncoded 12/21/23 11:36) Hives Medication List - Last Reconciled 01/02/24 by Khanh Reynolds MD albuterol sulfate 90 mcg/actuation (Ventolin HFA) 2 puffs inhalation Q4-6H PRN 30 days bupropion HCl SR 150 mg PO BID famotidine 40 mg PO BEDTIME gabapentin 300 mg PO TID 90 days lorazepam 1 mg PO BID montelukast 10 mg PO DAILY 90 days nicotine 1 patch transdermal DAILY 28 days omeprazole 40 mg PO DAILY ondansetron 8 mg (2 x 4 mg) PO Q8H PRN sumatriptan succinate 50 mg PO ONCE PRN 30 days Ventolin HFA 90 mcg/actuation (albuterol sulfate) 1 inh inhalation Q6H PRN NS Tobacco use date assessed: 01/02/24 Dental Screening Dental Screen Date: 01/02/24 Did you have a dental visit in the last 12 months?: Yes Did you have a dental problem in the last 6 months where you did not have access to dental care?: No Was dental information given to patient?: Patient has dentist HPI Urinary tract infection HPI Details Patient is 43-year-old female came in for sick visit and also due for regular follow-up Patient says that she has been having dysuria for the past 3 days, this morning she woke up and her urine was very cloudy So came in UA shows signs of infection with positive leuk esterase and blood Patient will be treated with antibiotic Patient is taking gabapentin 300 mg 3 times a day for fibromyalgia Headaches are stable Patient will return in mid March for regular follow-up now when she is due for medication refill Labs will be done at that visit, order placed Depression anxiety stable Patient is morbidly obese with BMI of 43.2 She is still seeing Gastroenterology [facility], and still having stomach cramping off and on PFSH Medical History Mild bibasilar atelectasis Diarrhea Abnormal uterine bleeding (AUB) Pelvic pain Heavy menstrual bleeding Allergic rhinitis Asthma Smoker Abdominal pain Loud snoring ELIAZAR (obstructive sleep apnea) Somnolence, daytime Early satiety Colon polyps Hydradenitis History of fibromyalgia GERD (gastroesophageal reflux disease) History of headache Hx of irritable bowel syndrome Hx of ovarian cyst Hx of renal calculi History of anxiety Surgical History H/O tubal ligation History of esophagogastroduodenoscopy (EGD) H/O colonoscopy History of cholecystectomy History of Family History Father HTN (hypertension) Diabetes mellitus Liver cancer Alcoholic Substance use disorder Mother Anxiety Depression Liver tumor Brother Heart attack Buerger disease Stroke Seizure Diabetes mellitus Family/Other Mild asthma Maternal Grandmother Cancer of unknown origin Maternal Grandfather Liver cancer Paternal Grandfather Heart problem Other Mental health disorder Social History Household Members: Spouse and Children Housing: House Alcohol intake: former Patient Tobacco Use Status: Current everyday Tobacco user Tobacco use type: Cigarette Cigarette Packs Per Day: 0.5 Cigarettes Per Day: 10.0 Years Smoked: 25 e-Cigarette/Vaping Use: Never Used Substance Use Type: Marijuana service: No Current occupational status: unemployed Current occupation: due to Covid Gender identity: Female Cognitive needs: No Hearing needs: No Vision needs: No Female Reproductive History Menstrual Age of Menarche: 10 Date of menopause: 02/21/23 Questionnaire Thrive Questionnaire Date Thrive assessed: 07/19/23 AUDIT C Alcohol Use Questionnaire (AUDIT-C) 1. How often do you have a drink containing alcohol?: Never 3. How often do you have six or more drinks on one occasion?: Never Total Score: 0 Score Reviewed/Action Taken: Yes JUAN CARLOS-7 AMB Questionnaire JUAN CARLOS-7 Date JUAN CARLOS - 7 assessed: 10/20/23 Source: Developed by Drs. Tony Sandhu, Vidhya Esparza, Nitish Stein and colleagues, with an educational tonya from [employer]. Review of Systems Const Denies chills and Denies fever(s) ENT Denies epistaxis and Denies nasal discharge Card Denies chest pain Resp Denies chest congestion, Denies cough and Denies hemoptysis GI Denies diarrhea and Denies nausea Skin/Breast Denies rash Neuro Reports no additional complaints Psych Reports no additional complaints Endo Reports no additional complaints Physical exam (Primary Care) Vital Signs: Last Vital Signs Pulse 78 01/02/24 10:02 BP 126/78 01/02/24 10:02 Pulse Ox 98 01/02/24 10:02 Oxygen Delivery Method Room Air 01/02/24 10:02 BMI result Body Mass Index 43.2 Tobacco/Smoking Status: Tobacco use Status Tobacco use date assessed 01/02/24 01/02/24 10:04 Patient Tobacco Use Status Current everyday Tobacco 01/02/24 10:04 Tobacco use type Cigarette 01/02/24 10:04 e-Cigarette/Vaping Use Never Used 01/02/24 10:04 Thrive Assessment: Date of Thrive Assessment Date Thrive assessed 07/19/23 01/02/24 10:04 Const General: cooperative, comfortable and no acute distress Orientation/consciousness: patient oriented x3 HENMT Head: Yes normocephalic Eyes General: appearance normal, both eyes and all related structures Neck Neck: Yes supple Resp Effort & Inspection: normal respiratory effort, no cough and no stridor Cardio Rhythm: regular rhythm Heart sounds: S1 normal heart sound present and S2 normal heart sound present GI Other: Abdominal exam is benign Skin General skin exam: turgor normal Neuro General: patient oriented x3, tone normal and moves all extremities Extrem Right lower extremity: no edema Left lower extremity: no edema Assessment and Plan Assessment & Plan (1) Acute cystitis: Code(s): N30.00 - Acute cystitis without hematuria Qualifiers: Hematuria presence: with hematuria Qualified Code(s): N30.01 - Acute cystitis with hematuria (2) Major depression, recurrent: Code(s): F33.9 - Major depressive disorder, recurrent, unspecified Qualifiers: Active/Remission status: in partial remission Qualified Code(s): F33.41 - Major depressive disorder, recurrent, in partial remission (3) Anxiety, generalized: Code(s): F41.1 - Generalized anxiety disorder (4) Fibromyalgia: Code(s): M79.7 - Fibromyalgia (5) Headache: Code(s): R51.9 - Headache, unspecified Qualifiers: Headache chronicity pattern: acute headache Headache type: unspecified Intractability: not intractable Qualified Code(s): R51.9 - Headache, unspecified (6) Obesity due to excess calories: Code(s): E66.09 - Other obesity due to excess calories Qualifiers: Body mass index: BMI 36.0-36.9 Obesity classification: adult class 2 (BMI 35 - 39.9) Serious obesity comorbidity presence: with serious comorbidity Qualified Code(s): E66.01 - Morbid (severe) obesity due to excess calories; Z68.36 - Body mass index [BMI] 36.0-36.9, adult Plan Patient is 43-year-old female came in for sick visit and also due for regular follow-up Patient says that she has been having dysuria for the past 3 days, this morning she woke up and her urine was very cloudy So came in UA shows signs of infection with positive leuk esterase and blood Patient will be treated with antibiotic Patient is taking gabapentin 300 mg 3 times a day for fibromyalgia Headaches are stable Patient will return in mid March for regular follow-up now when she is due for medication refill Labs will be done at that visit, order placed Depression anxiety stable Patient is morbidly obese with BMI of 43.2 She is still seeing Gastroenterology [facility], and still having stomach cramping off and on Orders: Orders Urine Culture Today N30.00 - Acute cystitis without hematuria Comprehensive Met. Panel Today F33.41 - Major depressive disorder, recurrent, in partial remission, F41.1 - Generalized anxiety disorder, M79.7 - Fibromyalgia Complete Blood Count Auto Diff Today F33.41 - Major depressive disorder, recurrent, in partial remission, F41.1 - Generalized anxiety disorder, M79.7 - Fibromyalgia Medications: New nitrofurantoin monohyd/m-cryst 100 mg (Macrobid) must administer with a meal/food 100 mg PO Q12H 10 caps 0RF 5 days Discontinued oxycodone Partial Fill upon patient request. Discontinued Reason: Patient Completed Course 5 mg PO Q8H 3 days PRN 9 caps 0RF pain ursodiol Discontinued Reason: Patient Completed Course 500 mg PO BID 60 tabs 2RF Coding Level of Care Code Est Pt Level 4 (46464) Complex EM visit Add On G2211 Diagnoses Acute cystitis with hematuria N30.01 Hematuria presence: with hematuria Recurrent major depressive disorder, in partial remission F33.41 Active/Remission status: in partial remission Anxiety, generalized F41.1 Fibromyalgia M79.7 Acute nonintractable headache, unspecified headache type R51.9 Headache chronicity pattern: acute headache Headache type: unspecified Intractability: not intractable Class 2 severe obesity due to excess calories with serious comorbidity and body mass index (BMI) of 36.0 to 36.9 in adult E66.01; Z68.36 Body mass index: BMI 36.0-36.9 Obesity classification: adult class 2 (BMI 35 - 39.9) Serious obesity comorbidity presence: with serious comorbidity
== END 2024-01-02 10:40 | disposition home or self-care (01) ==
LOC: HO.HMGC 09:56
PROVIDERS: Visit Provider Internal Medicine
DX: N30.01 Acute cystitis with hematuria (principal); F33.41 Major depressive disorder, recurrent, in partial remission; E66.01 Morbid (severe) obesity due to excess calories; Z68.36 Body mass index [BMI] 36.0-36.9, adult; F41.1 Generalized anxiety disorder; M79.7 Fibromyalgia; R51.9 Headache, unspecified
CPT/HCPCS: 99214; G2211

== ENCOUNTER 2024-01-02 13:30 | Outpatient (REF) | payer OTHER, SELFPAY | END 2024-01-02 13:31 | disposition home or self-care (01) | LOC: HO.LNP 13:30 | PROVIDERS: Visit Provider Internal Medicine | DX: N30.00 Acute cystitis without hematuria (principal) | CPT/HCPCS: 87086; 87088; 87186 ==

== ENCOUNTER 2024-02-26 12:28 | Outpatient (AMB) | payer OTHER, SELFPAY ==
[2024-02-26 13:57] VITALS: BP 120/82; PULSE 90; O2SAT 97; BMI 43.9
--- NOTE | 2024-02-26 13:57 | MHC.OFFWIV ---
Intake Vital Signs 02/26/24 13:57 Height 5 ft 2 in Weight 240 lb BMI 43.9 BP 120/82 Blood Pressure Location Rt brachial Position Sitting Pulse 90 Pulse Source Pulse Oximeter Pulse Oximetry (%) 97 Oxygen Delivery Method Room Air Intake Visit Reasons: EP vaginal pain, cramps, nausea, dizzy Intake Note: Patient here for vaginal sharp pains, denies any pressure, odor or burning on urination which has been present for a couple of weeks. Patient Tobacco Use Status: Current everyday Tobacco user Allergies azithromycin [AZITHROMYCIN] Allergy (Intermediate, Verified 02/26/24 14:14) RASH ketorolac [From Toradol] Allergy (Intermediate, Verified 02/26/24 14:14) Rash Sulfa (Sulfonamide Antibiotics) [SULFA (SULFONAMIDE ANTIBIOTICS)] Allergy (Intermediate, Verified 02/26/24 14:14) RASH fluconazole [Diflucan] Allergy (Unknown, Verified 02/26/24 14:14) unknown topiramate [Topamax] Allergy (Unknown, Verified 02/26/24 14:14) unknown propranolol Allergy (Verified 02/26/24 14:14) itching amitriptyline Adverse Reaction (Intermediate, Verified 02/26/24 14:14) stomach upset Do you need a note to return to daycare/school/sports/work: No HPI EP vaginal pain, cramps, nausea, dizzy HPI Details This note is constructed using voice recognition software. While every effort has been made to ensure accuracy, blade operator errors may have been included. The patient is a 43 year old female who presents to the clinic today with internal vaginal pain for the past month with cramping. She denies urgency frequency and burning on urination. She has been taking azo in the event that she may have a urinary tract infection but stopped over 24 hours ago. She denies fever, chills. She reports that she was treated about a month ago for similar, but the pain was more intense outside the vagina. The pain seemed to get slightly better when she was treated with antibiotics but did not completely resolve. She also notes that she has had biopsy 2 years ago with gynecology for abnormal cells. [facility] Medical History Mild bibasilar atelectasis Diarrhea Abnormal uterine bleeding (AUB) Pelvic pain Heavy menstrual bleeding Allergic rhinitis Asthma Smoker Abdominal pain Loud snoring ELIAZAR (obstructive sleep apnea) Somnolence, daytime Early satiety Colon polyps Hydradenitis History of fibromyalgia GERD (gastroesophageal reflux disease) History of headache Hx of irritable bowel syndrome Hx of ovarian cyst Hx of renal calculi History of anxiety Surgical History H/O tubal ligation History of esophagogastroduodenoscopy (EGD) H/O colonoscopy History of cholecystectomy History of Family History Father HTN (hypertension) Diabetes mellitus Liver cancer Alcoholic Substance use disorder Mother Anxiety Depression Liver tumor Brother Heart attack Buerger disease Stroke Seizure Diabetes mellitus Family/Other Mild asthma Maternal Grandmother Cancer of unknown origin Maternal Grandfather Liver cancer Paternal Grandfather Heart problem Other Mental health disorder Social History Household Members: Spouse and Children Housing: House Alcohol intake: former Patient Tobacco Use Status: Current everyday Tobacco user Tobacco use type: Cigarette Cigarette Packs Per Day: 0.5 Cigarettes Per Day: 10.0 Years Smoked: 25 e-Cigarette/Vaping Use: Never Used Substance Use Type: Marijuana service: No Current occupational status: unemployed Current occupation: due to Covid Gender identity: Female Cognitive needs: No Hearing needs: No Vision needs: No Female Reproductive History Menstrual Age of Menarche: 10 Date of menopause: 02/21/23 Review of Systems Const All systems reviewed & are unremarkable except as noted in HPI and below Physical Exam Vital Signs: Last Vital Signs Pulse 90 02/26/24 13:57 BP 120/82 02/26/24 13:57 Pulse Ox 97 02/26/24 13:57 Oxygen Delivery Method Room Air 02/26/24 13:57 BMI result Body Mass Index 43.9 Const General: cooperative, healthy appearing, comfortable, no acute distress and alert Orientation/consciousness: patient oriented x3 Limitations: no limitations Resp Effort & Inspection: normal respiratory effort and able to speak in complete sentences Other: Deferred General: Yes no CVA tenderness External Female Exam: normal external appearance, normal appearance of the urethra, No erythema, No external swelling and No lesion Speculum Exam - Vagina: normal appearance of the vagina Speculum Exam - Cervix: normal appearance of the cervix Back/Spine/Pelvis Back: no CVA tenderness Skin General skin exam: no rashes or lesions noted, elasticity normal and turgor normal Neuro General: patient oriented x3 Psych Appearance: grossly normal Mental Status: mental status grossly normal Speech and movement: Normal speech and movement present Affect: normal affect Results AMB Test Urine AMB Test Urine Negative Last Edit by Noris Aly [facility] on 02/26/24 14:36 AMB Urinalysis, Automated UA Leukoctes 125 Rosa/uL Last Edit by Noris Aly [facility] on 02/26/24 14:37 UA Nitrite Negative Last Edit by Noris Aly [facility] on 02/26/24 14:37 UA Urobilinogen 0.2 mg/dL Last Edit by Noris Aly [facility] on 02/26/24 14:37 UA Protein 15 mg/dL Last Edit by Noris Aly [facility] on 02/26/24 14:37 UA pH 7.5 Last Edit by Noris Aly [facility] on 02/26/24 14:37 UA Blood 0 Maurisio/uL Last Edit by Noris Aly [facility] on 02/26/24 14:37 UA Specific [place] 1.015 Last Edit by Noris Aly [facility] on 02/26/24 14:37 UA Ketone Negative Last Edit by Noris Aly [facility] on 02/26/24 14:37 UA Bilirubin 0 mg/dL Last Edit by Noris Aly [facility] on 02/26/24 14:37 UA Glucose 0 mg/dL Last Edit by Noris Aly [facility] on 02/26/24 14:37 Assessment & Plan Assessment & Plan (1) UTI (urinary tract infection): Code(s): N39.0 - Urinary tract infection, site not specified Qualifiers: Hematuria presence: without hematuria Urinary tract infection type: acute cystitis Qualified Code(s): N30.00 - Acute cystitis without hematuria Plan: In office urine dip consistent with likely UTI. Physical examination unremarkable. Advised patient to continue to monitor for ongoing or worsening symptoms and consideration of return to gynecology. Antibiotic sent to requested pharmacy. Advised to increase hydration. Plan See above for full details and plan. Orders: Orders AMB Urinalysis Automated Today Z13.9 - Encounter for screening, unspecified AMB HCG Urine Test Today Z32.02 - Encounter for test, result negative Medications: New ciprofloxacin HCl 250 mg PO BID 5 days 10 tabs 0RF Coding Level of Care Code Est Pt Level 3 (18538) Diagnoses Acute cystitis without hematuria N30.00 Hematuria presence: without hematuria Urinary tract infection type: acute cystitis
== END 2024-02-26 15:15 | disposition home or self-care (01) ==
PROVIDERS: PCP Internal Medicine; Visit Provider Registered Nurse
DX: N30.00 Acute cystitis without hematuria (principal); Z13.9 Encounter for screening, unspecified; Z32.02 Encounter for pregnancy test, result negative

== ENCOUNTER → 2024-02-26 12:28 | Outpatient (BNVA) | payer OTHER, SELFPAY | PROVIDERS: PCP Internal Medicine; Visit Provider Registered Nurse | DX: N30.00 Acute cystitis without hematuria (principal) | CPT/HCPCS: 81003; 81025; 99212 ==

== ENCOUNTER 2024-03-13 12:22 | Outpatient (AMB) | payer OTHER, SELFPAY ==
--- NOTE | 2024-03-13 12:23 | A.OFFPC_ITS ---
Vital Signs 03/13/24 12:24 Height 5 ft 2 in Weight 243 lb BMI 44.4 BP 110/66 Blood Pressure Location Rt brachial Position Sitting Pulse 87 Pulse Source Pulse Oximeter Pulse Oximetry (%) 98 Oxygen Delivery Method Room Air Intake Visit Reasons: annual PE Allergies azithromycin [AZITHROMYCIN] Allergy (Intermediate, Verified 03/13/24 12:25) RASH ketorolac [From Toradol] Allergy (Intermediate, Verified 03/13/24 12:25) Rash Sulfa (Sulfonamide Antibiotics) [SULFA (SULFONAMIDE ANTIBIOTICS)] Allergy (Intermediate, Verified 03/13/24 12:25) RASH fluconazole [Diflucan] Allergy (Unknown, Verified 03/13/24 12:) unknown topiramate [Topamax] Allergy (Unknown, Verified 03/13/24 12:) unknown propranolol Allergy (Verified 03/13/24 12:) itching amitriptyline Adverse Reaction (Intermediate, Verified 03/13/24 12:25) stomach upset Medication List - Last Reconciled 03/13/24 by Khanh Reynolds MD albuterol sulfate 90 mcg/actuation (Ventolin HFA) 2 puffs inhalation Q4-6H PRN 30 days bupropion HCl SR 150 mg PO BID famotidine 40 mg PO BEDTIME gabapentin 300 mg PO TID 90 days lorazepam 1 mg PO BID montelukast 10 mg PO DAILY 90 days nicotine 1 patch transdermal DAILY 28 days omeprazole 40 mg PO DAILY ondansetron 8 mg (2 x 4 mg) PO Q8H PRN sumatriptan succinate 50 mg PO ONCE PRN 30 days Ventolin HFA 90 mcg/actuation (albuterol sulfate) 1 inh inhalation Q6H PRN NS Tobacco use date assessed: 03/13/24 Dental Screening Dental Screen Date: 01/02/24 HPI annual PE HPI Details Patient is a 43-year-old female came in today for physical exam Mammogram was December of last year OBGYN at [facility] Colonoscopy August of this year Labs were done August of this year New set of lab order placed Patient is morbidly obese and having difficulty losing weight Medication list reviewed proper refills provided [facility] Medical History Mild bibasilar atelectasis Diarrhea Abnormal uterine bleeding (AUB) Pelvic pain Heavy menstrual bleeding Allergic rhinitis Asthma Smoker Abdominal pain Loud snoring ELIAZAR (obstructive sleep apnea) Somnolence, daytime Early satiety Colon polyps Hydradenitis History of fibromyalgia GERD (gastroesophageal reflux disease) History of headache Hx of irritable bowel syndrome Hx of ovarian cyst Hx of renal calculi History of anxiety Surgical History H/O tubal ligation History of esophagogastroduodenoscopy (EGD) H/O colonoscopy History of cholecystectomy History of Family History Father HTN (hypertension) Diabetes mellitus Liver cancer Alcoholic Substance use disorder Mother Anxiety Depression Liver tumor Brother Heart attack Buerger disease Stroke Seizure Diabetes mellitus Family/Other Mild asthma Maternal Grandmother Cancer of unknown origin Maternal Grandfather Liver cancer Paternal Grandfather Heart problem Other Mental health disorder Social History Household Members: Spouse and Children Housing: House Alcohol intake: former Patient Tobacco Use Status: Current everyday Tobacco user Tobacco use type: Cigarette Cigarette Packs Per Day: 0.5 Cigarettes Per Day: 10.0 Years Smoked: 25 e-Cigarette/Vaping Use: Never Used Substance Use Type: Marijuana service: No Current occupational status: unemployed Current occupation: due to Covid Gender identity: Female Cognitive needs: No Hearing needs: No Vision needs: No Female Reproductive History Menstrual Age of Menarche: 10 Date of menopause: 02/21/23 Questionnaire PHQ-9 Over the last 2 weeks, how often have you been bothered by any of the following problems? 1. Little interest or pleasure in doing things: nearly every day 2. Feeling down, depressed, or hopeless: nearly every day 3. Trouble falling or staying asleep, or sleeping too much: nearly every day 4. Feeling tired or having little energy: nearly every day 5. Poor appetite or overeating: several days 6. Feeling bad about yourself - or that you are a failure or have let yourself or your family down: more than half the days 7. Trouble concentrating on things, such as reading the newspaper or watching television: more than half the days 8. Moving or speaking so slowly that other people could have noticed. Or the opposite - being so fidgety or restless that you have been moving around a lot more than usual: not at all 9. Thoughts that you would be better off or of hurting yourself in some way: not at all Total score: 17 Depression Screening Interpretation: Positive Depression Screening Follow-up: Existing condition and In treatment Depression Screening Done: Yes 17043 - PHQ-9 Billing: Yes Source: Developed by Drs. Tony Sandhu, Vidhya Esparza, Nitish Stein and colleagues, with an educational tonya from [employer]. Thrive Questionnaire Date Thrive assessed: 03/13/24 I am a: Patient What is your living situation today?: I have a steady place to live Within the past 12 months, did the food you bought not last and you didn't have the money to get more?: Never true Within the past 12 months, did you worry whether your food would run out before you got money to buy more?: Never true Do you have trouble paying for medicines?: No Do you have trouble getting transportation to medical appointments?: Yes Do you have trouble paying your heating and electricity bill?: No Do you have trouble taking care of your child, family member or friend?: No Do you have trouble with day-to-day activities such as bathing, preparing meals, shopping, managing finances, etc.?: No Are you currently unemployed and looking for a job?: No Are you interested in more education?: No Please select the resources that you would like help with: None Currently or been in a relationship where the following occur: No concerns reported THRIVE Score: 1 AUDIT C Alcohol Use Questionnaire (AUDIT-C) 1. How often do you have a drink containing alcohol?: Never Total Score: 0 JUAN CARLOS-7 AMB Questionnaire JUAN CARLOS-7 Date JUAN CARLOS - 7 assessed: 03/13/24 Feeling nervous, anxious, or on edge: 3 = Nearly every day Not being able to stop or control worryin = Nearly every day Worrying too much about different things: 3 = Nearly every day Trouble relaxin = More than half the days Being so restless that it is hard to sit still: 1 = Several days Becoming easily annoyed or irritable: 1 = Several days Feeling afraid as if something awful might happen: 2 = More than half the days Total JUAN CARLOS-7 score (0-4 normal; 5-9 mild; 10-14 moderate; 15-21 severe): 15 Source: Developed by Drs. Tony Sandhu, Vidhya Esparza, Nitish Stein and colleagues, with an educational tonya from [employer]. Review of Systems Const Denies chills and Denies fever(s) Eyes Denies blurry vision ENT Denies nasal discharge, Denies nasal obstruction, Denies odynophagia and Denies sinus pain Card Denies chest pain at rest and Denies chest pain with activity Resp Denies cough and Denies hemoptysis GI Denies diarrhea, Denies odynophagia and Denies hematemesis Reports as per HPI Musc Denies abnormal gait Skin/Breast Reports as per HPI Neuro Denies Neuro-related abnormal movements, Denies Abnormal speech present, Denies abnormal gait and Denies Sensory deficit (Neuro) Psych Denies mood swings and Denies paranoia Endo Reports as per HPI Tre/Lymph Reports as per HPI Aller/Immun Reports as per HPI Physical exam (Primary Care) Vital Signs: Last Vital Signs Pulse 87 03/13/24 12:24 BP 110/66 03/13/24 12:24 Pulse Ox 98 03/13/24 12:24 Oxygen Delivery Method Room Air 03/13/24 12:24 BMI result Body Mass Index 44.4 Tobacco/Smoking Status: Tobacco use Status Tobacco use date assessed 03/13/24 03/13/24 12:28 Patient Tobacco Use Status Current everyday Tobacco 03/13/24 12:28 Tobacco use type Cigarette 03/13/24 12:28 e-Cigarette/Vaping Use Never Used 03/13/24 12:28 PHQ-9: PHQ-9 Score PHQ-9: Total score 17 03/13/24 12:36 Depression Screening Interpretation: Positive Depression Screening Follow-up: Existing condition and In treatment Thrive Assessment: Date of Thrive Assessment Date Thrive assessed 03/13/24 03/13/24 12:28 Currently or been in a relationship where the following occur: No concerns reported Const General: cooperative, comfortable and no acute distress Orientation/consciousness: patient oriented x3 HENMT Head: Yes normocephalic and Yes atraumatic Eyes General: appearance normal, both eyes and all related structures Pupils: Equal, round and reactive pupils present EOM: EOMs intact bilaterally Neck Neck: Yes supple and No lymphadenopathy Thyroid: Thyroid normal Lymphatic: no lymphadenopathy noted Resp Effort & Inspection: normal respiratory effort and able to speak in complete sentences Auscultation: clear to auscultation bilaterally Cardio Heart sounds: S1 normal heart sound present and S2 normal heart sound present GI Palpation (GI): Soft to palpation and nontender Auscultation: normal bowel sounds General: Yes no CVA tenderness Back/Spine/Pelvis Back: no CVA tenderness Skin General skin exam: elasticity normal and turgor normal Neuro General: patient oriented x3 and gait normal Cranial nerves: Yes Equal, round and reactive pupils present Speech: No Abnormal speech present Sensory Exam: No Sensory deficit (Neuro) Coordination: tandem gait normal and Romberg test negative Extrem General: Yes normal exam except as noted and No edema Coding Level of Care Code Est Pt Level 3 (62286) Est Pt Prev Care 40-64y(80235) Diagnoses Encounter for general adult medical examination with abnormal findings Z00.01 Anxiety, generalized F41.1 Recurrent major depressive disorder, in partial remission F33.41 Active/Remission status: in partial remission Fibromyalgia M79.7 ELIAZAR (obstructive sleep apnea) G47.33 Seasonal allergic rhinitis due to pollen J30.1 Allergic rhinitis seasonality: seasonal Allergic rhinitis trigger: pollen Overactive bladder N32.81 Stress incontinence N39.3 Additional Codes PHQ-9 - 27410 - PHQ-9 Billing: Yes ([id number]) Assessment & Plan Assessment & Plan (1) Encounter for general adult medical examination with abnormal findings: Code(s): Z00.01 - Encounter for general adult medical examination with abnormal findings Category: Medical (2) Anxiety, generalized: Code(s): F41.1 - Generalized anxiety disorder Category: Medical (3) Major depression, recurrent: Code(s): F33.9 - Major depressive disorder, recurrent, unspecified Category: Medical Qualifiers: Active/Remission status: in partial remission Qualified Code(s): F33.41 - Major depressive disorder, recurrent, in partial remission (4) Fibromyalgia: Code(s): M79.7 - Fibromyalgia Category: Medical (5) ELIAZAR (obstructive sleep apnea): Comment: SHE IS KNOWN TO HAVE MILD OBSTRUCTIVE SLEEP APNEA BUT WAS QUITE SYMPTOMATIC. HENCE SHE HAS BEEN ON CPAP THERAPY . WHICH SHE USES REGULARLY EVERY NIGHT. WE COULD NOT GET THE COMPLIANCE REPORT . Code(s): G47.33 - Obstructive sleep apnea (adult) (pediatric) Category: Medical (6) Allergic rhinitis: Comment: MILD CHRONIC ALLERGIC RHINITIS GOES ALONG WITH HER BRONCHIAL ASTHMA. Code(s): J30.9 - Allergic rhinitis, unspecified Category: Medical Qualifiers: Allergic rhinitis seasonality: seasonal Allergic rhinitis trigger: pollen Qualified Code(s): J30.1 - Allergic rhinitis due to pollen (7) Overactive bladder: Code(s): N32.81 - Overactive bladder Category: Medical (8) Stress incontinence: Code(s): N39.3 - Stress incontinence (female) (male) Category: Medical Plan Patient is a 43-year-old female came in today for physical exam Mammogram was December of last year OBGYN at [facility] Colonoscopy August of this year Labs were done August of this year New set of lab order placed Patient is morbidly obese and having difficulty losing weight Medication list reviewed proper refills provided Orders: Orders Comprehensive [place]. Panel Fast Today F33.41 - Major depressive disorder, recurrent, in partial remission, F41.1 - Generalized anxiety disorder, G47.33 - Obstructive sleep apnea (adult) (pediatric), J30.1 - Allergic rhinitis due to pollen, M79.7 - Fibromyalgia, N32.81 - Overactive bladder, N39.3 - Stress incontinence (female) (male), Z00.01 - Encounter for general adult medical examination with abnormal findings TSH reflex Free T4 Today F33.41 - Major depressive disorder, recurrent, in partial remission, F41.1 - Generalized anxiety disorder, G47.33 - Obstructive sleep apnea (adult) (pediatric), J30.1 - Allergic rhinitis due to pollen, M79.7 - Fibromyalgia, N32.81 - Overactive bladder, N39.3 - Stress incontinence (female) (male), Z00.01 - Encounter for general adult medical examination with abnormal findings MM tomosynthesis screening BI Today Z12.31 - Encounter for screening mammogram for malignant neoplasm of breast Complete Blood Count Auto Diff Today F33.41 - Major depressive disorder, recurrent, in partial remission, F41.1 - Generalized anxiety disorder, G47.33 - Obstructive sleep apnea (adult) (pediatric), J30.1 - Allergic rhinitis due to pollen, M79.7 - Fibromyalgia, N32.81 - Overactive bladder, N39.3 - Stress incontinence (female) (male), Z00.01 - Encounter for general adult medical examination with abnormal findings Lipid Panel Today F33.41 - Major depressive disorder, recurrent, in partial remission, F41.1 - Generalized anxiety disorder, G47.33 - Obstructive sleep apnea (adult) (pediatric), J30.1 - Allergic rhinitis due to pollen, M79.7 - Fibromyalgia, N32.81 - Overactive bladder, N39.3 - Stress incontinence (female) (male), Z00.01 - Encounter for general adult medical examination with abnormal findings Medications: Refilled gabapentin 300 mg PO TID 90 days 270 caps 0RF M79.7 - Fibromyalgia
[2024-03-13 12:24] VITALS: BP 110/66; PULSE 87; O2SAT 98; BMI 44.4
== END 2024-03-13 12:53 | disposition home or self-care (01) ==
PROVIDERS: PCP Internal Medicine; Visit Provider Internal Medicine
DX: Z00.00 Encounter for general adult medical examination without abnormal findings (principal); F41.1 Generalized anxiety disorder; F33.41 Major depressive disorder, recurrent, in partial remission; M79.7 Fibromyalgia; G47.33 Obstructive sleep apnea (adult) (pediatric); J30.1 Allergic rhinitis due to pollen; N32.81 Overactive bladder; N39.3 Stress incontinence (female) (male)

== ENCOUNTER → 2024-03-13 12:22 | Outpatient (BNVA) | payer OTHER, SELFPAY | PROVIDERS: Visit Provider Internal Medicine | DX: Z00.01 Encounter for general adult medical examination with abnormal findings (principal); F41.1 Generalized anxiety disorder; F33.41 Major depressive disorder, recurrent, in partial remission; M79.7 Fibromyalgia; G47.33 Obstructive sleep apnea (adult) (pediatric); J30.1 Allergic rhinitis due to pollen; N32.81 Overactive bladder; N39.3 Stress incontinence (female) (male) | CPT/HCPCS: 96127; 99396 ==

== ENCOUNTER 2024-04-03 11:56 | Outpatient (AMB) | payer OTHER, SELFPAY ==
[2024-04-03 13:08] VITALS: BP 120/88; PULSE 68; O2SAT 97
--- NOTE | 2024-04-03 13:08 | AM.OFFWIN_ITS ---
Intake Vital Signs 04/03/24 13:08 Weight 242 lb BP 120/88 Blood Pressure Location Rt brachial Position Sitting Pulse 68 Pulse Source Pulse Oximeter Pulse Oximetry (%) 97 Oxygen Delivery Method Room Air Intake Visit Reasons: EP-chest pain, dizziness, nausea Intake Note: Patient here for chest discomfort, SOB, dizziness and nausea that started this morning. Patient Tobacco Use Status: Current everyday Tobacco user Allergies azithromycin [AZITHROMYCIN] Allergy (Intermediate, Verified 04/03/24 13:12) RASH ketorolac [From Toradol] Allergy (Intermediate, Verified 04/03/24 13:12) Rash Sulfa (Sulfonamide Antibiotics) [SULFA (SULFONAMIDE ANTIBIOTICS)] Allergy (Intermediate, Verified 04/03/24 13:12) RASH fluconazole [Diflucan] Allergy (Unknown, Verified 04/03/24 13:12) unknown topiramate [Topamax] Allergy (Unknown, Verified 04/03/24 13:12) unknown propranolol Allergy (Verified 04/03/24 13:12) itching amitriptyline Adverse Reaction (Intermediate, Verified 04/03/24 13:12) stomach upset Do you need a note to return to daycare/school/sports/work: No HPI HPI Comments History of Present Illness Details History of Present Illness The patient is a 44-year-old female presenting with chest pain, dizziness, and nausea. These symptoms began this morning and have been intermittent since. The chest pain is described as sharp at times and becomes more intense every 15 minutes before subsiding temporarily with no intervention. The patient also reports shortness of breath and a mild cough. There is no sweating or episodes of numbness or tingling in the arms. She experiences pulsating in both ears but denies head congestion, sinus pain, or headaches. Although she has back pain, which started yesterday, she does not attribute it to her chest pain. She took Prilosec this morning for her GERD; however, the chest pain she is experiencing doesn't feel like her typical reflux pain. The patient also took a medication given for severe heartburn, she is unsure of the name, but it didn't alleviate her symptoms. She has a history of GERD and previous EKGs have returned with nonspecific T wave abnormalities, but her condition has previously been attributed to GERD rather than cardiac issues. She does not have a history of cardiac conditions. She denies a family history of cardiac issues or family member who passed of a myocardial infarction at a young age but did note a g randparent who did have a myocardial infarction at the age of 80. [facility] Medical History Mild bibasilar atelectasis Diarrhea Abnormal uterine bleeding (AUB) Pelvic pain Heavy menstrual bleeding Allergic rhinitis Asthma Smoker Abdominal pain Loud snoring ELIAZAR (obstructive sleep apnea) Somnolence, daytime Early satiety Colon polyps Hydradenitis History of fibromyalgia GERD (gastroesophageal reflux disease) History of headache Hx of irritable bowel syndrome Hx of ovarian cyst Hx of renal calculi History of anxiety Surgical History H/O tubal ligation History of esophagogastroduodenoscopy (EGD) H/O colonoscopy History of cholecystectomy History of Family History Father HTN (hypertension) Diabetes mellitus Liver cancer Alcoholic Substance use disorder Mother Anxiety Depression Liver tumor Brother Heart attack Buerger disease Stroke Seizure Diabetes mellitus Family/Other Mild asthma Maternal Grandmother Cancer of unknown origin Maternal Grandfather Liver cancer Paternal Grandfather Heart problem Other Mental health disorder Social History Household Members: Spouse and Children Housing: House Alcohol intake: former Patient Tobacco Use Status: Current everyday Tobacco user Tobacco use type: Cigarette Cigarette Packs Per Day: 0.5 Cigarettes Per Day: 10.0 Years Smoked: 25 e-Cigarette/Vaping Use: Never Used Substance Use Type: Marijuana service: No Current occupational status: unemployed Current occupation: due to Covid Gender identity: Female Cognitive needs: No Hearing needs: No Vision needs: No Female Reproductive History Menstrual Age of Menarche: 10 Date of menopause: 02/21/23 Review of Systems Const All systems reviewed & are unremarkable except as noted in HPI and below Physical Exam Vital Signs: Last Vital Signs Pulse 68 04/03/24 13:08 BP 120/88 04/03/24 13:08 Pulse Ox 97 04/03/24 13:08 Oxygen Delivery Method Room Air 04/03/24 13:08 Const General: cooperative, healthy appearing, comfortable, no acute distress and well developed Orientation/consciousness: patient oriented x3 Limitations: no limitations HEENT Head: Yes normal to inspection Ears: hearing grossly normal bilaterally General nose exam: Normal external nose present Face and sinus: Yes normal facial exam Eyes General: appearance normal, both eyes and all related structures Neck Neck: Yes normal visual inspection and Yes full ROM Resp Effort & Inspection: normal respiratory effort and able to speak in complete sentences Auscultation: clear to auscultation bilaterally Cardio Rate: regular rate Rhythm: regular rhythm Heart sounds: normal S1 and S2 Skin General skin exam: no rashes or lesions noted Neuro General: patient oriented x3 Extrem General: Yes normal to inspection Office Procedures EKG [id number], Complete Assessment & Plan Assessment & Plan (1) Chest pain at rest: Code(s): R07.9 - Chest pain, unspecified Plan: For chest pain, an EKG will be performed to assess electrical activity and identify any potential acute cardiac issues, though further cardiac enzyme testing troponins for myocardial stress would require emergency care. The patient should consider proceeding to an emergency room should cardiac issues be suspected, as I have limited capability to completely rule out cardiac etiology at this clinic. Given that the pain is atypical for her established GERD, evaluation to discern the primary etiology of the pain is warranted. Management will focus initially on ruling out cardiac causes before concluding a diagnosis of GERD exacerbation. The outcome of the EKG will determine next steps, including transportation options for further evaluation if needed. EKG showed ST depressions in V3, V4 and V5, not previously seen on prior EKGs. Gave patient 325 mg chewable aspirin and called 911 to transport to [facility] for further workup. Patient was informed and verbally consented to the use of an ambient scribe for clinic note documentation during this visit. Coding Level of Care Code Est Pt Level 5 (29807) Diagnoses Chest pain at rest R07.9 CPT Codes EKG - CPT: 18527-[id number], Complete ([id number])
== END 2024-04-03 14:02 | disposition home or self-care (01) ==
PROVIDERS: PCP Internal Medicine; Visit Provider Physician Assistant
DX: R07.9 Chest pain, unspecified (principal)

== ENCOUNTER → 2024-04-03 11:56 | Outpatient (BNVA) | payer OTHER, SELFPAY | PROVIDERS: PCP Internal Medicine; Visit Provider Physician Assistant | DX: R07.9 Chest pain, unspecified (principal) | CPT/HCPCS: 93005; 99212 ==

== ENCOUNTER 2024-04-03 14:09 | Emergency (ER) | payer OTHER, SELFPAY ==
--- NOTE | ~2024-04-03 | XR_ITS ---
EXAMINATION: XR CHEST CLINICAL INFORMATION: chest pain COMPARISON: X-ray dated June 03, 2023. TECHNIQUE: Frontal view of the chest was obtained. FINDINGS: No consolidation, pleural effusion or pneumothorax. No hyperinflation. Cardiomediastinal silhouette is normal. Multilevel thoracic spondylosis. XR/XR chest 1V IMPRESSION: No acute airspace disease. Electronically signed by: Tomas Vega MD 04/03/2024 03:22 PM ALBERTO
[2024-04-03 14:14] VITALS: BP 153/90; PULSE 88; O2SAT 98
[2024-04-03 14:19] VITALS: BP 118/69; PULSE 64; RESP 18; TEMP 36.6; O2SAT 98; BMI 44.4
--- NOTE | 2024-04-03 14:22 | ECG_ITS ---
Test Reason : CP Blood Pressure : / mmHG Vent. Rate : 065 BPM Atrial Rate : 065 BPM P-R Int : 140 ms QRS Dur : 070 ms QT Int : 386 ms P-R-T Axes : 035 -12 -17 degrees QTc Int : 401 ms Normal sinus rhythm Nonspecific T wave abnormality Abnormal ECG When compared with ECG of 03-JUN-2023 14:48, No significant change was found Referred By: Marilee Butler Electronically Signed By:Pedro Valadze
[2024-04-03 15:23] LABS: MANUAL DIFF FLAG NO
[2024-04-03 15:24] LABS: Basophils Absolute Auto 0.1 X10*3/uL (0.0-0.2); Basophils Percent Auto 0.5 % (0-2); Eosinophils Absolute Auto 0.4 X10*3/uL (0.0-0.4); Eosinophils Percent Auto 3.6 % (0-4); Hematocrit 39.5 % (37.0-47.0); Hemoglobin 13.3 g/dl (12.0-16.0); Imm Gran Abs Auto 0.03 X10*3/uL (0.00-0.03); Imm Gran Pct Auto 0.3 % (0.0-0.4); Lymphocytes Absolute Auto 2.6 X10*3/uL (1.2-4.9); Lymphocytes Percent Auto 25.9 % (20-40); Mean Corpuscular HGB Conc 33.7 g/dl (31.0-35.0); Mean Corpuscular Hemoglobin 28.8 pg (27.0-33.0); Mean Corpuscular Volume 85.5 fL (80.0-98.0); Mean Platelet Volume 9.8 fL (9.4-12.3); Monocytes Absolute Auto 0.6 X10*3/uL (0.1-1.2); Monocytes Percent Auto 5.8 % (2-11); Neutrophils Absolute Auto 6.4 x10*3/uL (2.0-8.3); Neutrophils Percent Auto 63.9 % (45-73); Platelet Count 226 X10*3/uL (160-400); Red Blood Count 4.62 X10*6/uL (4.20-5.50); Red Cell Distribution Width 14.2 % (11.0-16.0); White Blood Count 10.1 X10*3/uL (4.8-10.8)
[2024-04-03 15:39] LABS: D Dimer High Sensitivity < 150 NG/ML
--- NOTE | 2024-04-03 15:40 | ED.CHESTPAIN ---
HPI - Chest Pain General Chief Complaint: Chest Pain Stated Complaint: CP FROM PCP PER SMS Time Seen by Provider: 04/03/24 14:22 Source: patient, family and EMS Mode of arrival: EMS Limitations: no limitations History of Present Illness ED Provider: SABINA BRAVO narrative: 44 yo female with PMH of chest pain, migraines, gastritis, hidradenitis suppurativa, GERD, esophagitis, IBS, ELIAZAR, GERD no known CAD here with c/o lifting boxes yesterday at home then noted some mid back pain that is intermittently sharp and painful. She then noted waking at 630AM and intermittently feeling sharp central chest pain no radiation but she felt slightly dizzy and nauseated. She was given nitro and aspirin by EMS with relief other than feeling gas in her chest area. She has not had any recent URI, travel, procedures. She notes she feels much better now. MD complaint: chest pain Onset (ago): hour(s) (630am today) Timing of current episode: episodic Prior episodes: No Onset: during rest Pain location: substernal Pain radiation: none Severity: moderate Quality: sharp Relieving factors: nothing Exacerbating factors: nothing Context: other Associated symptoms: nausea Treatment prior to arrival: aspirin and nitroglycerin Related Data Home Medications ?Medication ?Instructions ?Recorded ?Confirmed bupropion HCl 150 mg tablet,12 hr 150 mg PO BID 01/30/20 03/13/24 sustained-release lorazepam 1 mg tablet 1 mg PO BID 01/30/20 03/13/24 Previous Rx's ?Medication ?Instructions ?Recorded Ventolin HFA 90 mcg/actuation 1 inh inhalation Q6H PRN shortness 04/05/22 aerosol inhaler (albuterol sulfate) of breath or wheezing #18 grams ondansetron 4 mg disintegrating 8 mg (2 x 4 mg) PO Q8H PRN for 02/01/23 tablet nausea/vomiting #90 tabs sumatriptan succinate 50 mg tablet 50 mg PO ONCE PRN migraine 07/11/23 headache 30 days #10 tabs omeprazole 40 mg capsule,delayed 40 mg PO DAILY #90 caps 11/29/23 release albuterol sulfate 90 mcg/actuation 2 puff inhalation Q4-6H PRN 12/21/23 aerosol inhaler (Ventolin HFA) shortness of breath or wheezing 30 days #8.5 grams nicotine 14 mg/24 hr daily 1 patch transdermal DAILY NICOTINE 12/21/23 transdermal patch CRAVING 28 days #28 ea famotidine 40 mg tablet 40 mg PO BEDTIME #60 tabs 02/15/24 montelukast 10 mg tablet 10 mg PO DAILY 90 days #90 tabs 02/15/24 gabapentin 300 mg capsule 300 mg PO TID 90 days #270 caps 03/13/24 Allergies Allergy/AdvReac Type Severity Reaction Status Date / Time azithromycin [AZITHROMYCIN] Allergy Intermediate RASH Verified 04/03/24 14:22 ketorolac [From Toradol] Allergy Intermediate Rash Verified 04/03/24 14:22 Sulfa (Sulfonamide Allergy Intermediate RASH Verified 04/03/24 14:22 Antibiotics) [SULFA (SULFONAMIDE ANTIBIOTICS)] fluconazole [Diflucan] Allergy Unknown unknown Verified 04/03/24 14:22 topiramate [Topamax] Allergy Unknown unknown Verified 04/03/24 14:22 propranolol Allergy itching Verified 04/03/24 14:22 amitriptyline AdvReac Intermediate stomach Verified 04/03/24 14:22 upset Review of Systems Review of Systems: Constitutional : No Weight loss, No Fever, No Chills ENT/Mouth : No sore throat, No Rhinorrhea Eyes: No Eye Pain, No Swelling Cardiovascular : pos Chest Pain, no SOB, no Dyspnea on Exertion, No Orthopnea, No Edema, No Palpitations Respiratory : No Cough, No Sputum Gastrointestinal : pos Nausea, No Vomiting, No Diarrhea, No abdominal Pain, No Hematochezia, No Melena Genitourinary : No Dysuria, No Urinary Frequency Musculoskeletal : No joint pain, No Myalgias, No Joint Swelling Skin : No Skin Lesions, No rash Neuro : No Weakness, No Numbness, pos Dizziness, No Headache All other systems reviewed and are negative PMFSH Past Medical History Attestation statement: The following information was validated with the patient. Source: old records reviewed Medical History Mild bibasilar atelectasis Diarrhea Abnormal uterine bleeding (AUB) Pelvic pain Heavy menstrual bleeding Allergic rhinitis Asthma Smoker Abdominal pain Loud snoring ELIAZAR (obstructive sleep apnea) Somnolence, daytime Early satiety Colon polyps Hydradenitis History of fibromyalgia GERD (gastroesophageal reflux disease) History of headache Hx of irritable bowel syndrome Hx of ovarian cyst Hx of renal calculi History of anxiety Surgical History H/O tubal ligation History of esophagogastroduodenoscopy (EGD) H/O colonoscopy History of cholecystectomy History of Family History Family History Father HTN (hypertension) Diabetes mellitus Liver cancer Alcoholic Substance use disorder Mother Anxiety Depression Liver tumor Brother Heart attack Buerger disease Stroke Seizure Diabetes mellitus Family/Other Mild asthma Maternal Grandmother Cancer of unknown origin Maternal Grandfather Liver cancer Paternal Grandfather Heart problem Other Mental health disorder Social History Social History Household Members: Spouse and Children Housing: House Alcohol intake: former Patient Tobacco Use Status: Current everyday Tobacco user Tobacco use type: Cigarette Cigarette Packs Per Day: 0.5 Cigarettes Per Day: 10.0 Years Smoked: 25 Smoked in Last 30 Days: Yes e-Cigarette/Vaping Use: Never Used Use of substances other than those prescribed or required for medical reasons: Yes Substance Use Type: Marijuana Substance Use Frequency: Occasionally Advance Directives: No Do you have a plan to hurt others: No Plan service: No Current occupational status: unemployed Current occupation: due to Covid Gender identity: Female Cognitive needs: No Hearing needs: No Vision needs: No Physical Exam Vital Signs: Vital Signs: Last Vital Signs Temp 97.9 F 04/03/24 14:19 Pulse 76 04/03/24 16:27 Resp 16 04/03/24 16:27 BP 119/65 04/03/24 16:27 Pulse Ox 99 04/03/24 16:27 O2 Del Method Room Air 04/03/24 16:27 BMI result Body Mass Index 44.4 Appearance: Alert. Oriented X3. No acute distress. Eyes: Pupils equal, round and reactive to light. ENT: Pharynx normal. Neck: Normal inspection. Neck supple. CVS: Normal heart rate and rhythm. Pulses normal. Chest wall: nontender Respiratory: No respiratory distress. Breath sounds normal. Back: ttp along R paraspinal with reproduction of back pain Abdomen: Soft and nontender. Skin: Skin warm and dry. Normal skin color. Normal skin turgor. Extremities: No lower extremity edema. No calf ttp Neuro: Oriented X 3. No motor deficit. No sensory deficit. Medications Administered Discontinued Medications Generic Name Dose Route Start Last Admin Trade Name Jackie PRN Reason Stop Dose Admin Al Hydroxide/Mg Hydroxide 15 ml 04/03/24 15:08 04/03/24 16:26 Magnesium Hydrox/Alum Hydrox 30 Ml Oral.Susp PO 04/03/24 15:09 15 ml ONCE ONE Administration Lidocaine HCl 15 ml 04/03/24 15:08 04/03/24 16:26 Lidocaine Hcl Viscous 2 % 15 Ml Solution MUCOUS MEM 04/03/24 15:09 15 ml ONCE ONE Administration Medical Decision Making Medical Decision Making [facility] Narrative: 44 yo female with PMH of chest pain, migraines, gastritis, hidradenitis suppurativa, GERD, esophagitis, IBS, ELIAZAR, GERD no known CAD here with c/o chest pain on and off atypical since 630am today no risk factors for VTE, her back pain is reproduceable and the chest pain does not radiate to the back she is also CP free now which makes dissection less likely. She also c/o chest pain that is intermittent and sharp without VTE risk factors at this time will obtain trop x 2, ddimer, basic labs, and CXR. given response to nitro and atypical symtoms could be esophageal spasm Differential Diagnosis Differential Diagnoses: The differential diagnosis associated with the presentation includes VTE, atypical chest pain, esophageal spasm Admission/Observation Consideration of admission/observation: Escalation of care including admission/observation considered ddimer negative trop negative x 2 nonischemic EKG suspect this was GERD related and that is why she responded to nitro she has no exertional symptoms her pulses are intact doubt dissection will DC home to follow up with PCP isidra flood of early CAD Lab Data [facility] Lab Attestation statement: I reviewed the patient's lab results. 04/03/24 15:19 04/03/24 15:19 Labs: Lab Results 04/03/24 04/03/24 04/03/24 Range/Units 15:19 15:20 17:39 WBC 10.1 (4.8-10.8) X10*3/uL RBC 4.62 (4.20-5.50) X10*6/uL Hgb 13.3 (12.0-16.0) g/dl Hct 39.5 (37.0-47.0) % MCV 85.5 (80.0-98.0) fL MCH 28.8 (27.0-33.0) pg MCHC 33.7 (31.0-35.0) g/dl RDW 14.2 (11.0-16.0) % Plt Count 226 (160-400) X10*3/uL MPV 9.8 (9.4-12.3) fL Immature Gran % (Auto) 0.3 (0.0-0.4) % Neut % (Auto) 63.9 (45-73) % Lymph % (Auto) 25.9 (20-40) % [place] % (Auto) 5.8 (2-11) % Eos % (Auto) 3.6 (0-4) % Baso % (Auto) 0.5 (0-2) % Lymph # (Auto) 2.6 (1.2-4.9) X10*3/uL [place] # (Auto) 0.6 (0.1-1.2) X10*3/uL Eos # (Auto) 0.4 (0.0-0.4) X10*3/uL Baso # (Auto) 0.1 (0.0-0.2) X10*3/uL Abs Immat Gran (auto) 0.03 (0.00-0.03) X10*3/uL Absolute Neuts (auto) 6.4 (2.0-8.3) x10*3/uL Absolute Nucleated RBC 0.000 (0.0-0.012) X10*3/uL Nucleated RBC % (auto) 0.0 (0.0-0.2) /100WBC D-Dimer High Sensitivty < 150 NG/ML Sodium 140 (135-145) mmol/L Potassium 3.9 (3.3-5.1) mmol/L Chloride 111 H (96-108) mmol/L Carbon Dioxide 20 L (22-29) mmol/L Anion Gap 13 (12-20) BUN 11 (9-16) mg/dL Creatinine 0.70 (0.5-1.4) mg/dL Estim Creat Clear Calc 113.1 Estimated GFR > 60 Random Glucose 85 (60-115) mg/dL Calcium 9.0 (8.4-10.2) mg/dL Magnesium 2.0 (1.6-2.6) mg/dL Total Bilirubin 0.3 (0.0-1.0) mg/dL Direct Bilirubin 0.1 (0.0-0.5) mg/dL AST 13 (5-31) U/L ALT < 6 (0-31) U/L Alkaline Phosphatase 112 (39-117) U/L Troponin I High Sens < 2.7 < 2.7 (<3.5-17.0) ng/L B-Natriuretic Peptide 18 (<100) pg/mL Total Protein 6.7 (6.5-8.0) g/dL Albumin 3.6 (3.5-5.0) g/dL Lipase 8 (8-78) U/L Independent Interpretation I performed an independent interpretation of an: EKG and Plain X-Ray (normal ) Interpretation: Rate: 65 Rhythm: NSR [place]: left Normal P waves. Normal [place]. Normal QRS complex. ST T wave : no KRYSTIN, inverted t waves III and aVFL, V3-V4 qTC: 401 prior studies: no change from prior The study has been interpreted contemporaneously by me. . Radiology Impression Discussion of test interpretation with radiology: I have reviewed the radiologist's reading. Discharge Plan Discharge Clinical Impression: Chest pain Qualifiers: Chest pain type: other chest pain Qualified Code(s): R07.89 - Other chest pain Patient Disposition: Home, Self-Care Instructions: Chest Pain (ED) Additional Instructions: return for any worsening symptoms or concerns follow up with your doctor rest and take it easy chest xray normal blood clot test negative repeat heart markers negative no acute change on EKG Prescriptions: No Action albuterol sulfate [Ventolin HFA] 90 mcg/actuation HFA aerosol inhaler 1 inh inhalation Q6H PRN (Reason: shortness of breath or wheezing) Qty: 18 2RF ondansetron 4 mg tablet,disintegrating 8 mg PO Q8H PRN (Reason: for nausea/vomiting) Qty: 90 2RF sumatriptan succinate 50 mg tablet 50 mg PO ONCE PRN (Reason: migraine headache) 30 Days Qty: 10 0RF omeprazole 40 mg capsule,delayed release(DR/EC) 40 mg PO DAILY Qty: 90 1RF famotidine 40 mg tablet 40 mg PO BEDTIME Qty: 60 1RF montelukast 10 mg tablet 10 mg PO DAILY 90 Days Qty: 90 0RF lorazepam 1 mg tablet 1 mg PO BID bupropion HCl 150 mg tablet sustained-release 12 hr 150 mg PO BID nicotine 14 mg/24 hr patch 24 hour 1 patch transdermal DAILY 28 Days Qty: 28 3RF albuterol sulfate [Ventolin HFA] 90 mcg/actuation HFA aerosol inhaler 2 puff inhalation Q4-6H PRN (Reason: shortness of breath or wheezing) 30 Days Qty: 8.5 3RF gabapentin 300 mg capsule 300 mg PO TID 90 Days Qty: 270 0RF Stand Alone Forms: Work/School Release Print Language: Mozambican
[2024-04-03 15:46] LABS: B Type Natriuretic Peptide 18 pg/mL (<100)
[2024-04-03 15:49] LABS: Alanine Aminotransferase < 6 U/L (0-31); Albumin Level 3.6 g/dL (3.5-5.0); Anion Gap 13 (12-20); Aspartate Amino Transferase 13 U/L (5-31); Bilirubin Direct 0.1 mg/dL (0.0-0.5); Bilirubin Total 0.3 mg/dL (0.0-1.0); Blood Urea Nitrogen 11 mg/dL (9-16); Carbon Dioxide 20 mmol/L (22-29); Chloride 111 mmol/L (96-108); Creatinine Clr Calc Pharmacy 113.1; Estimated Glomerular Filt Rate > 60; Glucose Random 85 mg/dL (60-115); Lipase 8 U/L (8-78); Potassium 3.9 mmol/L (3.3-5.1); Sodium 140 mmol/L (135-145); Total Protein 6.7 g/dL (6.5-8.0); Troponin-I High Sensitivity < 2.7 ng/L (<3.5-17.0)
[2024-04-03 15:52] LABS: Alkaline Phosphatase 112 U/L (39-117)
[2024-04-03] MEDS: Magnesium Hydrox/Alum Hydrox 30 ML ORAL.SUSP 15 ML PO (16:26)
[2024-04-03] MEDS: Lidocaine HCl Viscous 2 % 15 ML SOLUTION MUCOUS MEM (16:26)
[2024-04-03 16:27] VITALS: BP 119/65; PULSE 76; RESP 16; O2SAT 99
[2024-04-03 18:10] LABS: Troponin-I High Sensitivity < 2.7 ng/L (<3.5-17.0)
[2024-04-03 18:45] VITALS: BP 118/45; PULSE 70; RESP 21; TEMP 36.8; O2SAT 98
== END 2024-04-03 18:46 | disposition home or self-care (01) ==
PROVIDERS: Emergency Provider Emergency Medicine; PCP Internal Medicine
DX: R07.89 Other chest pain (principal); J45.909 Unspecified asthma, uncomplicated; F17.210 Nicotine dependence, cigarettes, uncomplicated
CPT/HCPCS: 36415; 71045; 80048; 80076; 83690; 83735; 83880; 84484; 85025; 85379; 93005; 99283; 99285

== ENCOUNTER → 2024-04-03 14:22 | Outpatient (BNV) | payer OTHER, SELFPAY | PROVIDERS: Emergency Provider Emergency Medicine; PCP Internal Medicine; Visit Provider Radiology Diagnostic Radiology | DX: R07.9 Chest pain, unspecified (principal) | CPT/HCPCS: 71045 ==

== ENCOUNTER → 2024-04-03 14:22 | Outpatient (BNV) | payer OTHER, SELFPAY | PROVIDERS: Emergency Provider Emergency Medicine; PCP Internal Medicine; Visit Provider Internal Medicine Cardiovascular Disease | DX: R94.31 Abnormal electrocardiogram [ECG] [EKG] (principal) | CPT/HCPCS: 93010 ==

== ENCOUNTER 2024-04-27 09:47 | Outpatient (REF) | payer OTHER, SELFPAY | END 2024-04-27 09:48 | disposition home or self-care (01) | LOC: HO.MAMMO 09:47 | PROVIDERS: PCP Internal Medicine; Visit Provider Internal Medicine | DX: Z12.31 Encounter for screening mammogram for malignant neoplasm of breast (principal) | CPT/HCPCS: 77063; 77067 ==

== ENCOUNTER → 2024-04-27 10:00 | Outpatient (BNV) | payer OTHER, SELFPAY | PROVIDERS: PCP Internal Medicine; Visit Provider Internal Medicine | DX: Z12.31 Encounter for screening mammogram for malignant neoplasm of breast (principal) | CPT/HCPCS: 77063; 77067 ==

== ENCOUNTER 2024-05-23 08:54 | Outpatient (AMB) | payer OTHER, SELFPAY ==
--- NOTE | 2024-05-23 10:21 | MHC.OFFWIV ---
Intake Vital Signs 05/23/24 10:28 Weight 235 lb BP 110/80 Blood Pressure Location Rt brachial Position Sitting Pulse 86 Pulse Source Pulse Oximeter Temp 97.9 F Temp Source Oral Pulse Oximetry (%) 97 Oxygen Delivery Method Room Air Intake Visit Reasons: EP Pain when urinating, light headed, nausea Intake Note: Patient here for nausea, pain when urinating and lower back pain that started yesterday. Patient Tobacco Use Status: Current everyday Tobacco user Allergies azithromycin [AZITHROMYCIN] Allergy (Intermediate, Verified 05/23/24 10:29) RASH ketorolac [From Toradol] Allergy (Intermediate, Verified 05/23/24 10:29) Rash Sulfa (Sulfonamide Antibiotics) [SULFA (SULFONAMIDE ANTIBIOTICS)] Allergy (Intermediate, Verified 05/23/24 10:29) RASH fluconazole [Diflucan] Allergy (Unknown, Verified 05/23/24 10:29) unknown topiramate [Topamax] Allergy (Unknown, Verified 05/23/24 10:29) unknown propranolol Allergy (Verified 05/23/24 10:29) itching amitriptyline Adverse Reaction (Intermediate, Verified 05/23/24 10:29) stomach upset Do you need a note to return to daycare/school/sports/work: No HPI HPI Comments History of Present Illness Details History of Present Illness - The patient is a 44-year-old female presenting with urinary symptoms indicative of a Urinary Tract Infection (UTI). - She began experiencing pain and pressure in the vaginal area the previous night, persisting with and without urination. - There was a report of mild low back discomfort but no fever, itchiness, or abnormal discharge. - The patient has a history of kidney stones, though current symptoms do not align with such an episode. - No visible hematuria was noticed by the patient. - The patient is allergic to Azithromycin and Sulfa drugs and currently uses famotidine. Physical Exam General: Cooperative, healthy appearing, comfortable, no acute distress and well developed Orientation: Patient oriented x3 Limitations: No limitations Head: Normal to inspection Ears: Hearing grossly normal bilaterally Nose: Normal external nose present Face and sinus: Normal facial exam Eyes: Appearance normal, both eyes and all related structures Neck: Normal visual inspection and Yes full ROM Respiratory: Normal respiratory effort and able to speak in complete sentences : neg CVA bilaterally Skin: No rashes or lesions noted Neuro: Patient oriented x3 Extremities: Normal to inspection [facility] Medical History Mild bibasilar atelectasis Diarrhea Abnormal uterine bleeding (AUB) Pelvic pain Heavy menstrual bleeding Allergic rhinitis Asthma Smoker Abdominal pain Loud snoring ELIAZAR (obstructive sleep apnea) Somnolence, daytime Early satiety Colon polyps Hydradenitis History of fibromyalgia GERD (gastroesophageal reflux disease) History of headache Hx of irritable bowel syndrome Hx of ovarian cyst Hx of renal calculi History of anxiety Surgical History H/O tubal ligation History of esophagogastroduodenoscopy (EGD) H/O colonoscopy History of cholecystectomy History of Family History Father HTN (hypertension) Diabetes mellitus Liver cancer Alcoholic Substance use disorder Mother Anxiety Depression Liver tumor Brother Heart attack Buerger disease Stroke Seizure Diabetes mellitus Family/Other Mild asthma Maternal Grandmother Cancer of unknown origin Maternal Grandfather Liver cancer Paternal Grandfather Heart problem Other Mental health disorder Social History Household Members: Spouse and Children Housing: House Alcohol intake: former Patient Tobacco Use Status: Current everyday Tobacco user Tobacco use type: Cigarette Cigarette Packs Per Day: 0.5 Cigarettes Per Day: 10.0 Years Smoked: 25 e-Cigarette/Vaping Use: Never Used Substance Use Type: Marijuana service: No Current occupational status: unemployed Current occupation: due to Covid Gender identity: Female Cognitive needs: No Hearing needs: No Vision needs: No Female Reproductive History Menstrual Age of Menarche: 10 Date of menopause: 02/21/23 Review of Systems Const All systems reviewed & are unremarkable except as noted in HPI and below Physical Exam Vital Signs: Last Vital Signs Temp 97.9 F 05/23/24 10:28 Pulse 86 05/23/24 10:28 BP 110/80 05/23/24 10:28 Pulse Ox 97 05/23/24 10:28 Oxygen Delivery Method Room Air 05/23/24 10:28 Assessment & Plan Assessment & Plan (1) UTI (urinary tract infection): Code(s): N39.0 - Urinary tract infection, site not specified Qualifiers: Urinary tract infection type: acute cystitis Hematuria presence: without hematuria Qualified Code(s): N30.00 - Acute cystitis without hematuria Plan: - Her urinalysis showed false positives due to Azo ingestion prior to testing. For the management of urinary symptoms suggesting a Urinary Tract Infection, I have prescribed cefuroxime, mindful of the patient?s drug allergies, for a duration of 7 days. I have advised a urine culture to identify any bacterial cause considering the altered urinalysis due to Azo intake negating UA results. Interaction with famotidine has been noted; rec to stop famotidine and adherence to alternate antacid recommendations like TUMS is advised. Adequate hydration is encouraged to aid symptomatic relief. While historical nephrolithiasis is noted, current symptoms do not align, and thus further management is on standby unless conditions change. Patient was informed and verbally consented to the use of an ambient scribe for clinic note documentation during this visit. Orders: Orders Urine Culture Today N39.0 - Urinary tract infection, site not specified Medications: New cefuroxime axetil 500 mg PO Q12H 14 tabs 0RF Discontinued omeprazole Discontinued Reason: No Longer Medically Relevant 40 mg PO DAILY 90 caps 1RF Coding Level of Care Code Est Pt Level 3 (15265) Diagnoses Acute cystitis without hematuria N30.00 Urinary tract infection type: acute cystitis Hematuria presence: without hematuria
[2024-05-23 10:28] VITALS: BP 110/80; PULSE 86; TEMP 36.6; O2SAT 97
== END 2024-05-23 10:49 | disposition home or self-care (01) ==
PROVIDERS: PCP Internal Medicine; Visit Provider Physician Assistant
DX: N30.00 Acute cystitis without hematuria (principal); Z13.9 Encounter for screening, unspecified

== ENCOUNTER 2024-05-23 08:54 | Outpatient (REF) | payer OTHER, SELFPAY | END 2024-05-23 08:55 | disposition home or self-care (01) | LOC: HO.LAB 08:54 | PROVIDERS: PCP Internal Medicine; Visit Provider Physician Assistant | DX: N30.00 Acute cystitis without hematuria (principal) | CPT/HCPCS: 81003; 87086; 99212 ==

== ENCOUNTER → 2024-05-29 10:52 | Outpatient (BNVA) | payer OTHER, SELFPAY | PROVIDERS: PCP Internal Medicine; Visit Provider Internal Medicine ==

== ENCOUNTER 2024-06-18 12:04 | Outpatient (AMB) | payer OTHER, SELFPAY ==
[2024-06-18 12:12] VITALS: BP 120/82; PULSE 96; RESP 18; TEMP 36.6; O2SAT 96; BMI 46.6
--- NOTE | 2024-06-18 12:12 | MHC.PC.OV ---
Vital Signs 06/18/24 12:12 Height 5 ft 1 in Weight 246 lb 8 oz BMI 46.6 BP 120/82 Blood Pressure Location Rt brachial Position Sitting Respiration 18 Pulse 96 Pulse Source Pulse Oximeter Temp 98 F Temp Source Oral Pulse Oximetry (%) 96 Oxygen Delivery Method Room Air Intake Visit Reasons: 3 months f/up Allergies azithromycin [AZITHROMYCIN] Allergy (Intermediate, Verified 06/18/24 12:19) RASH ketorolac [From Toradol] Allergy (Intermediate, Verified 06/18/24 12:19) Rash nitrofurantoin [From Macrobid] Allergy (Intermediate, Verified 06/18/24 12:19) Rash Sulfa (Sulfonamide Antibiotics) [SULFA (SULFONAMIDE ANTIBIOTICS)] Allergy (Intermediate, Verified 06/18/24 12:19) RASH fluconazole [Diflucan] Allergy (Unknown, Verified 06/18/24 12:19) unknown topiramate [Topamax] Allergy (Unknown, Verified 06/18/24 12:19) unknown propranolol Allergy (Verified 06/18/24 12:19) itching amitriptyline Adverse Reaction (Intermediate, Verified 06/18/24 12:19) stomach upset Medication List - Last Reconciled 06/18/24 by Khanh Reynolds MD albuterol sulfate 90 mcg/actuation (Ventolin HFA) 2 puffs inhalation Q4-6H PRN 30 days bupropion HCl SR 150 mg PO BID famotidine 40 mg PO BEDTIME gabapentin 300 mg PO TID 90 days levofloxacin 500 mg PO DAILY 5 days lorazepam 1 mg PO BID montelukast 10 mg PO DAILY 90 days nicotine 1 patch transdermal DAILY 28 days ondansetron 8 mg (2 x 4 mg) PO Q8H PRN sumatriptan succinate 50 mg PO ONCE PRN 30 days Ventolin HFA 90 mcg/actuation (albuterol sulfate) 1 inh inhalation Q6H PRN NS Tobacco use date assessed: 06/18/24 Dental Screening Dental Screen Date: 06/18/24 Did you have a dental visit in the last 12 months?: Yes Did you have a dental problem in the last 6 months where you did not have access to dental care?: No Was dental information given to patient?: Patient has dentist HPI 3 months f/up HPI Details Patient is a 44-year-old female came in today to be evaluated for possible urinary tract infection Symptoms started 4 days ago, patient had leftover antibiotic from previous urinary tract infection she has started taking that There is no fever no chills Feels slightly nauseous which is recurrent for the patient UA shows slight amount of blood but no signs of infection She is having slight burning and recurrent urination I have sent more antibiotic with the patient We will be booking appointment with Urology Ultrasound of bladder ordered She is also complaining of blurring of vision and has not had eye exam in years Ophthalmology referral placed She is also on gabapentin for fibromyalgia which I have sent the refill for Follow-up 3 months [facility] Medical History Mild bibasilar atelectasis Diarrhea Abnormal uterine bleeding (AUB) Pelvic pain Heavy menstrual bleeding Allergic rhinitis Asthma Smoker Abdominal pain Loud snoring ELIAZAR (obstructive sleep apnea) Somnolence, daytime Early satiety Colon polyps Hydradenitis History of fibromyalgia GERD (gastroesophageal reflux disease) History of headache Hx of irritable bowel syndrome Hx of ovarian cyst Hx of renal calculi History of anxiety Surgical History H/O tubal ligation History of esophagogastroduodenoscopy (EGD) H/O colonoscopy History of cholecystectomy History of Family History Father HTN (hypertension) Diabetes mellitus Liver cancer Alcoholic Substance use disorder Mother Anxiety Depression Liver tumor Brother Heart attack Buerger disease Stroke Seizure Diabetes mellitus Family/Other Mild asthma Maternal Grandmother Cancer of unknown origin Maternal Grandfather Liver cancer Paternal Grandfather Heart problem Other Mental health disorder Social History Household Members: Spouse and Children Housing: House Alcohol intake: former Patient Tobacco Use Status: Current everyday Tobacco user Tobacco use type: Cigarette Cigarette Packs Per Day: 0.5 Cigarettes Per Day: 10.0 Years Smoked: 25 e-Cigarette/Vaping Use: Never Used Substance Use Type: Marijuana service: No Current occupational status: unemployed Current occupation: due to Covid Gender identity: Female Cognitive needs: No Hearing needs: No Vision needs: No Female Reproductive History Menstrual Age of Menarche: 10 Date of menopause: 02/21/23 Questionnaire PHQ-9 Over the last 2 weeks, how often have you been bothered by any of the following problems? 1. Little interest or pleasure in doing things: nearly every day 2. Feeling down, depressed, or hopeless: nearly every day 3. Trouble falling or staying asleep, or sleeping too much: nearly every day 4. Feeling tired or having little energy: nearly every day 5. Poor appetite or overeating: several days 6. Feeling bad about yourself - or that you are a failure or have let yourself or your family down: more than half the days 7. Trouble concentrating on things, such as reading the newspaper or watching television: nearly every day 8. Moving or speaking so slowly that other people could have noticed. Or the opposite - being so fidgety or restless that you have been moving around a lot more than usual: not at all 9. Thoughts that you would be better off or of hurting yourself in some way: not at all Total score: 18 Depression Screening Interpretation: Positive Depression Screening Follow-up: Existing condition and In treatment Depression Screening Done: Yes 91184 - PHQ-9 Billing: Yes Source: Developed by Drs. Tony Sandhu, Vidhya Esparza, Nitish Stein and colleagues, with an educational tonya from [employer]. Thrive Questionnaire Date Thrive assessed: 06/18/24 I am a: Patient What is your living situation today?: I have a steady place to live Within the past 12 months, did the food you bought not last and you didn't have the money to get more?: Often true Within the past 12 months, did you worry whether your food would run out before you got money to buy more?: Never true Do you have trouble paying for medicines?: No Do you have trouble getting transportation to medical appointments?: Yes Do you have trouble paying your heating and electricity bill?: No Do you have trouble taking care of your child, family member or friend?: No Do you have trouble with day-to-day activities such as bathing, preparing meals, shopping, managing finances, etc.?: Yes Are you currently unemployed and looking for a job?: No Are you interested in more education?: No Please select the resources that you would like help with: None Currently or been in a relationship where the following occur: No concerns reported THRIVE Score: 2 AUDIT C Alcohol Use Questionnaire (AUDIT-C) 1. How often do you have a drink containing alcohol?: Never 3. How often do you have six or more drinks on one occasion?: Never Total Score: 0 Score Reviewed/Action Taken: Yes JUAN CARLOS-7 AMB Questionnaire JUAN CARLOS-7 Date JUAN CARLOS - 7 assessed: 06/18/24 Feeling nervous, anxious, or on edge: 3 = Nearly every day Not being able to stop or control worryin = Nearly every day Worrying too much about different things: 3 = Nearly every day Trouble relaxin = Nearly every day Being so restless that it is hard to sit still: 3 = Nearly every day Becoming easily annoyed or irritable: 3 = Nearly every day Feeling afraid as if something awful might happen: 3 = Nearly every day Total JUAN CARLOS-7 score (0-4 normal; 5-9 mild; 10-14 moderate; 15-21 severe): 21 Source: Developed by Drs. Tony Sandhu, Vidhya Esparza, Nitish Stein and colleagues, with an educational tonya from [employer]. JUAN CARLOS-7 Assessment Billing JUAN CARLOS-7 Assessment Tool: JUAN CARLOS-7 Assessment 43697 Physical exam (Primary Care) Vital Signs: Last Vital Signs Temp 98 F 06/18/24 12:12 Pulse 96 06/18/24 12:12 Resp 18 06/18/24 12:12 BP 120/82 06/18/24 12:12 Pulse Ox 96 06/18/24 12:12 Oxygen Delivery Method Room Air 06/18/24 12:12 BMI result Body Mass Index 46.6 Tobacco/Smoking Status: Tobacco use Status Tobacco use date assessed 06/18/24 06/18/24 12:20 Patient Tobacco Use Status Current everyday Tobacco 06/18/24 12:14 Tobacco use type Cigarette 06/18/24 12:14 e-Cigarette/Vaping Use Never Used 06/18/24 12:14 PHQ-9: PHQ-9 Score PHQ-9: Total score 18 06/18/24 12:37 Depression Screening Interpretation: Positive Depression Screening Follow-up: Existing condition and In treatment Thrive Assessment: Date of Thrive Assessment Date Thrive assessed 06/18/24 06/18/24 12:20 Currently or been in a relationship where the following occur: No concerns reported Results AMB Urinalysis, Automated UA Leukoctes 0 Rosa/uL Last Edit by NELSY Snowden on 06/18/24 12:32 UA Nitrite Negative Last Edit by Molly Benjamin, [facility] on 06/18/24 12:32 UA Urobilinogen 0.2 mg/dL Last Edit by Molly Benjamin [facility] on 06/18/24 12:32 UA Protein 0 mg/dL Last Edit by Molly Benjamin, [facility] on 06/18/24 12:32 UA pH 6.5 Last Edit by Molly Benjamin [facility] on 06/18/24 12:32 UA Blood 10 Maurisio/uL Last Edit by Molly Benjamin [facility] on 06/18/24 12:32 +- Molly Benjamin 06/18/24 12:32 UA Specific [place] 1.015 Last Edit by Molly Benjamin [facility] on 06/18/24 12:32 UA Ketone Negative Last Edit by Molly Benjamin [facility] on 06/18/24 12:32 UA Bilirubin 0 mg/dL Last Edit by Molly Benjamin [facility] on 06/18/24 12:32 UA Glucose 0 mg/dL Last Edit by Molly Benjamin [facility] on 06/18/24 12:32 Results Reviewed Results Reviewed: Laboratory Last Values Urine pH (Auto) 6.5 06/18/24 12:31 Specific [place] (Auto) 1.015 06/18/24 12:31 Urine Protein (Auto) 0 mg/dL 06/18/24 12:31 Glucose (UA)(Auto) 0 mg/dL 06/18/24 12:31 Urine Ketones (Auto) Negative 06/18/24 12:31 Urine Blood (Auto) 10 Maurisio/uL 06/18/24 12:31 Urine Nitrite (Auto) Negative 06/18/24 12:31 Urine Bilirubin (Auto) 0 mg/dL 06/18/24 12:31 Urine Urobilinogen (Auto) 0.2 mg/dL 06/18/24 12:31 Leukocyte Esterase (Auto) 0 Rosa/uL 06/18/24 12:31 Coding Level of Care Code Est Pt Level 4 (42386) Diagnoses Recurrent UTI N39.0 Gross hematuria R31.0 Hematuria type: gross Blurring of vision H53.8 Anxiety, generalized F41.1 Recurrent major depressive disorder, in partial remission F33.41 Active/Remission status: in partial remission Fibromyalgia M79.7 Seasonal allergic rhinitis due to pollen J30.1 Allergic rhinitis trigger: pollen Allergic rhinitis seasonality: seasonal Overactive bladder N32.81 Stress incontinence N39.3 Additional Codes JUAN CARLOS-7 Assessment Billing - JUAN CARLOS-7 Assessment Tool: JUAN CARLOS-7 Assessment 46509 ([id number]) PHQ-9 - 92945 - PHQ-9 Billing: Yes ([id number]) Assessment & Plan Assessment & Plan (1) Recurrent UTI: Code(s): N39.0 - Urinary tract infection, site not specified Category: Medical (2) Blood in urine: Code(s): R31.9 - Hematuria, unspecified Category: Medical Qualifiers: Hematuria type: gross Qualified Code(s): R31.0 - Gross hematuria (3) Blurring of vision: Code(s): H53.8 - Other visual disturbances Category: Medical (4) Anxiety, generalized: Code(s): F41.1 - Generalized anxiety disorder Category: Medical (5) Major depression, recurrent: Code(s): F33.9 - Major depressive disorder, recurrent, unspecified Category: Medical Qualifiers: Active/Remission status: in partial remission Qualified Code(s): F33.41 - Major depressive disorder, recurrent, in partial remission (6) Fibromyalgia: Code(s): M79.7 - Fibromyalgia Category: Medical (7) Allergic rhinitis: Comment: MILD CHRONIC ALLERGIC RHINITIS GOES ALONG WITH HER BRONCHIAL ASTHMA. Code(s): J30.9 - Allergic rhinitis, unspecified Category: Medical Qualifiers: Allergic rhinitis trigger: pollen Allergic rhinitis seasonality: seasonal Qualified Code(s): J30.1 - Allergic rhinitis due to pollen (8) Overactive bladder: Code(s): N32.81 - Overactive bladder Category: Medical (9) Stress incontinence: Code(s): N39.3 - Stress incontinence (female) (male) Category: Medical Plan Patient is a 44-year-old female came in today to be evaluated for possible urinary tract infection Symptoms started 4 days ago, patient had leftover antibiotic from previous urinary tract infection she has started taking that She already suffers from stress incontinence But lately has been having difficulty holding her urine more than before There is no fever no chills Feels slightly nauseous which is recurrent for the patient UA shows slight amount of blood but no signs of infection She is having slight burning and recurrent urination I have sent more antibiotic with the patient We will be booking appointment with Urology Ultrasound of bladder ordered She is also complaining of blurring of vision and has not had eye exam in years Ophthalmology referral placed She is also on gabapentin for fibromyalgia which I have sent the refill for Follow-up 3 months Orders: Orders US bladder Today N39.0 - Urinary tract infection, site not specified, R31.0 - Gross hematuria AMB Urinalysis Automated Today Z13.9 - Encounter for screening, unspecified Referrals Urology Referral N39.0 - Urinary tract infection, site not specified, R31.0 - Gross hematuria Ophthalmology Referral H53.8 - Other visual disturbances Medications: Refilled levofloxacin 500 mg PO DAILY 5 days 5 tabs 0RF gabapentin 300 mg PO TID 90 days 270 caps 0RF M79.7 - Fibromyalgia
== END 2024-06-18 12:37 | disposition home or self-care (01) ==
PROVIDERS: PCP Internal Medicine; Visit Provider Internal Medicine
DX: N39.0 Urinary tract infection, site not specified (principal); R31.0 Gross hematuria; H53.8 Other visual disturbances; F41.1 Generalized anxiety disorder; F33.41 Major depressive disorder, recurrent, in partial remission; M79.7 Fibromyalgia; J30.1 Allergic rhinitis due to pollen; N32.81 Overactive bladder; N39.3 Stress incontinence (female) (male); Z13.9 Encounter for screening, unspecified

== ENCOUNTER → 2024-06-18 12:04 | Outpatient (BNVA) | payer OTHER, SELFPAY | PROVIDERS: PCP Internal Medicine; Visit Provider Internal Medicine | DX: N39.0 Urinary tract infection, site not specified (principal); R31.0 Gross hematuria; H53.8 Other visual disturbances; F41.1 Generalized anxiety disorder; F33.41 Major depressive disorder, recurrent, in partial remission; M79.7 Fibromyalgia; J30.1 Allergic rhinitis due to pollen; N39.3 Stress incontinence (female) (male); N32.81 Overactive bladder | CPT/HCPCS: 81003; 96127; 99212 ==

== ENCOUNTER 2024-06-25 15:23 | Outpatient (REF) | payer OTHER, SELFPAY ==
--- NOTE | ~2024-06-25 | US_ITS ---
EXAMINATION: US BLADDER HISTORY: N39.0 - Urinary tract infection, site not specified COMPARISON: There are no prior studies for comparison. FINDINGS: Sonographic examination of the urinary bladder was performed before and after voiding. Before voiding, the urinary bladder measured 9.3 x 7.1 x 7.3, for an estimated volume of253 mL. After voiding, the urinary bladder measured3.2 x 3.2 x 4.9, for an estimated volume of 26 mL. No intrinsic bladder abnormality is identified. Bilateral ureteral jets are identified. US/US bladder IMPRESSION: Post void bladder residual 26 mL. No intrinsic bladder abnormality is seen. Electronically signed by: Tony Hogue MD 06/26/2024 07:43 AM EST
== END 2024-06-25 15:24 | disposition home or self-care (01) ==
LOC: HO.HMGCX 15:23
PROVIDERS: PCP Internal Medicine; Visit Provider Internal Medicine
DX: N39.0 Urinary tract infection, site not specified (principal); R31.0 Gross hematuria
CPT/HCPCS: 76857

== ENCOUNTER → 2024-06-25 15:24 | Outpatient (BNV) | payer OTHER, SELFPAY | PROVIDERS: PCP Internal Medicine; Visit Provider Radiology Diagnostic Radiology | DX: N39.0 Urinary tract infection, site not specified (principal) | CPT/HCPCS: 76857 ==

== ENCOUNTER 2024-07-02 11:29 | Outpatient (AMB) | payer OTHER, SELFPAY ==
--- NOTE | 2024-07-02 11:30 | MHC.PC.OV ---
Vital Signs 07/02/24 11:31 Height 5 ft 1 in Weight 242 lb BMI 45.7 BP 118/78 Blood Pressure Location Rt brachial Position Sitting Pulse 86 Pulse Source Pulse Oximeter Pulse Oximetry (%) 97 Oxygen Delivery Method Room Air Intake Visit Reasons: restless legs?/general health Allergies azithromycin [AZITHROMYCIN] Allergy (Intermediate, Verified 07/02/24 11:31) RASH ketorolac [From Toradol] Allergy (Intermediate, Verified 07/02/24 11:31) Rash nitrofurantoin [From Macrobid] Allergy (Intermediate, Verified 07/02/24 11:31) Rash Sulfa (Sulfonamide Antibiotics) [SULFA (SULFONAMIDE ANTIBIOTICS)] Allergy (Intermediate, Verified 07/02/24 11:31) RASH fluconazole [Diflucan] Allergy (Unknown, Verified 07/02/24 11:31) unknown topiramate [Topamax] Allergy (Unknown, Verified 07/02/24 11:31) unknown propranolol Allergy (Verified 07/02/24 11:31) itching amitriptyline Adverse Reaction (Intermediate, Verified 07/02/24 11:31) stomach upset Medication List - Last Reconciled 07/02/24 by Khanh Reynolds MD albuterol sulfate 90 mcg/actuation (Ventolin HFA) 2 puffs inhalation Q4-6H PRN 30 days bupropion HCl SR 150 mg PO BID famotidine 40 mg PO BEDTIME gabapentin 300 mg PO TID 90 days lorazepam 1 mg PO BID montelukast 10 mg PO DAILY 90 days ondansetron 8 mg (2 x 4 mg) PO Q8H PRN sumatriptan succinate 50 mg PO ONCE PRN 30 days Ventolin HFA 90 mcg/actuation (albuterol sulfate) 1 inh inhalation Q6H PRN NS Tobacco use date assessed: 07/02/24 Dental Screening Dental Screen Date: 07/02/24 Did you have a dental visit in the last 12 months?: Yes Did you have a dental problem in the last 6 months where you did not have access to dental care?: No Was dental information given to patient?: Patient has dentist HPI restless legs?/general health HPI Details History - The patient is a 44-year-old female presenting with restless legs not controlled by Gabapentin. - Restless legs began last , initially mild but worsened significantly yesterday morning. 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 - Missing menstrual period this month; typically experiences leg discomfort synchronized with her menstrual cycle. - Past medical history includes treatment with Pramipexole, previously effective for the condition. - The current dosage of Gabapentin is inadequate for symptom control. - No neurologist consultation to address possible underlying causes of symptoms. - Acknowledges significant stress and anxiety, possibly exacerbating symptoms. Problem List - Restless Legs Syndrome - Anxiety Patient Instructions - Start Pramipexole at bedtime for management of restless legs syndrome. - Monitor symptom improvement; contact healthcare provider if no relief is experienced to possibly see a neurologist. - Consider stress reduction techniques to help manage anxiety levels which can worsen symptoms. Review of Systems - General: No fever no chills - Neurological: No headaches no dizziness - Ear nose throat: No sore throat no hearing difficulty no ear pain - Cardiovascular: No syncope, no chest pain, no palpitations - Gastrointestinal: No nausea vomiting or diarrhea - Endocrine: No polyuria polydipsia no heat intolerance - Genitourinary: No dysuria , no blood in urine Physical Exam General: No acute distress HEENT: No acute findings Neck: Supple Respiratory system: Able to talk in full sentences, no audible wheeze cardiovascular: S1-S2 regular in rate and rhythm Gastrointestinal: No pain Extremities: No new findings 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 x3 motor sensory intact Skin: Normal turgor, presence of skin tags PFSH Medical History Mild bibasilar atelectasis Diarrhea Abnormal uterine bleeding (AUB) Pelvic pain Heavy menstrual bleeding Allergic rhinitis Asthma Smoker Abdominal pain Loud snoring ELIAZAR (obstructive sleep apnea) Somnolence, daytime Early satiety Colon polyps Hydradenitis History of fibromyalgia GERD (gastroesophageal reflux disease) History of headache Hx of irritable bowel syndrome Hx of ovarian cyst Hx of renal calculi History of anxiety Surgical History H/O tubal ligation History of esophagogastroduodenoscopy (EGD) H/O colonoscopy History of cholecystectomy History of Family History Father HTN (hypertension) Diabetes mellitus Liver cancer Alcoholic Substance use disorder Mother Anxiety Depression Liver tumor Brother Heart attack Buerger disease Stroke Seizure Diabetes mellitus Family/Other Mild asthma Maternal Grandmother Cancer of unknown origin Maternal Grandfather Liver cancer Paternal Grandfather Heart problem Other Mental health disorder Social History Household Members: Spouse and Children Housing: House Alcohol intake: former Patient Tobacco Use Status: Current everyday Tobacco user Tobacco use type: Cigarette Cigarette Packs Per Day: 0.5 Cigarettes Per Day: 10.0 Years Smoked: 25 e-Cigarette/Vaping Use: Never Used Substance Use Type: Marijuana service: No Current occupational status: unemployed Current occupation: due to Covid Gender identity: Female Cognitive needs: No Hearing needs: No Vision needs: No Female Reproductive History Menstrual Age of Menarche: 10 Date of menopause: 02/21/23 Questionnaire Thrive Questionnaire Date Thrive assessed: 06/18/24 I am a: Patient What is your living situation today?: I have a steady place to live Within the past 12 months, did the food you bought not last and you didn't have the money to get more?: Often true Within the past 12 months, did you worry whether your food would run out before you got money to buy more?: Never true Do you have trouble paying for medicines?: No Do you have trouble getting transportation to medical appointments?: Yes Do you have trouble paying your heating and electricity bill?: No Do you have trouble taking care of your child, family member or friend?: No Do you have trouble with day-to-day activities such as bathing, preparing meals, shopping, managing finances, etc.?: Yes Are you currently unemployed and looking for a job?: No Are you interested in more education?: No Please select the resources that you would like help with: None Currently or been in a relationship where the following occur: No concerns reported THRIVE Score: 2 JUAN CARLOS-7 AMB Questionnaire JUAN CARLOS-7 Date JUAN CARLOS - 7 assessed: 06/18/24 Source: Developed by Drs. Tony Sandhu, Vidhya Esparza, Nitish Stein and colleagues, with an educational tonya from [employer] Physical exam (Primary Care) Vital Signs: Last Vital Signs Pulse 86 07/02/24 11:31 BP 118/78 07/02/24 11:31 Pulse Ox 97 07/02/24 11:31 Oxygen Delivery Method Room Air 07/02/24 11:31 BMI result Body Mass Index 45.7 Tobacco/Smoking Status: Tobacco use Status Tobacco use date assessed 07/02/24 07/02/24 11:45 Patient Tobacco Use Status Current everyday Tobacco 07/02/24 11:45 Tobacco use type Cigarette 07/02/24 11:45 e-Cigarette/Vaping Use Never Used 07/02/24 11:45 Thrive Assessment: Date of Thrive Assessment Date Thrive assessed 06/18/24 07/02/24 11:45 Currently or been in a relationship where the following occur: No concerns reported Coding Level of Care Code Est Pt Level 3 (73575) Diagnoses Restless legs syndrome G25.81 Assessment & Plan Assessment & Plan (1) Restless legs syndrome: Code(s): G25.81 - Restless legs syndrome Category: Medical Plan History - The patient is a 44-year-old female presenting with restless legs not controlled by Gabapentin. - Restless legs began last , initially mild but worsened significantly yesterday morning. 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 - Missing menstrual period this month; typically experiences leg discomfort synchronized with her menstrual cycle. - Past medical history includes treatment with Pramipexole, previously effective for the condition. - The current dosage of Gabapentin is inadequate for symptom control. - No neurologist consultation to address possible underlying causes of symptoms. - Acknowledges significant stress and anxiety, possibly exacerbating symptoms. Problem List - Restless Legs Syndrome - Anxiety Patient Instructions - Start Pramipexole at bedtime for management of restless legs syndrome. - Monitor symptom improvement; contact healthcare provider if no relief is experienced to possibly see a neurologist. - Consider stress reduction techniques to help manage anxiety levels which can worsen symptoms. Medications: New pramipexole 0.25 mg PO BEDTIME 30 tabs 0RF
[2024-07-02 11:31] VITALS: BP 118/78; PULSE 86; O2SAT 97; BMI 45.7
== END 2024-07-02 12:22 | disposition home or self-care (01) ==
PROVIDERS: PCP Internal Medicine; Visit Provider Internal Medicine
DX: G25.81 Restless legs syndrome (principal)

== ENCOUNTER → 2024-07-02 11:29 | Outpatient (BNVA) | payer OTHER, SELFPAY | PROVIDERS: PCP Internal Medicine; Visit Provider Internal Medicine | DX: G25.81 Restless legs syndrome (principal) | CPT/HCPCS: 99212 ==

== ENCOUNTER 2024-08-06 10:17 | Outpatient (AMB) | payer OTHER, SELFPAY ==
--- NOTE | 2024-08-06 10:18 | A.OFFVIS_ITS ---
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: Pull Tab Dealer Present (Talisha) Allergies azithromycin [AZITHROMYCIN] Allergy (Intermediate, Verified 08/06/24 10:20) RASH ketorolac [From Toradol] Allergy (Intermediate, Verified 08/06/24 10:20) Rash nitrofurantoin [From Macrobid] Allergy (Intermediate, Verified 08/06/24 10:20) Rash Sulfa (Sulfonamide Antibiotics) [SULFA (SULFONAMIDE ANTIBIOTICS)] Allergy (Intermediate, Verified 08/06/24 10:20) RASH fluconazole [Diflucan] Allergy (Unknown, Verified 08/06/24 10:20) unknown topiramate [Topamax] Allergy (Unknown, Verified 08/06/24 10:20) unknown propranolol Allergy (Verified 08/06/24 10:20) itching amitriptyline Adverse Reaction (Intermediate, Verified 08/06/24 10:20) stomach upset HPI Comments Details: She is a premenopausal woman presenting for annual examination. 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 She reports pain external cysts of the vulva. History of tubal ligation. Currently is sexually active. She denies vaginal itching and irritation. STI screening offered; she declines. She tries to eat healthy and stays active with exercise. Denies family history of breast, ovarian or colon cancer. Last pap smear 2020, negative. Mammogram: 2023. Colonoscopy is up to date. History of IUD user in the past was told it had to be removed as it was not improving her bleeding pattern and was scraping the inside of her lining. Prior EMB's-negative. [facility] Medical History (Updated 08/06/24 @ 10:53 by Angelika Guerin CNM) Furuncle of vulva Vulvar lesion Mild bibasilar atelectasis Diarrhea Abnormal uterine bleeding (AUB) Pelvic pain Heavy menstrual bleeding Allergic rhinitis Asthma Smoker Abdominal pain Loud snoring ELIAZAR (obstructive sleep apnea) Somnolence, daytime Early satiety Colon polyps Hydradenitis History of fibromyalgia GERD (gastroesophageal reflux disease) History of headache Hx of irritable bowel syndrome Hx of ovarian cyst Hx of renal calculi History of anxiety Surgical History H/O tubal ligation History of esophagogastroduodenoscopy (EGD) H/O colonoscopy History of cholecystectomy History of Family History Father HTN (hypertension) Diabetes mellitus Liver cancer Alcoholic Substance use disorder Mother Anxiety Depression Liver tumor Brother Heart attack Buerger disease Stroke Seizure Diabetes mellitus Family/Other Mild asthma Maternal Grandmother Cancer of unknown origin Maternal Grandfather Liver cancer Paternal Grandfather Heart problem Other Mental health disorder Social History Household Members: Spouse and Children Housing: House Alcohol intake: former Patient Tobacco Use Status: Current everyday Tobacco user Tobacco use type: Cigarette Cigarette Packs Per Day: 0.5 Cigarettes Per Day: 10.0 Years Smoked: 25 e-Cigarette/Vaping Use: Never Used Substance Use Type: Marijuana service: No Current occupational status: unemployed Current occupation: due to Cov[employer] Gender identity: Female Cognitive needs: No Hearing needs: No Vision needs: No Female Reproductive History Menstrual Age of Menarche: 10 Date of last menstrual period: 06/30/24 control method: permanent sterilization Permanent Sterilization: BTL Total pregnancies: 3 Full term: 3 Number of Living Children: 3 Date of last pap smear: 05/07/20 (neg pap and hpv) Date of Mammogram: 04/27/24 (Birad 1) Review of Systems Const All systems reviewed & are unremarkable except as noted in HPI and below Reports as per HPI Eyes Reports no additional complaints ENT Reports no additional complaints Card Reports no additional complaints Resp Reports no additional complaints GI Reports as per HPI and Reports no additional complaints Reports as per HPI Musc Reports no additional complaints Skin/Breast Reports as per HPI Neuro Reports no additional complaints Psych Reports no additional complaints Endo Reports no additional complaints Tre/Lymph Reports no additional complaints Aller/Immun Reports no additional complaints Physical Exam Vital Signs: BMI result Body Mass Index 48.0 Const General: cooperative, healthy appearing, no acute distress, well developed and alert Orientation/consciousness: patient oriented x3 HEENT Head: Yes normal to inspection Eyes General: appearance normal, both eyes and all related structures Neck Neck: Yes normal visual inspection Thyroid: Thyroid normal Chest Chest palpation & inspection: normal inspection of the chest and other (no puckering, dimpling, peau de orange, retraction, discharge, masses) Breast/axilla inspection: normal inspection of the breasts Breast/axilla palpation: normal palpation of the breasts Resp Effort & Inspection: normal respiratory effort GI Inspection: Yes normal to inspection Palpation (GI): Soft to palpation Rectal Exam - Female: deferred Other: Vulvar scarring, areas of healing, scattered small pustules from chronic skin eruptions, no abscesses. General: Yes bladder normal to palpation External Female Exam: normal external appearance and normal appearance of the urethra Speculum Exam - Vagina: normal appearance of the vagina, normal palpation and normal vaginal discharge Speculum Exam - Cervix: normal appearance of the cervix and normal palpation Bimanual exam- vagina & uterus: normal bimanual exam, normal palpation, uterine size normal, bladder normal to palpation, normal palpation and non-tender Bimanual Exam- Adnexa, other: no masses Skin General skin exam: no rashes or lesions noted Rashes: no rashes Neuro General: patient oriented x3 Cognition (Neuro): normal cognition Extrem General: Yes normal to inspection Psych Attitude: cooperative Thought process: Normal thought process present Assessment & Plan Assessment & Plan (1) Encounter for well woman exam with routine gynecological exam: Code(s): Z01.419 - Encounter for gynecological examination (general) (routine) without abnormal findings Category: Medical Plan: Discussed: Current recommendations for pap smears per ASCCP guidelines. Breast awareness and periodic breast exams. Mammogram yearly. Maintain a healthy lifestyle including a well balanced diet and routine exercise. Patient verbalizes understanding and agrees to the plan of care. She was given opportunity to ask questions and all questions were answered to the best of my ability. RTO in one year for annual labour market economist examination. This note is constructed using voice recognition software. While every effort has been made to ensure accuracy, account management specialist errors may have been included. (2) Menorrhagia: Code(s): N92.0 - Excessive and frequent menstruation with regular cycle Category: Medical Qualifiers: Menorrhagia type: with regular cycle Qualified Code(s): N92.0 - Excessive and frequent menstruation with regular cycle Plan: Workup for AUB to include CBC, TSH, pelvic ultrasound, and EMB. Preprocedural planning discussed advised to have something to eat and drink and take 2 Tylenol or 3 Advil per manufacture's recommendation if no contraindications 1 hour before the procedure time. Total time I personally spent on visit and management today: ?15 minutes. Time spent included review of pertinent office notes in the electronic health record; review of laboratory and imaging results; review of personal family medical history; performing physical exam; discussing diagnosis and plan of care with the patient; documenting the encounter in the EMR. (3) Furuncle of vulva: Code(s): N76.4 - Abscess of vulva Category: Medical Plan Discussed: No abscess noted, has a chronic condition, skin care reviewed, warm compress to the area as needed, report any infection not improving responding, advised to use any antimicrobial soap and a washcloth for cleansing, rinsing area well with plan water, and use of cotton underwear. Referral placed to beatriz jerez. Discussed correlations with chronic skin infections in obesity. Total time I personally spent on visit and management today: ?10 minutes. Time spent included review of pertinent office notes in the electronic health record; review of laboratory and imaging results; review of personal family medical history; performing physical exam; discussing diagnosis and plan of care with the patient; documenting the encounter in the EMR. Orders: Orders Complete Blood Count no Diff Today N92.0 - Excessive and frequent menstruation with regular cycle Thyroid Stimulating Hormone Today N92.0 - Excessive and frequent menstruation with regular cycle, N92.1 - Excessive and frequent menstruation with irregular cycle US pelvic and transvaginal Today N92.0 - Excessive and frequent menstruation with regular cycle Bacterial Vaginosis Panel Today N92.0 - Excessive and frequent menstruation with regular cycle Referrals Dermatology Referral N76.4 - Abscess of vulva Coding Level of Care Code Est Pt Level 3 (08790) Est Pt Prev Care 40-64y(75149) Diagnoses Encounter for well woman exam with routine gynecological exam Z01.419 Menorrhagia with regular cycle N92.0 Menorrhagia type: with regular cycle Furuncle of vulva N76.4
[2024-08-06 10:20] VITALS: BP 120/76; BMI 48.0
== END 2024-08-06 11:01 | disposition home or self-care (01) ==
LOC: HO.HWS 10:17
PROVIDERS: PCP Internal Medicine; Visit Provider Advanced Practice Midwife
DX: Z01.419 Encounter for gynecological examination (general) (routine) without abnormal findings (principal); N92.0 Excessive and frequent menstruation with regular cycle; N76.4 Abscess of vulva
CPT/HCPCS: 99213; 99396; 99459

== ENCOUNTER 2024-08-06 10:17 | Outpatient (REF) | payer OTHER, SELFPAY ==
[2024-08-07 08:44] LABS: Bacterial Vaginosis PCR NEGATIVE (Negative); Candida Group PCR NOT DETECTED (Not Detect); Candida glab krusei PCR NOT DETECTED (Not Detect); Trichomonas vaginalis PCR NOT DETECTED (Not Detect)
== END 2024-08-06 10:18 | disposition home or self-care (01) ==
LOC: HO.LAB 10:17
PROVIDERS: PCP Internal Medicine; Visit Provider Advanced Practice Midwife
DX: Z01.419 Encounter for gynecological examination (general) (routine) without abnormal findings (principal); N92.0 Excessive and frequent menstruation with regular cycle; N76.4 Abscess of vulva
CPT/HCPCS: 81515; 99212; 99396; 99459

== ENCOUNTER 2024-09-12 11:10 | Outpatient (REF) | payer OTHER, SELFPAY ==
--- NOTE | ~2024-09-12 | US_ITS ---
EXAMINATION: US PELVIS CLINICAL INFORMATION: Excessive and frequent menstruation. 44-year-old female. COMPARISON: None available. Correlation made with CT abdomen and pelvis 09/03/2023. TECHNIQUE: Ultrasound of the pelvis is performed using both transabdominal and transvaginal transducers along with Doppler. Transvaginal imaging is performed due to inadequate visualization transabdominally. FINDINGS: As per technologist note, limited study due to habitus. Uterus: The uterus is anteverted and measures 7.7 x 3.9 x 4.3 cm. Normal-appearing cervix with small nabothian cysts. The double wall endometrial thickness is 6 mm. It is uniform. The uterus is smooth in contour and has normal myometrial echogenicity. No visible fibroid. Adnexa: Neither ovary could be visualized. There is no pelvic ascites or fluid collection. There are no adnexal masses appreciated. US/US pelvic and transvaginal IMPRESSION: 1. Normal-appearing uterus and endometrium. 2. Nonvisualization of the ovaries. Electronically signed by: Jay Light MD 09/12/2024 11:51 AM EDT
== END 2024-09-12 11:11 | disposition home or self-care (01) ==
LOC: HO.US 11:10
PROVIDERS: PCP Internal Medicine; Visit Provider Advanced Practice Midwife
DX: N92.0 Excessive and frequent menstruation with regular cycle (principal)
CPT/HCPCS: 76830; 76856

== ENCOUNTER → 2024-09-12 11:12 | Outpatient (BNV) | payer OTHER, SELFPAY | PROVIDERS: PCP Internal Medicine; Visit Provider Radiology Diagnostic Radiology | DX: N92.0 Excessive and frequent menstruation with regular cycle (principal) | CPT/HCPCS: 76830; 76856 ==

== ENCOUNTER 2024-09-17 09:59 | Outpatient (AMB) | payer OTHER, SELFPAY ==
[2024-09-17 10:02] VITALS: BP 126/78; PULSE 82; O2SAT 98; BMI 48.6
--- NOTE | 2024-09-17 10:02 | MHC.PC.OV ---
Vital Signs 09/17/24 10:02 Height 5 ft 1 in Weight 257 lb 8 oz BMI 48.6 BP 126/78 Blood Pressure Location Rt brachial Position Sitting Pulse 82 Pulse Source Pulse Oximeter Pulse Oximetry (%) 98 Oxygen Delivery Method Room Air Intake Visit Reasons: 3 months f/up Allergies azithromycin [AZITHROMYCIN] Allergy (Intermediate, Verified 09/17/24 10:02) RASH ketorolac [From Toradol] Allergy (Intermediate, Verified 09/17/24 10:02) Rash nitrofurantoin [From Macrobid] Allergy (Intermediate, Verified 09/17/24 10:02) Rash Sulfa (Sulfonamide Antibiotics) [SULFA (SULFONAMIDE ANTIBIOTICS)] Allergy (Intermediate, Verified 09/17/24 10:02) RASH fluconazole [Diflucan] Allergy (Unknown, Verified 09/17/24 10:02) unknown topiramate [Topamax] Allergy (Unknown, Verified 09/17/24 10:02) unknown propranolol Allergy (Verified 09/17/24 10:02) itching amitriptyline Adverse Reaction (Intermediate, Verified 09/17/24 10:02) stomach upset Medication List - Last Reconciled 09/17/24 by Khanh Reynolds MD albuterol sulfate 90 mcg/actuation (Ventolin HFA) 2 puffs inhalation Q4-6H PRN bupropion HCl SR 150 mg PO BID famotidine 40 mg PO BEDTIME gabapentin 300 mg PO TID 90 days lorazepam 1 mg PO BID montelukast 10 mg PO DAILY 90 days ondansetron 8 mg (2 x 4 mg) PO Q8H PRN pramipexole 0.25 mg PO BEDTIME sumatriptan succinate 50 mg PO ONCE PRN 30 days Ventolin HFA 90 mcg/actuation (albuterol sulfate) 1 inh inhalation Q6H PRN NS Tobacco use date assessed: 09/17/24 Dental Screening Dental Screen Date: 09/17/24 Did you have a dental visit in the last 12 months?: Yes Did you have a dental problem in the last 6 months where you did not have access to dental care?: No Was dental information given to patient?: Patient has dentist HPI 3 months f/up HPI Details History - The patient is a 44-year-old female presenting with medication refill needs and evaluation of leg pain and weakness. - The patient reports experiencing significant pain in her legs, impairing her ability to walk or move independently, exacerbated to the point where she feels weakness. This issue is ongoing and occurs consistently. - She mentions a sensation of coldness that penetrates deeply, describing it as chill to the bone and reports feeling cold all the time. - She has observed a change in coloration, with her legs turning black upon immersion in bath water. This discoloration resolves after a few minutes upon removal from water. - She last had laboratory tests in March and requires updates including thyroid levels due to her persistent cold sensitivity. - The patient also reports dermatological issues, describing recurrent sores on her abdomen that become large, painful, and bleed. In abdominal skin fold most likely secondary to friction and heat - She has an elevated Body Mass Index (BMI) of 48.7, and reports swelling and a sensation of heaviness which is associated with her obesity. - The patient expresses concern about possible menopausal symptoms, as she has not had a menstrual cycle since June or June, with previously heavy periods now absent. Established with OBGYN, had recent visit with them Problem List - Restless Legs Syndrome - Asthma - Cold Intolerance - Dermatological Lesions on the Abdomen - Possible Vascular Insufficiency - Obesity - Urinary Bladder Dysfunction established with Urology Patient Instructions - Ensure skin is thoroughly dried with a driver wheelchair after a shower and apply powder to absorb sweat in areas of skin folds. - An appointment will be made with a vascular specialist to examine leg circulation. - Discuss potential management for menopause with an OBGYN if considering treatment options. - Monitor any new sores on the skin and follow advice for skin care to avoid friction-related sores. - Undergo the recommended laboratory tests, including thyroid, kidney and liver function tests, and complete blood count. - Follow up with the obesity specialist to evaluate the appropriateness of weight management shots. Referral placed - Keep upcoming appointments with urology, pulmonology, obstetrics and gynecology, and orthopedics as scheduled. Review of Systems - General: No fever no chills - Neurological: No new neurological problems - Ear nose throat: No sore throat no hearing difficulty no ear pain - Cardiovascular: No syncope, no chest pain, no palpitations - Gastrointestinal: No nausea vomiting or diarrhea - Endocrine: No polyuria polydipsia no heat intolerance - Genitourinary: No dysuria , no blood in urine Physical Exam General: No acute distress HEENT: No acute findings Neck: Supple Respiratory system: Able to talk in full sentences, no audible wheeze Cardiovascular: S1-S2 regular in rate and rhythm Gastrointestinal: No pain Extremities: Extremity skin pink without any cyanosis superficial varicosities noted INTAKE CLINICIAN: Alert awake oriented x3 motor sensory intact Skin: Normal turgor, chronic skin changes between skin folds abdomen [facility] Medical History Furuncle of vulva Vulvar lesion Mild bibasilar atelectasis Diarrhea Abnormal uterine bleeding (AUB) Pelvic pain Heavy menstrual bleeding Allergic rhinitis Asthma Smoker Abdominal pain Loud snoring ELIAZAR (obstructive sleep apnea) Somnolence, daytime Early satiety Colon polyps Hydradenitis History of fibromyalgia GERD (gastroesophageal reflux disease) History of headache Hx of irritable bowel syndrome Hx of ovarian cyst Hx of renal calculi History of anxiety Surgical History H/O tubal ligation History of esophagogastroduodenoscopy (EGD) H/O colonoscopy History of cholecystectomy History of Family History Father HTN (hypertension) Diabetes mellitus Liver cancer Alcoholic Substance use disorder Mother Anxiety Depression Liver tumor Brother Heart attack Buerger disease Stroke Seizure Diabetes mellitus Family/Other Mild asthma Maternal Grandmother Cancer of unknown origin Maternal Grandfather Liver cancer Paternal Grandfather Heart problem Other Mental health disorder Social History Household Members: Spouse and Children Housing: House Alcohol intake: former Patient Tobacco Use Status: Current everyday Tobacco user Tobacco use type: Cigarette Cigarette Packs Per Day: 0.5 Cigarettes Per Day: 10.0 Years Smoked: 25 e-Cigarette/Vaping Use: Never Used Substance Use Type: Marijuana service: No Current occupational status: unemployed Current occupation: due to Covid Gender identity: Female Cognitive needs: No Hearing needs: No Vision needs: No Female Reproductive History Menstrual Age of Menarche: 10 Date of menopause: 02/21/23 Questionnaire Thrive Questionnaire Date Thrive assessed: 09/17/24 I am a: Patient What is your living situation today?: I have a steady place to live Within the past 12 months, did the food you bought not last and you didn't have the money to get more?: Often true Within the past 12 months, did you worry whether your food would run out before you got money to buy more?: Never true Do you have trouble paying for medicines?: No Do you have trouble getting transportation to medical appointments?: Yes Do you have trouble paying your heating and electricity bill?: No Do you have trouble taking care of your child, family member or friend?: No Do you have trouble with day-to-day activities such as bathing, preparing meals, shopping, managing finances, etc.?: Yes Are you currently unemployed and looking for a job?: No Are you interested in more education?: No Please select the resources that you would like help with: None Currently or been in a relationship where the following occur: No concerns reported THRIVE Score: 2 AUDIT C Alcohol Use Questionnaire (AUDIT-C) 1. How often do you have a drink containing alcohol?: Never 3. How often do you have six or more drinks on one occasion?: Never Total Score: 0 Score Reviewed/Action Taken: Yes JUAN CARLOS-7 AMB Questionnaire JUAN CARLOS-7 Date JUAN CARLOS - 7 assessed: 06/18/24 Source: Developed by Drs. Tony Sandhu, Vidhya Esparza, Nitish Stein and colleagues, with an educational tonya from [employer]. Physical exam (Primary Care) Vital Signs: Last Vital Signs Pulse 82 09/17/24 10:02 BP 126/78 09/17/24 10:02 Pulse Ox 98 09/17/24 10:02 Oxygen Delivery Method Room Air 09/17/24 10:02 BMI result Body Mass Index 48.6 Tobacco/Smoking Status: Tobacco use Status Tobacco use date assessed 09/17/24 09/17/24 10:12 Patient Tobacco Use Status Current everyday Tobacco 09/17/24 10:12 Tobacco use type Cigarette 09/17/24 10:12 e-Cigarette/Vaping Use Never Used 09/17/24 10:12 Thrive Assessment: Date of Thrive Assessment Date Thrive assessed 09/17/24 09/17/24 10:12 Currently or been in a relationship where the following occur: No concerns reported Coding Level of Care Code Est Pt Level 4 (01251) Complex EM visit Add On G2211 Diagnoses Bilateral leg pain M79.604; M79.605 Varicose veins of both lower extremities with pain I83.813 Varicose vein complication: pain Laterality: bilateral Anxiety, generalized F41.1 Recurrent major depressive disorder, in partial remission F33.41 Active/Remission status: in partial remission Fibromyalgia M79.7 Seasonal allergic rhinitis due to pollen J30.1 Allergic rhinitis trigger: pollen Allergic rhinitis seasonality: seasonal Overactive bladder N32.81 Stress incontinence N39.3 Restless legs syndrome G25.81 Hidradenitis suppurativa L73.2 Irritable bowel syndrome with diarrhea K58.0 Irritable bowel syndrome type: with diarrhea Morbid obesity due to excess calories E66.01 Environmental allergies Z91.09 ELIAZAR (obstructive sleep apnea) G47.33 Assessment & Plan Assessment & Plan (1) Bilateral leg pain: Code(s): M79.604 - Pain in right leg; M79.605 - Pain in left leg Category: Medical (2) Varicose veins of lower extremity: Code(s): I83.90 - Asymptomatic varicose veins of unspecified lower extremity Category: Medical Qualifiers: Varicose vein complication: pain Laterality: bilateral Qualified Code(s): I83.813 - Varicose veins of bilateral lower extremities with pain (3) Anxiety, generalized: Code(s): F41.1 - Generalized anxiety disorder Category: Medical (4) Major depression, recurrent: Code(s): F33.9 - Major depressive disorder, recurrent, unspecified Category: Medical Qualifiers: Active/Remission status: in partial remission Qualified Code(s): F33.41 - Major depressive disorder, recurrent, in partial remission (5) Fibromyalgia: Code(s): M79.7 - Fibromyalgia Category: Medical (6) Allergic rhinitis: Comment: MILD CHRONIC ALLERGIC RHINITIS GOES ALONG WITH HER BRONCHIAL ASTHMA. Code(s): J30.9 - Allergic rhinitis, unspecified Category: Medical Qualifiers: Allergic rhinitis trigger: pollen Allergic rhinitis seasonality: seasonal Qualified Code(s): J30.1 - Allergic rhinitis due to pollen (7) Overactive bladder: Code(s): N32.81 - Overactive bladder Category: Medical (8) Stress incontinence: Code(s): N39.3 - Stress incontinence (female) (male) Category: Medical (9) Restless legs syndrome: Code(s): G25.81 - Restless legs syndrome Category: Medical (10) Fibromyalgia: Code(s): M79.7 - Fibromyalgia Category: Medical (11) Hidradenitis suppurativa: Code(s): L73.2 - Hidradenitis suppurativa Category: Medical (12) Irritable bowel syndrome (IBS): Code(s): K58.9 - Irritable bowel syndrome, unspecified Category: Medical Qualifiers: Irritable bowel syndrome type: with diarrhea Qualified Code(s): K58.0 - Irritable bowel syndrome with diarrhea (13) Morbid obesity due to excess calories: Code(s): E66.01 - Morbid (severe) obesity due to excess calories Category: Medical (14) Environmental allergies: Code(s): Z91.09 - Other allergy status, other than to drugs and biological substances Category: Medical (15) ELIAZAR (obstructive sleep apnea): Comment: SHE IS KNOWN TO HAVE MILD OBSTRUCTIVE SLEEP APNEA BUT WAS QUITE SYMPTOMATIC. HENCE SHE HAS BEEN ON CPAP THERAPY . WHICH SHE USES REGULARLY EVERY NIGHT. WE COULD NOT GET THE COMPLIANCE REPORT . Code(s): G47.33 - Obstructive sleep apnea (adult) (pediatric) Category: Medical Plan History - The patient is a 44-year-old female presenting with medication refill needs and evaluation of leg pain and weakness. - The patient reports experiencing significant pain in her legs, impairing her ability to walk or move independently, exacerbated to the point where she feels weakness. This issue is ongoing and occurs consistently. - She mentions a sensation of coldness that penetrates deeply, describing it as chill to the bone and reports feeling cold all the time. - She has observed a change in coloration, with her legs turning black upon immersion in bath water. This discoloration resolves after a few minutes upon removal from water. - She last had laboratory tests in March and requires updates including thyroid levels due to her persistent cold sensitivity. - The patient also reports dermatological issues, describing recurrent sores on her abdomen that become large, painful, and bleed. In abdominal skin fold most likely secondary to friction and heat - She has an elevated Body Mass Index (BMI) of 48.7, and reports swelling and a sensation of heaviness which is associated with her obesity. - The patient expresses concern about possible menopausal symptoms, as she has not had a menstrual cycle since June or June, with previously heavy periods now absent. Established with OBGYN, had recent visit with them Problem List - Restless Legs Syndrome - Asthma - Cold Intolerance - Dermatological Lesions on the Abdomen - Possible Vascular Insufficiency - Obesity - Urinary Bladder Dysfunction established with Urology Patient Instructions - Ensure skin is thoroughly dried with a driver wheelchair after a shower and apply powder to absorb sweat in areas of skin folds. - An appointment will be made with a vascular specialist to examine leg circulation. - Discuss potential management for menopause with an OBGYN if considering treatment options. - Monitor any new sores on the skin and follow advice for skin care to avoid friction-related sores. - Undergo the recommended laboratory tests, including thyroid, kidney and liver function tests, and complete blood count. - Follow up with the obesity specialist to evaluate the appropriateness of weight management shots. Referral placed - Keep upcoming appointments with urology, pulmonology, obstetrics and gynecology, and orthopedics as scheduled. Orders: Referrals Vascular Surgery Referral I83.90 - Asymptomatic varicose veins of unspecified lower extremity, M79.604 - Pain in right leg, M79.605 - Pain in left leg Medications: Refilled montelukast 10 mg PO DAILY 90 days 90 tabs 0RF gabapentin 300 mg PO TID 90 days 270 caps 0RF M79.7 - Fibromyalgia
== END 2024-09-17 11:04 | disposition home or self-care (01) ==
LOC: HO.HMCC 10:00
PROVIDERS: PCP Internal Medicine; Visit Provider Internal Medicine
DX: M79.604 Pain in right leg (principal); M79.605 Pain in left leg; I83.813 Varicose veins of bilateral lower extremities with pain; F41.1 Generalized anxiety disorder; F33.41 Major depressive disorder, recurrent, in partial remission; M79.7 Fibromyalgia; J30.1 Allergic rhinitis due to pollen; N32.81 Overactive bladder; N39.3 Stress incontinence (female) (male); G25.81 Restless legs syndrome; E66.01 Morbid (severe) obesity due to excess calories; Z68.42 Body mass index [BMI] 45.0-49.9, adult; L73.2 Hidradenitis suppurativa; K58.0 Irritable bowel syndrome with diarrhea; Z91.09 Other allergy status, other than to drugs and biological substances; G47.33 Obstructive sleep apnea (adult) (pediatric)

== ENCOUNTER → 2024-09-17 09:59 | Outpatient (BNVA) | payer OTHER, SELFPAY | PROVIDERS: PCP Internal Medicine; Visit Provider Internal Medicine | DX: M79.7 Fibromyalgia (principal); M79.604 Pain in right leg; M79.605 Pain in left leg; I83.813 Varicose veins of bilateral lower extremities with pain; F41.1 Generalized anxiety disorder; F33.41 Major depressive disorder, recurrent, in partial remission; J30.1 Allergic rhinitis due to pollen; N39.3 Stress incontinence (female) (male); G25.81 Restless legs syndrome; L73.2 Hidradenitis suppurativa; K58.0 Irritable bowel syndrome with diarrhea; E66.01 Morbid (severe) obesity due to excess calories; G47.33 Obstructive sleep apnea (adult) (pediatric); Z91.09 Other allergy status, other than to drugs and biological substances | CPT/HCPCS: 99212 ==

== ENCOUNTER 2024-09-18 13:12 | Outpatient (AMB) | payer OTHER, SELFPAY ==
--- NOTE | 2024-09-18 13:28 | MHC.OFFVIS ---
Vital Signs 09/18/24 13:29 Height 5 ft 1 in Weight 260 lb 2.327 oz BMI 49.1 BP 110/72 Blood Pressure Location Lt brachial Position Sitting Pulse 94 Pulse Source Pulse Oximeter Pulse Oximetry (%) 97 Oxygen Delivery Method Room Air Intake Visit Reasons: Consistent cough Intake Note: pt is here for sick visit for a cough dry and some production with phelgm at times, short of breath with talking and with exertion and stairs and a wheeze all going on for a few months. Allergies azithromycin [AZITHROMYCIN] Allergy (Intermediate, Verified 09/18/24 13:56) RASH ketorolac [From Toradol] Allergy (Intermediate, Verified 09/18/24 13:56) Rash nitrofurantoin [From Macrobid] Allergy (Intermediate, Verified 09/18/24 13:56) Rash Sulfa (Sulfonamide Antibiotics) [SULFA (SULFONAMIDE ANTIBIOTICS)] Allergy (Intermediate, Verified 09/18/24 13:56) RASH fluconazole [Diflucan] Allergy (Unknown, Verified 09/18/24 13:56) unknown topiramate [Topamax] Allergy (Unknown, Verified 09/18/24 13:56) unknown propranolol Allergy (Verified 09/18/24 13:56) itching amitriptyline Adverse Reaction (Intermediate, Verified 09/18/24 13:56) stomach upset Medication List - Last Reconciled 09/18/24 by Luciano Kendrick MD albuterol sulfate 90 mcg/actuation (Ventolin HFA) 2 puffs inhalation Q4-6H PRN bupropion HCl SR 150 mg PO BID famotidine 40 mg PO BEDTIME gabapentin 300 mg PO TID 90 days lorazepam 1 mg PO BID montelukast 10 mg PO DAILY 90 days ondansetron 8 mg (2 x 4 mg) PO Q8H PRN pramipexole 0.25 mg PO BEDTIME sumatriptan succinate 50 mg PO ONCE PRN 30 days Ventolin HFA 90 mcg/actuation (albuterol sulfate) 1 inh inhalation Q6H PRN NS Do you need a note to return to daycare/school/sports/work: No HPI HPI Consistent cough: Details: 44 YEARS OLD FEMALE COMES FOR FOLLOW-UP AFTER ALMOST 1 YEAR. SHE IS GROSSLY OBESE AND SUPPOSED TO BE USING THE CPAP. HAS NOT USE THE CPAP FOR THE LAST 2-3 MONTHS. SHE IS NOT GETTING GOOD SLEEP AND REMAINS TIRED DURING THE DAYTIME. STILL SMOKING ABOUT 5 OR 6 CIGARETTES A DAY, AND GETS FREQUENT BOUTS OF COUGH. DENIES ANY WHEEZING. BUT DOES GET SHORT OF BREATH ON WALKING UP HILL OR CLIMBING STAIRS. WEIGHT REMAINS UNCHANGED . [facility] Medical History Furuncle of vulva Vulvar lesion Mild bibasilar atelectasis Diarrhea Abnormal uterine bleeding (AUB) Pelvic pain Heavy menstrual bleeding Allergic rhinitis Asthma Smoker Abdominal pain Loud snoring ELIAZAR (obstructive sleep apnea) Somnolence, daytime Early satiety Colon polyps Hydradenitis History of fibromyalgia GERD (gastroesophageal reflux disease) History of headache Hx of irritable bowel syndrome Hx of ovarian cyst Hx of renal calculi History of anxiety Surgical History H/O tubal ligation History of esophagogastroduodenoscopy (EGD) H/O colonoscopy History of cholecystectomy History of Family History Father HTN (hypertension) Diabetes mellitus Liver cancer Alcoholic Substance use disorder Mother Anxiety Depression Liver tumor Brother Heart attack Buerger disease Stroke Seizure Diabetes mellitus Family/Other Mild asthma Maternal Grandmother Cancer of unknown origin Maternal Grandfather Liver cancer Paternal Grandfather Heart problem Other Mental health disorder Social History Household Members: Spouse and Children Housing: House Alcohol intake: former Patient Tobacco Use Status: Current everyday Tobacco user Tobacco use type: Cigarette Cigarette Packs Per Day: 0.5 Cigarettes Per Day: 10.0 Years Smoked: 25 e-Cigarette/Vaping Use: Never Used Substance Use Type: Marijuana service: No Current occupational status: unemployed Current occupation: due to Covid Gender identity: Female Cognitive needs: No Hearing needs: No Vision needs: No Female Reproductive History Menstrual Age of Menarche: 10 Date of menopause: 02/21/23 Review of Systems Const All systems reviewed & are unremarkable except as noted in HPI and below Eyes Reports no additional complaints ENT Reports no additional complaints Card Denies chest pain, Denies irregular heart rhythm and Denies leg edema Resp Reports as per HPI and Reports no additional complaints GI Reports dyspepsia and Reports heartburn (CONTROLLED WITH MED) Reports no additional complaints Musc Reports back pain and Reports muscle cramps Skin/Breast Reports system reviewed and no additional complaints, except as documented Neuro Reports paresthesias Psych Reports no additional complaints Physical Exam Vital Signs: Last Vital Signs Pulse 94 09/18/24 13:29 BP 110/72 09/18/24 13:29 Pulse Ox 97 09/18/24 13:29 Oxygen Delivery Method Room Air 09/18/24 13:29 BMI result Body Mass Index 49.1 Const General: comfortable, no acute distress, alert and awake Orientation/consciousness: patient oriented x3 HEENT Head: Yes normal to inspection General nose exam: No nasal polyps present and No nasal discharge present Face and sinus: Yes sinuses nontender Mouth: oropharynx abnormals (OROPHARYNX IS CROWDED AND ALMOST CLOSED, MALLAMPATI CLASS 4) Throat: Yes posterior oropharynx normal Eyes General: appearance normal, both eyes and all related structures Neck Neck: Yes normal visual inspection, Yes no lymphadenopathy, Yes trachea midline, Yes no JVD and Yes other (NECK SIZE 16 IN) Thyroid: Thyroid normal Chest Chest palpation & inspection: normal inspection of the chest, normal palpation of entire chest wall and no tenderness Resp Other: Percussion note is resonant. Has good breath sounds on both sides. No wheezes rhonchi or crepitations are heard. Cardio Palpation: PMI not normal (NOT PALPABLE) Rate: regular rate Rhythm: regular rhythm Heart sounds: no gallops and no murmurs Peripheral pulses: Peripheral pulses 2+ throughout GI Palpation (GI): Soft to palpation, nontender, No hepatosplenomegaly present, no masses and Other GI palpation findings present (ABDOMEN IS OBESE AND PROTUBERANT) Auscultation: normal bowel sounds Back/Spine/Pelvis Thoracic/Lumbar Spine: thoracic and lumbar spine normal to inspection and thoraco-lumbar ROM limited Skin General skin exam: no rashes or lesions noted Neuro General: patient oriented x3 and no focal motor deficits Cranial nerves: Yes CN's II-XII intact bilaterally Extrem General: Yes normal to inspection, Yes no clubbing, cyanosis or edema and Yes no calf tenderness Psych Appearance: grossly normal Speech and movement: Normal speech and movement present Assessment & Plan Assessment & Plan (1) Morbid obesity: Comment: PATIENT REMAINS MORBIDLY OBESE. HAS GAINED MORE WEIGHT SINCE LAST VISIT CURRENT BMI 49.2 I URGED HER TO JOIN A WEIGHT MANAGEMENT PROGRAM Code(s): E66.01 - Morbid (severe) obesity due to excess calories Category: Medical Plan: I TALKED TO HER AND EXPLAINED THAT HER MAJOR PROBLEM IS MORBID OBESITY. THIS CAUSES SHORTNESS OF BREATH ON EXERTION. POOR SLEEP.. SHE SHOULD JOIN A WEIGHT MANAGEMENT PROGRAM. (2) ELIAZAR (obstructive sleep apnea): Comment: SHE IS KNOWN TO HAVE MILD OBSTRUCTIVE SLEEP APNEA BUT WAS QUITE SYMPTOMATIC. HENCE SHE HAS BEEN ON CPAP THERAPY . WHICH SHE USES REGULARLY EVERY NIGHT. WE COULD NOT GET THE COMPLIANCE REPORT . CURRENTLY NOT USING FOR THE LAST FEW MONTHS. Code(s): G47.33 - Obstructive sleep apnea (adult) (pediatric) Category: Medical Plan: I ADVISED THAT SHE SHOULD RESTART USING THE CPAP AT NIGHT. USE WATER IN THE TANK FOR HUMIDIFICATION (3) Smoker: Comment: HAS BEEN A LONG-TIME SMOKER, HAD TRIED TO CUT DOWN THE NUMBER OF CIGARETTES BUT NOW BACK TO 10 CIGARETTES A DAY. Code(s): F17.200 - Nicotine dependence, unspecified, uncomplicated Category: Social Hx Plan: AGAIN DISCUSSED ABOUT THE SMOKING AND SHE MUST TRY TO QUIT. DISCUSSED ABOUT NICOTINE GUMS OR PATCHES . SHE WILL TRIES GUM 1ST . TALKED ABOUT ANNUAL LUNG SCREENING PROGRAM, BUT BECAUSE SHE IS 44 YEARS OLD SHE DOES NOT QUALIFY FOR THAT AT THIS TIME. (4) Asthma: Comment: PATIENT HAS HISTORY OF MILD ALLERGIC RHINITIS AND MILD INTERMITTENT BRONCHIAL ASTHMA. HER PULMONARY FUNCTION TEST WAS BASICALLY NORMAL, WITHOUT ANY SIGNIFICANT RESPONSE TO BD CHALLENGE. CLINICALLY I THINK SHE DOES HAVE MILD BRONCHIAL ASTHMA AND ALLERGIC RHINITIS. Code(s): J45.909 - Unspecified asthma, uncomplicated Category: Medical Qualifiers: Asthma severity: mild Asthma persistence: intermittent Asthma complication type: uncomplicated Qualified Code(s): J45.20 - Mild intermittent asthma, uncomplicated Plan: CONTINUE MONTELUKAST 10 MG DAILY. ALBUTEROL HFA 2 PUFFS Q 4-6 HOURS P.R.N. (5) Allergic rhinitis: Comment: MILD CHRONIC ALLERGIC RHINITIS GOES ALONG WITH HER BRONCHIAL ASTHMA. Code(s): J30.9 - Allergic rhinitis, unspecified Category: Medical Qualifiers: Allergic rhinitis trigger: pollen Allergic rhinitis seasonality: seasonal Qualified Code(s): J30.1 - Allergic rhinitis due to pollen Plan: CONTINUE MONTELUKAST 10 MG DAILY. MAY USE FLONASE 2 SPRAY IN EACH NOSTRIL DAILY. MAY ALSO USE LORATADINE 10 MG ONCE A DAY P.R.N.. Coding Level of Care Code Est Pt Level 3 (72368) Diagnoses Morbid obesity E66.01 ELIAZAR (obstructive sleep apnea) G47.33 Smoker F17.200 Mild intermittent asthma without complication J45.20 Asthma severity: mild Asthma persistence: intermittent Asthma complication type: uncomplicated Seasonal allergic rhinitis due to pollen J30.1 Allergic rhinitis trigger: pollen Allergic rhinitis seasonality: seasonal
[2024-09-18 13:29] VITALS: BP 110/72; PULSE 94; O2SAT 97; BMI 49.1
== END 2024-09-18 14:08 | disposition home or self-care (01) ==
LOC: HO.HPS 13:13
PROVIDERS: PCP Internal Medicine; Visit Provider Internal Medicine
DX: E66.01 Morbid (severe) obesity due to excess calories (principal); G47.33 Obstructive sleep apnea (adult) (pediatric); F17.200 Nicotine dependence, unspecified, uncomplicated; J45.20 Mild intermittent asthma, uncomplicated; J30.1 Allergic rhinitis due to pollen
CPT/HCPCS: 99213

== ENCOUNTER → 2024-09-18 13:12 | Outpatient (BNVA) | payer OTHER, SELFPAY | PROVIDERS: PCP Internal Medicine; Visit Provider Internal Medicine | DX: J45.20 Mild intermittent asthma, uncomplicated (principal); E66.01 Morbid (severe) obesity due to excess calories; G47.33 Obstructive sleep apnea (adult) (pediatric); J30.1 Allergic rhinitis due to pollen; F17.210 Nicotine dependence, cigarettes, uncomplicated; Z68.42 Body mass index [BMI] 45.0-49.9, adult | CPT/HCPCS: 99212 ==

== ENCOUNTER 2024-09-24 15:26 | Outpatient (AMB) | payer OTHER, SELFPAY ==
--- NOTE | 2024-09-24 15:28 | A.OFFVIS_ITS ---
Intake Visit Reasons: UTI and gross hematuria Intake Note: Patient is present for follow up on: recurrent uti, urinary leakage Urology Medications: none Blood Thinner: none PVR: 24ml's [employer] Supervisor Required: No Accompanied by: Self / Same As Patient Allergies azithromycin [AZITHROMYCIN] Allergy (Intermediate, Verified 09/24/24 16:04) RASH ketorolac [From Toradol] Allergy (Intermediate, Verified 09/24/24 16:04) Rash nitrofurantoin [From Macrobid] Allergy (Intermediate, Verified 09/24/24 16:04) Rash Sulfa (Sulfonamide Antibiotics) [SULFA (SULFONAMIDE ANTIBIOTICS)] Allergy (Intermediate, Verified 09/24/24 16:04) RASH fluconazole [Diflucan] Allergy (Unknown, Verified 09/24/24 16:04) unknown topiramate [Topamax] Allergy (Unknown, Verified 09/24/24 16:04) unknown propranolol Allergy (Verified 09/24/24 16:04) itching amitriptyline Adverse Reaction (Intermediate, Verified 09/24/24 16:04) stomach upset Medication List - Last Reconciled 09/24/24 by RONIT KaurP- albuterol sulfate 90 mcg/actuation (Ventolin HFA) 2 puffs inhalation Q4-6H PRN bupropion HCl SR 150 mg PO BID famotidine 40 mg PO BEDTIME gabapentin 300 mg PO TID 90 days lorazepam 1 mg PO BID montelukast 10 mg PO DAILY 90 days ondansetron 8 mg (2 x 4 mg) PO Q8H PRN oxybutynin chloride ER 10 mg PO DAILY 30 days pramipexole 0.25 mg PO BEDTIME sumatriptan succinate 50 mg PO ONCE PRN 30 days Ventolin HFA 90 mcg/actuation (albuterol sulfate) 1 inh inhalation Q6H PRN NS HPI Comments Details: Tina is a pleasant 44 year old female patient of Dr. Reynolds. She has a past medical history of furuncle of the vulva, valvular lesion, abnormal uterine bleeding, pelvic pain, allergic rhinitis, asthma, nicotine dependence, obstructive sleep apnea, GERD, fibromyalgia, irritable bowel syndrome, nephrolithiasis, and anxiety. She present to the office today for a follow up. Of note, patient was seen approximately 2 years ago for history of urinary tract infection as well as microscopic hematuria in the setting of nicotine dependence as well as recreational marijuana use. We had discussed further workup of microscopic hematuria at which time initially patient consented to further microscopic hematuria workup however in discussion with the patient today she reports she did not and does not wish to have further microscopic hematuria at this time despite in office urinalysis today with continued microscopic hematuria. She reports her main concern is her ongoing issues with urinary leakage. She reports utilizing multiple Iesha pads per day. She describes episodes of mixed urinary incontinence. She otherwise denies gross/visible hematuria, dysuria, foul smelling urine, changes to urinary stream, flank pain, fever, and or chills. We discussed at length potential causes of mixed urinary incontinence as well as further treatment options and risks and benefits of these treatment options. Previous workup has included retroperitoneal ultrasound 07/21 noting right kidney with no calculi or hydronephrosis noted. Simple appearing 7 mm lower pole cyst for which no follow-up imaging is recommended. Left kidney with 2 small simple appearing cyst largest measuring 1 cm. No renal calculi or hydronephrosis noted. Bladder is well distended and normal pre void bladder volume 273 mL. Postvoid bladder volume is 27.5 mL. Most recently she had a bladder ultrasound ordered by her PCP 06/25 that was within normal limits. When asked she does report having 3 children all that were delivered via caesarean. Patient reports pelvic floor therapy is not a good option for her as she does not drive and getting to and from appointments is difficult for her. All questions were answered. She otherwise offers no other issues or concerns at this time. [facility] Medical History Furuncle of vulva Vulvar lesion Mild bibasilar atelectasis Diarrhea Abnormal uterine bleeding (AUB) Pelvic pain Heavy menstrual bleeding Allergic rhinitis Asthma Smoker Abdominal pain Loud snoring ELIAZAR (obstructive sleep apnea) Somnolence, daytime Early satiety Colon polyps Hydradenitis History of fibromyalgia GERD (gastroesophageal reflux disease) History of headache Hx of irritable bowel syndrome Hx of ovarian cyst Hx of renal calculi History of anxiety Surgical History H/O tubal ligation History of esophagogastroduodenoscopy (EGD) H/O colonoscopy History of cholecystectomy History of Family History Father HTN (hypertension) Diabetes mellitus Liver cancer Alcoholic Substance use disorder Mother Anxiety Depression Liver tumor Brother Heart attack Buerger disease Stroke Seizure Diabetes mellitus Family/Other Mild asthma Maternal Grandmother Cancer of unknown origin Maternal Grandfather Liver cancer Paternal Grandfather Heart problem Other Mental health disorder Social History Household Members: Spouse and Children Housing: House Alcohol intake: former Patient Tobacco Use Status: Current everyday Tobacco user Tobacco use type: Cigarette Cigarette Packs Per Day: 0.5 Cigarettes Per Day: 10.0 Years Smoked: 25 e-Cigarette/Vaping Use: Never Used Substance Use Type: Marijuana service: No Current occupational status: unemployed Current occupation: due to Covid Gender identity: Female Cognitive needs: No Hearing needs: No Vision needs: No Female Reproductive History Menstrual Age of Menarche: 10 Date of menopause: 02/21/23 Review of Systems Const All systems reviewed & are unremarkable except as noted in HPI and below Physical Exam Const General: cooperative, healthy appearing, comfortable, no acute distress, well developed, alert and awake Nutritional Appearance: overweight Orientation/consciousness: patient oriented x3 Limitations: no limitations HEENT Head: Yes normal to inspection, Yes normocephalic and Yes atraumatic Eyes General: appearance normal, both eyes and all related structures Neck Neck: Yes normal visual inspection and Yes trachea midline Chest Chest palpation & inspection: normal inspection of the chest Resp Effort & Inspection: normal respiratory effort and able to speak in complete sentences Cardio Rate: regular rate Neuro General: patient oriented x3 Extrem General: Yes normal to inspection Psych Appearance: grossly normal and well kempt Mental Status: mental status grossly normal Speech and movement: Normal speech and movement present and Clear speech present Affect: normal affect Attitude: cooperative Thought process: Normal thought process present Thought content: Normal thought content present Insight: Fair insight present (Psych) Judgement: Fair judgement present (Psych) Office Procedures Post Void Residual Post Residual Void Post Void Residual (PVR): 24 [id number] Void Residual by ultrasound Results AMB Urinalysis, Automated UA Leukoctes 0 Rosa/uL Last Edit by Bo Hernández on 09/24/24 16:18 UA Nitrite Last Edit by Bo Hernández on 09/24/24 16:18 UA Urobilinogen 0.2 mg/dL Last Edit by Bo Hernández on 09/24/24 16:18 UA Protein 15 mg/dL Last Edit by SanteVetalysia Inneractivelena on 09/24/24 16:18 UA pH 6.0 Last Edit by revoPTlena on 09/24/24 16:18 UA Blood 25 Maurisio/uL Last Edit by VANDOLAYshree Inneractivelena on 09/24/24 16:18 UA Specific [place] 1.020 Last Edit by VANDOLAYshree Inneractivelena on 09/24/24 16:18 UA Ketone Negative Last Edit by VANDOLAYshree Inneractivelena on 09/24/24 16:18 UA Bilirubin 0 mg/dL Last Edit by SanteVetalysia Hernández on 09/24/24 16:18 UA Glucose 0 mg/dL Last Edit by VANDOLAYshree Inneractivelena on 09/24/24 16:18 Results Reviewed Results Reviewed: Laboratory Last Values Urine pH (Auto) 6.0 09/24/24 16:00 Specific [place] (Auto) 1.020 09/24/24 16:00 Urine Protein (Auto) 15 mg/dL 09/24/24 16:00 Glucose (UA)(Auto) 0 mg/dL 09/24/24 16:00 Urine Ketones (Auto) Negative 09/24/24 16:00 Urine Blood (Auto) 25 Maursiio/uL 09/24/24 16:00 Urine Bilirubin (Auto) 0 mg/dL 09/24/24 16:00 Urine Urobilinogen (Auto) 0.2 mg/dL 09/24/24 16:00 Leukocyte Esterase (Auto) 0 Rosa/uL 09/24/24 16:00 Assessment & Plan Assessment & Plan (1) Blood in urine: Code(s): R31.9 - Hematuria, unspecified Category: Medical Qualifiers: Hematuria type: gross Qualified Code(s): R31.0 - Gross hematuria (2) Mixed stress and urge urinary incontinence: Code(s): N39.46 - Mixed incontinence Category: Medical Plan In office urinalysis results reviewed with the patient today; as noted above; will send for urine cytology. PVR 24 mL We discussed at length potential causes of microscopic hematuria as well as mixed urinary incontinence. We discussed further treatment options for mixed urinary incontinence as well as risks and benefits of these treatment options. We also discussed further workup of microscopic hematuria to include imaging and cystoscopy; however, patient declines at this time. We discussed lifestyle modifications to assist with mixed urinary incontinence We discussed importance of weight loss in relation to these urinary issues as well as overall health and well-being. Start oxybutynin as discussed and prescribed. Follow-up in 1-3 months with PVR; or sooner with any issues, concerns, and or questions. Orders: Orders Urine Cytology Today R31.0 - Gross hematuria AMB Urinalysis Automated Today Z13.9 - Encounter for screening, unspecified AMB Post Void Residual by ultrasound Today N30.00 - Acute cystitis without hematuria Medications: New oxybutynin chloride ER 10 mg PO DAILY 30 days 30 tabs 3RF N32.81 - Overactive bladder Patient Instructions: The patient had an opportunity to ask questions regarding the treatment plan. All questions were answered. Physical exam, labs, and imaging were discussed and reviewed in detail. As well as risks, benefits, and discussion of treatment choices. No major barriers to understanding were identified. The patient expressed understanding and agreement with the above treatment plan. The patient was made aware they should contact our office by phone for worsening of their current condition, the appearance of new symptoms, or with any questions or concerns. Compliance is encouraged with any medications and follow up testing that is ordered. It is a privilege to be allowed the opportunity to participate in? your urological care.? Again, if you have any questions or concerns If you have any questions or concerns please do not hesitate to contact me. The office is [phone]. This note is constructed using voice recognition software. While every effort has been made to ensure accuracy weight reducing technician errors may have been included. Yours sincerely, KO Kaur Coding Level of Care Code Est Pt Level 4 (20338) Diagnoses Gross hematuria R31.0 Hematuria type: gross Mixed stress and urge urinary incontinence N39.46 CPT Codes Post Residual Void - PVR CPT Code: 66374-Zfty Void Residual by ultrasound ([id number])
== END 2024-09-24 16:03 | disposition home or self-care (01) ==
LOC: HO.HUSH 15:27
PROVIDERS: PCP Internal Medicine; Visit Provider Nurse Practitioner Family
DX: R31.0 Gross hematuria (principal); N39.46 Mixed incontinence; Z13.9 Encounter for screening, unspecified
CPT/HCPCS: 99214

== ENCOUNTER 2024-09-24 15:26 | Outpatient (REF) | payer OTHER, SELFPAY ==
[2024-09-24 16:35] LABS: Urine Cytology See Pathology rpt
== END 2024-09-24 15:27 | disposition home or self-care (01) ==
LOC: HO.LNP 15:26
PROVIDERS: PCP Internal Medicine; Visit Provider Nurse Practitioner Family
DX: R31.0 Gross hematuria (principal); N39.46 Mixed incontinence
CPT/HCPCS: 51798; 81003; 88112; 99212

== ENCOUNTER 2024-11-05 10:03 | Outpatient (AMB) | payer OTHER, SELFPAY ==
--- NOTE | 2024-11-05 10:07 | MHC.PC.OV ---
Vital Signs 11/05/24 10:08 Height 5 ft 1 in Weight 255 lb 4 oz BMI 48.2 BP 135/98 H Blood Pressure Location Lt brachial Position Sitting Pulse 84 Pulse Source Pulse Oximeter Temp 98.9 F Temp Source Oral Pulse Oximetry (%) 95 Oxygen Delivery Method Room Air Intake Visit Reasons: Extreme Vaginal pain, pain urinating, back pain Transport Corps Officer Required: No Is last menstrual period known: Yes Post menopausal: No Patient : No Allergies azithromycin (AZITHROMYCIN) Allergy (Intermediate, Verified 11/05/24 10:16) RASH ketorolac (From Toradol) Allergy (Intermediate, Verified 11/05/24 10:16) Rash nitrofurantoin (From Macrobid) Allergy (Intermediate, Verified 11/05/24 10:16) Rash Sulfa (Sulfonamide Antibiotics) (SULFA (SULFONAMIDE ANTIBIOTICS)) Allergy (Intermediate, Verified 11/05/24 10:16) RASH fluconazole (Diflucan) Allergy (Unknown, Verified 11/05/24 10:16) unknown topiramate (Topamax) Allergy (Unknown, Verified 11/05/24 10:16) unknown propranolol Allergy (Verified 11/05/24 10:16) itching amitriptyline Adverse Reaction (Intermediate, Verified 11/05/24 10:16) stomach upset Medication List - Last Reconciled 11/05/24 by Khanh Reynolds MD albuterol sulfate 90 mcg/actuation (Ventolin HFA) 2 puffs inhalation Q4-6H PRN bupropion HCl SR 150 mg PO BID famotidine 40 mg PO BEDTIME gabapentin 300 mg PO TID 90 days lorazepam 1 mg PO BID montelukast 10 mg PO DAILY 90 days ondansetron 8 mg (2 x 4 mg) PO Q8H PRN oxybutynin chloride ER 10 mg PO DAILY 30 days pramipexole 0.25 mg PO BEDTIME sumatriptan succinate 50 mg PO ONCE PRN 30 days Ventolin HFA 90 mcg/actuation (albuterol sulfate) 1 inh inhalation Q6H PRN NS Tobacco use date assessed: 11/05/24 Dental Screening Dental Screen Date: 09/17/24 Did you have a dental visit in the last 12 months?: Yes Did you have a dental problem in the last 6 months where you did not have access to dental care?: No Was dental information given to patient?: Patient has dentist HPI Extreme Vaginal pain, pain urinating, back pain HPI Details History - The patient is a 44-year-old female presenting with lower abdominal pain, dysuria, urinary frequency, and chills. - Reports onset of symptoms beginning last week, initially with spotting for two days characterized by a bright pink color. - Subsequently, patient experienced significant lower abdominal pain, predominantly in the lower abdomen and extending to the right side of the back, as well as persistent vaginal area discomfort. - Patient describes urinary discomfort as a constant burning sensation upon urination. - Past successful use of Ciprofloxacin without adverse effects. Has used Levofloxacin previously but does not recall specific outcomes. Problem List - Dysuria - Lower Abdominal Pain Patient Instructions - Take Levofloxacin as prescribed. - Take Pyridium for bladder pain relief as needed. - Drink plenty of water to stay hydrated and help flush out the system. - Rest and monitor symptoms, particularly any significant changes or worsening condition. Review of Systems - Neurological: No headaches no dizziness - Ear nose throat: No sore throat no hearing difficulty no ear pain - Cardiovascular: No syncope, no chest pain, no palpitations - Gastrointestinal: No nausea vomiting or diarrhea Physical Exam General: No acute distress, but reports chills and feeling very cold HEENT: No acute findings Neck: Supple Respiratory system: Able to talk in full sentences Gastrointestinal: Discomfort suprapubic Back: No CVAT Extremities: No new findings GAS APPLIANCE ADJUSTER: Alert awake oriented x3 Skin: Normal turgor PFSH Medical History Furuncle of vulva Vulvar lesion Mild bibasilar atelectasis Diarrhea Abnormal uterine bleeding (AUB) Pelvic pain Heavy menstrual bleeding Allergic rhinitis Asthma Smoker Abdominal pain Loud snoring ELIAZAR (obstructive sleep apnea) Somnolence, daytime Early satiety Colon polyps Hydradenitis History of fibromyalgia GERD (gastroesophageal reflux disease) History of headache Hx of irritable bowel syndrome Hx of ovarian cyst Hx of renal calculi History of anxiety Surgical History H/O tubal ligation History of esophagogastroduodenoscopy (EGD) H/O colonoscopy History of cholecystectomy History of Family History Father HTN (hypertension) Diabetes mellitus Liver cancer Alcoholic Substance use disorder Mother Anxiety Depression Liver tumor Brother Heart attack Buerger disease Stroke Seizure Diabetes mellitus Family/Other Mild asthma Maternal Grandmother Cancer of unknown origin Maternal Grandfather Liver cancer Paternal Grandfather Heart problem Other Mental health disorder Social History Household Members: Spouse and Children Housing: House Alcohol intake: former Patient Tobacco Use Status: Current everyday Tobacco user Tobacco use type: Cigarette Cigarette Packs Per Day: 0.5 Cigarettes Per Day: 10.0 Years Smoked: 25 e-Cigarette/Vaping Use: Never Used Substance Use Type: Marijuana service: No Current occupational status: unemployed Current occupation: due to Covid Gender identity: Female Cognitive needs: No Hearing needs: No Vision needs: No Female Reproductive History Menstrual Age of Menarche: 10 Date of menopause: 02/21/23 Questionnaire PHQ-9 Over the last 2 weeks, how often have you been bothered by any of the following problems? 1. Little interest or pleasure in doing things: nearly every day 2. Feeling down, depressed, or hopeless: nearly every day 3. Trouble falling or staying asleep, or sleeping too much: nearly every day 4. Feeling tired or having little energy: nearly every day 5. Poor appetite or overeating: several days 6. Feeling bad about yourself - or that you are a failure or have let yourself or your family down: more than half the days 7. Trouble concentrating on things, such as reading the newspaper or watching television: nearly every day 8. Moving or speaking so slowly that other people could have noticed. Or the opposite - being so fidgety or restless that you have been moving around a lot more than usual: not at all 9. Thoughts that you would be better off or of hurting yourself in some way: not at all Total score: 18 Depression Screening Interpretation: Positive Depression Screening Follow-up: Existing condition and In treatment Depression Screening Done: Yes 93368 - PHQ-9 Billing: Yes Source: Developed by Drs. Tony Sandhu, Vidhya Esparza, Nitish Stein and colleagues, with an educational tonya from [employer]. Thrive Questionnaire Date Thrive assessed: 09/17/24 I am a: Patient What is your living situation today?: I have a steady place to live Within the past 12 months, did the food you bought not last and you didn't have the money to get more?: Often true Within the past 12 months, did you worry whether your food would run out before you got money to buy more?: Never true Do you have trouble paying for medicines?: No Do you have trouble getting transportation to medical appointments?: Yes Do you have trouble paying your heating and electricity bill?: No Do you have trouble taking care of your child, family member or friend?: No Do you have trouble with day-to-day activities such as bathing, preparing meals, shopping, managing finances, etc.?: Yes Are you currently unemployed and looking for a job?: No Are you interested in more education?: No Please select the resources that you would like help with: None Currently or been in a relationship where the following occur: No concerns reported THRIVE Score: 2 AUDIT C Alcohol Use Questionnaire (AUDIT-C) 1. How often do you have a drink containing alcohol?: Never 3. How often do you have six or more drinks on one occasion?: Never Total Score: 0 JUAN CARLOS-7 AMB Questionnaire JUAN CARLOS-7 Date JUAN CARLOS - 7 assessed: 06/18/24 Source: Developed by Drs. Tony Sandhu, Vidhya Esparza, Nitish Stein and colleagues, with an educational tonya from [employer]. Physical exam (Primary Care) Vital Signs: Last Vital Signs Temp 98.9 F 11/05/24 10:08 Pulse 84 11/05/24 10:08 BP 135/98 H 11/05/24 10:08 Pulse Ox 95 11/05/24 10:08 Oxygen Delivery Method Room Air 11/05/24 10:08 BMI result Body Mass Index 48.2 Tobacco/Smoking Status: Tobacco use Status Tobacco use date assessed 11/05/24 11/05/24 10:20 Patient Tobacco Use Status Current everyday Tobacco 11/05/24 10:20 Tobacco use type Cigarette 11/05/24 10:20 e-Cigarette/Vaping Use Never Used 11/05/24 10:20 PHQ-9: PHQ-9 Score PHQ-9: Total score 18 11/05/24 10:26 Depression Screening Interpretation: Positive Depression Screening Follow-up: Existing condition and In treatment Thrive Assessment: Date of Thrive Assessment Date Thrive assessed 09/17/24 11/05/24 10:20 Currently or been in a relationship where the following occur: No concerns reported Results AMB Urinalysis, Automated UA Leukoctes 70 Rosa/uL Last Edit by Carlo Mejia CMA on 11/05/24 10:13 UA Nitrite Positive Last Edit by Carlo Mejia CMA on 11/05/24 10:13 UA Urobilinogen 1 mg/dL Last Edit by Carlo Mejia CMA on 11/05/24 10:13 UA Protein 0 mg/dL Last Edit by Carlo Mejia CMA on 11/05/24 10:13 UA pH 6.0 Last Edit by Carlo Mejia, DAILY on 11/05/24 10:13 UA Blood 10 Maurisio/uL Last Edit by Carlo Mejia CMA on 11/05/24 10:13 UA Specific Speculator 1.020 Last Edit by Carlo Mejia CMA on 11/05/24 10:13 UA Ketone Negative Last Edit by Carlo Mejia CMA on 11/05/24 10:13 UA Bilirubin 1 mg/dL Last Edit by Carlo Mejia CMA on 11/05/24 10:13 UA Glucose 0 mg/dL Last Edit by Carlo Mejia CMA on 11/05/24 10:13 Results Reviewed Results Reviewed: Laboratory Last Values Urine pH (Auto) 6.0 11/05/24 10:05 Specific Speculator (Auto) 1.020 11/05/24 10:05 Urine Protein (Auto) 0 mg/dL 11/05/24 10:05 Glucose (UA)(Auto) 0 mg/dL 11/05/24 10:05 Urine Ketones (Auto) Negative 11/05/24 10:05 Urine Blood (Auto) 10 Maurisio/uL 11/05/24 10:05 Urine Nitrite (Auto) Positive 11/05/24 10:05 Urine Bilirubin (Auto) 1 mg/dL 11/05/24 10:05 Urine Urobilinogen (Auto) 1 mg/dL 11/05/24 10:05 Leukocyte Esterase (Auto) 70 Rosa/uL 11/05/24 10:05 Coding Level of Care Code Est Pt Level 3 (54480) Diagnoses Acute cystitis with hematuria N30.01 Additional Codes PHQ-9 - 17980 - PHQ-9 Billing: Yes ([id number]) Assessment & Plan Assessment & Plan (1) Acute cystitis with hematuria: Code(s): N30.01 - Acute cystitis with hematuria Category: Medical Plan History - The patient is a 44-year-old female presenting with lower abdominal pain, dysuria, urinary frequency, and chills. - Reports onset of symptoms beginning last week, initially with spotting for two days characterized by a bright pink color. - Subsequently, patient experienced significant lower abdominal pain, predominantly in the lower abdomen and extending to the right side of the back, as well as persistent vaginal area discomfort. - Patient describes urinary discomfort as a constant burning sensation upon urination. - Past successful use of Ciprofloxacin without adverse effects. Has used Levofloxacin previously but does not recall specific outcomes. Problem List - Dysuria - Lower Abdominal Pain Patient Instructions - Take Levofloxacin as prescribed. - Take Pyridium for bladder pain relief as needed. - Drink plenty of water to stay hydrated and help flush out the system. - Rest and monitor symptoms, particularly any significant changes or worsening condition. Orders: Orders AMB Urinalysis Automated Today Z13.9 - Encounter for screening, unspecified Urine Culture Today N30.01 - Acute cystitis with hematuria Medications: New phenazopyridine (Pyridium) 200 mg PO TID PRN 6 tabs 0RF pain 2 days levofloxacin 500 mg PO DAILY 5 tabs 0RF 5 days
[2024-11-05 10:08] VITALS: BP 135/98; PULSE 84; TEMP 37.2; O2SAT 95; BMI 48.2
== END 2024-11-05 10:38 | disposition home or self-care (01) ==
LOC: HO.HMCC 10:03
PROVIDERS: PCP Internal Medicine; Visit Provider Internal Medicine
DX: Z13.9 Encounter for screening, unspecified (principal); N30.01 Acute cystitis with hematuria

== ENCOUNTER 2024-11-05 10:03 | Outpatient (REF) | payer OTHER, SELFPAY | END 2024-11-05 10:04 | disposition home or self-care (01) | LOC: HO.LNP 10:03 | PROVIDERS: PCP Internal Medicine; Visit Provider Internal Medicine | DX: N30.01 Acute cystitis with hematuria (principal); R10.2 Pelvic and perineal pain; R30.0 Dysuria | CPT/HCPCS: 81003; 87086; 87088; 87186; 96127; 99212 ==

== ENCOUNTER 2024-11-21 08:12 | Outpatient (REF) | payer OTHER, SELFPAY | END 2024-11-21 08:13 | disposition home or self-care (01) | LOC: CF 08:12 | PROVIDERS: PCP Internal Medicine; Visit Provider Physician Assistant Medical | DX: N30.00 Acute cystitis without hematuria (principal); M17.11 Unilateral primary osteoarthritis, right knee; M25.561 Pain in right knee; R42 Dizziness and giddiness; H53.8 Other visual disturbances; Z13.9 Encounter for screening, unspecified; Z98.51 Tubal ligation status; Z79.2 Long term (current) use of antibiotics | CPT/HCPCS: 20610; 87086; 99212; J1010; J2003 ==

== ENCOUNTER 2024-11-21 08:12 | Outpatient (AMB) | payer OTHER, SELFPAY ==
--- NOTE | 2024-11-21 08:45 | MHC.OFFWIV ---
Intake Vital Signs 11/21/24 08:48 Height 5 ft 1 in Weight 255 lb BMI 48.2 BP 112/70 Blood Pressure Location Rt brachial Position Sitting Pulse 74 Pulse Source Pulse Oximeter Temp 97.8 F Temp Source Oral Pulse Oximetry (%) 97 Oxygen Delivery Method Room Air Intake Visit Reasons: EP vaginal pain, pain urinating, back pain Intake Note: pt presents with vaginal pain, nausea, blurred vision, weakness, body chills, pain urinating and back pain for a few days after being treated for UTI recently Patient Tobacco Use Status: Current everyday Tobacco user Allergies azithromycin (AZITHROMYCIN) Allergy (Intermediate, Verified 11/21/24 10:52) RASH ketorolac (From Toradol) Allergy (Intermediate, Verified 11/21/24 10:52) Rash nitrofurantoin (From Macrobid) Allergy (Intermediate, Verified 11/21/24 10:52) Rash Sulfa (Sulfonamide Antibiotics) (SULFA (SULFONAMIDE ANTIBIOTICS)) Allergy (Intermediate, Verified 11/21/24 10:52) RASH fluconazole (Diflucan) Allergy (Unknown, Verified 11/21/24 10:52) unknown topiramate (Topamax) Allergy (Unknown, Verified 11/21/24 10:52) unknown propranolol Allergy (Verified 11/21/24 10:52) itching amitriptyline Adverse Reaction (Intermediate, Verified 11/21/24 10:52) stomach upset Do you need a note to return to daycare/school/sports/work: No HPI HPI Comments History of Present Illness Details History - The patient is a 44-year-old female presenting with recurrence of Urinary Tract Infection symptoms. - She had a UTI two weeks ago, treated by Dr. Reynolds, her PCP. - She had heavy menstrual bleeding on the , which was unusual as she had not had a period since June. - Post-menstrual symptoms included nausea, vomiting, and chills, with pain in the vaginal area consistent with previous UTI episodes. - She has a history of recurrent UTIs occurring monthly and is currently under the care of a urologist, but the etiology of recurrent infections remains unclear. - The patient reports dizziness and blurred vision in the right eye, raising concerns about a possible kidney infection. - Previous antibiotic treatment included Levaquin, which was changed to Keflex 500 mg BID due to resistance, and she remains nauseous. - She states that her symptoms came right back after the antibiotics. - She denies fever, stones, or blood in the urine. Physical Exam General: Cooperative, healthy appearing, comfortable, no acute distress and well developed Cardiac: Normal S1 and S2. RRR, no M/R/G noted. Respiratory: Normal respiratory effort and able to speak in complete sentences. Clear to auscultation bilaterally. No w/r/r noted. Skin: No rashes or lesions noted. GI: Normal inspection. Normal BS noted. Soft, non-tender, non-distended. No TTP of all 4 quadrants. No guarding or rebound tenderness noted. Back: Negative CVA bilaterally Patient was informed and verbally consented to the use of an ambient scribe for clinic note documentation during this visit. [facility] Medical History Furuncle of vulva Vulvar lesion Mild bibasilar atelectasis Diarrhea Abnormal uterine bleeding (AUB) Pelvic pain Heavy menstrual bleeding Allergic rhinitis Asthma Smoker Abdominal pain Loud snoring ELIAZAR (obstructive sleep apnea) Somnolence, daytime Early satiety Colon polyps Hydradenitis History of fibromyalgia GERD (gastroesophageal reflux disease) History of headache Hx of irritable bowel syndrome Hx of ovarian cyst Hx of renal calculi History of anxiety Surgical History H/O tubal ligation History of esophagogastroduodenoscopy (EGD) H/O colonoscopy History of cholecystectomy History of Family History Father HTN (hypertension) Diabetes mellitus Liver cancer Alcoholic Substance use disorder Mother Anxiety Depression Liver tumor Brother Heart attack Buerger disease Stroke Seizure Diabetes mellitus Family/Other Mild asthma Maternal Grandmother Cancer of unknown origin Maternal Grandfather Liver cancer Paternal Grandfather Heart problem Other Mental health disorder Social History Household Members: Spouse and Children Housing: House Alcohol intake: former Patient Tobacco Use Status: Current everyday Tobacco user Tobacco use type: Cigarette Cigarette Packs Per Day: 0.5 Cigarettes Per Day: 10.0 Years Smoked: 25 e-Cigarette/Vaping Use: Never Used Substance Use Type: Marijuana service: No Current occupational status: unemployed Current occupation: due to Covid Gender identity: Female Cognitive needs: No Hearing needs: No Vision needs: No Female Reproductive History Menstrual Age of Menarche: 10 Date of menopause: 02/21/23 Review of Systems Const All systems reviewed & are unremarkable except as noted in HPI and below Physical Exam Vital Signs: Last Vital Signs Temp 97.8 F 11/21/24 08:48 Pulse 74 11/21/24 08:48 BP 112/70 11/21/24 08:48 Pulse Ox 97 11/21/24 08:48 Oxygen Delivery Method Room Air 11/21/24 08:48 BMI result Body Mass Index 48.2 Assessment & Plan Assessment & Plan (1) UTI (urinary tract infection): Code(s): N39.0 - Urinary tract infection, site not specified Qualifiers: Hematuria presence: without hematuria Urinary tract infection type: acute cystitis Qualified Code(s): N30.00 - Acute cystitis without hematuria Plan Most likely UTI vs pyelonephritis UA in the office shows 3+ leuko, +nitrate, 3+uro, +protein, +blood, +ketones, 3+sonia, +glu plan - Reviewed her urine culture from previous visit - will order another culture today - cefpodoxime BID for 10 days - zofran as needed for nausea - drink fluids - tylenol or motrin as needed for pain or fever - Advised her to go to the ER if no improvement in 24 hrs with oral antibiotics - follow up with the urologist Orders: Orders AMB Urinalysis Automated Today Z13.9 - Encounter for screening, unspecified Urine Culture Today N39.0 - Urinary tract infection, site not specified Medications: New ondansetron 4 mg PO Q8H PRN 10 tabs 0RF nausea and vomiting cefpodoxime must administer with a meal/food 200 mg PO Q12H 20 tabs 0RF 10 days Discontinued famotidine Discontinued Reason: Doctor's Order 40 mg PO BEDTIME 90 tabs 1RF Coding Level of Care Code Est Pt Level 4 (81279) Diagnoses Acute cystitis without hematuria N30.00 Hematuria presence: without hematuria Urinary tract infection type: acute cystitis
[2024-11-21 08:48] VITALS: BP 112/70; PULSE 74; TEMP 36.6; O2SAT 97; BMI 48.2
== END 2024-11-21 09:56 | disposition home or self-care (01) ==
PROVIDERS: PCP Internal Medicine; Visit Provider Physician Assistant Medical
DX: N30.00 Acute cystitis without hematuria (principal)

== ENCOUNTER 2024-11-21 10:33 | Outpatient (AMB) | payer OTHER, SELFPAY ==
[2024-11-21 10:51] VITALS: BMI 48.2
--- NOTE | 2024-11-21 10:51 | A.OFFVIS_ITS ---
Vital Signs 11/21/24 10:51 Height 5 ft 1 in Weight 255 lb BMI 48.2 Intake Visit Reasons: right knee OA, last injection 12/08/23 Intake Note: Tina is a 44 year old female who presents today for a follow up of her right knee OA, last injection 12/08/23. Patient reports cook roast pain and it been getting worse these past few months. She mentions about a week ago her knee l ocked up and since she feels like there is a bone popping out of place. She states the pain is waking her up at night. She feels she is at the point of considering surgery. Patient would like you to know she is being treated for a UTI reocurrance. Allergies azithromycin (AZITHROMYCIN) Allergy (Intermediate, Verified 11/21/24 10:52) RASH ketorolac (From Toradol) Allergy (Intermediate, Verified 11/21/24 10:52) Rash nitrofurantoin (From Macrobid) Allergy (Intermediate, Verified 11/21/24 10:52) Rash Sulfa (Sulfonamide Antibiotics) (SULFA (SULFONAMIDE ANTIBIOTICS)) Allergy (Intermediate, Verified 11/21/24 10:52) RASH fluconazole (Diflucan) Allergy (Unknown, Verified 11/21/24 10:52) unknown topiramate (Topamax) Allergy (Unknown, Verified 11/21/24 10:52) unknown propranolol Allergy (Verified 11/21/24 10:52) itching amitriptyline Adverse Reaction (Intermediate, Verified 11/21/24 10:52) stomach upset HPI HPI right knee OA, last injection 12/08/23: Details: Ms. Chapman is a 44-year-old female who presents to the office today for right knee pain. Patient has known osteoarthritis and received a cortisone injection in our office on 12/08/2023. She reports that her knee pain has been increasing for the past few months. However, about 1 week ago she reports that she was ambulating in her knee ?locked up? she was unable to bear weight at that time and had to conservatively treat this with nonweightbearing as well as ibuprofen and Tylenol. Pain is waking her up at night. She is interested in talking about surgical intervention. [facility] Medical History Furuncle of vulva Vulvar lesion Mild bibasilar atelectasis Diarrhea Abnormal uterine bleeding (AUB) Pelvic pain Heavy menstrual bleeding Allergic rhinitis Asthma Smoker Abdominal pain Loud snoring ELIAZAR (obstructive sleep apnea) Somnolence, daytime Early satiety Colon polyps Hydradenitis History of fibromyalgia GERD (gastroesophageal reflux disease) History of headache Hx of irritable bowel syndrome Hx of ovarian cyst Hx of renal calculi History of anxiety Surgical History H/O tubal ligation History of esophagogastroduodenoscopy (EGD) H/O colonoscopy History of cholecystectomy History of Family History Father HTN (hypertension) Diabetes mellitus Liver cancer Alcoholic Substance use disorder Mother Anxiety Depression Liver tumor Brother Heart attack Buerger disease Stroke Seizure Diabetes mellitus Family/Other Mild asthma Maternal Grandmother Cancer of unknown origin Maternal Grandfather Liver cancer Paternal Grandfather Heart problem Other Mental health disorder Social History Household Members: Spouse and Children Housing: House Alcohol intake: former Patient Tobacco Use Status: Current everyday Tobacco user Tobacco use type: Cigarette Cigarette Packs Per Day: 0.5 Cigarettes Per Day: 10.0 Years Smoked: 25 e-Cigarette/Vaping Use: Never Used Substance Use Type: Marijuana service: No Current occupational status: unemployed Current occupation: due to Covid Gender identity: Female Cognitive needs: No Hearing needs: No Vision needs: No Female Reproductive History Menstrual Age of Menarche: 10 Date of menopause: 02/21/23 Review of Systems Const All systems reviewed & are unremarkable except as noted in HPI and below Physical Exam Vital Signs: BMI result Body Mass Index 48.2 Const General: cooperative, healthy appearing and no acute distress Resp Effort & Inspection: normal respiratory effort and able to speak in complete sentences Extrem Other: Right knee significant tenderness to palpation over the medial and lateral joint lines. Crepitus felt with range of motion. Range of motion is 20-90 degrees. Unable to perform Cas's due to pain and patient guarding. [facility] Office Procedures AMB Joint Injection/Aspiration Joint Injection/Aspiration Primary Site: right knee Prep: site was prepped using aseptic technique, ethochloride spray was applied and injection warnings given Injected: 80 mg of, DepoMedrol, with 8 mL of (2% plain lidocaine) and in the joint Approach Used: anterolateral Procedure: The patient tolerated the procedure well, but had some pain with the injection and there was some relief with the local anesthesia Coding 98428 - Large joint Procedure code (CPT) selection complete Assessment & Plan Assessment & Plan (1) Patellofemoral arthritis of right knee: Code(s): M17.11 - Unilateral primary osteoarthritis, right knee Category: Medical Plan Ms. Chapman is a 44-year-old female who presents to the office today for right knee pain. Patient has known osteoarthritis and received a cortisone injection in our office on 12/08/2023. She reports that her knee pain has been increasing for the past few months. However, about 1 week ago she reports that she was ambulating in her knee ?locked up? she was unable to bear weight at that time and had to conservatively treat this with nonweightbearing as well as ibuprofen and Tylenol. Pain is waking her up at night. She is interested in talking about surgical intervention. While in the office today, I have recommended repeat cortisone injections to in attempt to provide the patient with relief. I have also recommended Celebrex 200 mg to be taken by mouth twice a day which was sent to the pharmacy. In regards to surgical intervention, I discussed with the patient that a total knee arthroplasty may be in her future but at the current moment her BMI is 48.2. For consideration of total knee arthroplasty BMI is recommended to be 40 or below. We did discuss what the ideal weight loss would be. The patient does have a past medical history significant for sleep apnea in which he uses a CPAP machine. She is looking to manage her weight better but has difficulty due to her knee pain. I have recommended that she reach out to her primary care provider to see if weight loss medications such as GLP1's would be an option for this patient. The patient was offered a cortisone injection in the right knee with 80 mg of DepoMedrol. The patient was explained the risks, benefits, and alternatives to receiving this injection. After receiving consent for the injection, the patient had the procedure done while in the office today. The patient tolerated the procedure well with no complications. Should the injection not work after 3-4 weeks the patient will contact our office and we will order an MRI to further evaluate the integrity of the knee and surrounding structures. My concern with the locking the patient is experiencing may be correlated with a meniscal injury. Follow-up will be PRN, or sooner if needed Coding Level of Care Code Est Pt Level 3 (82277) Diagnoses Patellofemoral arthritis of right knee M17.11 CPT Codes Coding - 47553 Large joint: 20750 - Large joint ([id number])
== END 2024-11-21 11:46 | disposition home or self-care (01) ==
LOC: HO.HOS 10:34
PROVIDERS: PCP Internal Medicine; Visit Provider Physician Assistant
DX: M17.11 Unilateral primary osteoarthritis, right knee (principal)
CPT/HCPCS: 20610; 99213

== ENCOUNTER 2025-01-09 06:43 | Day surgery (SDC) | payer OTHER, SELFPAY ==
[2025-01-09 05:24] VITALS: BMI 42.5
[2025-01-09 06:59] VITALS: BP 139/86; PULSE 80; RESP 19; TEMP 36.1; O2SAT 96; BMI 48.4
[2025-01-09] MEDS: Lactated Ringers 1,000 ML 50 ML IVCONT (07:15)
--- NOTE | 2025-01-09 07:32 | HO.ANESPROP2 ---
Documented by User: Berenice Gannon NP 01/07/25 15:27 HPI - Anesthesia Eval Consult details Narrative: 44yo F for Upper Endoscopy and Colonoscopy BMI 48 PMFSH Active Problems Active Problems: All Active Problems Acute cystitis with hematuria (Acute) Tick bite (Acute) Mixed stress and urge urinary incontinence (Acute) Varicose veins of lower extremity (Acute) Bilateral leg pain (Acute) Furuncle of vulva (Acute) Vulvar lesion (Acute) Encounter for well woman exam with routine gynecological exam (Acute) Restless legs syndrome (Acute) Suprapubic discomfort (Acute) Chest pain at rest (Acute) Acute cystitis (Acute) Mild bibasilar atelectasis (Acute) Patellofemoral arthritis of right knee (Acute) Patellar instability of right knee (Acute) Emotional crisis (Acute) Acute nonintractable headache (Acute) Shooting pain (Acute) Headache (Acute) Burning sensation of eye (Acute) Shingles rash (Acute) Gastritis and gastroduodenitis (Acute) Obesity due to excess calories (Acute) Acute pyelonephritis (Acute) Multiple bruises (Acute) Leukocytosis (leucocytosis) (Acute) Diarrhea (Acute) Encounter to discuss test results (Acute) Enteritis (Acute) Change in facial mole (Acute) Blood in urine (Acute) Complicated migraine with status migrainosus (Acute) Blurring of vision (Acute) Heart palpitations (Acute) Fibromyalgia (Acute) Morbid obesity (Acute) Menorrhagia (Acute) Hidradenitis suppurativa (Acute) Shortness of breath on exertion (Acute) Chest pain (Acute) Chest pain due to GERD (Acute) Morbid obesity (Acute) Esophagitis (Acute) Irritable bowel syndrome (IBS) (Acute) Tracheobronchitis (Acute) Sleeping difficulty (Acute) Breast lump on right side at 10 o'clock position (Acute) Morbid obesity due to excess calories (Acute) Encounter for general adult medical examination with abnormal findings (Acute) Precordial chest pain (Acute) Contact with and (suspected) exposure to other viral communicable diseases (Acute) Cough (Acute) Post-COVID chronic cough (Acute) Fibromyalgia (Acute) Hospital discharge follow-up (Acute) Bleeding hemorrhoids (Acute) Constipation by delayed colonic transit (Acute) Shortness of breath (Acute) Gastroparesis (Acute) Abdominal pain, left lower quadrant (Acute) Acute nausea with nonbilious vomiting (Acute) Feeling sick (Acute) Acute abdominal pain in left lower quadrant (Acute) Nausea (Acute) Abnormal menses (Acute) Major depression, recurrent (Acute) Anxiety, generalized (Acute) Complicated grieving (Acute) Upper respiratory tract infection (Acute) Encounter for general adult medical examination with abnormal findings (Acute) Chronic nausea (Acute) Knee pain, left (Acute) Osteoarthritis of left knee (Acute) Complicated urinary tract infection (Acute) Urinary urgency (Acute) Stress incontinence (Acute) Dysuria (Acute) UTI (urinary tract infection) (Acute) Recurrent UTI (Acute) Overactive bladder (Acute) LFT elevation (Acute) Chronic abdominal pain (Acute) Celiac axis compression syndrome (Acute) Environmental allergies (Acute) Abnormal uterine bleeding (AUB) (Acute) Pelvic pain (Acute) Heavy menstrual bleeding (Acute) Allergic rhinitis (Acute) Asthma (Acute) Smoker (Acute) Abdominal pain (Acute) Loud snoring (Acute) ELIAZAR (obstructive sleep apnea) (Acute) Somnolence, daytime (Acute) Early satiety (Acute) Colon polyps (Acute) Acid reflux (Acute) Past Medical History Medical History Furuncle of vulva Vulvar lesion Mild bibasilar atelectasis Diarrhea Abnormal uterine bleeding (AUB) Pelvic pain Heavy menstrual bleeding Allergic rhinitis Asthma Smoker Abdominal pain Loud snoring ELIAZAR (obstructive sleep apnea) Somnolence, daytime Early satiety Colon polyps Hydradenitis History of fibromyalgia GERD (gastroesophageal reflux disease) History of headache Hx of irritable bowel syndrome Hx of ovarian cyst Hx of renal calculi History of anxiety Family History Family History Father HTN (hypertension) Diabetes mellitus Liver cancer Alcoholic Substance use disorder Mother Anxiety Depression Liver tumor Brother Heart attack Buerger disease Stroke Seizure Diabetes mellitus Family/Other Mild asthma Maternal Grandmother Cancer of unknown origin Maternal Grandfather Liver cancer Paternal Grandfather Heart problem Other Mental health disorder Family history of problems with anesthesia: No Surgical History Surgical History H/O tubal ligation History of esophagogastroduodenoscopy (EGD) H/O colonoscopy History of cholecystectomy History of History of Problems with Anesthesia: No Social History Social History Household Members: Spouse and Children Housing: House Alcohol intake: former Patient Tobacco Use Status: Current everyday Tobacco user Tobacco use type: Smokeless Tobacco Cigarette Packs Per Day: 0.5 Cigarettes Per Day: 10.0 Years Smoked: 25 e-Cigarette/Vaping Use: Never Used Substance Use Type: Marijuana Have you been hit, kicked, punched, or otherwise hurt by someone within the past year? If so, by whom?: No Are you DNR?: No Advance Directives: No Advance Directives Information Provided: Yes service: No Current occupational status: unemployed Current occupation: due to Covid Gender identity: Female Cognitive needs: No Hearing needs: No Vision needs: No Meds Allergies Allergy/AdvReac Type Severity Reaction Status Date / Time azithromycin (AZITHROMYCIN) Allergy Intermediate RASH Verified 11/21/24 10:52 ketorolac (From Toradol) Allergy Intermediate Rash Verified 11/21/24 10:52 nitrofurantoin (From Allergy Intermediate Rash Verified 11/21/24 10:52 Macrobid) Sulfa (Sulfonamide Allergy Intermediate RASH Verified 11/21/24 10:52 Antibiotics) (SULFA (SULFONAMIDE ANTIBIOTICS)) fluconazole (Diflucan) Allergy Unknown unknown Verified 11/21/24 10:52 topiramate (Topamax) Allergy Unknown unknown Verified 11/21/24 10:52 propranolol Allergy itching Verified 11/21/24 10:52 amitriptyline AdvReac Intermediate stomach Verified 11/21/24 10:52 upset Home Medications ?Medication ?Instructions ?Recorded ?Confirmed ?Last Taken ?Type bupropion HCl 150 mg tablet,12 hr 150 mg PO BID 01/30/20 01/09/25 01/08/25 History sustained-release lorazepam 1 mg tablet 1 mg PO BID 01/30/20 01/09/25 01/09/25 History Motrin 800 mg PO BID PRN Pain (Scale 01/09/25 01/09/25 01/09/25 History Score 4-6) Assessment and Plan Final Anesthetic Review Family History of Problems with Anesthesia: No History of Problems with Anesthesia: No Documented by User: Susi Roth DO 01/09/25 07:34 [facility] Past Medical History Medical History Furuncle of vulva Vulvar lesion Mild bibasilar atelectasis Diarrhea Abnormal uterine bleeding (AUB) Pelvic pain Heavy menstrual bleeding Allergic rhinitis Asthma Smoker Abdominal pain Loud snoring ELIAZAR (obstructive sleep apnea) Somnolence, daytime Early satiety Colon polyps Hydradenitis History of fibromyalgia GERD (gastroesophageal reflux disease) History of headache Hx of irritable bowel syndrome Hx of ovarian cyst Hx of renal calculi History of anxiety Family History Family History Father HTN (hypertension) Diabetes mellitus Liver cancer Alcoholic Substance use disorder Mother Anxiety Depression Liver tumor Brother Heart attack Buerger disease Stroke Seizure Diabetes mellitus Family/Other Mild asthma Maternal Grandmother Cancer of unknown origin Maternal Grandfather Liver cancer Paternal Grandfather Heart problem Other Mental health disorder Family history of problems with anesthesia: No Surgical History Surgical History H/O tubal ligation History of esophagogastroduodenoscopy (EGD) H/O colonoscopy History of cholecystectomy History of History of Problems with Anesthesia: No Social History Social History Household Members: Spouse and Children Housing: House Alcohol intake: former Patient Tobacco Use Status: Current everyday Tobacco user Tobacco use type: Smokeless Tobacco Cigarette Packs Per Day: 0.5 Cigarettes Per Day: 10.0 Years Smoked: 25 e-Cigarette/Vaping Use: Never Used Substance Use Type: Marijuana Have you been hit, kicked, punched, or otherwise hurt by someone within the past year? If so, by whom?: No Are you DNR?: No Advance Directives: No Advance Directives Information Provided: Yes service: No Current occupational status: unemployed Current occupation: due to Covid Gender identity: Female Cognitive needs: No Hearing needs: No Vision needs: No Meds Allergies Allergy/AdvReac Type Severity Reaction Status Date / Time azithromycin (AZITHROMYCIN) Allergy Intermediate RASH Verified 11/21/24 10:52 ketorolac (From Toradol) Allergy Intermediate Rash Verified 11/21/24 10:52 nitrofurantoin (From Allergy Intermediate Rash Verified 11/21/24 10:52 Macrobid) Sulfa (Sulfonamide Allergy Intermediate RASH Verified 11/21/24 10:52 Antibiotics) (SULFA (SULFONAMIDE ANTIBIOTICS)) fluconazole (Diflucan) Allergy Unknown unknown Verified 11/21/24 10:52 topiramate (Topamax) Allergy Unknown unknown Verified 11/21/24 10:52 propranolol Allergy itching Verified 11/21/24 10:52 amitriptyline AdvReac Intermediate stomach Verified 11/21/24 10:52 upset Home Medications ?Medication ?Instructions ?Recorded ?Confirmed ?Last Taken ?Type bupropion HCl 150 mg tablet,12 hr 150 mg PO BID 01/30/20 01/09/25 01/08/25 History sustained-release lorazepam 1 mg tablet 1 mg PO BID 01/30/20 01/09/25 01/09/25 History Motrin 800 mg PO BID PRN Pain (Scale 01/09/25 01/09/25 01/09/25 History Score 4-6) Exam Exam Date and Time: 01/09/25 0730 Height,Weight and Vital Signs: Height 5 ft 1 in Weight 116.3 kg Vital Signs Temperature 96.9 F 01/09/25 06:59 Pulse Rate 80 01/09/25 06:59 Respiratory Rate 01/09/25 06:59 Blood Pressure 139/86 01/09/25 06:59 Pulse Oximetry 96 01/09/25 06:59 Oxygen Delivery Method Room Air 01/09/25 06:59 Temperature 96.9 F 01/09/25 06:59 Pulse Rate 80 01/09/25 06:59 Respiratory Rate 01/09/25 06:59 Blood Pressure 139/86 01/09/25 06:59 Pulse Oximetry 96 01/09/25 06:59 Oxygen Delivery Method Room Air 01/09/25 06:59 Airway Mallampati Class: II TM Dist: <=3cm Neck ROM: Full Loose/Missing/Broken Teeth: No (patient denies any loose or broken teeth) Heart: S1S2 Lungs: CTAB Other: Nose ring left nare - unable to remove Assessment and Plan Assessment Anesthesia Assessment: Anesthesia Plan Discussed and Chart Reviewed Final Anesthetic Review Family History of Problems with Anesthesia: No History of Problems with Anesthesia: No NPO: Yes ASA Class: III Final Preanesthetic Review: No Changes in Pt Med Stat, Meds/Allgs Chart Reviewed, Consent Obtained/Reviewed and Anes Risks/Benef Reviewed Patient Risk: Intermediate Procedure Risk: Low Anesthetic Plan Anesthetic Plan: MAC: and Agree w/ Assess. and Plan Disposition: Standard PACU
--- NOTE | 2025-01-09 07:43 | MHC.SHP ---
Pre-Procedural Eval Section A - 24 Hr Update-Section A only Date of Service: 01/09/25 Section B - Complete if H&P > 30 days Chief Complaint: Change in bowel habit Relevant Family History (Specify if Yes): No Relevant Social History: Tobacco Use Present Medications: see Short Stay Collaborative assessment Medical History: Significant History (Diarrhea Abnormal uterine bleeding (AUB) Pelvic pain Heavy menstrual bleeding Allergic rhinitis Asthma Smoker Abdominal pain Loud snoring ELIAZAR (obstructive sleep apnea) Somnolence, daytime Early satiety Colon polyps Hydradenitis History of fibromyalgia GERD (gastroesophageal reflux disease) History o) History of Previous Operations: Relevant previous surgery/procedure and date(s) (H/O tubal ligation History of esophagogastroduodenoscopy (EGD) H/O colonoscopy History of cholecystectomy History of ) Allergies: Allergies Allergy/AdvReac Type Severity Reaction Status Date / Time azithromycin (AZITHROMYCIN) Allergy Intermediate RASH Verified 11/21/24 10:52 ketorolac (From Toradol) Allergy Intermediate Rash Verified 11/21/24 10:52 nitrofurantoin (From Allergy Intermediate Rash Verified 11/21/24 10:52 Macrobid) Sulfa (Sulfonamide Allergy Intermediate RASH Verified 11/21/24 10:52 Antibiotics) (SULFA (SULFONAMIDE ANTIBIOTICS)) fluconazole (Diflucan) Allergy Unknown unknown Verified 11/21/24 10:52 topiramate (Topamax) Allergy Unknown unknown Verified 11/21/24 10:52 propranolol Allergy itching Verified 11/21/24 10:52 amitriptyline AdvReac Intermediate stomach Verified 11/21/24 10:52 upset Review of Systems Sugical H&P ROS: Negative: Constitution, Cardiovascular, Respiratory, Neurological, Psychiatric, Hem-Onc, Allergic/Immunologic, Gastrointestinal, Genitourinary, Musculoskeletal, Integumentary, Endocrine and Eyes/Ears/Nose/Throat Exam Surgical H&P Exam: Normal: HEENT, Normal: Heart, Normal: Lungs, Normal: Extremities, Normal: Abdomen, Normal: Skin and Normal: Neurological Plan Diagnosis/Plan: Unchanged I have reviewed the history and physical and performed a pertinent physical examination on my patient. No changes have occurred unless specified. Time Spent With Patient Time: Total time managing care of this patient today ____ minutes.
--- NOTE | 2025-01-09 08:53 | HO.OPN-COLON ---
Colonoscopy Operative Note Operative Note Date of Service: 01/09/25 Narrative: Operative Information Procedure Description: EGD, Colonoscopy Indication: nausea, vomiting, rectal bleeding Anesthesia: MAC FLEXIBLE TRANSORAL UPPER GASTROINTESTINAL ENDOSCOPY AND COLONOSCOPY PROCEDURE NOTE UPPER ENDOSCOPY Consent: Indications for the procedure and potential complications of bleeding, perforation, reaction to medications and missed diagnosis were discussed with the patient and informed consent was obtained. Instrument: Olympus GIF H 190 J mid size upper endoscope Monitoring: Vital signs and clinical assessment, continuous EKG monitoring, Pulse oximetry, Carbon Dioxide monitoring and blood pressure monitoring were done throughout the procedure. Procedure: The patient was placed in the left lateral decubitis position and pre-procedure medications were administered and a bite block was placed. The endoscope was inserted into the mouth and advanced under direct vision to the third part of duodenum. A careful inspection was made as the upper endoscope was withdrawn including a retroflexed examination of the proximal stomach; Findings and interventions are described below. Findings: Larynx:normal Esophagus: GE junction at 34 cm, diaphragm hiatus at 36 cm, consistent with 2 cm sliding hiatal hernia, few tongues of erosive esophagitis with boggy mucosa at GEJ, bx taken from here and distal esophagus Stomach: Patchy erythema with few erosions. Biopsies were obtained. Grade 2 flap valve on retroflexed examination of the cardia. Duodenum: Normal bulb and descending duodenum, bx taken Intervention: Biopsies as noted above, COLONOSCOPY Instrument: Olympus variable stiffness pediatric scope 190L Colonoscopy Monitoring: Vital signs and clinical assessment, continuous EKG monitoring, Pulse oximetry, Carbon Dioxide monitoring and blood pressure monitoring were done throughout the procedure. Colon withdrawal time was 13 minutes. Procedure: The patient was placed in the left lateral decubitis position and pre-procedure medications were administered. After a digital rectal examination of the ano-rectum, the video colonoscope was inserted into the rectum and advanced through the colon to the cecum/TI. The colonoscope was slowly withdrawn in a retrograde panoramic fashion and the colon mucosa was carefully examined including a retroflexed view of the rectum. Findings and interventions are described below. Procedure Difficulty:moderate Findings: Terminal Ileum-normal, bx taken random bx taken from right, left and rectum areas in separate jars Cecum:normal Ascending Colon: 12 mm flat granular polyp lesion, lifted wt eleview and removed with cold snare Transverse Colon -normal Descending Colon:normal Sigmoid Colon: mild to mdoerate diverticulosis, 8-9 mm sessile polyp removed with cold snare Rectum: Retroflexion with small inflammed internal hemorrhoids, grade I Anorectum - normal Colon preparation: Fairchild Bowel Preparation Scale Right colon; 2 Transverse colon: 2 Left colon; 2 (0 = Unprepared colon segment with mucosa not seen due to solid stool that cannot be cleared. 1 = Portion of mucosa of the colon segment seen, but other areas of the colon segment not well seen due to staining, residual stool and/or opaque liquid. 2 = Minor amount of residual staining, small fragments of stool and/or opaque liquid, but mucosa of colon segment seen well. 3 = Entire mucosa of colon segment seen well with no residual staining, small fragments of stool or opaque liquid) Impression and Post Procedure Diagnosis: Endoscopy Findings: hiatal hernia erosive esophagitis erosive gastritis Colonoscopy Findings: diverticulosis colon polyps x 2 internal hemorrhoids Plan: Await Pathology results Repeat Colonoscopy in 2-3 years or earlier if clinically indicated High fiber diet leaflet avoid straining at stool, epsom salts and sitz bath, anusol supps or cream smoking cessation GERD precautions Above findings were reviewed with the patient and relevant handouts were provided if indicated.
[2025-01-09 08:58] VITALS: BP 105/58; PULSE 71; RESP 16; TEMP 36.8
[2025-01-09 09:00] VITALS: BP 105/61; PULSE 71; RESP 16; O2SAT 96
[2025-01-09 09:15] VITALS: BP 120/75; PULSE 66; RESP 16; O2SAT 96
== END 2025-01-09 09:51 | disposition home or self-care (01) ==
PROVIDERS: PCP Internal Medicine; Visit Provider Internal Medicine Gastroenterology
PROC: (CPT 45385; principal; 2025-01-09 08:20)
DX: R19.4 Change in bowel habit (principal); D12.2 Benign neoplasm of ascending colon; K57.30 Diverticulosis of large intestine without perforation or abscess without bleeding; K64.0 First degree hemorrhoids; Z86.0101 Personal history of adenomatous and serrated colon polyps; K21.9 Gastro-esophageal reflux disease without esophagitis; K22.10 Ulcer of esophagus without bleeding; K29.60 Other gastritis without bleeding; K29.90 Gastroduodenitis, unspecified, without bleeding; K22.89 Other specified disease of esophagus; K44.9 Diaphragmatic hernia without obstruction or gangrene; J45.909 Unspecified asthma, uncomplicated; G47.33 Obstructive sleep apnea (adult) (pediatric); F17.210 Nicotine dependence, cigarettes, uncomplicated; Z79.899 Other long term (current) drug therapy
CPT/HCPCS: 45385; 45380; 45381; 43239; 88305; 88313; 88342; J2704

== ENCOUNTER → 2025-01-09 06:43 | Outpatient (BNV) | payer OTHER, SELFPAY | PROVIDERS: PCP Internal Medicine; Visit Provider Internal Medicine Gastroenterology | DX: K62.5 Hemorrhage of anus and rectum (principal); D12.2 Benign neoplasm of ascending colon; D12.5 Benign neoplasm of sigmoid colon; K57.30 Diverticulosis of large intestine without perforation or abscess without bleeding; K64.0 First degree hemorrhoids; R11.2 Nausea with vomiting, unspecified; K20.90 Esophagitis, unspecified without bleeding; K29.00 Acute gastritis without bleeding | CPT/HCPCS: 43239; 45381; 45385 ==

== ENCOUNTER 2025-02-07 08:58 | Outpatient (AMB) | payer OTHER, SELFPAY ==
[2025-02-07 09:01] VITALS: BP 110/78; PULSE 74; O2SAT 97; BMI 49.1
--- NOTE | 2025-02-07 09:01 | MHC.PC.OV ---
Vital Signs 02/07/25 09:01 Height 5 ft 1 in Weight 260 lb BMI 49.1 BP 110/78 Blood Pressure Location Lt brachial Position Sitting Pulse 74 Pulse Source Pulse Oximeter Pulse Oximetry (%) 97 Intake Visit Reasons: med management/gabapentin Accompanied by: Self / Same As Patient Allergies azithromycin (AZITHROMYCIN) Allergy (Intermediate, Verified 02/07/25 09:02) RASH ketorolac (From Toradol) Allergy (Intermediate, Verified 02/07/25 09:02) Rash nitrofurantoin (From Macrobid) Allergy (Intermediate, Verified 02/07/25 09:02) Rash Sulfa (Sulfonamide Antibiotics) (SULFA (SULFONAMIDE ANTIBIOTICS)) Allergy (Intermediate, Verified 02/07/25 09:02) RASH fluconazole (Diflucan) Allergy (Unknown, Verified 02/07/25 09:02) unknown topiramate (Topamax) Allergy (Unknown, Verified 02/07/25 09:02) unknown propranolol Allergy (Verified 02/07/25 09:02) itching amitriptyline Adverse Reaction (Intermediate, Verified 02/07/25 09:02) stomach upset Medication List - Last Reconciled 02/07/25 by Khanh Reynolds MD albuterol sulfate 90 mcg/actuation (Ventolin HFA) 2 puffs inhalation Q4-6H PRN bupropion HCl SR 150 mg PO BID gabapentin 300 mg PO TID 90 days lorazepam 1 mg PO BID montelukast 10 mg PO DAILY 90 days [Motrin 800 mg PO BID PRN] ondansetron 4 mg PO Q8H PRN oxybutynin chloride ER 10 mg PO DAILY 30 days pramipexole 0.25 mg PO BEDTIME sucralfate (Carafate) 1 g PO BID sumatriptan succinate 50 mg PO ONCE PRN 30 days Tobacco use date assessed: 11/05/24 Dental Screening Dental Screen Date: 09/17/24 HPI med management/gabapentin HPI Details History The patient is a 44-year-old female presenting with a need for medication refill and evaluation of chronic issues. Major Depression: - The patient reports discontinuing Wellbutrin previously, thinking she was fine, but realized the necessity of resuming it after experiencing worsening symptoms. - Reports adverse reactions to Cymbalta, including severe vomiting, leading to a dose adjustment as of last week. Chronic Migraine: - Experiencing a persistent migraine for five days, with swelling around her eyes. - Reports that sumatriptan is usually effective but was taken late into an episode, thereby reducing effectiveness. Restless Leg Syndrome: - Managed with pramipexole at night as needed. - Current status manageable without nightly necessity. Chronic GERD: - Managed with Carafate as needed, but the frequency of current usage was not specified. Overactive Bladder: - Oxybutynin was prescribed but not initiated pending further instruction from Urology. Anxiety: - In addition to major depression, anxiety is present and managed with lorazepam through a psychiatrist. Obstructive Sleep Apnea: - managed by sleep specialist Generalized Body Aches and Pains: - Managed with gabapentin. - The patient requested a refill during this visit. Suspected Lyme Disease: - The patient was bitten by a tick approximately 1.5 weeks ago and showed a bull's eye rash, prompting the addition of a Lyme disease test to the labs. Knee Pain: - Severe pain impacting mobility, previously recommended for an MRI. - The insurance company required physical therapy first, though patient believes it is contraindicated due to pain severity. she is under care of [facility] [place] Medical History: - Morbid obesity (BMI of 49.1) - Restless Leg Syndrome - Major Depression - Anxiety - Chronic Gastroesophageal Reflux Disease (GERD) - Irritable Bowel Syndrome - Overactive Bladder - Obstructive Sleep Apnea - Fibromyalgia Medications: - Wellbutrin 150 mg BID for depression - Gabapentin 300 mg TID for generalized body aches and pains - Lorazepam 1 mg BID for anxiety - Montelukast for anxiety, taken as needed - Oxybutynin for overactive bladder, not yet started - Pramipexole for restless leg syndrome, taken as needed - Sumatriptan for migraines, taken as needed - Carafate 1 g as needed for GERD Social History: - Reports family history of diabetes; father and eldest brother had diabetes. - Experiencing significant impacts on daily functioning due to knee pain and migraines. [place] [facility] - Patient is established with Gastroenterology at [facility] [place] and seen by a psychiatrist for anxiety. Plan - Ordered refills for gabapentin, sumatriptan, and montelukast as needed. - Continue pramipexole management for restless leg syndrome on an as-needed basis. - Added orders for Lyme titers due to recent tick bite with bull's eye rash. - Patient to have routine labs, including cholesterol, taken today. - Discussed adjusting the timing of the physical exam to coincide with next medication refill due in three months. Review of Systems General: No fever no chills ear nose throat: No sore throat no hearing difficulty no ear pain cardiovascular: No syncope, no chest pain, no palpitations endocrine: no heat intolerance genitourinary: No dysuria skin: No new complaints Physical Exam general: Morbidly obese, no acute distress HEENT: no acute findings neck: Supple respiratory system: Able to talk in full sentences, no audible wheeze, no stridor, lungs are clear cardiovascular: S1-S2 RRR gastrointestinal: generalize discomfort chronic extremities: Knee pain, swelling present right , ROM limited due to pain BLOCK HACKER: Alert, awake, oriented x3, motor intact skin: Normal turgor, no bulls eye noticed on neck [facility] Medical History Furuncle of vulva Vulvar lesion Mild bibasilar atelectasis Diarrhea Abnormal uterine bleeding (AUB) Pelvic pain Heavy menstrual bleeding Allergic rhinitis Asthma Smoker Abdominal pain Loud snoring ELIAZAR (obstructive sleep apnea) Somnolence, daytime Early satiety Colon polyps Hydradenitis History of fibromyalgia GERD (gastroesophageal reflux disease) History of headache Hx of irritable bowel syndrome Hx of ovarian cyst Hx of renal calculi History of anxiety Surgical History H/O tubal ligation History of esophagogastroduodenoscopy (EGD) H/O colonoscopy History of cholecystectomy History of Family History Father HTN (hypertension) Diabetes mellitus Liver cancer Alcoholic Substance use disorder Mother Anxiety Depression Liver tumor Brother Heart attack Buerger disease Stroke Seizure Diabetes mellitus Family/Other Mild asthma Maternal Grandmother Cancer of unknown origin Maternal Grandfather Liver cancer Paternal Grandfather Heart problem Other Mental health disorder Social History Household Members: Spouse and Children Housing: House Alcohol intake: former Patient Tobacco Use Status: Current everyday Tobacco user Tobacco use type: Smokeless Tobacco Cigarette Packs Per Day: 0.5 Cigarettes Per Day: 10.0 Years Smoked: 25 e-Cigarette/Vaping Use: Never Used Substance Use Type: Marijuana service: No Current occupational status: unemployed Current occupation: due to Cov[employer] Gender identity: Female Cognitive needs: No Hearing needs: No Vision needs: No Female Reproductive History Menstrual Age of Menarche: 10 Date of menopause: 02/21/23 Questionnaire PHQ-9 Over the last 2 weeks, how often have you been bothered by any of the following problems? 1. Little interest or pleasure in doing things: nearly every day 2. Feeling down, depressed, or hopeless: nearly every day 3. Trouble falling or staying asleep, or sleeping too much: nearly every day 4. Feeling tired or having little energy: nearly every day 5. Poor appetite or overeating: several days 6. Feeling bad about yourself - or that you are a failure or have let yourself or your family down: more than half the days 7. Trouble concentrating on things, such as reading the newspaper or watching television: nearly every day 8. Moving or speaking so slowly that other people could have noticed. Or the opposite - being so fidgety or restless that you have been moving around a lot more than usual: not at all 9. Thoughts that you would be better off or of hurting yourself in some way: not at all Total score: 18 Depression Screening Interpretation: Positive Depression Screening Follow-up: Existing condition and In treatment Depression Screening Done: Yes 60638 - PHQ-9 Billing: Yes Source: Developed by Drs. Tony Sandhu, Vidhya Esparza, Nitish Stein and colleagues, with an educational tonya from [employer]. Thrive Questionnaire Date Thrive assessed: 06/18/24 I am a: Patient What is your living situation today?: I have a steady place to live Within the past 12 months, did the food you bought not last and you didn't have the money to get more?: Often true Within the past 12 months, did you worry whether your food would run out before you got money to buy more?: Never true Do you have trouble paying for medicines?: No Do you have trouble getting transportation to medical appointments?: Yes Do you have trouble paying your heating and electricity bill?: No Do you have trouble taking care of your child, family member or friend?: No Do you have trouble with day-to-day activities such as bathing, preparing meals, shopping, managing finances, etc.?: Yes Are you currently unemployed and looking for a job?: No Are you interested in more education?: No Please select the resources that you would like help with: None Currently or been in a relationship where the following occur: No concerns reported THRIVE Score: 2 AUDIT C Alcohol Use Questionnaire (AUDIT-C) 1. How often do you have a drink containing alcohol?: Never 3. How often do you have six or more drinks on one occasion?: Never Total Score: 0 JUAN CARLOS-7 AMB Questionnaire JUAN CARLOS-7 Date JUAN CARLOS - 7 assessed: 06/18/24 Feeling nervous, anxious, or on edge: 3 = Nearly every day Not being able to stop or control worryin = Nearly every day Worrying too much about different things: 3 = Nearly every day Trouble relaxin = Nearly every day Being so restless that it is hard to sit still: 3 = Nearly every day Becoming easily annoyed or irritable: 3 = Nearly every day Feeling afraid as if something awful might happen: 3 = Nearly every day Total JUAN CARLOS-7 score (0-4 normal; 5-9 mild; 10-14 moderate; 15-21 severe): 21 Source: Developed by Drs. Tony Sandhu, Vidhya Esparza, Nitish Stein and colleagues, with an educational tonya from [employer]. JUAN CARLOS-7 Assessment Billing JUAN CARLOS-7 Assessment Tool: JUAN CARLOS-7 Assessment 70388 Physical exam (Primary Care) Vital Signs: Last Vital Signs Pulse 74 02/07/25 09:01 BP 110/78 02/07/25 09:01 Pulse Ox 97 02/07/25 09:01 BMI result Body Mass Index 49.1 Tobacco/Smoking Status: Tobacco use Status Tobacco use date assessed 11/05/24 02/07/25 09:06 Patient Tobacco Use Status Current everyday Tobacco 02/07/25 09:06 Tobacco use type Smokeless Tobacco 02/07/25 09:06 e-Cigarette/Vaping Use Never Used 02/07/25 09:06 PHQ-9: PHQ-9 Score PHQ-9: Total score 18 02/07/25 09:19 Depression Screening Interpretation: Positive Depression Screening Follow-up: Existing condition and In treatment Thrive Assessment: Date of Thrive Assessment Date Thrive assessed 06/18/24 02/07/25 09:06 Currently or been in a relationship where the following occur: No concerns reported Coding Level of Care Code Est Pt Level 4 (14459) Complex EM visit Add On G2211 Diagnoses Fibromyalgia M79.7 Restless legs syndrome G25.81 Recurrent major depressive disorder, in partial remission F33.41 Active/Remission status: in partial remission Anxiety, generalized F41.1 Environmental allergies Z91.09 Morbid obesity E66.01 Seasonal allergic rhinitis due to pollen J30.1 Allergic rhinitis seasonality: seasonal Allergic rhinitis trigger: pollen Gastroesophageal reflux disease without esophagitis K21.9 Esophagitis presence: without esophagitis Overactive bladder N32.81 ELIAZAR (obstructive sleep apnea) G47.33 Additional Codes PHQ-9 - 24030 - PHQ-9 Billing: Yes ([id number]) JUAN CARLOS-7 Assessment Billing - JUAN CARLOS-7 Assessment Tool: JUAN CARLOS-7 Assessment [id number] ([id number]) Assessment & Plan Assessment & Plan (1) Fibromyalgia: Code(s): M79.7 - Fibromyalgia Category: Medical (2) Restless legs syndrome: Code(s): G25.81 - Restless legs syndrome Category: Medical (3) Major depression, recurrent: Code(s): F33.9 - Major depressive disorder, recurrent, unspecified Category: Medical Qualifiers: Active/Remission status: in partial remission Qualified Code(s): F33.41 - Major depressive disorder, recurrent, in partial remission (4) Anxiety, generalized: Code(s): F41.1 - Generalized anxiety disorder Category: Medical (5) Environmental allergies: Code(s): Z91.09 - Other allergy status, other than to drugs and biological substances Category: Medical (6) Morbid obesity: Comment: PATIENT REMAINS MORBIDLY OBESE. HAS GAINED MORE WEIGHT SINCE LAST VISIT CURRENT BMI 49.2 I URGED HER TO JOIN A WEIGHT MANAGEMENT PROGRAM Code(s): E66.01 - Morbid (severe) obesity due to excess calories Category: Medical (7) Allergic rhinitis: Comment: MILD CHRONIC ALLERGIC RHINITIS GOES ALONG WITH HER BRONCHIAL ASTHMA. Code(s): J30.9 - Allergic rhinitis, unspecified Category: Medical Qualifiers: Allergic rhinitis seasonality: seasonal Allergic rhinitis trigger: pollen Qualified Code(s): J30.1 - Allergic rhinitis due to pollen (8) Acid reflux: Comment: Continue PPI q.a.m., avoid culprits, Code(s): K21.9 - Gastro-esophageal reflux disease without esophagitis Category: Medical Qualifiers: Esophagitis presence: without esophagitis Qualified Code(s): K21.9 - Gastro-esophageal reflux disease without esophagitis (9) Overactive bladder: Code(s): N32.81 - Overactive bladder Category: Medical (10) ELIAZAR (obstructive sleep apnea): Comment: SHE IS KNOWN TO HAVE MILD OBSTRUCTIVE SLEEP APNEA BUT WAS QUITE SYMPTOMATIC. HENCE SHE HAS BEEN ON CPAP THERAPY . WHICH SHE USES REGULARLY EVERY NIGHT. WE COULD NOT GET THE COMPLIANCE REPORT . CURRENTLY NOT USING FOR THE LAST FEW MONTHS. Code(s): G47.33 - Obstructive sleep apnea (adult) (pediatric) Category: Medical Plan History The patient is a 44-year-old female presenting with a need for medication refill and evaluation of chronic issues. Major Depression: - The patient reports discontinuing Wellbutrin previously, thinking she was fine, but realized the necessity of resuming it after experiencing worsening symptoms. - Reports adverse reactions to Cymbalta, including severe vomiting, leading to a dose adjustment as of last week. Chronic Migraine: - Experiencing a persistent migraine for five days, with swelling around her eyes. - Reports that sumatriptan is usually effective but was taken late into an episode, thereby reducing effectiveness. Restless Leg Syndrome: - Managed with pramipexole at night as needed. - Current status manageable without nightly necessity. Chronic GERD: - Managed with Carafate as needed, but the frequency of current usage was not specified. Overactive Bladder: - Oxybutynin was prescribed but not initiated pending further instruction from Urology. Anxiety: - In addition to major depression, anxiety is present and managed with lorazepam through a psychiatrist. Obstructive Sleep Apnea: - managed by sleep specialist Generalized Body Aches and Pains: - Managed with gabapentin. - The patient requested a refill during this visit. Suspected Lyme Disease: - The patient was bitten by a tick approximately 1.5 weeks ago and showed a bull's eye rash, prompting the addition of a Lyme disease test to the labs. Knee Pain: - Severe pain impacting mobility, previously recommended for an MRI. - The insurance company required physical therapy first, though patient believes it is contraindicated due to pain severity. she is under care of [facility] [place] Medical History: - Morbid obesity (BMI of 49.1) - Restless Leg Syndrome - Major Depression - Anxiety - Chronic Gastroesophageal Reflux Disease (GERD) - Irritable Bowel Syndrome - Overactive Bladder - Obstructive Sleep Apnea - Fibromyalgia Medications: - Wellbutrin 150 mg BID for depression - Gabapentin 300 mg TID for generalized body aches and pains - Lorazepam 1 mg BID for anxiety - Montelukast for anxiety, taken as needed - Oxybutynin for overactive bladder, not yet started - Pramipexole for restless leg syndrome, taken as needed - Sumatriptan for migraines, taken as needed - Carafate 1 g as needed for GERD Social History: - Reports family history of diabetes; father and eldest brother had diabetes. - Experiencing significant impacts on daily functioning due to knee pain and migraines. [place] [facility] - Patient is established with Gastroenterology at [facility] [place] and seen by a psychiatrist for anxiety. Plan - Ordered refills for gabapentin, sumatriptan, and montelukast as needed. - Continue pramipexole management for restless leg syndrome on an as-needed basis. - Added orders for Lyme titers due to recent tick bite with bull's eye rash. - Patient to have routine labs, including cholesterol, taken today. - Discussed adjusting the timing of the physical exam to coincide with next medication refill due in three months. Orders: Orders Lyme IgG/IgM w/reflex to WB 02/07/25 E66.01 - Morbid (severe) obesity due to excess calories, F33.41 - Major depressive disorder, recurrent, in partial remission, F41.1 - Generalized anxiety disorder, G25.81 - Restless legs syndrome, G47.33 - Obstructive sleep apnea (adult) (pediatric), J30.1 - Allergic rhinitis due to pollen, K21.9 - Gastro-esophageal reflux disease without esophagitis, L73.2 - Hidradenitis suppurativa, M79.7 - Fibromyalgia, N32.81 - Overactive bladder, Z91.09 - Other allergy status, other than to drugs and biological substances Lipid Panel 02/07/25 E66.01 - Morbid (severe) obesity due to excess calories, F33.41 - Major depressive disorder, recurrent, in partial remission, F41.1 - Generalized anxiety disorder, G25.81 - Restless legs syndrome, G47.33 - Obstructive sleep apnea (adult) (pediatric), J30.1 - Allergic rhinitis due to pollen, K21.9 - Gastro-esophageal reflux disease without esophagitis, L73.2 - Hidradenitis suppurativa, M79.7 - Fibromyalgia, N32.81 - Overactive bladder, Z91.09 - Other allergy status, other than to drugs and biological substances Hemoglobin A1c 02/07/25 E66.01 - Morbid (severe) obesity due to excess calories, F33.41 - Major depressive disorder, recurrent, in partial remission, F41.1 - Generalized anxiety disorder, G25.81 - Restless legs syndrome, G47.33 - Obstructive sleep apnea (adult) (pediatric), J30.1 - Allergic rhinitis due to pollen, K21.9 - Gastro-esophageal reflux disease without esophagitis, L73.2 - Hidradenitis suppurativa, M79.7 - Fibromyalgia, N32.81 - Overactive bladder, Z91.09 - Other allergy status, other than to drugs and biological substances Medications: Refilled gabapentin 300 mg PO TID 270 caps 0RF 90 days M79.7 - Fibromyalgia montelukast 10 mg PO DAILY 90 tabs 0RF 90 days sumatriptan succinate 50 mg PO ONCE PRN 10 tabs 0RF migraine headache 30 days
== END 2025-02-07 09:20 | disposition home or self-care (01) ==
LOC: HO.HMCC 08:59
PROVIDERS: PCP Internal Medicine; Visit Provider Internal Medicine
DX: M79.7 Fibromyalgia (principal); G25.81 Restless legs syndrome; F33.41 Major depressive disorder, recurrent, in partial remission; F41.1 Generalized anxiety disorder; Z91.09 Other allergy status, other than to drugs and biological substances; E66.01 Morbid (severe) obesity due to excess calories; J30.1 Allergic rhinitis due to pollen; K21.9 Gastro-esophageal reflux disease without esophagitis; N32.81 Overactive bladder; G47.33 Obstructive sleep apnea (adult) (pediatric)

== ENCOUNTER 2025-02-07 08:58 | Outpatient (REF) | payer OTHER, SELFPAY ==
[2025-02-07 13:10] LABS: Appearance Urine Clear; Glucose Urine UA Negative (Negative); PH 6.0 (5.0-9.0); Specific Gravity - Urine 1.025 (1.005-1.025); UMIC TRIGGER UACC YES
[2025-02-07 13:17] LABS: MANUAL DIFF FLAG NO
[2025-02-07 13:26] LABS: Hematocrit 38.8 % (37.0-47.0); Hemoglobin 12.4 g/dl (12.0-16.0); Imm Gran Abs Auto 0.04 X10*3/uL (0.00-0.03); Imm Gran Pct Auto 0.4 % (0.0-0.4); Lymphocytes Absolute Auto 3.2 X10*3/uL (1.2-4.9); Mean Corpuscular HGB Conc 32.0 g/dl (31.0-35.0); Mean Corpuscular Hemoglobin 27.6 pg (27.0-33.0); Mean Corpuscular Volume 86.4 fL (80.0-98.0); NRBC Abs Auto 0.000 X10*3/uL (0.0-0.012); NRBC Pct Auto 0.0 /100WBC (0.0-0.2); Platelet Count 204 X10*3/uL (160-400); Red Blood Count 4.49 X10*6/uL (4.20-5.50); White Blood Count 9.7 X10*3/uL (4.8-10.8)
[2025-02-07 14:00] LABS: Alanine Aminotransferase 12 U/L (0-31); Albumin Level 3.8 g/dL (3.5-5.0); Alkaline Phosphatase 156 U/L (39-117); Anion Gap 9 (12-20); Aspartate Amino Transferase 11 U/L (5-31); Blood Urea Nitrogen 21 mg/dL (9-16); Calcium 9.0 mg/dL (8.4-10.2); Carbon Dioxide 28 mmol/L (22-29); Chloride 109 mmol/L (96-108); Cholesterol 200 mg/dL (<200); Estimated Glomerular Filt Rate > 60; Ferritin 42 ng/mL (10-250); HDL Cholesterol 33 mg/dL (>40); Potassium 4.0 mmol/L (3.3-5.1); Sodium 142 mmol/L (135-145); Total Protein 6.8 g/dL (6.5-8.0); Triglycerides 306 mg/dL (<150)
[2025-02-07 14:16] LABS: Folate 2.9 ng/mL (> or = 4.0); Vitamin B12 299 pg/mL (200-900)
[2025-02-08 08:37] LABS: HBS Num1 0.07 mIU/mL (0-7.99); HBc Num1 0.12 S/CO (0.00-0.79); HBsAGNum1 0.55 S/CO (0.00-0.99); Hepatitis A Antibody IgM 0.18 Index (0-0.79); Hepatitis B Surface Antigen Negative (Negative); ~HepC Num1 0.09 S/CO (0.00-0.79); ~Hepatitis A Antibody IgM Nonreactive (Nonreactive); ~Hepatitis B Surface Antibody NONREACTIVE (Nonreactive); ~Hepatitis C Antibody Nonreactive (Nonreactive)
[2025-02-08 10:57] LABS: Lyme Abs Screen <0.90 index
[2025-02-10 11:33] LABS: TS Negative Control Passed; TS Panel A 0; TS Panel B 0; TS Positive Control Passed; TSpotTB Negative (Negative)
== END 2025-02-07 08:59 | disposition home or self-care (01) ==
LOC: HO.HMGCLDS 08:58
PROVIDERS: Absent Provider Internal Medicine Gastroenterology; PCP Internal Medicine; Visit Provider Internal Medicine
DX: K52.9 Noninfective gastroenteritis and colitis, unspecified (principal); K63.5 Polyp of colon; K75.81 Nonalcoholic steatohepatitis (NASH); F33.41 Major depressive disorder, recurrent, in partial remission; F41.1 Generalized anxiety disorder; Z91.09 Other allergy status, other than to drugs and biological substances; E66.01 Morbid (severe) obesity due to excess calories; J30.1 Allergic rhinitis due to pollen; K21.9 Gastro-esophageal reflux disease without esophagitis; M79.7 Fibromyalgia; N32.81 Overactive bladder; G25.81 Restless legs syndrome; G47.33 Obstructive sleep apnea (adult) (pediatric); L73.2 Hidradenitis suppurativa; R30.0 Dysuria; Z79.899 Other long term (current) drug therapy; Z68.42 Body mass index [BMI] 45.0-49.9, adult
CPT/HCPCS: 36415; 80053; 80061; 81001; 81003; 82607; 82728; 82746; 83036; 84443; 85025; 86140; 86481; 86617; 86618; 86704; 86706; 86709; 86803; 87340; 96127; 99212

== ENCOUNTER 2025-04-29 09:13 | Outpatient (AMB) | payer OTHER, SELFPAY ==
[2025-04-29 09:15] VITALS: BP 120/78; PULSE 93; RESP 17; TEMP 36.9; O2SAT 97; BMI 51.1
--- NOTE | 2025-04-29 09:15 | A.OFFPC_ITS ---
Vital Signs 04/29/25 09:15 Height 5 ft 1 in Weight 270 lb 6 oz BMI 51.1 BP 120/78 Blood Pressure Location Rt brachial Position Sitting Respiration 17 Pulse 93 Pulse Source Pulse Oximeter Temp 98.4 F Temp Source Oral Pulse Oximetry (%) 97 Oxygen Delivery Method Room Air Intake Visit Reasons: PE Allergies azithromycin (AZITHROMYCIN) Allergy (Intermediate, Verified 04/29/25 09:15) RASH ketorolac (From Toradol) Allergy (Intermediate, Verified 04/29/25 09:15) Rash nitrofurantoin (From Macrobid) Allergy (Intermediate, Verified 04/29/25 09:15) Rash Sulfa (Sulfonamide Antibiotics) (SULFA (SULFONAMIDE ANTIBIOTICS)) Allergy (Intermediate, Verified 04/29/25 09:15) RASH fluconazole (Diflucan) Allergy (Unknown, Verified 04/29/25 09:15) unknown topiramate (Topamax) Allergy (Unknown, Verified 04/29/25 09:15) unknown propranolol Allergy (Verified 04/29/25 09:15) itching amitriptyline Adverse Reaction (Intermediate, Verified 04/29/25 09:15) stomach upset Medication List - Last Reconciled 04/29/25 by Khanh Reynolds MD albuterol sulfate 90 mcg/actuation (Ventolin HFA) 2 puffs inhalation Q4-6H PRN bupropion HCl SR 150 mg PO BID gabapentin 300 mg PO TID 90 days lorazepam 1 mg PO BID montelukast 10 mg PO DAILY 90 days [Motrin 800 mg PO BID PRN] ondansetron 4 mg PO Q8H PRN oxybutynin chloride ER 10 mg PO DAILY 30 days pramipexole 0.25 mg PO BEDTIME sucralfate (Carafate) 1 g PO BID sumatriptan succinate 50 mg PO ONCE PRN 30 days Tobacco use date assessed: 04/29/25 Dental Screening Dental Screen Date: 04/29/25 Did you have a dental visit in the last 12 months?: No Did you have a dental problem in the last 6 months where you did not have access to dental care?: No Was dental information given to patient?: Patient has dentist HPI HPI Comments History of Present Illness Details History of Present Illness The patient is a 45 year old female presenting with acute gastrointestinal and constitutional symptoms. Viral Gastroenteritis: - The patient reports that her symptoms started on Monday, four days ago, and she feels she is getting progressively worse. - She complains of nausea, vomiting of w ater and phlegm, severe stomach pain, a very bad sore throat, headache, a bad cough, and palpitations. - She experienced severe diarrhea around 3 a.m. this morning, but reports it is now slowing down. - She has been unable to tolerate oral f luids or food. - She took Zofran, which she takes often for chronic stomach problems, but it has not provided relief for her current symptoms. Social History: - The patient's is currently hos pitalized and undergoing a cardiac catheterization for a stent. Diagnostic Results: - Strep test: Pending. [facility] Medical History Furuncle of vulva Vulvar lesion Mild bibasilar atelectasis Diarrhea Abnormal uterine bleeding (AUB) Pelvic pain Heavy menstrual bleeding Allergic rhinitis Asthma Smoker Abdominal pain Loud snoring ELIAZAR (obstructive sleep apnea) Somnolence, daytime Early satiety Colon polyps Hydradenitis History of fibromyalgia GERD (gastroesophageal reflux disease) History of headache Hx of irritable bowel syndrome Hx of ovarian cyst Hx of renal calculi History of anxiety Surgical History H/O tubal ligation History of esophagogastroduodenoscopy (EGD) H/O colonoscopy History of cholecystectomy History of Family History Father HTN (hypertension) Diabetes mellitus Liver cancer Alcoholic Substance use disorder Mother Anxiety Depression Liver tumor Brother Heart attack Buerger disease Stroke Seizure Diabetes mellitus Family/Other Mild asthma Maternal Grandmother Cancer of unknown origin Maternal Grandfather Liver cancer Paternal Grandfather Heart problem Other Mental health disorder Social History Household Members: Spouse and Children Housing: House Alcohol intake: former Patient Tobacco Use Status: Current everyday Tobacco user Tobacco use type: Smokeless Tobacco Cigarette Packs Per Day: 0.5 Cigarettes Per Day: 10.0 Years Smoked: 25 e-Cigarette/Vaping Use: Never Used Substance Use Type: Marijuana service: No Current occupational status: unemployed Current occupation: due to Cov[employer] Gender identity: Female Cognitive needs: No Hearing needs: No Vision needs: No Female Reproductive History Menstrual Age of Menarche: 10 Date of menopause: 02/21/23 Questionnaire Thrive Questionnaire Date Thrive assessed: 06/18/24 I am a: Patient What is your living situation today?: I have a steady place to live Within the past 12 months, did the food you bought not last and you didn't have the money to get more?: Often true Within the past 12 months, did you worry whether your food would run out before you got money to buy more?: Never true Do you have trouble paying for medicines?: No Do you have trouble getting transportation to medical appointments?: Yes Do you have trouble paying your heating and electricity bill?: No Do you have trouble taking care of your child, family member or friend?: No Do you have trouble with day-to-day activities such as bathing, preparing meals, shopping, managing finances, etc.?: Yes Are you currently unemployed and looking for a job?: No Are you interested in more education?: No Currently or been in a relationship where the following occur: No concerns reported THRIVE Score: 2 AUDIT C Alcohol Use Questionnaire (AUDIT-C) 1. How often do you have a drink containing alcohol?: Never 3. How often do you have six or more drinks on one occasion?: Never Total Score: 0 Score Reviewed/Action Taken: Yes JUAN CARLOS-7 AMB Questionnaire JUAN CARLOS-7 Date JUAN CARLOS - 7 assessed: 06/18/24 Source: Developed by Drs. Tony Sandhu, Vidhya Esparza, Nitish Stein and colleagues, with an educational tonya from [employer]. Review of Systems Narrative Review of Systems. - General: No fever no chills anymore - Neurological: yes headaches no dizziness - Ear nose throat: yes sore throat no hearing difficulty no ear pain - Cardiovascular: No syncope, no chest pain, no palpitations - Gastrointestinal: yes nausea vomiting diarrhea - Endocrine: No polyuria polydipsia no heat intolerance - Genitourinary: No dysuria , no blood in urine Physical exam (Primary Care) Vital Signs: Last Vital Signs Temp 98.4 F 04/29/25 09:15 Pulse 93 04/29/25 09:15 Resp 17 04/29/25 09:15 BP 120/78 04/29/25 09:15 Pulse Ox 97 04/29/25 09:15 Oxygen Delivery Method Room Air 04/29/25 09:15 BMI result Body Mass Index 51.1 Tobacco/Smoking Status: Tobacco use Status Tobacco use date assessed 04/29/25 04/29/25 09:22 Patient Tobacco Use Status Current everyday Tobacco 04/29/25 09:22 Tobacco use type Smokeless Tobacco 04/29/25 09:22 e-Cigarette/Vaping Use Never Used 04/29/25 09:22 Thrive Assessment: Date of Thrive Assessment Date Thrive assessed 06/18/24 04/29/25 09:22 Currently or been in a relationship where the following occur: No concerns reported Narrative Physical Exam General: No acute distress HEENT: No acute findings, mild erythema, strep test neg Neck: Supple Respiratory system: Able to talk in full sentences, no audible wheeze, Cardiovascular: S1-S2 regular in rate and rhythm, palpitations reported Gastrointestinal: generalize Stomach pain, BS + Extremities: No new findings 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: Alert awake oriented x3 motor intact Skin: Normal turgor Results AMB Rapid Strep AMB Rapid Strep Negative Last Edit by Windy Rodriguez CMA on 04/29/25 09:3 5 Results Reviewed Results Reviewed: Laboratory Last Values Strep Scn Rapid Clinic Negative 04/29/25 09:34 Coding Level of Care Code Est Pt Level 4 (22174) Diagnoses Acute gastroenteritis K52.9 Dehydration E86.0 Acute pharyngitis due to other specified organisms J02.8 Pharyngitis/tonsillitis etiology: other specified organisms Feeling unwell R68.89 Stress at home F43.9 Time Spent (min) 30 Comment evaluation / strep test / coordination of care Assessment & Plan Assessment & Plan (1) Acute gastroenteritis: Code(s): K52.9 - Noninfective gastroenteritis and colitis, unspecified Category: Medical (2) Dehydration: Code(s): E86.0 - Dehydration Category: Medical (3) Acute pharyngitis: Code(s): J02.9 - Acute pharyngitis, unspecified Category: Medical Qualifiers: Pharyngitis/tonsillitis etiology: other specified organisms Qualified Code(s): J02.8 - Acute pharyngitis due to other specified organisms (4) Feeling unwell: Code(s): R68.89 - Other general symptoms and signs Category: Medical (5) Stress at home: Code(s): F43.9 - Reaction to severe stress, unspecified Category: Social Hx Plan Problem List - Viral gastroenteritis, suspected norovirus - Dehydration - Acute pharyngitis - emotional as is sick and she cant be with him / causing stress Plan - The presenting symptoms are consistent with a viral illness - Due to the inability to retain fluids, vomiting, and diarrhea, there is a risk of dehydration; recommended going to the emergency room for IV fluids. - The patient will first attempt oral rehydration by sipping Gatorade slowly. - A prescription for dicyclomine will be sent to manage abdominal cramping. - Advised against taking Imodium as the diarrhea is reportedly slowing down. - For the sore throat, gargling with warm salt water is recommended. - Educated the patient on the fecal-oral transmission of the virus and advised her to wear a mask and stay away from her , who is recovering from a cardiac procedure, to prevent transmission. - Will book a routine physical for a future date once she has recovered. Orders: Orders AMB Rapid Strep Screen Today Z13.9 - Encounter for screening, unspecified Medications: New dicyclomine 10 mg PO TID 21 caps 0RF stomach cramps 7 days
== END 2025-04-29 10:43 | disposition home or self-care (01) ==
PROVIDERS: PCP Internal Medicine; Visit Provider Internal Medicine
DX: K52.9 Noninfective gastroenteritis and colitis, unspecified (principal); E86.0 Dehydration; J02.8 Acute pharyngitis due to other specified organisms; R68.89 Other general symptoms and signs; F43.9 Reaction to severe stress, unspecified; Z13.9 Encounter for screening, unspecified

== ENCOUNTER → 2025-04-29 09:13 | Outpatient (BNVA) | payer OTHER, SELFPAY | PROVIDERS: PCP Internal Medicine; Visit Provider Internal Medicine | DX: J02.8 Acute pharyngitis due to other specified organisms (principal); E86.0 Dehydration; K52.9 Noninfective gastroenteritis and colitis, unspecified; R68.89 Other general symptoms and signs; F43.9 Reaction to severe stress, unspecified | CPT/HCPCS: 87880; 99212 ==